=== PATIENT | male | born 1965 | race Caucasian/White ===

== ENCOUNTER → 2016-10-10 | Outpatient (REF) | payer MEDICARE, MEDICAID ==
[~2016-10-10] MED LIST: /AUGM875TA OR; /CARB4TA OR; AMLO5TAB OR; AMLO5TAB2 PO; ATEN25TA PO; CALC1CAP31 PO; CALC500T49 OR; CARB20TAXR PO; ENAL10TA2 OR; FURO40TA2 OR; FURO40TA2 PO; INSUHUMDS SC; INSULANT SC; MULTTAB23 PO; NOVOLOG100 MG/ML SC; PERC5TAB8 OR; PLAV75TA PO; RENATAB5 PO; VITAMIN D50000 UNT OR; ZENP1CAP PO; [UNRECOGNIZED DRUG - CODE] OR; amoxil PO; citracal; zenpep
[2016-10-10 12:43] LABS: MEAN CORPUSCULAR HEMOGLOBIN 32.4 pg (27.0-33.0); MEAN CORPUSCULAR HGB CONC 33.3 g/dl (32.0-36.5); MEAN CORPUSCULAR VOLUME 97.5 fl (80.0-96.0); RED CELL DISTRIBUTION WIDTH 12.7 % (11.5-14.5); WHITE BLOOD COUNT 8.2 K/mm3 (4.0-10.0)
[2016-10-10 13:02] LABS: ALBUMIN 3.6 GM/DL (3.2-5.2); ALBUMIN/GLOBULIN RATIO 1.06 (1.00-1.93); BILIRUBIN,TOTAL 0.3 MG/DL (0.2-1.0); CALCIUM LEVEL 8.3 MG/DL (8.5-10.1); CARBAMAZEPINE (TEGRETOL) LEVEL 8.7 UG/ML (4.0-10.0); CREATININE FOR GFR 3.76 MG/DL (0.70-1.30); POTASSIUM SERUM 4.7 MEQ/L (3.5-5.1)
== END | disposition home or self-care (01) ==
LOC: M SFHCADAM 07:30
PROVIDERS: ATTEND Family Medicine
DX: N18.4 Chronic kidney disease, stage 4 (severe) (principal); E11.51 Type 2 diabetes mellitus with diabetic peripheral angiopathy without gangrene; E11.21 Type 2 diabetes mellitus with diabetic nephropathy; I11.9 Hypertensive heart disease without heart failure; G40.909 Epilepsy, unspecified, not intractable, without status epilepticus; E55.9 Vitamin D deficiency, unspecified

== ENCOUNTER 2016-10-11 16:08 | Emergency (ER) | payer MEDICARE, MEDICAID ==
[~2016-10-11 16:08] MED LIST changes: -PLAV75TA PO; +PLAV75TA38 PO
[2016-10-11] MEDS ORDERED: (RENVELA) SEVELAMER **CARBONate** 800 MG TAB PO ONE (17:15)
[2016-10-11 17:17] LABS: BASO % 0.2 % (0.0-1.0); EOS % 0.3 % (0.0-3.0); LARGE UNSTAINED CELL # 0.1 K/mm3 (0.0-0.4); LARGE UNSTAINED CELL % 0.7 % (0.0-4.0); LYMPH # 0.3 K/mm3 (1.5-4.5); LYMPH % 3.7 % (24.0-44.0); MEAN CORPUSCULAR HEMOGLOBIN 32.1 pg (27.0-33.0); MEAN CORPUSCULAR HGB CONC 33.2 g/dl (32.0-36.5); MEAN CORPUSCULAR VOLUME 96.7 fl (80.0-96.0); MONO # 0.3 K/mm3 (0.0-0.8); MONO % 3.5 % (0.0-5.0); NEUTROPHILS # 7.6 K/mm3 (1.8-7.7); NEUTROPHILS % 91.6 % (36.0-66.0); PLATELET COUNT, AUTOMATED 242 k/mm3 (150-450); RED CELL DISTRIBUTION WIDTH 12.5 % (11.5-14.5); WHITE BLOOD COUNT 8.3 K/mm3 (4.0-10.0)
--- NOTE | 2016-10-11 17:21 | ECGEPIP ---
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
--- NOTE | 2016-10-11 17:24 | REP ---
Clinical: Weakness and fatigue. Comparison: 08/13/2015. Findings: Hilar opacities (right greater than left) are concerning for underlying adenopathy as well as bronchitis and viral pneumonia. No further consolidation, effusion, or pneumothorax. Cardiac silhouette is normal. Skeletal structures intact. Impression: Increased hilar opacities. Differential diagnosis includes viral pneumonia and adenopathy. Chest CT may be warranted for further investigation. Signed by Ayaan Da Silva MD 10/11/2016 05:16 P
[2016-10-11] MEDS ORDERED: PANCRELIPASE PO ONE (17:30)
[2016-10-11 17:35] LABS: ALBUMIN 3.4 GM/DL (3.2-5.2); ALBUMIN/GLOBULIN RATIO 0.92 (1.00-1.93); BILIRUBIN,DIRECT 0.1 MG/DL (0.0-0.2); BILIRUBIN,TOTAL 0.2 MG/DL (0.2-1.0); CALCIUM LEVEL 8.6 MG/DL (8.5-10.1); CARBAMAZEPINE (TEGRETOL) LEVEL 11.6 UG/ML (4.0-10.0); CREATININE FOR GFR 3.63 MG/DL (0.70-1.30); GLOMERULAR FILTRATION RATE 18.8 (>56); POTASSIUM SERUM 4.5 MEQ/L (3.5-5.1); TOTAL PROTEIN 7.1 GM/DL (6.4-8.2)
--- NOTE | 2016-10-11 19:39 | EDDOCDS ---
Nurse's Notes [facility] Name: Brandi Dominguez Age: 51 yrs Sex: Male : 1965 Arrival Date: 10/11/2016 Time: 16:08 Bed 14 Private MD: Diagnosis: Chronic kidney disease, stage 4 (severe);Hypoglycemia, unspecified;Viral pneumonia, unspecified Presentation: 10/11 16:15 Presenting complaint: EMS states: Neighbor gave pt glucagon at home for FSBS 31. On EMS jo3 arrival, FSBS 58. SL initiated and amp D50 administered. FSBS 258. Pt unresponsive on arrival and is now responsive. 18g in RAC. Pt wanted to be transferred to [facility]. Usually signs off on scene. Adult Sepsis Screening: Patient has new or worsening altered mentation (1 point). Patient's respiratory rate is less than 22. Suicide/Homicide risk assessment- the patient denies having any suicidal and/or homicidal ideations and does not present with any other emotional, behavioral or mental health complaints. 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 Transition of care: patient was not received from another setting of care. 16:15 Acuity: OUSMANE Level 3 jo3 16:15 Method Of Arrival: Ambulance jo3 19:25 Adult Sepsis Screening: Systolic blood pressure is greater than 100. Patient has a tm5 qSOFA score of 0- Negative Sepsis Screen. Triage Assessment: 16:29 General: Appears in no apparent distress, Behavior is cooperative, drowsy. HIV jo3 screening NA for this visit Offered previously. Neurological: Level of Consciousness is awake, alert, Oriented to person, place, time. Cardiovascular: Dialysis graft to left arm. Good Bruit/thrill. Respiratory: Airway is patent Respiratory effort is even, unlabored. Derm: Skin is pink, warm & dry. 19:38 Pain: Denies pain. tm5 Historical: - Allergies: no known allergies; - Home Meds: 1. amlodipine 5 mg Oral tab 1 tab twice a day 2. atenolol 25 mg Oral tab 1 tab once daily 3. humalog sliding scale 4. hydralazine 50 mg Oral tab 2 tab 2 times per day 5. Lantus 100 unit/mL Sub-Q crtg 35 unit daily 6. Lasix 40 mg Oral tab 2 tabs 2 tabs in am and 1 tab in josef 7. Plavix 75 mg Oral tab 1 tab once daily 8. Karli-Nigel 0.8 mg oral tab daily 9. Tegretol XR 400 mg Oral Tb12 1 tab twice a day 10. Vitamin D Oral [address]40 unit weekly 11. calcitrol 0.25mcg 2 tab daily 12. Renvela 800 mg oral tab 4 tabs four times a day 13. Glucagon Emergency Kit (human) 1 mg IM kit as needed - PMHx: accidental drug overdose; concussion with LOC; Diabetes - IDDM: uncontrolled; Epilepsy; Hypertension; nasal bone fracture; Pancreatitis; Renal Failure w/o Dialysis; Renal Failure with Dialysis; - PSHx: eye surgery; AV Fistula- Left arm; - Family history: Not pertinent. - Social history: Smoking status: Patient uses tobacco products, light tobacco smoker. No barriers to communication noted. - : The pt / caregiver states he / she is on anticoagulants: The pt / caregiver states he / she is on anticoagulants: Plavix. Note Medications confirmed by [facility]. - Exposure Risk Screening:: None identified. Screenin:55 Screening information is obtained from the patient. Fall risk: No risks identified. jo3 Assistance ADL's: requires no assistance with activities of daily living. Abuse/DV Screen: The patient / caregiver reports he/she is: not in a situation that causes fear, pain or injury. Nutritional screening: On diabetic diet. Advance Directives: There is. home support is adequate. Assessment: 16:32 Reassessment: see triage assessment . jo3 17:05 General: Appears in no apparent distress, comfortable, Behavior is appropriate for age, jo3 cooperative. Neurological: Level of Consciousness is awake, alert. Respiratory: Airway is patent Respiratory effort is even, unlabored. Derm: Skin is pink, warm & dry. 18:00 General: Appears in no apparent distress, comfortable, Behavior is cooperative. jo3 General: Dinner consumed at this time. Continuing to monitor with friend at bedside . Neurological: Level of Consciousness is awake, alert, Oriented to person, place, time. 18:53 General: Appears in no apparent distress, comfortable, Behavior is appropriate for age, jo3 cooperative, restless. General: Awake and alert at this time. Awaiting results and f/u FASB at 1920 for disposition. Aware of plan of care. Pt has consumed macaroni and cheese and broccoli as well as 2 box lunches . Neurological: No deficits noted. Respiratory: Airway is patent Respiratory effort is even, unlabored. 19:23 Reassessment: Patient appears in no apparent distress at this time. Patient denies pain tm5 at this time. Patient states feeling better. Patient states symptoms have improved. PT ASKING TO GO HOME AT THIS TIME, TOLD HIM HE NEEDED TO WAIT FOR VACUUM KETTLE COOK TO DISCHARGE HIM, PT GETTING DRESSED & FAMILY AWAITS WITH PT . Vital Signs: 16:24 BP 180 / 79; Pulse 65; Resp 20; Temp 97.1(TE); Pulse Ox 97% ; Weight 65.77 kg; Pain jlf 0/10; 19:23 BP 168 / 72; Pulse 87; Resp 18; Temp 98.9(O); Pulse Ox 99% on R/A; Pain 0/10; tm5 Vitals: 16:29 Log In Time N/A - ambulance arrival. jo3 ED Course: 16:10 Patient visited by Abril Warren, Complaint Inspector. lbd 16:10 Patient moved to Waiting lbd 16:11 Patient moved to 14 lbd 16:20 Triage Initiated jo3 16:21 Patient visited by Floresita Atkinson,MIA. jo3 16:24 Patient visited by Ihsan Hyde PCA. jlf 16:24 Patient visited by Ihsan Hyde PCA. jlf 16:26 [facility] le 16:34 Patient visited by Nikia Canada FNP. le 16:34 Patient visited by Floresita Atkinson RN. jo3 16:37 Patient visited by Nikia Canada FNP. le 17:05 Patient visited by Floresita Atkinson RN. jo3 17:06 Patient visited by Sherita Kulkarni PCA. ls3 17:06 EKG done. (by ED staff). Reviewed by Nikia MURILLO. ls3 17:15 Maintain field IV. Dressing intact. Good blood return noted. Site clean & dry. Gauge & jo3 site: 18g in RAC. 17:26 [facility] [place] Payment Agreement was scanned into [employer] and attached to record. zo 18:01 Patient visited by Floresita Atkinson RN. jo3 18:06 EKG-ADULT Returned. EDMS 18:12 Chest, 2 View (pa\E\lat) Returned. EDMS 18:16 Patient visited by Floresita Atkinson,MIA. jo3 18:43 Patient visited by Ihsan Hyde PCA. jlf 18:43 Urine Culture Sent. jlf 18:43 UA Sent. jlf 18:55 The patient / caregiver is instructed regarding the plan of care and ED course. jo3 18:56 Patient visited by Floresita Atkinson RN. jo3 19:07 Patient visited by Landy Salazar RN. tm5 19:07 Report received from Floresita BELLAMY, assumed care of pt at this time. tm5 19:18 Patient visited by Landy Salazar RN. tm5 19:18 Notified nurse practitioner of 149 BLOOD GLUCOSE & PT ASKING TO GO HOME. tm5 19:22 Patient visited by Landy Salazar RN. tm5 19:22 Discontinued lock intact, bleeding controlled, pressure dressing applied, No tm5 redness/swelling at site. 19:23 No procedures done that require assistance. tm5 19:24 Fingerstick Blood Sugar Sent. tm5 19:28 Freddy Schulz MD is Referral Physician. le 19:29 Meet Mosqueda MD is Referral Physician. le 19:37 Patient visited by Landy Salazar RN. tm5 Administered Medications: 17:50 Drug: Renvela 3200 mg Route: PO; jo3 19:24 Follow up: Response: No Adverse Reaction tm5 17:50 Drug: Zenpep Delayed Release Capsule 10,000-34,000-55,000 unit 3 caps Route: PO; jo3 19:24 Follow up: Response: No Adverse Reaction tm5 Point of Care Testing: Blood Glucose: 19:18 Blood Glucose: 149 mg/dL; tm5 Ranges: Order Results: Lab Order: Fingerstick Blood Sugar; SPEC'M 10/11/16 16:30 Test: BEDSIDE GLUCOSE; Value: 368; Range: 70-105; Abnormal: Above high normal; Units: MG/DL; Status: F Lab Order: CBC with Diff; SPEC'M 10/11/16 16:59 Test: WHITE BLOOD COUNT; Value: 8.3; Range: 4.0-10.0; Units: K/mm3; Status: F Test: RED BLOOD COUNT; Value: 3.36; Range: 4.30-6.10; Abnormal: Below low normal; Units: M/mm3; Status: F Test: HEMOGLOBIN; Value: 10.8; Range: 14.0-18.0; Abnormal: Below low normal; Units: g/dl; Status: F Test: HEMATOCRIT; Value: 32.5; Range: 42.0-52.0; Abnormal: Below low normal; Units: %; Status: F Test: MEAN CORPUSCULAR VOLUME; Value: 96.7; Range: 80.0-96.0; Abnormal: Above high normal; Units: fl; Status: F Test: MEAN CORPUSCULAR HEMOGLOBIN; Value: 32.1; Range: 27.0-33.0; Units: pg; Status: F Test: MEAN CORPUSCULAR HGB CONC; Value: 33.2; Range: 32.0-36.5; Units: g/dl; Status: F Test: RED CELL DISTRIBUTION WIDTH; Value: 12.5; Range: 11.5-14.5; Units: %; Status: F Test: PLATELET COUNT, AUTOMATED; Value: 242; Range: 150-450; Units: k/mm3; Status: F Test: NEUTROPHILS %; Value: 91.6; Range: 36.0-66.0; Abnormal: Above high normal; Units: %; Status: F Test: LYMPH %; Value: 3.7; Range: 24.0-44.0; Abnormal: Below low normal; Units: %; Status: F Test: MONO %; Value: 3.5; Range: 0.0-5.0; Units: %; Status: F Test: EOS %; Value: 0.3; Range: 0.0-3.0; Units: %; Status: F Test: BASO %; Value: 0.2; Range: 0.0-1.0; Units: %; Status: F Test: LARGE UNSTAINED CELL %; Value: 0.7; Range: 0.0-4.0; Units: %; Status: F Test: NEUTROPHILS #; Value: 7.6; Range: 1.8-7.7; Units: K/mm3; Status: F Test: LYMPH #; Value: 0.3; Range: 1.5-4.5; Abnormal: Below low normal; Units: K/mm3; Status: F Test: MONO #; Value: 0.3; Range: 0.0-0.8; Units: K/mm3; Status: F Test: EOS #; Value: 0.0; Range: 0.0-0.50; Units: K/mm3; Status: F Test: BASO #; Value: 0.0; Range: 0.0-0.2; Units: K/mm3; Status: F Test: LARGE UNSTAINED CELL #; Value: 0.1; Range: 0.0-0.4; Units: K/mm3; Status: F Lab Order: BMP; SPEC'M 10/11/16 16:59 Test: GLUCOSE, FASTING; Value: 100; Range: 70-105; Units: MG/DL; Status: F Test: BLOOD UREA NITROGEN; Value: 86; Range: 7-18; Abnormal: Above high normal; Units: MG/DL; Status: F Test: CREATININE FOR GFR; Value: 3.63; Range: 0.70-1.30; Abnormal: Above high normal; Units: MG/DL; Status: F Test: GLOMERULAR FILTRATION RATE; Value: 18.8; Range: >56; Abnormal: Below low normal; Status: F Test: SODIUM LEVEL; Value: 142; Range: 136-145; Units: MEQ/L; Status: F Test: POTASSIUM SERUM; Value: 4.5; Range: 3.5-5.1; Units: MEQ/L; Status: F Test: CHLORIDE LEVEL; Value: 107; Range: 98-107; Units: MEQ/L; Status: F Test: CARBON DIOXIDE LEVEL; Value: 27; Range: 21-32; Units: MEQ/L; Status: F Test: ANION GAP; Value: 8; Range: 8-16; Units: MEQ/L; Status: F Test: CALCIUM LEVEL; Value: 8.6; Range: 8.5-10.1; Units: MG/DL; Status: F Test Note: ; Units are mL/min/1.73 m2 Chronic Kidney Disease Staging per NKF: Stage I & II GFR >=60 Normal to Mildly Decreased Stage III GFR 30-59 Moderately Decreased Stage IV GFR 15-29 Severely Decreased Stage V GFR <15 Very Little GFR Left ESRD GFR <15 on FISH 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 Lab Order: UA; SPEC'M 10/11/16 18:42 Test: APPEARANCE, URINE; Value: CLEAR; Range: CLEAR; Status: F Test: COLOR, URINE; Value: YELLOW; Range: YELLOW; Status: F Test: PH,URINE; Value: 5.0; Range: 5.0-9.0; Units: UNITS; Status: F Test: SPECIFIC GRAVITY URINE AUTO; Value: 1.008; Range: 1.002-1.035; Status: F Test: PROTEIN, URINE AUTO; Value: 2+; Range: NEGATIVE; Abnormal: Above high normal; Units: mg/dL; Status: F Test: GLUCOSE, URINE (UA) AUTO; Value: 1+; Range: NEGATIVE; Abnormal: Above high normal; Units: mg/dL; Status: F Test: KETONE, URINE AUTO; Value: NEGATIVE; Range: NEGATIVE; Units: mg/dL; Status: F Test: UROBILINOGEN, URINE AUTO; Value: 0.2; Range: 0.0-2.0; Units: mg/dL; Status: F Test: BILIRUBIN, URINE AUTO; Value: NEGATIVE; Range: NEGATIVE; Status: F Test: NITRITE, URINE AUTO; Value: NEGATIVE; Range: NEGATIVE; Status: F Test: LEUKOCYTE ESTERASE, URINE AUTO; Value: NEGATIVE; Range: NEGATIVE; Status: F Test: BLOOD, URINE BLOOD; Value: NEGATIVE; Range: NEGATIVE; Status: F Test: WBC, URINE AUTO; Value: 0; Range: 0-3; Units: /HPF; Status: F Test: RBC, URINE AUTO; Value: 1; Range: 0-3; Units: /HPF; Status: F Test: BACTERIA, URINE AUTO; Value: NEGATIVE; Range: NEGATIVE; Status: F Test: SQUAMOUS EPITHELIAL CELL UR AU; Value: 0; Range: 0-6; Units: /HPF; Status: F Test: MUCUS, URINE; Value: SMALL; Range: NEGATIVE; Status: F Test: HYALINE CAST, URINE AUTO; Value: 0; Range: 0-1; Units: /LPF; Status: F Lab Order: LIVER PROFILE; SPEC'M 10/11/16 16:59 Test: AST/SGOT; Value: 37; Range: 15-37; Units: U/L; Status: F Test: ALT/SGPT; Value: 41; Range: 12-78; Units: U/L; Status: F Test: ALKALINE PHOSPHATASE; Value: 122; Range: 45-117; Abnormal: Above high normal; Units: U/L; Status: F Test: BILIRUBIN,TOTAL; Value: 0.2; Range: 0.2-1.0; Units: MG/DL; Status: F Test: BILIRUBIN,DIRECT; Value: 0.1; Range: 0.0-0.2; Units: MG/DL; Status: F Test: TOTAL PROTEIN; Value: 7.1; Range: 6.4-8.2; Units: GM/DL; Status: F Test: ALBUMIN; Value: 3.4; Range: 3.2-5.2; Units: GM/DL; Status: F Test: ALBUMIN/GLOBULIN RATIO; Value: 0.92; Range: 1.00-1.93; Abnormal: Below low normal; Status: F Lab Order: CARBAMAZEPINE (TEGRETOL) LEVEL; SPEC'M 10/11/16 16:59 Test: CARBAMAZEPINE (TEGRETOL) LEVEL; Value: 11.6; Range: 4.0-10.0; Abnormal: Above high normal; Units: UG/ML; Status: F Lab Order: Fingerstick Blood Sugar; SPEC'M 10/11/16 19:17 Test: BEDSIDE GLUCOSE; Value: 149; Range: 70-105; Abnormal: Above high normal; Units: MG/DL; Status: F Test Note: ; Doctor Notified Radiology Order: Chest, 2 View (pa\E\lat) Test: Chest, 2 View (pa\E\lat) REASON FOR EXAMINATION: fatigue, weakness; Clinical: Weakness and fatigue.; ; Comparison: 08/13/2015.; ; Findings:; Hilar opacities (right greater than left) are concerning for underlying; adenopathy as well as bronchitis and viral pneumonia. No further consolidation,; effusion, or pneumothorax. Cardiac silhouette is normal. Skeletal structures; intact.; ; Impression:; Increased hilar opacities. Differential diagnosis includes viral pneumonia and; adenopathy. 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 tm5 19:29 Discharge ordered by Provider. le 19:37 Discharge Assessment: Patient awake, alert and oriented x 3. No cognitive and/or tm5 functional deficits noted. Patient verbalized understanding of disposition instructions. patient administered narcotics - no. The following High Risk Discharge criteria are identified: None. Discharged to home ambulatory, with family. Condition: good Condition: stable Condition: improved. Discharge instructions given to patient, Instructed on discharge instructions, follow up and referral plans. Demonstrated understanding of instructions. Property :Personal belongings accompany Pt. 19:38 Patient left the ED. tm5 Signatures: Dispatcher [employer] EDMS Abril Warren, Complaint Inspector Unit lbd Floresita Atkinson,RN RN chase3 Etelvina Leonardo Lisa, FNP FNP le [place], Jennifer, RN RN carl4 Ihsan Hyde, ADMINISTRATIVE SPECIALIST ADMINISTRATIVE SPECIALIST gueritaf Sherita Kulkarni, ADMINISTRATIVE SPECIALIST ADMINISTRATIVE SPECIALIST ls3 Landy Salazar,RN RN tm5 Corrections: (The following items were deleted from the chart) 17:02 16:29 Home Meds: calcitrol 0.25mcg daily; genet aldana MTDD
--- NOTE | 2016-10-11 19:39 | EDDOCDS ---
Physician Documentation [facility] Name: Ernesto Jones Age: 51 yrs Sex: Male : 1965 Arrival Date: 10/11/2016 Time: 16:08 Bed 14 Private MD: Disposition: 10/11 19:31 Critical Care: Critical care not applicable. le Disposition: 10/11/16 19:29 Discharged to Home/Self Care. Impression: Chronic kidney disease, stage 4 (severe), Hypoglycemia, unspecified, Viral pneumonia, unspecified. - Condition is Stable. - Discharge Instructions: Blood Glucose Monitoring, Adult, Antibiotic Resistance, Hypoglycemia, Pneumonia, Adult, Chronic Kidney Disease. - Medication Reconciliation, Local Pharmacy Hours form. - Follow up: Freddy Schulz MD; When: Call to arrange an appointment; Reason: Recheck today's complaints, Continuance of care. Follow up: Meet Mosqueda MD; When: Call to arrange an appointment; Reason: Recheck today's complaints, Continuance of care. - Problem is an acute exacerbation. - Symptoms are resolved. - Notes: Return to the ED for any further concerns Historical: - Allergies: no known allergies; - Home Meds: 1. amlodipine 5 mg Oral tab 1 tab twice a day 2. atenolol 25 mg Oral tab 1 tab once daily 3. humalog sliding scale 4. hydralazine 50 mg Oral tab 2 tab 2 times per day 5. Lantus 100 unit/mL Sub-Q crtg 35 unit daily 6. Lasix 40 mg Oral tab 2 tabs 2 tabs in am and 1 tab in josef 7. Plavix 75 mg Oral tab 1 tab once daily 8. Karli-Nigel 0.8 mg oral tab daily 9. Tegretol XR 400 mg Oral Tb12 1 tab twice a day 10. Vitamin D Oral 29187 unit weekly 11. calcitrol 0.25mcg 2 tab daily 12. Renvela 800 mg oral tab 4 tabs four times a day 13. Glucagon Emergency Kit (human) 1 mg IM kit as needed - PMHx: accidental drug overdose; concussion with LOC; Diabetes - IDDM: uncontrolled; Epilepsy; Hypertension; nasal bone fracture; Pancreatitis; Renal Failure w/o Dialysis; Renal Failure with Dialysis; - PSHx: eye surgery; AV Fistula- Left arm; - Family history: Not pertinent. - Social history: Smoking status: Patient uses tobacco products, light tobacco smoker. No barriers to communication noted. - : The pt / caregiver states he / she is on anticoagulants: The pt / caregiver states he / she is on anticoagulants: Plavix. Note Medications confirmed by [facility]. - Exposure Risk Screening:: None identified. Vital Signs: 16:24 BP 180 / 79; Pulse 65; Resp 20; Temp 97.1(TE); Pulse Ox 97% ; Weight 65.77 kg / 145 jlf lbs; Pain 0/10; 19:23 BP 168 / 72; Pulse 87; Resp 18; Temp 98.9(O); Pulse Ox 99% on R/A; Pain 0/10; tm5 MDM: 16:38 Fingerstick Blood Sugar Ordered. EDMS 16:48 Accucheck hourly ordered. le 16:48 CONSISTENT CARBOHYDRATE+DIET ordered. EDMS 16:50 CBC with Diff Ordered. EDMS 16:50 BMP Ordered. EDMS 16:50 UA Ordered. EDMS 16:50 Urine Culture Ordered. EDMS 16:50 Chest, 2 View (pa\E\lat) Ordered. EDMS 16:50 ECG WITH READING ER PHYS+CARDIAG ordered. EDMS 16:59 LIVER PROFILE Ordered. EDMS 16:59 CARBAMAZEPINE (TEGRETOL) LEVEL Ordered. EDMS 17:06 Renvela 3200 mg PO once; must administer with a meal/food; swallow whole; do not crush, jc4 chew, break, or cut ordered. 17:24 Zenpep Delayed Release Capsule 10,000-34,000-55,000 unit 3 caps PO once; administer jo3 during a snack; do not crush/chew ; swallow whole OR open/sprinkle on food; DNExceed 10,000 units/kg lipase/24 hrs ordered. 17:26 Financial registration complete. zo 17:26 [facility] [place] Payment Agreement was scanned into [employer] and attached to record. zo 19:24 Fingerstick Blood Sugar Ordered. EDMS 19:24 Fingerstick Blood Sugar Reviewed. le 19:24 CBC with Diff Reviewed. le 19:24 BMP Reviewed. le 19:24 UA Reviewed. le 19:24 LIVER PROFILE Reviewed. le 19:24 CARBAMAZEPINE (TEGRETOL) LEVEL Reviewed. le 19:24 Chest, 2 View (pa\E\lat) Reviewed. le 19:24 EKG-ADULT Reviewed. le 19:30 Fingerstick Blood Sugar Reviewed. le Point of Care Testing: Blood Glucose: 19:18 Blood Glucose: 149 mg/dL; tm5 Ranges: Administered Medications: 17:50 Drug: Renvela 3200 mg Route: PO; jo3 19:24 Follow up: Response: No Adverse Reaction tm5 17:50 Drug: Zenpep Delayed Release Capsule 10,000-34,000-55,000 unit 3 caps Route: PO; jo3 19:24 Follow up: Response: No Adverse Reaction tm5 Signatures: Dispatcher [employer] EDMS Floresita Atkinson,RN RN jo3 Etelvina Leonardo Lisa, FNP FNP [place], Jennifer, MIA RN jc4 Landy SalazarRN RN tm5 The chart was reviewed and I authenticate all verbal orders and agree with the evaluation and treatment provided.Corrections: (The following items were deleted from the chart) 16:59 16:51 CARBAMAZEPINE (TEGRETOL) LEVEL+LAB ordered. EDMS EDMS 16:59 16:54 LIVER PROFILE+LAB ordered. EDMS EDMS 17:02 16:29 Home Meds: calcitrol 0.25mcg daily; jo3 jc4 Attachments: 17:26 [facility] [place] Payment Agreement zo MTDD
--- NOTE | 2016-10-13 20:39 | EDDOCDS ---
Physician Documentation [facility] Name: Ernesto Jones Age: 51 yrs Sex: Male : 1965 Arrival Date: 10/11/2016 Time: 16:08 Bed 14 Private MD: Disposition: 10/11 19:31 Critical Care: Critical care not applicable. le Disposition: 10/11/16 19:29 Discharged to Home/Self Care. Impression: Chronic kidney disease, stage 4 (severe), Hypoglycemia, unspecified, Viral pneumonia, unspecified. - Condition is Stable. - Discharge Instructions: Blood Glucose Monitoring, Adult, Antibiotic Resistance, Hypoglycemia, Pneumonia, Adult, Chronic Kidney Disease. - Medication Reconciliation, Local Pharmacy Hours form. - Follow up: Freddy Schulz MD; When: Call to arrange an appointment; Reason: Recheck today's complaints, Continuance of care. Follow up: Meet Mosqueda MD; When: Call to arrange an appointment; Reason: Recheck today's complaints, Continuance of care. - Problem is an acute exacerbation. - Symptoms are resolved. - Notes: Return to the ED for any further concerns Historical: - Allergies: no known allergies; - Home Meds: 1. amlodipine 5 mg Oral tab 1 tab twice a day 2. atenolol 25 mg Oral tab 1 tab once daily 3. humalog sliding scale 4. hydralazine 50 mg Oral tab 2 tab 2 times per day 5. Lantus 100 unit/mL Sub-Q crtg 35 unit daily 6. Lasix 40 mg Oral tab 2 tabs 2 tabs in am and 1 tab in josef 7. Plavix 75 mg Oral tab 1 tab once daily 8. Karli-Nigel 0.8 mg oral tab daily 9. Tegretol XR 400 mg Oral Tb12 1 tab twice a day 10. Vitamin D Oral 61369 unit weekly 11. calcitrol 0.25mcg 2 tab daily 12. Renvela 800 mg oral tab 4 tabs four times a day 13. Glucagon Emergency Kit (human) 1 mg IM kit as needed - PMHx: accidental drug overdose; concussion with LOC; Diabetes - IDDM: uncontrolled; Epilepsy; Hypertension; nasal bone fracture; Pancreatitis; Renal Failure w/o Dialysis; Renal Failure with Dialysis; - PSHx: eye surgery; AV Fistula- Left arm; - Family history: Not pertinent. - Social history: Smoking status: Patient uses tobacco products, light tobacco smoker. No barriers to communication noted. - : The pt / caregiver states he / she is on anticoagulants: The pt / caregiver states he / she is on anticoagulants: Plavix. Note Medications confirmed by [facility]. - Exposure Risk Screening:: None identified. Vital Signs: 16:24 BP 180 / 79; Pulse 65; Resp 20; Temp 97.1(TE); Pulse Ox 97% ; Weight 65.77 kg / 145 jlf lbs; Pain 0/10; 19:23 BP 168 / 72; Pulse 87; Resp 18; Temp 98.9(O); Pulse Ox 99% on R/A; Pain 0/10; tm5 MDM: 16:38 Fingerstick Blood Sugar Ordered. EDMS 16:48 Accucheck hourly ordered. le 16:48 CONSISTENT CARBOHYDRATE+DIET ordered. EDMS 16:50 CBC with Diff Ordered. EDMS 16:50 BMP Ordered. EDMS 16:50 UA Ordered. EDMS 16:50 Urine Culture Ordered. EDMS 16:50 Chest, 2 View (pa\E\lat) Ordered. EDMS 16:50 ECG WITH READING ER PHYS+CARDIAG ordered. EDMS 16:59 LIVER PROFILE Ordered. EDMS 16:59 CARBAMAZEPINE (TEGRETOL) LEVEL Ordered. EDMS 17:06 Renvela 3200 mg PO once; must administer with a meal/food; swallow whole; do not crush, jc4 chew, break, or cut ordered. 17:24 Zenpep Delayed Release Capsule 10,000-34,000-55,000 unit 3 caps PO once; administer jo3 during a snack; do not crush/chew ; swallow whole OR open/sprinkle on food; DNExceed 10,000 units/kg lipase/24 hrs ordered. 17:26 Financial registration complete. zo 17:26 [facility] Payment Agreement was scanned into e[employer] and attached to record. zo 19:24 Fingerstick Blood Sugar Ordered. EDMS 19:24 Fingerstick Blood Sugar Reviewed. le 19:24 CBC with Diff Reviewed. le 19:24 BMP Reviewed. le 19:24 UA Reviewed. le 19:24 LIVER PROFILE Reviewed. le 19:24 CARBAMAZEPINE (TEGRETOL) LEVEL Reviewed. le 19:24 Chest, 2 View (pa\E\lat) Reviewed. le 19:24 EKG-ADULT Reviewed. le 19:30 Fingerstick Blood Sugar Reviewed. le 10/12 08:16 T-Sheet-- Draft Copy was scanned into eF[employer] and attached to record. [facility] 11:11 ECG/EKG was scanned into [employer] and attached to record. 10/13 16:56 PCR was scanned into [employer] and attached to record. klr Point of Care Testing: Blood Glucose: 10/11 19:18 Blood Glucose: 149 mg/dL; tm5 Ranges: Administered Medications: 17:50 Drug: Renvela 3200 mg Route: PO; jo3 19:24 Follow up: Response: No Adverse Reaction tm5 17:50 Drug: Zenpep Delayed Release Capsule 10,000-34,000-55,000 unit 3 caps Route: PO; jo3 19:24 Follow up: Response: No Adverse Reaction tm5 Signatures: Dispatcher [employer] EDMS Yumiko Aguilar, Reg Reg Floresita Escalante,RN RN jo3 Etelvina Leonardo Lisa, ROTARY DRUM TANNER ROTARY DRUM TANNER Floresita Nunn, RN RN jc4 Jennifer Schmidt Kathie klr Matice, Tonya,RN RN tm5 The chart was reviewed and I authenticate all verbal orders and agree with the evaluation and treatment provided.Corrections: (The following items were deleted from the chart) 16:59 16:51 CARBAMAZEPINE (TEGRETOL) LEVEL+LAB ordered. EDMS EDMS 16:59 16:54 LIVER PROFILE+LAB ordered. EDMS EDMS 17:02 16:29 Home Meds: calcitrol 0.25mcg daily; genet jc4 Attachments: 17:26 [facility] Payment Agreement zo 10/12 08:16 T-Sheet-- Draft Copy [facility] 11:11 ECG/EKG Chart Complete MTDD
--- NOTE | 2016-10-13 20:39 | EDDOCDS ---
Nurse's Notes [facility] Name: Brandi Jones Age: 51 yrs Sex: Male : 1965 Arrival Date: 10/11/2016 Time: 16:08 Bed 14 Private MD: Diagnosis: Chronic kidney disease, stage 4 (severe);Hypoglycemia, unspecified;Viral pneumonia, unspecified Presentation: 10/11 16:15 Presenting complaint: EMS states: Neighbor gave pt glucagon at home for FSBS 31. On EMS jo3 arrival, FSBS 58. SL initiated and amp D50 administered. FSBS 258. Pt unresponsive on arrival and is now responsive. 18g in RAC. Pt wanted to be transferred to [facility]. Usually signs off on scene. Adult Sepsis Screening: Patient has new or worsening altered mentation (1 point). Patient's respiratory rate is less than 22. Suicide/Homicide risk assessment- the patient denies having any suicidal and/or homicidal ideations and does not present with any other emotional, behavioral or mental health complaints. Status: Patient is not a dental services director or dependent. Transition of care: patient was not received from another setting of care. 16:15 Acuity: OUSMANE Level 3 jo3 16:15 Method Of Arrival: Ambulance jo3 19:25 Adult Sepsis Screening: Systolic blood pressure is greater than 100. Patient has a tm5 qSOFA score of 0- Negative Sepsis Screen. Triage Assessment: 16:29 General: Appears in no apparent distress, Behavior is cooperative, drowsy. HIV jo3 screening NA for this visit Offered previously. Neurological: Level of Consciousness is awake, alert, Oriented to person, place, time. Cardiovascular: Dialysis graft to left arm. Good Bruit/thrill. Respiratory: Airway is patent Respiratory effort is even, unlabored. Derm: Skin is pink, warm & dry. 19:38 Pain: Denies pain. tm5 Historical: - Allergies: no known allergies; - Home Meds: 1. amlodipine 5 mg Oral tab 1 tab twice a day 2. atenolol 25 mg Oral tab 1 tab once daily 3. humalog sliding scale 4. hydralazine 50 mg Oral tab 2 tab 2 times per day 5. Lantus 100 unit/mL Sub-Q crtg 35 unit daily 6. Lasix 40 mg Oral tab 2 tabs 2 tabs in am and 1 tab in josef 7. Plavix 75 mg Oral tab 1 tab once daily 8. Karli-Nigel 0.8 mg oral tab daily 9. Tegretol XR 400 mg Oral Tb12 1 tab twice a day 10. Vitamin D Oral 80451 unit weekly 11. calcitrol 0.25mcg 2 tab daily 12. Renvela 800 mg oral tab 4 tabs four times a day 13. Glucagon Emergency Kit (human) 1 mg IM kit as needed - PMHx: accidental drug overdose; concussion with LOC; Diabetes - IDDM: uncontrolled; Epilepsy; Hypertension; nasal bone fracture; Pancreatitis; Renal Failure w/o Dialysis; Renal Failure with Dialysis; - PSHx: eye surgery; AV Fistula- Left arm; - Family history: Not pertinent. - Social history: Smoking status: Patient uses tobacco products, light tobacco smoker. No barriers to communication noted. - : The pt / caregiver states he / she is on anticoagulants: The pt / caregiver states he / she is on anticoagulants: Plavix. Note Medications confirmed by [facility]. - Exposure Risk Screening:: None identified. Screenin:55 Screening information is obtained from the patient. Fall risk: No risks identified. jo3 Assistance ADL's: requires no assistance with activities of daily living. Abuse/DV Screen: The patient / caregiver reports he/she is: not in a situation that causes fear, pain or injury. Nutritional screening: On diabetic diet. Advance Directives: There is. home support is adequate. Assessment: 16:32 Reassessment: see triage assessment . jo3 17:05 General: Appears in no apparent distress, comfortable, Behavior is appropriate for age, jo3 cooperative. Neurological: Level of Consciousness is awake, alert. Respiratory: Airway is patent Respiratory effort is even, unlabored. Derm: Skin is pink, warm & dry. 18:00 General: Appears in no apparent distress, comfortable, Behavior is cooperative. jo3 General: Dinner consumed at this time. Continuing to monitor with friend at bedside . Neurological: Level of Consciousness is awake, alert, Oriented to person, place, time. 18:53 General: Appears in no apparent distress, comfortable, Behavior is appropriate for age, jo3 cooperative, restless. General: Awake and alert at this time. Awaiting results and f/u FASB at 1920 for disposition. Aware of plan of care. Pt has consumed macaroni and cheese and broccoli as well as 2 box lunches . Neurological: No deficits noted. Respiratory: Airway is patent Respiratory effort is even, unlabored. 19:23 Reassessment: Patient appears in no apparent distress at this time. Patient denies pain tm5 at this time. Patient states feeling better. Patient states symptoms have improved. 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 Vital Signs: 16:24 BP 180 / 79; Pulse 65; Resp 20; Temp 97.1(TE); Pulse Ox 97% ; Weight 65.77 kg; Pain jlf 0/10; 19:23 BP 168 / 72; Pulse 87; Resp 18; Temp 98.9(O); Pulse Ox 99% on R/A; Pain 0/10; tm5 Vitals: 16:29 Log In Time N/A - ambulance arrival. jo3 ED Course: 16:10 Patient visited by Abril Warren, Quality Control Industrial Engineer. lbd 16:10 Patient moved to Waiting lbd 16:11 Patient moved to 14 lbd 16:20 Triage Initiated jo3 16:21 Patient visited by Floresita Atkinson,MIA. jo3 16:24 Patient visited by Ihsan Hyde PCA. jlf 16:24 Patient visited by Ihsan Hyde PCA. jlf 16:26 Nikia Canada FNP [facility]. le 16:34 Patient visited by Nikia Canada FNP. le 16:34 Patient visited by Floresita Atkinson RN. jo3 16:37 Patient visited by Nikia Canada FNP. le 17:05 Patient visited by Floresita Atkinson RN. jo3 17:06 Patient visited by Sherita Kulkarni PCA. ls3 17:06 EKG done. (by ED staff). Reviewed by Nikia MURILLO. ls3 17:15 Maintain field IV. Dressing intact. Good blood return noted. Site clean & dry. Gauge & jo3 site: 18g in RAC. 17:26 [facility] Payment Agreement was scanned into [employer] and attached to record. zo 18:01 Patient visited by Floresita Atkinson RN. jo3 18:06 EKG-ADULT Returned. EDMS 18:12 Chest, 2 View (pa\E\lat) Returned. EDMS 18:16 Patient visited by Floresita Atkinson,MIA. jo3 18:43 Patient visited by Ihsan Hyde PCA. jlf 18:43 Urine Culture Sent. jlf 18:43 UA Sent. jlf 18:55 The patient / caregiver is instructed regarding the plan of care and ED course. jo3 18:56 Patient visited by Floresita Atkinson RN. jo3 19:07 Patient visited by Landy Salazar RN. tm5 19:07 Report received from Floresita BELLAMY, assumed care of pt at this time. tm5 19:18 Patient visited by Landy Salazar RN. tm5 19:18 Notified nurse practitioner of 149 BLOOD GLUCOSE & PT ASKING TO GO HOME. tm5 19:22 Patient visited by Landy Salazar RN. tm5 19:22 Discontinued lock intact, bleeding controlled, pressure dressing applied, No tm5 redness/swelling at site. 19:23 No procedures done that require assistance. tm5 19:24 Fingerstick Blood Sugar Sent. tm5 19:28 Freddy Schulz MD is Referral Physician. le 19:29 Meet Mosqueda MD is Referral Physician. le 19:37 Patient visited by Landy Salazar RN. tm5 10/12 08:16 T-Sheet-- Draft Copy was scanned into [employer] and attached to record. se 11:11 ECG/EKG was scanned into [employer] and attached to record. gb 10/13 16:56 PCR was scanned into [employer] and attached to record. klr Administered Medications: 10/11 17:50 Drug: Renvela 3200 mg Route: PO; jo3 19:24 Follow up: Response: No Adverse Reaction tm5 17:50 Drug: Zenpep Delayed Release Capsule 10,000-34,000-55,000 unit 3 caps Route: PO; jo3 19:24 Follow up: Response: No Adverse Reaction tm5 Point of Care Testing: Blood Glucose: 19:18 Blood Glucose: 149 mg/dL; tm5 Ranges: Order Results: Lab Order: Fingerstick Blood Sugar; SPEC'M 10/11/16 16:30 Test: BEDSIDE GLUCOSE; Value: 368; Range: 70-105; Abnormal: Above high normal; Units: MG/DL; Status: F Lab Order: CBC with Diff; SPEC'M 10/11/16 16:59 Test: WHITE BLOOD COUNT; Value: 8.3; Range: 4.0-10.0; Units: K/mm3; Status: F Test: RED BLOOD COUNT; Value: 3.36; Range: 4.30-6.10; Abnormal: Below low normal; Units: M/mm3; Status: F Test: HEMOGLOBIN; Value: 10.8; Range: 14.0-18.0; Abnormal: Below low normal; Units: g/dl; Status: F Test: HEMATOCRIT; Value: 32.5; Range: 42.0-52.0; Abnormal: Below low normal; Units: %; Status: F Test: MEAN CORPUSCULAR VOLUME; Value: 96.7; Range: 80.0-96.0; Abnormal: Above high normal; Units: fl; Status: F Test: MEAN CORPUSCULAR HEMOGLOBIN; Value: 32.1; Range: 27.0-33.0; Units: pg; Status: F Test: MEAN CORPUSCULAR HGB CONC; Value: 33.2; Range: 32.0-36.5; Units: g/dl; Status: F Test: RED CELL DISTRIBUTION WIDTH; Value: 12.5; Range: 11.5-14.5; Units: %; Status: F Test: PLATELET COUNT, AUTOMATED; Value: 242; Range: 150-450; Units: k/mm3; Status: F Test: NEUTROPHILS %; Value: 91.6; Range: 36.0-66.0; Abnormal: Above high normal; Units: %; Status: F Test: LYMPH %; Value: 3.7; Range: 24.0-44.0; Abnormal: Below low normal; Units: %; Status: F Test: MONO %; Value: 3.5; Range: 0.0-5.0; Units: %; Status: F Test: EOS %; Value: 0.3; Range: 0.0-3.0; Units: %; Status: F Test: BASO %; Value: 0.2; Range: 0.0-1.0; Units: %; Status: F Test: LARGE UNSTAINED CELL %; Value: 0.7; Range: 0.0-4.0; Units: %; Status: F Test: NEUTROPHILS #; Value: 7.6; Range: 1.8-7.7; Units: K/mm3; Status: F Test: LYMPH #; Value: 0.3; Range: 1.5-4.5; Abnormal: Below low normal; Units: K/mm3; Status: F Test: MONO #; Value: 0.3; Range: 0.0-0.8; Units: K/mm3; Status: F Test: EOS #; Value: 0.0; Range: 0.0-0.50; Units: K/mm3; Status: F Test: BASO #; Value: 0.0; Range: 0.0-0.2; Units: K/mm3; Status: F Test: LARGE UNSTAINED CELL #; Value: 0.1; Range: 0.0-0.4; Units: K/mm3; Status: F Lab Order: [facility]; SPEC'M 10/11/16 16:59 Test: GLUCOSE, FASTING; Value: 100; Range: 70-105; Units: MG/DL; Status: F Test: BLOOD UREA NITROGEN; Value: 86; Range: 7-18; Abnormal: Above high normal; Units: MG/DL; Status: F Test: CREATININE FOR GFR; Value: 3.63; Range: 0.70-1.30; Abnormal: Above high normal; Units: MG/DL; Status: F Test: GLOMERULAR FILTRATION RATE; Value: 18.8; Range: >56; Abnormal: Below low normal; Status: F Test: SODIUM LEVEL; Value: 142; Range: 136-145; Units: MEQ/L; Status: F Test: POTASSIUM SERUM; Value: 4.5; Range: 3.5-5.1; Units: MEQ/L; Status: F Test: CHLORIDE LEVEL; Value: 107; Range: 98-107; Units: MEQ/L; Status: F Test: CARBON DIOXIDE LEVEL; Value: 27; Range: 21-32; Units: MEQ/L; Status: F Test: ANION GAP; Value: 8; Range: 8-16; Units: MEQ/L; Status: F Test: CALCIUM LEVEL; Value: 8.6; Range: 8.5-10.1; Units: MG/DL; Status: F Test Note: ; Units are mL/min/1.73 m2 Chronic Kidney Disease Staging per NKF: Stage I & II GFR >=60 Normal to Mildly Decreased Stage III GFR 30-59 Moderately Decreased Stage IV GFR 15-29 Severely Decreased Stage V GFR <15 Very Little GFR Left ESRD GFR <15 on MANAGER GROUP Lab Order: UA; GLADIS'Nancy 10/11/16 18:42 Test: APPEARANCE, URINE; Value: CLEAR; Range: CLEAR; Status: F Test: COLOR, URINE; Value: YELLOW; Range: YELLOW; Status: F Test: PH,URINE; Value: 5.0; Range: 5.0-9.0; Units: UNITS; Status: F Test: SPECIFIC GRAVITY URINE AUTO; Value: 1.008; Range: 1.002-1.035; Status: F Test: PROTEIN, URINE AUTO; Value: 2+; Range: NEGATIVE; Abnormal: Above high normal; Units: mg/dL; Status: F Test: GLUCOSE, URINE (UA) AUTO; Value: 1+; Range: NEGATIVE; Abnormal: Above high normal; Units: mg/dL; Status: F Test: KETONE, URINE AUTO; Value: NEGATIVE; Range: NEGATIVE; Units: mg/dL; Status: F Test: UROBILINOGEN, URINE AUTO; Value: 0.2; Range: 0.0-2.0; Units: mg/dL; Status: F Test: BILIRUBIN, URINE AUTO; Value: NEGATIVE; Range: NEGATIVE; Status: F Test: NITRITE, URINE AUTO; Value: NEGATIVE; Range: NEGATIVE; Status: F Test: LEUKOCYTE ESTERASE, URINE AUTO; Value: NEGATIVE; Range: NEGATIVE; Status: F Test: BLOOD, URINE BLOOD; Value: NEGATIVE; Range: NEGATIVE; Status: F Test: WBC, URINE AUTO; Value: 0; Range: 0-3; Units: /HPF; Status: F Test: RBC, URINE AUTO; Value: 1; Range: 0-3; Units: /HPF; Status: F Test: BACTERIA, URINE AUTO; Value: NEGATIVE; Range: NEGATIVE; Status: F Test: SQUAMOUS EPITHELIAL CELL UR AU; Value: 0; Range: 0-6; Units: /HPF; Status: F Test: MUCUS, URINE; Value: SMALL; Range: NEGATIVE; Status: F Test: HYALINE CAST, URINE AUTO; Value: 0; Range: 0-1; Units: /LPF; Status: F Lab Order: Urine Culture; SPEC'M 10/11/16 18:42 Test: URINE CULTURE; Value: URINE CULTURE RESULT NO GROWTH; Status: F Lab Order: LIVER PROFILE; SPEC10/11/16 16:59 Test: AST/SGOT; Value: 37; Range: 15-37; Units: U/L; Status: F Test: ALT/SGPT; Value: 41; Range: 12-78; Units: U/L; Status: F Test: ALKALINE PHOSPHATASE; Value: 122; Range: 45-117; Abnormal: Above high normal; Units: U/L; Status: F Test: BILIRUBIN,TOTAL; Value: 0.2; Range: 0.2-1.0; Units: MG/DL; Status: F Test: BILIRUBIN,DIRECT; Value: 0.1; Range: 0.0-0.2; Units: MG/DL; Status: F Test: TOTAL PROTEIN; Value: 7.1; Range: 6.4-8.2; Units: GM/DL; Status: F Test: ALBUMIN; Value: 3.4; Range: 3.2-5.2; Units: GM/DL; Status: F Test: ALBUMIN/GLOBULIN RATIO; Value: 0.92; Range: 1.00-1.93; Abnormal: Below low normal; Status: F Lab Order: CARBAMAZEPINE (TEGRETOL) LEVEL; 10/11/16 16:59 Test: CARBAMAZEPINE (TEGRETOL) LEVEL; Value: 11.6; Range: 4.0-10.0; Abnormal: Above high normal; Units: UG/ML; Status: F Lab Order: Fingerstick Blood Sugar; SPEC10/11/16 19:17 Test: BEDSIDE GLUCOSE; Value: 149; Range: 70-105; Abnormal: Above high normal; Units: MG/DL; Status: F Test Note: ; Doctor Notified Lab Order: Fingerstick Blood Sugar; SPEC'M 10/11/16 18:21 Test: BEDSIDE GLUCOSE; Value: 90; Range: 70-105; Units: MG/DL; Status: F Lab Order: Fingerstick Blood Sugar; SPEC'10/11/16 18:22 Test: BEDSIDE GLUCOSE; Value: 91; Range: 70-105; Units: MG/DL; Status: F Radiology Order: Chest, 2 View (pa\E\lat) Test: Chest, 2 View (pa\E\lat) REASON FOR EXAMINATION: fatigue, weakness; Clinical: Weakness and fatigue.; ; Comparison: 08/13/2015.; ; Findings:; Hilar opacities (right greater than left) are concerning for underlying; adenopathy as well as bronchitis and viral pneumonia. No further consolidation,; effusion, or pneumothorax. Cardiac silhouette is normal. Skeletal structures; intact.; ; Impression:; Increased hilar opacities. Differential diagnosis includes viral pneumonia and; adenopathy. 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 tm5 19:29 Discharge ordered by Provider. le 19:37 Discharge Assessment: Patient awake, alert and oriented x 3. No cognitive and/or tm5 functional deficits noted. Patient verbalized understanding of disposition instructions. patient administered narcotics - no. The following High Risk Discharge criteria are identified: None. Discharged to home ambulatory, with family. Condition: good Condition: stable Condition: improved. Discharge instructions given to patient, Instructed on discharge instructions, follow up and referral plans. Demonstrated understanding of instructions. Property :Personal belongings accompany Pt. 19:38 Patient left the ED. tm5 Signatures: Dispatcher [employer] EDAbril Carmichael, Quality Control Industrial Engineer Unit lbd Yumiko Aguilar, Reg Reg gb Floresita Atkinson,RN RN jo3 Etelvina Leonardo Lisa, MANAGER SALES MANAGER SALES Floresita Nunn, RN RN jc4 Ihsan Hyde, INGOT CAR OPERATOR INGOT CAR OPERATOR jlf Sherita Kulkarni, INGOT CAR OPERATOR INGOT CAR OPERATOR ls3 Roxana, Rosa Rdz Tonya,RN RN tm5 Corrections: (The following items were deleted from the chart) 17:02 16:29 Home Meds: calcitrol 0.25mcg daily; jo3 jc4 Chart Complete MTDD
--- NOTE | 2016-10-13 20:39 | EDDOCDS ---
Physician Documentation [facility], [place] Name: Ernesto Jones Age: 51 yrs Sex: Male : 1965 Arrival Date: 10/11/2016 Time: 16:08 Bed 14 Private MD: Disposition: 10/11 19:31 Critical Care: Critical care not applicable. le Disposition: 10/11/16 19:29 Discharged to Home/Self Care. Impression: Chronic kidney disease, stage 4 (severe), Hypoglycemia, unspecified, Viral pneumonia, unspecified. - Condition is Stable. - Discharge Instructions: Blood Glucose Monitoring, Adult, Antibiotic Resistance, Hypoglycemia, Pneumonia, Adult, Chronic Kidney Disease. - Medication Reconciliation, Local Pharmacy Hours form. - Follow up: Freddy Schulz MD; When: Call to arrange an appointment; Reason: Recheck today's complaints, Continuance of care. Follow up: Meet Mosqueda MD; When: Call to arrange an appointment; Reason: Recheck today's complaints, Continuance of care. - Problem is an acute exacerbation. - Symptoms are resolved. - Notes: Return to the ED for any further concerns Historical: - Allergies: no known allergies; - Home Meds: 1. amlodipine 5 mg Oral tab 1 tab twice a day 2. atenolol 25 mg Oral tab 1 tab once daily 3. humalog sliding scale 4. hydralazine 50 mg Oral tab 2 tab 2 times per day 5. Lantus 100 unit/mL Sub-Q crtg 35 unit daily 6. Lasix 40 mg Oral tab 2 tabs 2 tabs in am and 1 tab in josef 7. Plavix 75 mg Oral tab 1 tab once daily 8. Karli-Nigel 0.8 mg oral tab daily 9. Tegretol XR 400 mg Oral Tb12 1 tab twice a day 10. Vitamin D Oral 02817 unit weekly 11. calcitrol 0.25mcg 2 tab daily 12. Renvela 800 mg oral tab 4 tabs four times a day 13. Glucagon Emergency Kit (human) 1 mg IM kit as needed - PMHx: accidental drug overdose; concussion with LOC; Diabetes - IDDM: uncontrolled; Epilepsy; Hypertension; nasal bone fracture; Pancreatitis; Renal Failure w/o Dialysis; Renal Failure with Dialysis; - PSHx: eye surgery; AV Fistula- Left arm; - Family history: Not pertinent. - Social history: Smoking status: Patient uses tobacco products, light tobacco smoker. No barriers to communication noted. - : The pt / caregiver states he / she is on anticoagulants: The pt / caregiver states he / she is on anticoagulants: Plavix. Note Medications confirmed by [facility]. - Exposure Risk Screening:: None identified. Vital Signs: 16:24 BP 180 / 79; Pulse 65; Resp 20; Temp 97.1(TE); Pulse Ox 97% ; Weight 65.77 kg / 145 jlf lbs; Pain 0/10; 19:23 BP 168 / 72; Pulse 87; Resp 18; Temp 98.9(O); Pulse Ox 99% on R/A; Pain 0/10; tm5 MDM: 16:38 Fingerstick Blood Sugar Ordered. EDMS 16:48 Accucheck hourly ordered. le 16:48 CONSISTENT CARBOHYDRATE+DIET ordered. EDMS 16:50 CBC with Diff Ordered. EDMS 16:50 BMP Ordered. EDMS 16:50 UA Ordered. EDMS 16:50 Urine Culture Ordered. EDMS 16:50 Chest, 2 View (pa\E\lat) Ordered. EDMS 16:50 ECG WITH READING ER PHYS+CARDIAG ordered. EDMS 16:59 LIVER PROFILE Ordered. EDMS 16:59 CARBAMAZEPINE (TEGRETOL) LEVEL Ordered. EDMS 17:06 Renvela 3200 mg PO once; must administer with a meal/food; swallow whole; do not crush, jc4 chew, break, or cut ordered. 17:24 Zenpep Delayed Release Capsule 10,000-34,000-55,000 unit 3 caps PO once; administer jo3 during a snack; do not crush/chew ; swallow whole OR open/sprinkle on food; DNExceed 10,000 units/kg lipase/24 hrs ordered. 17:26 Financial registration complete. zo 17:26 [facility] [place] was scanned into [employer] and attached to record. zo 19:24 Fingerstick Blood Sugar Ordered. EDMS 19:24 Fingerstick Blood Sugar Reviewed. le 19:24 CBC with Diff Reviewed. le 19:24 BMP Reviewed. le 19:24 UA Reviewed. le 19:24 LIVER PROFILE Reviewed. le 19:24 CARBAMAZEPINE (TEGRETOL) LEVEL Reviewed. le 19:24 Chest, 2 View (pa\E\lat) Reviewed. le 19:24 EKG-ADULT Reviewed. le 19:30 Fingerstick Blood Sugar Reviewed. le 10/12 08:16 T-Sheet-- Draft Copy was scanned into [employer] and attached to record. [facility] [place] 11:11 ECG/EKG was scanned into [employer] and attached to record. 10/13 16:56 PCR was scanned into [employer] and attached to record. klr Point of Care Testing: Blood Glucose: 10/11 19:18 Blood Glucose: 149 mg/dL; tm5 Ranges: Administered Medications: 17:50 Drug: Renvela 3200 mg Route: PO; jo3 19:24 Follow up: Response: No Adverse Reaction tm5 17:50 Drug: Zenpep Delayed Release Capsule 10,000-34,000-55,000 unit 3 caps Route: PO; jo3 19:24 Follow up: Response: No Adverse Reaction tm5 Signatures: Dispatcher [employer] EDMS Yumiko Aguilar, Reg Reg Floresita Escalante,RN RN jo3 Etelvina Leonardo Lisa, HVAC SPECIALIST HVAC SPECIALIST Floresita Nunn, RN RN jc4 Jennifer Schmidt Kathie klr Matice, Tonya,RN RN tm5 The chart was reviewed and I authenticate all verbal orders and agree with the evaluation and treatment provided.Corrections: (The following items were deleted from the chart) 16:59 16:51 CARBAMAZEPINE (TEGRETOL) LEVEL+LAB ordered. EDMS EDMS 16:59 16:54 LIVER PROFILE+LAB ordered. EDMS EDMS 17:02 16:29 Home Meds: calcitrol 0.25mcg daily; genet jc4 Attachments: 17:26 [facility] Payment Agreement zo 10/12 08:16 T-Sheet-- Draft Copy [facility] [place] 11:11 ECG/EKG Chart Complete MTDD
--- NOTE | 2016-10-15 20:38 | EDDOCDS ---
Physician Documentation [facility] Name: Ernesto Jones Age: 51 yrs Sex: Male : 1965 Arrival Date: 10/11/2016 Time: 16:08 Bed 14 Private MD: Disposition: 10/11 19:31 Critical Care: Critical care not applicable. le Disposition: 10/11/16 19:29 Discharged to Home/Self Care. Impression: Chronic kidney disease, stage 4 (severe), Hypoglycemia, unspecified, Viral pneumonia, unspecified. - Condition is Stable. - Discharge Instructions: Blood Glucose Monitoring, Adult, Antibiotic Resistance, Hypoglycemia, Pneumonia, Adult, Chronic Kidney Disease. - Medication Reconciliation, Local Pharmacy Hours form. - Follow up: Freddy Schulz MD; When: Call to arrange an appointment; Reason: Recheck today's complaints, Continuance of care. Follow up: Meet Bartlett MD; When: Call to arrange an appointment; Reason: Recheck today's complaints, Continuance of care. - Problem is an acute exacerbation. - Symptoms are resolved. - Notes: Return to the ED for any further concerns Historical: - Allergies: no known allergies; - Home Meds: 1. amlodipine 5 mg Oral tab 1 tab twice a day 2. atenolol 25 mg Oral tab 1 tab once daily 3. humalog sliding scale 4. hydralazine 50 mg Oral tab 2 tab 2 times per day 5. Lantus 100 unit/mL Sub-Q crtg 35 unit daily 6. Lasix 40 mg Oral tab 2 tabs 2 tabs in am and 1 tab in josef 7. Plavix 75 mg Oral tab 1 tab once daily 8. Karli-Nigel 0.8 mg oral tab daily 9. Tegretol XR 400 mg Oral Tb12 1 tab twice a day 10. Vitamin D Oral 08594 unit weekly 11. calcitrol 0.25mcg 2 tab daily 12. Renvela 800 mg oral tab 4 tabs four times a day 13. Glucagon Emergency Kit (human) 1 mg IM kit as needed - PMHx: accidental drug overdose; concussion with LOC; Diabetes - IDDM: uncontrolled; Epilepsy; Hypertension; nasal bone fracture; Pancreatitis; Renal Failure w/o Dialysis; Renal Failure with Dialysis; - PSHx: eye surgery; AV Fistula- Left arm; - Family history: Not pertinent. - Social history: Smoking status: Patient uses tobacco products, light tobacco smoker. No barriers to communication noted. - : The pt / caregiver states he / she is on anticoagulants: The pt / caregiver states he / she is on anticoagulants: Plavix. Note Medications confirmed by [facility]. - Exposure Risk Screening:: None identified. Vital Signs: 16:24 BP 180 / 79; Pulse 65; Resp 20; Temp 97.1(TE); Pulse Ox 97% ; Weight 65.77 kg / 145 jlf lbs; Pain 0/10; 19:23 BP 168 / 72; Pulse 87; Resp 18; Temp 98.9(O); Pulse Ox 99% on R/A; Pain 0/10; tm5 MDM: 16:38 Fingerstick Blood Sugar Ordered. EDMS 16:48 Accucheck hourly ordered. le 16:48 CONSISTENT CARBOHYDRATE+DIET ordered. EDMS 16:50 CBC with Diff Ordered. EDMS 16:50 BMP Ordered. EDMS 16:50 UA Ordered. EDMS 16:50 Urine Culture Ordered. EDMS 16:50 Chest, 2 View (pa\E\lat) Ordered. EDMS 16:50 ECG WITH READING ER PHYS+CARDIAG ordered. EDMS 16:59 LIVER PROFILE Ordered. EDMS 16:59 CARBAMAZEPINE (TEGRETOL) LEVEL Ordered. EDMS 17:06 Renvela 3200 mg PO once; must administer with a meal/food; swallow whole; do not crush, jc4 chew, break, or cut ordered. 17:24 Zenpep Delayed Release Capsule 10,000-34,000-55,000 unit 3 caps PO once; administer jo3 during a snack; do not crush/chew ; swallow whole OR open/sprinkle on food; DNExceed 10,000 units/kg lipase/24 hrs ordered. 17:26 Financial registration complete. zo 17:26 [facility] [place] into [employer] and attached to record. zo 19:24 Fingerstick Blood Sugar Ordered. EDMS 19:24 Fingerstick Blood Sugar Reviewed. le 19:24 CBC with Diff Reviewed. le 19:24 BMP Reviewed. le 19:24 UA Reviewed. le 19:24 LIVER PROFILE Reviewed. le 19:24 CARBAMAZEPINE (TEGRETOL) LEVEL Reviewed. le 19:24 Chest, 2 View (pa\E\lat) Reviewed. le 19:24 EKG-ADULT Reviewed. le 19:30 Fingerstick Blood Sugar Reviewed. le 10/12 08:16 T-Sheet-- Draft Copy was scanned into [employer] and attached to record. [facility] 11:11 ECG/EKG was scanned into [employer] and attached to record. 10/13 16:56 PCR was scanned into [employer] and attached to record. klr Point of Care Testing: Blood Glucose: 10/11 19:18 Blood Glucose: 149 mg/dL; tm5 Ranges: Administered Medications: 17:50 Drug: Renvela 3200 mg Route: PO; jo3 19:24 Follow up: Response: No Adverse Reaction tm5 17:50 Drug: Zenpep Delayed Release Capsule 10,000-34,000-55,000 unit 3 caps Route: PO; jo3 19:24 Follow up: Response: No Adverse Reaction tm5 Addendum: 10/15/2016 20:37 Radiology Callback: Radiology results faxed to primary care physician/provider. dr nicola tejada and dr bartlett faxed formal report of cxr for fu mlg. Signatures: Dispatcher [employer] EDMS Morgan Yang MD MD ml Barnhardt, Gloria, Reg Reg Floresita Escalante,RN RN Etelvina Preciado Lisa, Floresita Spencer, MIA RN jc4 Jennifer Schmidt Kathie klr Matice, Tonya,RN RN tm5 The chart was reviewed and I authenticate all verbal orders and agree with the evaluation and treatment provided.Corrections: (The following items were deleted from the chart) 10/11 16:59 16:51 CARBAMAZEPINE (TEGRETOL) LEVEL+LAB ordered. EDMS EDMS 16:59 16:54 LIVER PROFILE+LAB ordered. EDMS EDMS 17:02 16:29 Home Meds: calcitrol 0.25mcg daily; genet jc4 Attachments: 17:26 [facility] Payment Agreement zo 10/12 08:16 T-Sheet-- Draft Copy [facility] 11:11 ECG/EKG MTDD
--- NOTE | 2016-10-15 20:38 | EDDOCDS ---
Nurse's Notes [facility] Name: Brandi Jones Age: 51 yrs Sex: Male : 1965 Arrival Date: 10/11/2016 Time: 16:08 Bed 14 Private MD: Diagnosis: Chronic kidney disease, stage 4 (severe);Hypoglycemia, unspecified;Viral pneumonia, unspecified Presentation: 10/11 16:15 Presenting complaint: EMS states: Neighbor gave pt glucagon at home for FSBS 31. On EMS jo3 arrival, FSBS 58. SL initiated and amp D50 administered. FSBS 258. Pt unresponsive on arrival and is now responsive. 18g in RAC. Pt wanted to be transferred to [facility]. Usually signs off on scene. Adult Sepsis Screening: Patient has new or worsening altered mentation (1 point). Patient's respiratory rate is less than 22. Suicide/Homicide risk assessment- the patient denies having any suicidal and/or homicidal ideations and does not present with any other emotional, behavioral or mental health complaints. Status: Patient is not a senior customer service representative or dependent. Transition of care: patient was not received from another setting of care. 16:15 Acuity: OUSMANE Level 3 jo3 16:15 Method Of Arrival: Ambulance jo3 19:25 Adult Sepsis Screening: Systolic blood pressure is greater than 100. Patient has a tm5 qSOFA score of 0- Negative Sepsis Screen. Triage Assessment: 16:29 General: Appears in no apparent distress, Behavior is cooperative, drowsy. HIV jo3 screening NA for this visit Offered previously. Neurological: Level of Consciousness is awake, alert, Oriented to person, place, time. Cardiovascular: Dialysis graft to left arm. Good Bruit/thrill. Respiratory: Airway is patent Respiratory effort is even, unlabored. Derm: Skin is pink, warm & dry. 19:38 Pain: Denies pain. tm5 Historical: - Allergies: no known allergies; - Home Meds: 1. amlodipine 5 mg Oral tab 1 tab twice a day 2. atenolol 25 mg Oral tab 1 tab once daily 3. humalog sliding scale 4. hydralazine 50 mg Oral tab 2 tab 2 times per day 5. Lantus 100 unit/mL Sub-Q crtg 35 unit daily 6. Lasix 40 mg Oral tab 2 tabs 2 tabs in am and 1 tab in josef 7. Plavix 75 mg Oral tab 1 tab once daily 8. Karli-Nigel 0.8 mg oral tab daily 9. Tegretol XR 400 mg Oral Tb12 1 tab twice a day 10. Vitamin D Oral 22584 unit weekly 11. calcitrol 0.25mcg 2 tab daily 12. Renvela 800 mg oral tab 4 tabs four times a day 13. Glucagon Emergency Kit (human) 1 mg IM kit as needed - PMHx: accidental drug overdose; concussion with LOC; Diabetes - IDDM: uncontrolled; Epilepsy; Hypertension; nasal bone fracture; Pancreatitis; Renal Failure w/o Dialysis; Renal Failure with Dialysis; - PSHx: eye surgery; AV Fistula- Left arm; - Family history: Not pertinent. - Social history: Smoking status: Patient uses tobacco products, light tobacco smoker. No barriers to communication noted. - : The pt / caregiver states he / she is on anticoagulants: The pt / caregiver states he / she is on anticoagulants: Plavix. Note Medications confirmed by [facility]. - Exposure Risk Screening:: None identified. Screenin:55 Screening information is obtained from the patient. Fall risk: No risks identified. jo3 Assistance ADL's: requires no assistance with activities of daily living. Abuse/DV Screen: The patient / caregiver reports he/she is: not in a situation that causes fear, pain or injury. Nutritional screening: On diabetic diet. Advance Directives: There is. home support is adequate. Assessment: 16:32 Reassessment: see triage assessment . jo3 17:05 General: Appears in no apparent distress, comfortable, Behavior is appropriate for age, jo3 cooperative. Neurological: Level of Consciousness is awake, alert. Respiratory: Airway is patent Respiratory effort is even, unlabored. Derm: Skin is pink, warm & dry. 18:00 General: Appears in no apparent distress, comfortable, Behavior is cooperative. jo3 General: Dinner consumed at this time. Continuing to monitor with friend at bedside . Neurological: Level of Consciousness is awake, alert, Oriented to person, place, time. 18:53 General: Appears in no apparent distress, comfortable, Behavior is appropriate for age, jo3 cooperative, restless. General: Awake and alert at this time. Awaiting results and f/u FASB at 1920 for disposition. Aware of plan of care. Pt has consumed macaroni and cheese and broccoli as well as 2 box lunches . Neurological: No deficits noted. Respiratory: Airway is patent Respiratory effort is even, unlabored. 19:23 Reassessment: Patient appears in no apparent distress at this time. Patient denies pain tm5 at this time. Patient states feeling better. Patient states symptoms have improved. PT ASKING TO GO HOME AT THIS TIME, TOLD HIM HE NEEDED TO WAIT FOR ASSEMBLY ADJUSTER TO DISCHARGE HIM, PT GETTING DRESSED & FAMILY AWAITS WITH PT . Vital Signs: 16:24 BP 180 / 79; Pulse 65; Resp 20; Temp 97.1(TE); Pulse Ox 97% ; Weight 65.77 kg; Pain jlf 0/10; 19:23 BP 168 / 72; Pulse 87; Resp 18; Temp 98.9(O); Pulse Ox 99% on R/A; Pain 0/10; tm5 Vitals: 16:29 Log In Time N/A - ambulance arrival. jo3 ED Course: 16:10 Patient visited by Abril Warren, Emergency Department Clinician. lbd 16:10 Patient moved to Waiting lbd 16:11 Patient moved to 14 lbd 16:20 Triage Initiated jo3 16:21 Patient visited by Floresita Atkinson,MIA. jo3 16:24 Patient visited by Ihsan Hyde PCA. jlf 16:24 Patient visited by Ihsan Hdye PCA. jlf 16:26 Nikia Canada FNP [facility]. le 16:34 Patient visited by Nikia Canada FNP. le 16:34 Patient visited by Floresita Atkinson RN. jo3 16:37 Patient visited by Nikia Canada FNP. le 17:05 Patient visited by Floresita Atkinson RN. jo3 17:06 Patient visited by Sherita Kulkarni PCA. ls3 17:06 EKG done. (by ED staff). Reviewed by Nikia MURILLO. ls3 17:15 Maintain field IV. Dressing intact. Good blood return noted. Site clean & dry. Gauge & jo3 site: 18g in RAC. 17:26 [place] [place] Agreement was scanned into Dragon[employer] and attached to record. zo 18:01 Patient visited by Floresita Atkinson RN. jo3 18:06 EKG-ADULT Returned. EDMS 18:12 Chest, 2 View (pa\E\lat) Returned. EDMS 18:16 Patient visited by Floresita Atkinson,MIA. jo3 18:43 Patient visited by Ihsan Hyde PCA. jlf 18:43 Urine Culture Sent. jlf 18:43 UA Sent. jlf 18:55 The patient / caregiver is instructed regarding the plan of care and ED course. jo3 18:56 Patient visited by Floresita Atkinson RN. jo3 19:07 Patient visited by Landy Salazar RN. tm5 19:07 Report received from Floresita BELLAMY, assumed care of pt at this time. tm5 19:18 Patient visited by Landy Salazar RN. tm5 19:18 Notified nurse practitioner of 149 BLOOD GLUCOSE & PT ASKING TO GO HOME. tm5 19:22 Patient visited by Landy Salazar RN. tm5 19:22 Discontinued lock intact, bleeding controlled, pressure dressing applied, No tm5 redness/swelling at site. 19:23 No procedures done that require assistance. tm5 19:24 Fingerstick Blood Sugar Sent. tm5 19:28 Freddy Schulz MD is Referral Physician. le 19:29 Meet Mosqueda MD is Referral Physician. le 19:37 Patient visited by Landy Salazar RN. tm5 10/12 08:16 T-Sheet-- Draft Copy was scanned into Dragon[employer] and attached to record. se 11:11 ECG/EKG was scanned into Dragon[employer] and attached to record. gb 10/13 16:56 PCR was scanned into Dragon[employer] and attached to record. klr Administered Medications: 10/11 17:50 Drug: Renvela 3200 mg Route: PO; jo3 19:24 Follow up: Response: No Adverse Reaction tm5 17:50 Drug: Zenpep Delayed Release Capsule 10,000-34,000-55,000 unit 3 caps Route: PO; jo3 19:24 Follow up: Response: No Adverse Reaction tm5 Point of Care Testing: Blood Glucose: 19:18 Blood Glucose: 149 mg/dL; tm5 Ranges: Order Results: Lab Order: Fingerstick Blood Sugar; SPEC'M 10/11/16 16:30 Test: BEDSIDE GLUCOSE; Value: 368; Range: 70-105; Abnormal: Above high normal; Units: MG/DL; Status: F Lab Order: CBC with Diff; SPEC'M 10/11/16 16:59 Test: WHITE BLOOD COUNT; Value: 8.3; Range: 4.0-10.0; Units: K/mm3; Status: F Test: RED BLOOD COUNT; Value: 3.36; Range: 4.30-6.10; Abnormal: Below low normal; Units: M/mm3; Status: F Test: HEMOGLOBIN; Value: 10.8; Range: 14.0-18.0; Abnormal: Below low normal; Units: g/dl; Status: F Test: HEMATOCRIT; Value: 32.5; Range: 42.0-52.0; Abnormal: Below low normal; Units: %; Status: F Test: MEAN CORPUSCULAR VOLUME; Value: 96.7; Range: 80.0-96.0; Abnormal: Above high normal; Units: fl; Status: F Test: MEAN CORPUSCULAR HEMOGLOBIN; Value: 32.1; Range: 27.0-33.0; Units: pg; Status: F Test: MEAN CORPUSCULAR HGB CONC; Value: 33.2; Range: 32.0-36.5; Units: g/dl; Status: F Test: RED CELL DISTRIBUTION WIDTH; Value: 12.5; Range: 11.5-14.5; Units: %; Status: F Test: PLATELET COUNT, AUTOMATED; Value: 242; Range: 150-450; Units: k/mm3; Status: F Test: NEUTROPHILS %; Value: 91.6; Range: 36.0-66.0; Abnormal: Above high normal; Units: %; Status: F Test: LYMPH %; Value: 3.7; Range: 24.0-44.0; Abnormal: Below low normal; Units: %; Status: F Test: MONO %; Value: 3.5; Range: 0.0-5.0; Units: %; Status: F Test: EOS %; Value: 0.3; Range: 0.0-3.0; Units: %; Status: F Test: BASO %; Value: 0.2; Range: 0.0-1.0; Units: %; Status: F Test: LARGE UNSTAINED CELL %; Value: 0.7; Range: 0.0-4.0; Units: %; Status: F Test: NEUTROPHILS #; Value: 7.6; Range: 1.8-7.7; Units: K/mm3; Status: F Test: LYMPH #; Value: 0.3; Range: 1.5-4.5; Abnormal: Below low normal; Units: K/mm3; Status: F Test: MONO #; Value: 0.3; Range: 0.0-0.8; Units: K/mm3; Status: F Test: EOS #; Value: 0.0; Range: 0.0-0.50; Units: K/mm3; Status: F Test: BASO #; Value: 0.0; Range: 0.0-0.2; Units: K/mm3; Status: F Test: LARGE UNSTAINED CELL #; Value: 0.1; Range: 0.0-0.4; Units: K/mm3; Status: F Lab Order: [facility]; SPEC'M 10/11/16 16:59 Test: GLUCOSE, FASTING; Value: 100; Range: 70-105; Units: MG/DL; Status: F Test: BLOOD UREA NITROGEN; Value: 86; Range: 7-18; Abnormal: Above high normal; Units: MG/DL; Status: F Test: CREATININE FOR GFR; Value: 3.63; Range: 0.70-1.30; Abnormal: Above high normal; Units: MG/DL; Status: F Test: GLOMERULAR FILTRATION RATE; Value: 18.8; Range: >56; Abnormal: Below low normal; Status: F Test: SODIUM LEVEL; Value: 142; Range: 136-145; Units: MEQ/L; Status: F Test: POTASSIUM SERUM; Value: 4.5; Range: 3.5-5.1; Units: MEQ/L; Status: F Test: CHLORIDE LEVEL; Value: 107; Range: 98-107; Units: MEQ/L; Status: F Test: CARBON DIOXIDE LEVEL; Value: 27; Range: 21-32; Units: MEQ/L; Status: F Test: ANION GAP; Value: 8; Range: 8-16; Units: MEQ/L; Status: F Test: CALCIUM LEVEL; Value: 8.6; Range: 8.5-10.1; Units: MG/DL; Status: F Test Note: ; Units are mL/min/1.73 m2 Chronic Kidney Disease Staging per NKF: Stage I & II GFR >=60 Normal to Mildly Decreased Stage III GFR 30-59 Moderately Decreased Stage IV GFR 15-29 Severely Decreased Stage V GFR <15 Very Little GFR Left ESRD GFR <15 on LOTUS NOTES ADMINISTRATOR Lab Order: UA; LGADIS'Nancy 10/11/16 18:42 Test: APPEARANCE, URINE; Value: CLEAR; Range: CLEAR; Status: F Test: COLOR, URINE; Value: YELLOW; Range: YELLOW; Status: F Test: PH,URINE; Value: 5.0; Range: 5.0-9.0; Units: UNITS; Status: F Test: SPECIFIC GRAVITY URINE AUTO; Value: 1.008; Range: 1.002-1.035; Status: F Test: PROTEIN, URINE AUTO; Value: 2+; Range: NEGATIVE; Abnormal: Above high normal; Units: mg/dL; Status: F Test: GLUCOSE, URINE (UA) AUTO; Value: 1+; Range: NEGATIVE; Abnormal: Above high normal; Units: mg/dL; Status: F Test: KETONE, URINE AUTO; Value: NEGATIVE; Range: NEGATIVE; Units: mg/dL; Status: F Test: UROBILINOGEN, URINE AUTO; Value: 0.2; Range: 0.0-2.0; Units: mg/dL; Status: F Test: BILIRUBIN, URINE AUTO; Value: NEGATIVE; Range: NEGATIVE; Status: F Test: NITRITE, URINE AUTO; Value: NEGATIVE; Range: NEGATIVE; Status: F Test: LEUKOCYTE ESTERASE, URINE AUTO; Value: NEGATIVE; Range: NEGATIVE; Status: F Test: BLOOD, URINE BLOOD; Value: NEGATIVE; Range: NEGATIVE; Status: F Test: WBC, URINE AUTO; Value: 0; Range: 0-3; Units: /HPF; Status: F Test: RBC, URINE AUTO; Value: 1; Range: 0-3; Units: /HPF; Status: F Test: BACTERIA, URINE AUTO; Value: NEGATIVE; Range: NEGATIVE; Status: F Test: SQUAMOUS EPITHELIAL CELL UR AU; Value: 0; Range: 0-6; Units: /HPF; Status: F Test: MUCUS, URINE; Value: SMALL; Range: NEGATIVE; Status: F Test: HYALINE CAST, URINE AUTO; Value: 0; Range: 0-1; Units: /LPF; Status: F Lab Order: Urine Culture; SPEC'M 10/11/16 18:42 Test: URINE CULTURE; Value: URINE CULTURE RESULT NO GROWTH; Status: F Lab Order: LIVER PROFILE; SPEC10/11/16 16:59 Test: AST/SGOT; Value: 37; Range: 15-37; Units: U/L; Status: F Test: ALT/SGPT; Value: 41; Range: 12-78; Units: U/L; Status: F Test: ALKALINE PHOSPHATASE; Value: 122; Range: 45-117; Abnormal: Above high normal; Units: U/L; Status: F Test: BILIRUBIN,TOTAL; Value: 0.2; Range: 0.2-1.0; Units: MG/DL; Status: F Test: BILIRUBIN,DIRECT; Value: 0.1; Range: 0.0-0.2; Units: MG/DL; Status: F Test: TOTAL PROTEIN; Value: 7.1; Range: 6.4-8.2; Units: GM/DL; Status: F Test: ALBUMIN; Value: 3.4; Range: 3.2-5.2; Units: GM/DL; Status: F Test: ALBUMIN/GLOBULIN RATIO; Value: 0.92; Range: 1.00-1.93; Abnormal: Below low normal; Status: F Lab Order: CARBAMAZEPINE (TEGRETOL) LEVEL; 10/11/16 16:59 Test: CARBAMAZEPINE (TEGRETOL) LEVEL; Value: 11.6; Range: 4.0-10.0; Abnormal: Above high normal; Units: UG/ML; Status: F Lab Order: Fingerstick Blood Sugar; SPEC10/11/16 19:17 Test: BEDSIDE GLUCOSE; Value: 149; Range: 70-105; Abnormal: Above high normal; Units: MG/DL; Status: F Test Note: ; Doctor Notified Lab Order: Fingerstick Blood Sugar; SPEC'M 10/11/16 18:21 Test: BEDSIDE GLUCOSE; Value: 90; Range: 70-105; Units: MG/DL; Status: F Lab Order: Fingerstick Blood Sugar; SPEC'10/11/16 18:22 Test: BEDSIDE GLUCOSE; Value: 91; Range: 70-105; Units: MG/DL; Status: F Radiology Order: Chest, 2 View (pa\E\lat) Test: Chest, 2 View (pa\E\lat) REASON FOR EXAMINATION: fatigue, weakness; Clinical: Weakness and fatigue.; ; Comparison: 08/13/2015.; ; Findings:; Hilar opacities (right greater than left) are concerning for underlying; adenopathy as well as bronchitis and viral pneumonia. No further consolidation,; effusion, or pneumothorax. Cardiac silhouette is normal. Skeletal structures; intact.; ; Impression:; Increased hilar opacities. Differential diagnosis includes viral pneumonia and; adenopathy. 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 tm5 19:29 Discharge ordered by Provider. le 19:37 Discharge Assessment: Patient awake, alert and oriented x 3. No cognitive and/or tm5 functional deficits noted. Patient verbalized understanding of disposition instructions. patient administered narcotics - no. The following High Risk Discharge criteria are identified: None. Discharged to home ambulatory, with family. Condition: good Condition: stable Condition: improved. Discharge instructions given to patient, Instructed on discharge instructions, follow up and referral plans. Demonstrated understanding of instructions. Property :Personal belongings accompany Pt. 19:38 Patient left the ED. tm5 Signatures: Dispatcher [employer] EDAbril Carmichael, Emergency Department Clinician Unit lbd Yumiko Aguilar, Reg Reg gb Floresita Atkinson,RN RN jo3 Etelvina Leonardo Lisa, COPY PREPARER COPY PREPARER Floresita Nunn, RN RN jc4 Ihsan Hyde, BALLPOINT PEN CARTRIDGE TESTER BALLPOINT PEN CARTRIDGE TESTER jlf Sherita Kulkarni, BALLPOINT PEN CARTRIDGE TESTER BALLPOINT PEN CARTRIDGE TESTER ls3 Roxana, Rosa Rdz Tonya,RN RN tm5 Corrections: (The following items were deleted from the chart) 17:02 16:29 Home Meds: calcitrol 0.25mcg daily; jo3 jc4 MTDD
--- NOTE | 2016-10-15 20:38 | EDDOCDS ---
Physician Documentation [facility] Name: Ernesto Jones Age: 51 yrs Sex: Male : 1965 Arrival Date: 10/11/2016 Time: 16:08 Bed 14 Private MD: Disposition: 10/11 19:31 Critical Care: Critical care not applicable. le Disposition: 10/11/16 19:29 Discharged to Home/Self Care. Impression: Chronic kidney disease, stage 4 (severe), Hypoglycemia, unspecified, Viral pneumonia, unspecified. - Condition is Stable. - Discharge Instructions: Blood Glucose Monitoring, Adult, Antibiotic Resistance, Hypoglycemia, Pneumonia, Adult, Chronic Kidney Disease. - Medication Reconciliation, Local Pharmacy Hours form. - Follow up: Freddy Schulz MD; When: Call to arrange an appointment; Reason: Recheck today's complaints, Continuance of care. Follow up: Meet Bartlett MD; When: Call to arrange an appointment; Reason: Recheck today's complaints, Continuance of care. - Problem is an acute exacerbation. - Symptoms are resolved. - Notes: Return to the ED for any further concerns Historical: - Allergies: no known allergies; - Home Meds: 1. amlodipine 5 mg Oral tab 1 tab twice a day 2. atenolol 25 mg Oral tab 1 tab once daily 3. humalog sliding scale 4. hydralazine 50 mg Oral tab 2 tab 2 times per day 5. Lantus 100 unit/mL Sub-Q crtg 35 unit daily 6. Lasix 40 mg Oral tab 2 tabs 2 tabs in am and 1 tab in josef 7. Plavix 75 mg Oral tab 1 tab once daily 8. Karli-Nigel 0.8 mg oral tab daily 9. Tegretol XR 400 mg Oral Tb12 1 tab twice a day 10. Vitamin D Oral 15541 unit weekly 11. calcitrol 0.25mcg 2 tab daily 12. Renvela 800 mg oral tab 4 tabs four times a day 13. Glucagon Emergency Kit (human) 1 mg IM kit as needed - PMHx: accidental drug overdose; concussion with LOC; Diabetes - IDDM: uncontrolled; Epilepsy; Hypertension; nasal bone fracture; Pancreatitis; Renal Failure w/o Dialysis; Renal Failure with Dialysis; - PSHx: eye surgery; AV Fistula- Left arm; - Family history: Not pertinent. - Social history: Smoking status: Patient uses tobacco products, light tobacco smoker. No barriers to communication noted. - : The pt / caregiver states he / she is on anticoagulants: The pt / caregiver states he / she is on anticoagulants: Plavix. Note Medications confirmed by [facility]. - Exposure Risk Screening:: None identified. Vital Signs: 16:24 BP 180 / 79; Pulse 65; Resp 20; Temp 97.1(TE); Pulse Ox 97% ; Weight 65.77 kg / 145 jlf lbs; Pain 0/10; 19:23 BP 168 / 72; Pulse 87; Resp 18; Temp 98.9(O); Pulse Ox 99% on R/A; Pain 0/10; tm5 MDM: 16:38 Fingerstick Blood Sugar Ordered. EDMS 16:48 Accucheck hourly ordered. le 16:48 CONSISTENT CARBOHYDRATE+DIET ordered. EDMS 16:50 CBC with Diff Ordered. EDMS 16:50 BMP Ordered. EDMS 16:50 UA Ordered. EDMS 16:50 Urine Culture Ordered. EDMS 16:50 Chest, 2 View (pa\E\lat) Ordered. EDMS 16:50 ECG WITH READING ER PHYS+CARDIAG ordered. EDMS 16:59 LIVER PROFILE Ordered. EDMS 16:59 CARBAMAZEPINE (TEGRETOL) LEVEL Ordered. EDMS 17:06 Renvela 3200 mg PO once; must administer with a meal/food; swallow whole; do not crush, jc4 chew, break, or cut ordered. 17:24 Zenpep Delayed Release Capsule 10,000-34,000-55,000 unit 3 caps PO once; administer jo3 during a snack; do not crush/chew ; swallow whole OR open/sprinkle on food; DNExceed 10,000 units/kg lipase/24 hrs ordered. 17:26 Financial registration complete. zo 17:26 [facility] Payment Agreement was scanned into [employer] and attached to record. zo 19:24 Fingerstick Blood Sugar Ordered. EDMS 19:24 Fingerstick Blood Sugar Reviewed. le 19:24 CBC with Diff Reviewed. le 19:24 BMP Reviewed. le 19:24 UA Reviewed. le 19:24 LIVER PROFILE Reviewed. le 19:24 CARBAMAZEPINE (TEGRETOL) LEVEL Reviewed. le 19:24 Chest, 2 View (pa\E\lat) Reviewed. le 19:24 EKG-ADULT Reviewed. le 19:30 Fingerstick Blood Sugar Reviewed. le 10/12 08:16 T-Sheet-- Draft Copy was scanned into [employer] and attached to record. [facility] 11:11 ECG/EKG was scanned into [employer] and attached to record. 10/13 16:56 PCR was scanned into MED[employer] and attached to record. klr Point of Care Testing: Blood Glucose: 10/11 19:18 Blood Glucose: 149 mg/dL; tm5 Ranges: Administered Medications: 17:50 Drug: Renvela 3200 mg Route: PO; jo3 19:24 Follow up: Response: No Adverse Reaction tm5 17:50 Drug: Zenpep Delayed Release Capsule 10,000-34,000-55,000 unit 3 caps Route: PO; jo3 19:24 Follow up: Response: No Adverse Reaction tm5 Addendum: 10/15/2016 20:37 Radiology Callback: Radiology results faxed to primary care physician/provider. dr nicola tejada and dr bartlett faxed formal report of cxr for fu mlg. Signatures: Dispatcher [employer] EDMS Morgan Yang MD MD ml Barnhardt, Gloria, Reg Reg Floresita Escalante,RN RN Etelvina Preciado Lisa, Floresita Spencer, MIA RN jc4 Jennifer Schmidt Kathie klr Matice, Tonya,RN RN tm5 The chart was reviewed and I authenticate all verbal orders and agree with the evaluation and treatment provided.Corrections: (The following items were deleted from the chart) 10/11 16:59 16:51 CARBAMAZEPINE (TEGRETOL) LEVEL+LAB ordered. EDMS EDMS 16:59 16:54 LIVER PROFILE+LAB ordered. EDMS EDMS 17:02 16:29 Home Meds: calcitrol 0.25mcg daily; genet jc4 Attachments: 17:26 [facility] Payment Agreement zo 10/12 08:16 T-Sheet-- Draft Copy [facility] 11:11 ECG/EKG MTDD
--- NOTE | 2016-10-15 20:39 | EDDOCDS ---
Physician Documentation [facility] Name: Ernesto Jones Age: 51 yrs Sex: Male : 1965 Arrival Date: 10/11/2016 Time: 16:08 Bed 14 Private MD: Disposition: 10/11 19:31 Critical Care: Critical care not applicable. le Disposition: 10/11/16 19:29 Discharged to Home/Self Care. Impression: Chronic kidney disease, stage 4 (severe), Hypoglycemia, unspecified, Viral pneumonia, unspecified. - Condition is Stable. - Discharge Instructions: Blood Glucose Monitoring, Adult, Antibiotic Resistance, Hypoglycemia, Pneumonia, Adult, Chronic Kidney Disease. - Medication Reconciliation, Local Pharmacy Hours form. - Follow up: Freddy Schulz MD; When: Call to arrange an appointment; Reason: Recheck today's complaints, Continuance of care. Follow up: Meet Bartlett MD; When: Call to arrange an appointment; Reason: Recheck today's complaints, Continuance of care. - Problem is an acute exacerbation. - Symptoms are resolved. - Notes: Return to the ED for any further concerns Historical: - Allergies: no known allergies; - Home Meds: 1. amlodipine 5 mg Oral tab 1 tab twice a day 2. atenolol 25 mg Oral tab 1 tab once daily 3. humalog sliding scale 4. hydralazine 50 mg Oral tab 2 tab 2 times per day 5. Lantus 100 unit/mL Sub-Q crtg 35 unit daily 6. Lasix 40 mg Oral tab 2 tabs 2 tabs in am and 1 tab in josef 7. Plavix 75 mg Oral tab 1 tab once daily 8. Karli-Nigel 0.8 mg oral tab daily 9. Tegretol XR 400 mg Oral Tb12 1 tab twice a day 10. Vitamin D Oral 37031 unit weekly 11. calcitrol 0.25mcg 2 tab daily 12. Renvela 800 mg oral tab 4 tabs four times a day 13. Glucagon Emergency Kit (human) 1 mg IM kit as needed - PMHx: accidental drug overdose; concussion with LOC; Diabetes - IDDM: uncontrolled; Epilepsy; Hypertension; nasal bone fracture; Pancreatitis; Renal Failure w/o Dialysis; Renal Failure with Dialysis; - PSHx: eye surgery; AV Fistula- Left arm; - Family history: Not pertinent. - Social history: Smoking status: Patient uses tobacco products, light tobacco smoker. No barriers to communication noted. - : The pt / caregiver states he / she is on anticoagulants: The pt / caregiver states he / she is on anticoagulants: Plavix. Note Medications confirmed by [facility]. - Exposure Risk Screening:: None identified. Vital Signs: 16:24 BP 180 / 79; Pulse 65; Resp 20; Temp 97.1(TE); Pulse Ox 97% ; Weight 65.77 kg / 145 jlf lbs; Pain 0/10; 19:23 BP 168 / 72; Pulse 87; Resp 18; Temp 98.9(O); Pulse Ox 99% on R/A; Pain 0/10; tm5 MDM: 16:38 Fingerstick Blood Sugar Ordered. EDMS 16:48 Accucheck hourly ordered. le 16:48 CONSISTENT CARBOHYDRATE+DIET ordered. EDMS 16:50 CBC with Diff Ordered. EDMS 16:50 BMP Ordered. EDMS 16:50 UA Ordered. EDMS 16:50 Urine Culture Ordered. EDMS 16:50 Chest, 2 View (pa\E\lat) Ordered. EDMS 16:50 ECG WITH READING ER PHYS+CARDIAG ordered. EDMS 16:59 LIVER PROFILE Ordered. EDMS 16:59 CARBAMAZEPINE (TEGRETOL) LEVEL Ordered. EDMS 17:06 Renvela 3200 mg PO once; must administer with a meal/food; swallow whole; do not crush, jc4 chew, break, or cut ordered. 17:24 Zenpep Delayed Release Capsule 10,000-34,000-55,000 unit 3 caps PO once; administer jo3 during a snack; do not crush/chew ; swallow whole OR open/sprinkle on food; DNExceed 10,000 units/kg lipase/24 hrs ordered. 17:26 Financial registration complete. zo 17:26 [facility] Payment Agreement was scanned into Pre[employer] and attached to record. zo 19:24 Fingerstick Blood Sugar Ordered. EDMS 19:24 Fingerstick Blood Sugar Reviewed. le 19:24 CBC with Diff Reviewed. le 19:24 BMP Reviewed. le 19:24 UA Reviewed. le 19:24 LIVER PROFILE Reviewed. le 19:24 CARBAMAZEPINE (TEGRETOL) LEVEL Reviewed. le 19:24 Chest, 2 View (pa\E\lat) Reviewed. le 19:24 EKG-ADULT Reviewed. le 19:30 Fingerstick Blood Sugar Reviewed. le 10/12 08:16 T-Sheet-- Draft Copy was scanned into Prezi and attached to record. [facility] 11:11 ECG/EKG was scanned into [employer] and attached to record. 10/13 16:56 PCR was scanned into [employer] and attached to record. klr Point of Care Testing: Blood Glucose: 10/11 19:18 Blood Glucose: 149 mg/dL; tm5 Ranges: Administered Medications: 17:50 Drug: Renvela 3200 mg Route: PO; jo3 19:24 Follow up: Response: No Adverse Reaction tm5 17:50 Drug: Zenpep Delayed Release Capsule 10,000-34,000-55,000 unit 3 caps Route: PO; jo3 19:24 Follow up: Response: No Adverse Reaction tm5 Addendum: 10/15/2016 20:37 Radiology Callback: Radiology results faxed to primary care physician/provider. dr nicola tejada and dr bartlett faxed formal report of cxr for fu mlg. Signatures: Dispatcher [employer] EDMS Morgan Yang MD MD ml Barnhardt, Gloria, Reg Reg Floresita Escalante,RN RN Etelvina Preciado Lisa, Floresita Spencer, MIA RN jc4 Jennifer Schmidt Kathie klr Matice, Tonya,RN RN tm5 The chart was reviewed and I authenticate all verbal orders and agree with the evaluation and treatment provided.Corrections: (The following items were deleted from the chart) 10/11 16:59 16:51 CARBAMAZEPINE (TEGRETOL) LEVEL+LAB ordered. EDMS EDMS 16:59 16:54 LIVER PROFILE+LAB ordered. EDMS EDMS 17:02 16:29 Home Meds: calcitrol 0.25mcg daily; genet jc4 Attachments: 17:26 [facility] Payment Agreement zo 10/12 08:16 T-Sheet-- Draft Copy [facility] 11:11 ECG/EKG Chart Complete MTDD
--- NOTE | 2016-10-15 20:39 | EDDOCDS ---
Physician Documentation [facility] Name: Ernesto Jones Age: 51 yrs Sex: Male : 1965 Arrival Date: 10/11/2016 Time: 16:08 Bed 14 Private MD: Disposition: 10/11 19:31 Critical Care: Critical care not applicable. le Disposition: 10/11/16 19:29 Discharged to Home/Self Care. Impression: Chronic kidney disease, stage 4 (severe), Hypoglycemia, unspecified, Viral pneumonia, unspecified. - Condition is Stable. - Discharge Instructions: Blood Glucose Monitoring, Adult, Antibiotic Resistance, Hypoglycemia, Pneumonia, Adult, Chronic Kidney Disease. - Medication Reconciliation, Local Pharmacy Hours form. - Follow up: Freddy Schulz MD; When: Call to arrange an appointment; Reason: Recheck today's complaints, Continuance of care. Follow up: Meet Bartlett MD; When: Call to arrange an appointment; Reason: Recheck today's complaints, Continuance of care. - Problem is an acute exacerbation. - Symptoms are resolved. - Notes: Return to the ED for any further concerns Historical: - Allergies: no known allergies; - Home Meds: 1. amlodipine 5 mg Oral tab 1 tab twice a day 2. atenolol 25 mg Oral tab 1 tab once daily 3. humalog sliding scale 4. hydralazine 50 mg Oral tab 2 tab 2 times per day 5. Lantus 100 unit/mL Sub-Q crtg 35 unit daily 6. Lasix 40 mg Oral tab 2 tabs 2 tabs in am and 1 tab in josef 7. Plavix 75 mg Oral tab 1 tab once daily 8. Karli-Nigel 0.8 mg oral tab daily 9. Tegretol XR 400 mg Oral Tb12 1 tab twice a day 10. Vitamin D Oral 92361 unit weekly 11. calcitrol 0.25mcg 2 tab daily 12. Renvela 800 mg oral tab 4 tabs four times a day 13. Glucagon Emergency Kit (human) 1 mg IM kit as needed - PMHx: accidental drug overdose; concussion with LOC; Diabetes - IDDM: uncontrolled; Epilepsy; Hypertension; nasal bone fracture; Pancreatitis; Renal Failure w/o Dialysis; Renal Failure with Dialysis; - PSHx: eye surgery; AV Fistula- Left arm; - Family history: Not pertinent. - Social history: Smoking status: Patient uses tobacco products, light tobacco smoker. No barriers to communication noted. - : The pt / caregiver states he / she is on anticoagulants: The pt / caregiver states he / she is on anticoagulants: Plavix. Note Medications confirmed by [facility]. - Exposure Risk Screening:: None identified. Vital Signs: 16:24 BP 180 / 79; Pulse 65; Resp 20; Temp 97.1(TE); Pulse Ox 97% ; Weight 65.77 kg / 145 jlf lbs; Pain 0/10; 19:23 BP 168 / 72; Pulse 87; Resp 18; Temp 98.9(O); Pulse Ox 99% on R/A; Pain 0/10; tm5 MDM: 16:38 Fingerstick Blood Sugar Ordered. EDMS 16:48 Accucheck hourly ordered. le 16:48 CONSISTENT CARBOHYDRATE+DIET ordered. EDMS 16:50 CBC with Diff Ordered. EDMS 16:50 BMP Ordered. EDMS 16:50 UA Ordered. EDMS 16:50 Urine Culture Ordered. EDMS 16:50 Chest, 2 View (pa\E\lat) Ordered. EDMS 16:50 ECG WITH READING ER PHYS+CARDIAG ordered. EDMS 16:59 LIVER PROFILE Ordered. EDMS 16:59 CARBAMAZEPINE (TEGRETOL) LEVEL Ordered. EDMS 17:06 Renvela 3200 mg PO once; must administer with a meal/food; swallow whole; do not crush, jc4 chew, break, or cut ordered. 17:24 Zenpep Delayed Release Capsule 10,000-34,000-55,000 unit 3 caps PO once; administer jo3 during a snack; do not crush/chew ; swallow whole OR open/sprinkle on food; DNExceed 10,000 units/kg lipase/24 hrs ordered. 17:26 Financial registration complete. zo 17:26 [place] [place] Agreement was scanned into [employer] and attached to record. zo 19:24 Fingerstick Blood Sugar Ordered. EDMS 19:24 Fingerstick Blood Sugar Reviewed. le 19:24 CBC with Diff Reviewed. le 19:24 BMP Reviewed. le 19:24 UA Reviewed. le 19:24 LIVER PROFILE Reviewed. le 19:24 CARBAMAZEPINE (TEGRETOL) LEVEL Reviewed. le 19:24 Chest, 2 View (pa\E\lat) Reviewed. le 19:24 EKG-ADULT Reviewed. le 19:30 Fingerstick Blood Sugar Reviewed. le 10/12 08:16 T-Sheet-- Draft Copy was scanned into [employer] and attached to record. [facility] 11:11 [facility] and attached to record. 10/13 16:56 PCR was scanned into [employer] and attached to record. klr Point of Care Testing: Blood Glucose: 10/11 19:18 Blood Glucose: 149 mg/dL; tm5 Ranges: Administered Medications: 17:50 Drug: Renvela 3200 mg Route: PO; jo3 19:24 Follow up: Response: No Adverse Reaction tm5 17:50 Drug: Zenpep Delayed Release Capsule 10,000-34,000-55,000 unit 3 caps Route: PO; jo3 19:24 Follow up: Response: No Adverse Reaction tm5 Addendum: 10/15/2016 20:37 Radiology Callback: Radiology results faxed to primary care physician/provider. dr nicola tejada and dr bartlett faxed formal report of cxr for fu mlg. Signatures: Dispatcher [employer] EDMS Morgan Yang MD MD ml Barnhardt, Gloria, Reg Reg Floresita Escalante,RN RN Etelvina Preciado Lisa, Floresita Spencer, MIA RN jc4 Jennifer Schmidt Kathie klr Matice, Tonya,RN RN tm5 The chart was reviewed and I authenticate all verbal orders and agree with the evaluation and treatment provided.Corrections: (The following items were deleted from the chart) 10/11 16:59 16:51 CARBAMAZEPINE (TEGRETOL) LEVEL+LAB ordered. EDMS EDMS 16:59 16:54 LIVER PROFILE+LAB ordered. EDMS EDMS 17:02 16:29 Home Meds: calcitrol 0.25mcg daily; genet jc4 Attachments: 17:26 [facility] Payment Agreement zo 10/12 08:16 T-Sheet-- Draft Copy [facility] 11:11 ECG/EKG Chart Complete MTDD
--- NOTE | 2016-10-15 20:39 | EDDOCDS ---
Nurse's Notes [facility] Name: Brandi Jones Age: 51 yrs Sex: Male : 1965 Arrival Date: 10/11/2016 Time: 16:08 Bed 14 Private MD: Diagnosis: Chronic kidney disease, stage 4 (severe);Hypoglycemia, unspecified;Viral pneumonia, unspecified Presentation: 10/11 16:15 Presenting complaint: EMS states: Neighbor gave pt glucagon at home for FSBS 31. On EMS jo3 arrival, FSBS 58. SL initiated and amp D50 administered. FSBS 258. Pt unresponsive on arrival and is now responsive. 18g in RAC. Pt wanted to be transferred to [facility]. Usually signs off on scene. Adult Sepsis Screening: Patient has new or worsening altered mentation (1 point). Patient's respiratory rate is less than 22. Suicide/Homicide risk assessment- the patient denies having any suicidal and/or homicidal ideations and does not present with any other emotional, behavioral or mental health complaints. Status: Patient is not a student services director or dependent. Transition of care: patient was not received from another setting of care. 16:15 Acuity: OUSMANE Level 3 jo3 16:15 Method Of Arrival: Ambulance jo3 19:25 Adult Sepsis Screening: Systolic blood pressure is greater than 100. Patient has a tm5 qSOFA score of 0- Negative Sepsis Screen. Triage Assessment: 16:29 General: Appears in no apparent distress, Behavior is cooperative, drowsy. HIV jo3 screening NA for this visit Offered previously. Neurological: Level of Consciousness is awake, alert, Oriented to person, place, time. Cardiovascular: Dialysis graft to left arm. Good Bruit/thrill. Respiratory: Airway is patent Respiratory effort is even, unlabored. Derm: Skin is pink, warm & dry. 19:38 Pain: Denies pain. tm5 Historical: - Allergies: no known allergies; - Home Meds: 1. amlodipine 5 mg Oral tab 1 tab twice a day 2. atenolol 25 mg Oral tab 1 tab once daily 3. humalog sliding scale 4. hydralazine 50 mg Oral tab 2 tab 2 times per day 5. Lantus 100 unit/mL Sub-Q crtg 35 unit daily 6. Lasix 40 mg Oral tab 2 tabs 2 tabs in am and 1 tab in josef 7. Plavix 75 mg Oral tab 1 tab once daily 8. Karli-Nigel 0.8 mg oral tab daily 9. Tegretol XR 400 mg Oral Tb12 1 tab twice a day 10. Vitamin D Oral 75801 unit weekly 11. calcitrol 0.25mcg 2 tab daily 12. Renvela 800 mg oral tab 4 tabs four times a day 13. Glucagon Emergency Kit (human) 1 mg IM kit as needed - PMHx: accidental drug overdose; concussion with LOC; Diabetes - IDDM: uncontrolled; Epilepsy; Hypertension; nasal bone fracture; Pancreatitis; Renal Failure w/o Dialysis; Renal Failure with Dialysis; - PSHx: eye surgery; AV Fistula- Left arm; - Family history: Not pertinent. - Social history: Smoking status: Patient uses tobacco products, light tobacco smoker. No barriers to communication noted. - : The pt / caregiver states he / she is on anticoagulants: The pt / caregiver states he / she is on anticoagulants: Plavix. Note Medications confirmed by [facility]. - Exposure Risk Screening:: None identified. Screenin:55 Screening information is obtained from the patient. Fall risk: No risks identified. jo3 Assistance ADL's: requires no assistance with activities of daily living. Abuse/DV Screen: The patient / caregiver reports he/she is: not in a situation that causes fear, pain or injury. Nutritional screening: On diabetic diet. Advance Directives: There is. home support is adequate. Assessment: 16:32 Reassessment: see triage assessment . jo3 17:05 General: Appears in no apparent distress, comfortable, Behavior is appropriate for age, jo3 cooperative. Neurological: Level of Consciousness is awake, alert. Respiratory: Airway is patent Respiratory effort is even, unlabored. Derm: Skin is pink, warm & dry. 18:00 General: Appears in no apparent distress, comfortable, Behavior is cooperative. jo3 General: Dinner consumed at this time. Continuing to monitor with friend at bedside . Neurological: Level of Consciousness is awake, alert, Oriented to person, place, time. 18:53 General: Appears in no apparent distress, comfortable, Behavior is appropriate for age, jo3 cooperative, restless. General: Awake and alert at this time. Awaiting results and f/u FASB at 1920 for disposition. Aware of plan of care. Pt has consumed macaroni and cheese and broccoli as well as 2 box lunches . Neurological: No deficits noted. Respiratory: Airway is patent Respiratory effort is even, unlabored. 19:23 Reassessment: Patient appears in no apparent distress at this time. Patient denies pain tm5 at this time. Patient states feeling better. Patient states symptoms have improved. PT ASKING TO GO HOME AT THIS TIME, TOLD HIM HE NEEDED TO WAIT FOR SLAB GRINDER TO DISCHARGE HIM, PT GETTING DRESSED & FAMILY AWAITS WITH PT . Vital Signs: 16:24 BP 180 / 79; Pulse 65; Resp 20; Temp 97.1(TE); Pulse Ox 97% ; Weight 65.77 kg; Pain jlf 0/10; 19:23 BP 168 / 72; Pulse 87; Resp 18; Temp 98.9(O); Pulse Ox 99% on R/A; Pain 0/10; tm5 Vitals: 16:29 Log In Time N/A - ambulance arrival. jo3 ED Course: 16:10 Patient visited by Abril Warren, Head Animal Trainer. lbd 16:10 Patient moved to Waiting lbd 16:11 Patient moved to 14 lbd 16:20 Triage Initiated jo3 16:21 Patient visited by Floresita Atkinson,MIA. jo3 16:24 Patient visited by Ihsan Hyde PCA. jlf 16:24 Patient visited by Ihsan Hyde PCA. jlf 16:26 Nikia Canada FNP is [facility]. le 16:34 Patient visited by Nikia Canada FNP. le 16:34 Patient visited by Floresita Atkinson RN. jo3 16:37 Patient visited by Nikia Canada FNP. le 17:05 Patient visited by Floresita Atkinson RN. jo3 17:06 Patient visited by Sherita Kulkarni PCA. ls3 17:06 EKG done. (by ED staff). Reviewed by Nikia MURILLO. ls3 17:15 Maintain field IV. Dressing intact. Good blood return noted. Site clean & dry. Gauge & jo3 site: 18g in RAC. 17:26 [facility] [place] was scanned into PasswordBox and attached to record. zo 18:01 Patient visited by Floresita Atkinson RN. jo3 18:06 EKG-ADULT Returned. EDMS 18:12 Chest, 2 View (pa\E\lat) Returned. EDMS 18:16 Patient visited by Floresita Atkinson,MIA. jo3 18:43 Patient visited by Ihsan Hyde PCA. jlf 18:43 Urine Culture Sent. jlf 18:43 UA Sent. jlf 18:55 The patient / caregiver is instructed regarding the plan of care and ED course. jo3 18:56 Patient visited by Floresita Atkinson RN. jo3 19:07 Patient visited by Landy Salazar RN. tm5 19:07 Report received from Floresita BELLAMY, assumed care of pt at this time. tm5 19:18 Patient visited by Landy Salazar RN. tm5 19:18 Notified nurse practitioner of 149 BLOOD GLUCOSE & PT ASKING TO GO HOME. tm5 19:22 Patient visited by Landy Salazar RN. tm5 19:22 Discontinued lock intact, bleeding controlled, pressure dressing applied, No tm5 redness/swelling at site. 19:23 No procedures done that require assistance. tm5 19:24 Fingerstick Blood Sugar Sent. tm5 19:28 Freddy Schulz MD is Referral Physician. le 19:29 Meet Mosqueda MD is Referral Physician. le 19:37 Patient visited by Landy Salazar RN. tm5 10/12 08:16 T-Sheet-- Draft Copy was scanned into PasswordBox and attached to record. se 11:11 ECG/EKG was scanned into PasswordBox and attached to record. gb 10/13 16:56 PCR was scanned into PasswordBox and attached to record. klr Administered Medications: 10/11 17:50 Drug: Renvela 3200 mg Route: PO; jo3 19:24 Follow up: Response: No Adverse Reaction tm5 17:50 Drug: Zenpep Delayed Release Capsule 10,000-34,000-55,000 unit 3 caps Route: PO; jo3 19:24 Follow up: Response: No Adverse Reaction tm5 Point of Care Testing: Blood Glucose: 19:18 Blood Glucose: 149 mg/dL; tm5 Ranges: Order Results: Lab Order: Fingerstick Blood Sugar; SPEC'M 10/11/16 16:30 Test: BEDSIDE GLUCOSE; Value: 368; Range: 70-105; Abnormal: Above high normal; Units: MG/DL; Status: F Lab Order: CBC with Diff; SPEC'M 10/11/16 16:59 Test: WHITE BLOOD COUNT; Value: 8.3; Range: 4.0-10.0; Units: K/mm3; Status: F Test: RED BLOOD COUNT; Value: 3.36; Range: 4.30-6.10; Abnormal: Below low normal; Units: M/mm3; Status: F Test: HEMOGLOBIN; Value: 10.8; Range: 14.0-18.0; Abnormal: Below low normal; Units: g/dl; Status: F Test: HEMATOCRIT; Value: 32.5; Range: 42.0-52.0; Abnormal: Below low normal; Units: %; Status: F Test: MEAN CORPUSCULAR VOLUME; Value: 96.7; Range: 80.0-96.0; Abnormal: Above high normal; Units: fl; Status: F Test: MEAN CORPUSCULAR HEMOGLOBIN; Value: 32.1; Range: 27.0-33.0; Units: pg; Status: F Test: MEAN CORPUSCULAR HGB CONC; Value: 33.2; Range: 32.0-36.5; Units: g/dl; Status: F Test: RED CELL DISTRIBUTION WIDTH; Value: 12.5; Range: 11.5-14.5; Units: %; Status: F Test: PLATELET COUNT, AUTOMATED; Value: 242; Range: 150-450; Units: k/mm3; Status: F Test: NEUTROPHILS %; Value: 91.6; Range: 36.0-66.0; Abnormal: Above high normal; Units: %; Status: F Test: LYMPH %; Value: 3.7; Range: 24.0-44.0; Abnormal: Below low normal; Units: %; Status: F Test: MONO %; Value: 3.5; Range: 0.0-5.0; Units: %; Status: F Test: EOS %; Value: 0.3; Range: 0.0-3.0; Units: %; Status: F Test: BASO %; Value: 0.2; Range: 0.0-1.0; Units: %; Status: F Test: LARGE UNSTAINED CELL %; Value: 0.7; Range: 0.0-4.0; Units: %; Status: F Test: NEUTROPHILS #; Value: 7.6; Range: 1.8-7.7; Units: K/mm3; Status: F Test: LYMPH #; Value: 0.3; Range: 1.5-4.5; Abnormal: Below low normal; Units: K/mm3; Status: F Test: MONO #; Value: 0.3; Range: 0.0-0.8; Units: K/mm3; Status: F Test: EOS #; Value: 0.0; Range: 0.0-0.50; Units: K/mm3; Status: F Test: BASO #; Value: 0.0; Range: 0.0-0.2; Units: K/mm3; Status: F Test: LARGE UNSTAINED CELL #; Value: 0.1; Range: 0.0-0.4; Units: K/mm3; Status: F Lab Order: [facility]; SPEC'M 10/11/16 16:59 Test: GLUCOSE, FASTING; Value: 100; Range: 70-105; Units: MG/DL; Status: F Test: BLOOD UREA NITROGEN; Value: 86; Range: 7-18; Abnormal: Above high normal; Units: MG/DL; Status: F Test: CREATININE FOR GFR; Value: 3.63; Range: 0.70-1.30; Abnormal: Above high normal; Units: MG/DL; Status: F Test: GLOMERULAR FILTRATION RATE; Value: 18.8; Range: >56; Abnormal: Below low normal; Status: F Test: SODIUM LEVEL; Value: 142; Range: 136-145; Units: MEQ/L; Status: F Test: POTASSIUM SERUM; Value: 4.5; Range: 3.5-5.1; Units: MEQ/L; Status: F Test: CHLORIDE LEVEL; Value: 107; Range: 98-107; Units: MEQ/L; Status: F Test: CARBON DIOXIDE LEVEL; Value: 27; Range: 21-32; Units: MEQ/L; Status: F Test: ANION GAP; Value: 8; Range: 8-16; Units: MEQ/L; Status: F Test: CALCIUM LEVEL; Value: 8.6; Range: 8.5-10.1; Units: MG/DL; Status: F Test Note: ; Units are mL/min/1.73 m2 Chronic Kidney Disease Staging per NKF: Stage I & II GFR >=60 Normal to Mildly Decreased Stage III GFR 30-59 Moderately Decreased Stage IV GFR 15-29 Severely Decreased Stage V GFR <15 Very Little GFR Left ESRD GFR <15 on JOURNAL BOX INSPECTOR Lab Order: UA; GLADIS'Nancy 10/11/16 18:42 Test: APPEARANCE, URINE; Value: CLEAR; Range: CLEAR; Status: F Test: COLOR, URINE; Value: YELLOW; Range: YELLOW; Status: F Test: PH,URINE; Value: 5.0; Range: 5.0-9.0; Units: UNITS; Status: F Test: SPECIFIC GRAVITY URINE AUTO; Value: 1.008; Range: 1.002-1.035; Status: F Test: PROTEIN, URINE AUTO; Value: 2+; Range: NEGATIVE; Abnormal: Above high normal; Units: mg/dL; Status: F Test: GLUCOSE, URINE (UA) AUTO; Value: 1+; Range: NEGATIVE; Abnormal: Above high normal; Units: mg/dL; Status: F Test: KETONE, URINE AUTO; Value: NEGATIVE; Range: NEGATIVE; Units: mg/dL; Status: F Test: UROBILINOGEN, URINE AUTO; Value: 0.2; Range: 0.0-2.0; Units: mg/dL; Status: F Test: BILIRUBIN, URINE AUTO; Value: NEGATIVE; Range: NEGATIVE; Status: F Test: NITRITE, URINE AUTO; Value: NEGATIVE; Range: NEGATIVE; Status: F Test: LEUKOCYTE ESTERASE, URINE AUTO; Value: NEGATIVE; Range: NEGATIVE; Status: F Test: BLOOD, URINE BLOOD; Value: NEGATIVE; Range: NEGATIVE; Status: F Test: WBC, URINE AUTO; Value: 0; Range: 0-3; Units: /HPF; Status: F Test: RBC, URINE AUTO; Value: 1; Range: 0-3; Units: /HPF; Status: F Test: BACTERIA, URINE AUTO; Value: NEGATIVE; Range: NEGATIVE; Status: F Test: SQUAMOUS EPITHELIAL CELL UR AU; Value: 0; Range: 0-6; Units: /HPF; Status: F Test: MUCUS, URINE; Value: SMALL; Range: NEGATIVE; Status: F Test: HYALINE CAST, URINE AUTO; Value: 0; Range: 0-1; Units: /LPF; Status: F Lab Order: Urine Culture; SPEC'M 10/11/16 18:42 Test: URINE CULTURE; Value: URINE CULTURE RESULT NO GROWTH; Status: F Lab Order: LIVER PROFILE; SPEC10/11/16 16:59 Test: AST/SGOT; Value: 37; Range: 15-37; Units: U/L; Status: F Test: ALT/SGPT; Value: 41; Range: 12-78; Units: U/L; Status: F Test: ALKALINE PHOSPHATASE; Value: 122; Range: 45-117; Abnormal: Above high normal; Units: U/L; Status: F Test: BILIRUBIN,TOTAL; Value: 0.2; Range: 0.2-1.0; Units: MG/DL; Status: F Test: BILIRUBIN,DIRECT; Value: 0.1; Range: 0.0-0.2; Units: MG/DL; Status: F Test: TOTAL PROTEIN; Value: 7.1; Range: 6.4-8.2; Units: GM/DL; Status: F Test: ALBUMIN; Value: 3.4; Range: 3.2-5.2; Units: GM/DL; Status: F Test: ALBUMIN/GLOBULIN RATIO; Value: 0.92; Range: 1.00-1.93; Abnormal: Below low normal; Status: F Lab Order: CARBAMAZEPINE (TEGRETOL) LEVEL; 10/11/16 16:59 Test: CARBAMAZEPINE (TEGRETOL) LEVEL; Value: 11.6; Range: 4.0-10.0; Abnormal: Above high normal; Units: UG/ML; Status: F Lab Order: Fingerstick Blood Sugar; SPEC10/11/16 19:17 Test: BEDSIDE GLUCOSE; Value: 149; Range: 70-105; Abnormal: Above high normal; Units: MG/DL; Status: F Test Note: ; Doctor Notified Lab Order: Fingerstick Blood Sugar; SPEC'M 10/11/16 18:21 Test: BEDSIDE GLUCOSE; Value: 90; Range: 70-105; Units: MG/DL; Status: F Lab Order: Fingerstick Blood Sugar; SPEC'10/11/16 18:22 Test: BEDSIDE GLUCOSE; Value: 91; Range: 70-105; Units: MG/DL; Status: F Radiology Order: Chest, 2 View (pa\E\lat) Test: Chest, 2 View (pa\E\lat) REASON FOR EXAMINATION: fatigue, weakness; Clinical: Weakness and fatigue.; ; Comparison: 08/13/2015.; ; Findings:; Hilar opacities (right greater than left) are concerning for underlying; adenopathy as well as bronchitis and viral pneumonia. No further consolidation,; effusion, or pneumothorax. Cardiac silhouette is normal. Skeletal structures; intact.; ; Impression:; Increased hilar opacities. Differential diagnosis includes viral pneumonia and; adenopathy. 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 tm5 19:29 Discharge ordered by Provider. le 19:37 Discharge Assessment: Patient awake, alert and oriented x 3. No cognitive and/or tm5 functional deficits noted. Patient verbalized understanding of disposition instructions. patient administered narcotics - no. The following High Risk Discharge criteria are identified: None. Discharged to home ambulatory, with family. Condition: good Condition: stable Condition: improved. Discharge instructions given to patient, Instructed on discharge instructions, follow up and referral plans. Demonstrated understanding of instructions. Property :Personal belongings accompany Pt. 19:38 Patient left the ED. tm5 Signatures: Dispatcher [employer] EDAbril Carmichael, Head Animal Trainer Unit lbd Yumiko Aguilar, Reg Reg gb Floresita Atkinson,RN RN jo3 Etelvina Leonardo Lisa, DIRECTOR PROCESS IMPROVEMENT DIRECTOR PROCESS IMPROVEMENT Floresita Nunn, RN RN jc4 Ihsan Hyde, BASE WAD OPERATOR ADJUSTER BASE WAD OPERATOR ADJUSTER jlf Sherita Kulkarni, BASE WAD OPERATOR ADJUSTER BASE WAD OPERATOR ADJUSTER ls3 Roxana, Rosa Rdz Tonya,RN RN tm5 Corrections: (The following items were deleted from the chart) 17:02 16:29 Home Meds: calcitrol 0.25mcg daily; jo3 jc4 Chart Complete MTDD
== END 2016-10-11 19:38 | disposition home or self-care (01) ==
LOC: M ED 16:08
DX: E11.649 Type 2 diabetes mellitus with hypoglycemia without coma (principal); J18.9 Pneumonia, unspecified organism; G40.909 Epilepsy, unspecified, not intractable, without status epilepticus; I12.0 Hypertensive chronic kidney disease with stage 5 chronic kidney disease or end stage renal disease; K86.1 Other chronic pancreatitis; N18.6 End stage renal disease; Z99.2 Dependence on renal dialysis; F17.210 Nicotine dependence, cigarettes, uncomplicated; Z79.4 Long term (current) use of insulin; Z79.02 Long term (current) use of antithrombotics/antiplatelets; Z79.899 Other long term (current) drug therapy

== ENCOUNTER → 2016-10-22 | Outpatient (CLI) | payer MEDICARE, MEDICAID ==
--- NOTE | 2016-10-22 14:59 | REP ---
CT STUDY OF THE CHEST WITHOUT CONTRAST: HISTORY: Abnormal chest x-ray, increased hilar opacities. Comparison chest CT study is from July 10, 2006. Comparison chest x-ray is from October 11, 2016. This showed a right hilar or perihilar fullness. CT FINDINGS: The lungs are well inflated and free of infiltrate. No pulmonary mass lesion or significant pulmonary nodule is appreciated. Multifocal vascular calcification is seen in the aorta and its branches including the coronary arteries left and right. Mitral annular calcification is noted. There is no hilar or perihilar mass seen. There are a few scattered normal sized mediastinal lymph nodes. No pleural or pericardial effusion is seen. No adrenal lesion is seen. Prominent vascular calcification is noted in the upper abdomen. Also noted are extensive multifocal calcifications throughout the pancreas consistent with chronic calcific pancreatitis changes. No cyst or mass is seen. No bony destructive lesion is appreciated. IMPRESSION: 1. Advanced atherosclerotic vascular calcification including coronary artery calcification. 2. Innumerable parenchymal calcifications throughout the pancreas consistent with chronic calcific pancreatitis. 3. There is a small cyst in the upper pole left kidney measuring 2.0 cm in greatest diameter. 4. No pulmonary parenchymal or hilar mass lesion is seen. Signed by Efraín Stone MD 10/22/2016 03:02 P
== END | disposition home or self-care (01) ==
LOC: M RAD 13:30
PROVIDERS: ATTEND Physician Assistant
DX: R93.8 Abnormal findings on diagnostic imaging of other specified body structures (principal); I25.10 Atherosclerotic heart disease of native coronary artery without angina pectoris; K85.90 Acute pancreatitis without necrosis or infection, unspecified

== ENCOUNTER → 2016-11-19 | Outpatient (REF) | payer MEDICARE, MEDICAID ==
[2016-11-19 18:49] LABS: CHOLESTEROL LEVEL 128 MG/DL (<200); TRIGLYCERIDES LEVEL 123 MG/DL (<150)
[2016-11-20 09:23] LABS: HEPATITIS B SURFACE ANTIBODY NEGATIVE (POSITIVE)
== END ==
LOC: M LAB REF 17:10
PROVIDERS: ATTEND Internal Medicine Nephrology
DX: N18.5 Chronic kidney disease, stage 5 (principal)

== ENCOUNTER → 2017-01-10 | Outpatient (REF) | payer MEDICARE, MEDICAID ==
[2017-01-10 13:59] LABS: ALBUMIN 3.4 GM/DL (3.2-5.2); BILIRUBIN,TOTAL 0.2 MG/DL (0.2-1.0); CALCIUM LEVEL 8.7 MG/DL (8.5-10.1); CREATININE FOR GFR 3.52 MG/DL (0.70-1.30); GLOMERULAR FILTRATION RATE 19.5 (>56); POTASSIUM SERUM 4.4 MEQ/L (3.5-5.1); TOTAL PROTEIN 6.8 GM/DL (6.4-8.2)
== END ==
LOC: M SFHCADAM 07:38
PROVIDERS: ATTEND Physician Assistant
DX: E10.9 Type 1 diabetes mellitus without complications (principal); N18.4 Chronic kidney disease, stage 4 (severe)

== ENCOUNTER 2017-04-14 09:30 | Emergency (ER) | payer MEDICARE, MEDICAID ==
[~2017-04-14] VITALS: Ht 165.1 cm; Wt 66.0 kg
[~2017-04-14 09:30] MED LIST changes: +PLAV1TAB2 PO; -PLAV75TA38 PO
[2017-04-14 10:52] LABS: CALCIUM LEVEL 8.3 MG/DL (8.5-10.1); CREATININE FOR GFR 4.33 MG/DL (0.70-1.30); GLOMERULAR FILTRATION RATE 15.3 (>56); POTASSIUM SERUM 4.8 MEQ/L (3.5-5.1)
[2017-04-14 14:02] VITALS: BP 151/70
== END 2017-04-14 13:40 | disposition home or self-care (01) ==
LOC: M ED 09:30
DX: E11.649 Type 2 diabetes mellitus with hypoglycemia without coma (principal); I10 Essential (primary) hypertension; F32.9 Major depressive disorder, single episode, unspecified; Z79.4 Long term (current) use of insulin; Z79.899 Other long term (current) drug therapy; Z87.19 Personal history of other diseases of the digestive system

== ENCOUNTER → 2017-10-15 | Outpatient (REF) | payer MEDICARE, MEDICAID ==
[2017-10-15 12:32] LABS: HEMATOCRIT 36.2 % (42.0-52.0); MEAN CORPUSCULAR HEMOGLOBIN 33.9 pg (27.0-33.0); MEAN CORPUSCULAR HGB CONC 33.1 g/dl (32.0-36.5); MEAN CORPUSCULAR VOLUME 102.3 fl (80.0-96.0); PLATELET COUNT, AUTOMATED 305 10^3/uL (150-450); RED BLOOD COUNT 3.54 10^6/uL (4.30-6.10); RED CELL DISTRIBUTION WIDTH 13.2 % (11.5-14.5); WHITE BLOOD COUNT 9.4 10^3/uL (4.0-10.0)
[2017-10-15 13:00] LABS: ALBUMIN 3.3 GM/DL (3.2-5.2); ALBUMIN/GLOBULIN RATIO 0.92 (1.00-1.93); ALKALINE PHOSPHATASE 178 U/L (45-117); ALT/SGPT 25 U/L (12-78); ANION GAP 6 MEQ/L (8-16); AST/SGOT 21 U/L (7-37); BILIRUBIN,TOTAL 0.3 MG/DL (0.2-1.0); BLOOD UREA NITROGEN 37 MG/DL (7-18); CALCIUM LEVEL 8.9 MG/DL (8.5-10.1); CARBON DIOXIDE LEVEL 27 MEQ/L (21-32); CHLORIDE LEVEL 107 MEQ/L (98-107); CHOLESTEROL LEVEL 134 MG/DL (<200); CHOLESTEROL RISK RATIO 1.472 (<5); CREATININE FOR GFR 3.31 MG/DL (0.70-1.30); ESTIMATED AVERAGE GLUCOSE 137 MG/DL (60-110); FREE T4 0.78 NG/DL (0.76-1.46); GLOMERULAR FILTRATION RATE 20.8 (>56); GLUCOSE, FASTING 47 MG/DL (70-105); HDL CHOLESTEROL 91 MG/DL (>40); HEMOGLOBIN A1c 6.4 %; LDL CHOLESTEROL 28.6 MG/DL (<100); NON-HDL-C 43 MG/DL; POTASSIUM SERUM 5.1 MEQ/L (3.5-5.1); SODIUM LEVEL 140 MEQ/L (136-145); THYROID STIMULATING HORMONE 0.831 uIU/ML (0.358-3.740); TOTAL PROTEIN 6.9 GM/DL (6.4-8.2); TRIGLYCERIDES LEVEL 72 MG/DL (<150)
== END ==
LOC: M SFHCADAM 11:01
DX: E11.51 Type 2 diabetes mellitus with diabetic peripheral angiopathy without gangrene (principal); E11.22 Type 2 diabetes mellitus with diabetic chronic kidney disease; N18.4 Chronic kidney disease, stage 4 (severe); N18.6 End stage renal disease
CPT/HCPCS: 84443

== ENCOUNTER 2017-12-06 18:49 | Emergency (ER) | payer MEDICARE, MEDICAID ==
[2017-12-06 19:27] LABS: BASO % 0.9 % (0.0-1.0); EOS # 0.1 10^3/uL (0.0-0.50); EOS % 1.5 % (0.0-3.0); HEMATOCRIT 34.8 % (42.0-52.0); HEMOGLOBIN 11.6 g/dl (14.0-18.0); IMMATURE GRANULOCYTE % 0.2 % (0-3.0); LYMPH # 0.3 10^3/uL (1.5-4.5); LYMPH % 7.2 % (24.0-44.0); MEAN CORPUSCULAR HEMOGLOBIN 33.8 pg (27.0-33.0); MEAN CORPUSCULAR HGB CONC 33.3 g/dl (32.0-36.5); MEAN CORPUSCULAR VOLUME 101.5 fl (80.0-96.0); MONO # 0.6 10^3/uL (0.0-0.8); MONO % 13.1 % (0.0-5.0); NEUTROPHILS # 3.5 10^3/uL (1.8-7.7); NEUTROPHILS % 77.1 % (36.0-66.0); PLATELET COUNT, AUTOMATED 215 10^3/uL (150-450); RED BLOOD COUNT 3.43 10^6/uL (4.30-6.10); RED CELL DISTRIBUTION WIDTH 14.2 % (11.5-14.5); WHITE BLOOD COUNT 4.6 10^3/uL (4.0-10.0)
[2017-12-06 19:43] LABS: LACTIC ACID SEPSIS PROTOCOL 0.8 MMOL/L (0.4-2.0)
[2017-12-06 19:45] LABS: ANION GAP 3 MEQ/L (8-16); BLOOD UREA NITROGEN 21 MG/DL (7-18); C REACTIVE PROTEIN QUANTITATIV 2.49 MG/DL (0.00-0.30); CALCIUM LEVEL 8.5 MG/DL (8.5-10.1); CARBON DIOXIDE LEVEL 32 MEQ/L (21-32); CHLORIDE LEVEL 105 MEQ/L (98-107); CK-MB VALUE MASS 1.3 NG/ML (0.0-3.6); CPK CREATINE PHOSPHOKINASE 138 U/L (39-308); CREATININE FOR GFR 2.49 MG/DL (0.70-1.30); GLOMERULAR FILTRATION RATE 28.9 (>56); GLUCOSE, FASTING 50 MG/DL (70-100); INR 1.03; MB/CK RELATIVE INDEX 0.94 (< OR =4); POTASSIUM SERUM 4.1 MEQ/L (3.5-5.1); PROTHROMBIN TIME 13.6 SECONDS (12.4-14.5); SODIUM LEVEL 140 MEQ/L (136-145); TROPONIN I < 0.02 NG/ML (< 0.10)
[2017-12-06 19:52] LABS: ALBUMIN 3.4 GM/DL (3.2-5.2); ALKALINE PHOSPHATASE 213 U/L (45-117); ALT/SGPT 30 U/L (12-78); AST/SGOT 25 U/L (7-37); BILIRUBIN,DIRECT 0.1 MG/DL (0.0-0.2); BILIRUBIN,TOTAL 0.3 MG/DL (0.2-1.0); NT-PRO BNP 4857 PG/ML (<125); THYROXINE (T4) 6.3 UG/DL (4.5-12.0); TOTAL PROTEIN 6.8 GM/DL (6.4-8.2)
[2017-12-06] MEDS: MOXIFLOXACIN HCL 400 MG in APPROPRIATE DILUENT 1 EA IV (20:18)
[2017-12-06 20:59] LABS: INFLUENZA A AMPLIFICATION NEGATIVE (NEGATIVE); INFLUENZA B AMPLIFICATION POSITIVE (NEGATIVE)
[2017-12-06] MEDS ORDERED: OSELTAMIVIR PHOSPHATE 30MG CAPSULE PO (21:15)
== END 2017-12-06 21:39 | disposition home or self-care (01) ==
LOC: M ED 18:49
DX: J10.1 Influenza due to other identified influenza virus with other respiratory manifestations (principal); J44.9 Chronic obstructive pulmonary disease, unspecified; I12.0 Hypertensive chronic kidney disease with stage 5 chronic kidney disease or end stage renal disease; I25.10 Atherosclerotic heart disease of native coronary artery without angina pectoris; N18.6 End stage renal disease; I73.9 Peripheral vascular disease, unspecified; Z79.899 Other long term (current) drug therapy; Z79.4 Long term (current) use of insulin; Z79.02 Long term (current) use of antithrombotics/antiplatelets; F17.210 Nicotine dependence, cigarettes, uncomplicated
CPT/HCPCS: J2280

== ENCOUNTER → 2018-02-11 | Outpatient (REF) | payer MEDICARE, MEDICAID ==
[2018-02-11 20:15] LABS: ALBUMIN 3.2 GM/DL (3.2-5.2); ALBUMIN/GLOBULIN RATIO 1.07 (1.00-1.93); ALKALINE PHOSPHATASE 189 U/L (45-117); ALT/SGPT 35 U/L (12-78); ANION GAP 7 MEQ/L (8-16); AST/SGOT 25 U/L (7-37); BILIRUBIN,TOTAL 0.3 MG/DL (0.2-1.0); BLOOD UREA NITROGEN 44 MG/DL (7-18); CALCIUM LEVEL 8.2 MG/DL (8.5-10.1); CARBON DIOXIDE LEVEL 26 MEQ/L (21-32); CHLORIDE LEVEL 108 MEQ/L (98-107); CREATININE FOR GFR 4.16 MG/DL (0.70-1.30); GLUCOSE, FASTING 139 MG/DL (70-100); POTASSIUM SERUM 4.9 MEQ/L (3.5-5.1); SODIUM LEVEL 141 MEQ/L (136-145); TOTAL PROTEIN 6.2 GM/DL (6.4-8.2)
[2018-02-11 20:45] LABS: ESTIMATED AVERAGE GLUCOSE 131 MG/DL (60-110); HEMOGLOBIN A1c 6.2 %
== END ==
LOC: M SFHCADAM 11:58
DX: E11.21 Type 2 diabetes mellitus with diabetic nephropathy (principal); I11.9 Hypertensive heart disease without heart failure
CPT/HCPCS: 80053

== ENCOUNTER → 2018-08-05 | Outpatient (CLI) | payer MEDICARE, MEDICAID ==
[~2018-08-05] MED LIST changes: -/AUGM875TA OR; -/CARB4TA OR; -AMLO5TAB OR; -AMLO5TAB2 PO; -ATEN25TA PO; -CALC1CAP31 PO; -CALC500T49 OR; -CARB20TAXR PO; -ENAL10TA2 OR; -FURO40TA2 OR; -FURO40TA2 PO; -INSUHUMDS SC; -INSULANT SC; +ISOVUE-300 61% 50ML VIAL (Q9967) As Ordered; +LIDOCAINE 2% MDV 20 ML VIAL As Ordered; +MIDAZOLAM INJ 2 MG/2 ML VIAL (J2250) As Ordered; -MULTTAB23 PO; -NOVOLOG100 MG/ML SC; -PERC5TAB8 OR; -PLAV1TAB2 PO; -RENATAB5 PO; -VITAMIN D50000 UNT OR; -ZENP1CAP PO; -[UNRECOGNIZED DRUG - CODE] OR; -amoxil PO; -citracal; +fentaNYL 100 MCG/2 ML INJECTION (J3010) As Ordered; -zenpep
== END | disposition home or self-care (01) ==
LOC: M IRPRO 09:48
DX: T82.590A Other mechanical complication of surgically created arteriovenous fistula, initial encounter (principal); N18.6 End stage renal disease; Z99.2 Dependence on renal dialysis
CPT/HCPCS: 36901

== ENCOUNTER → 2018-12-04 | Outpatient (REF) | payer MEDICARE, MEDICAID ==
[~2018-12-04] MED LIST changes: +/AUGM875TA OR; +/CARB4TA OR; +AMLO5TAB OR; +AMLO5TAB6 PO; +ATEN25TA PO; +CALC1CAP31 PO; +CALC500T49 OR; +CARB20TAXR PO; +ENAL10TA2 OR; +FURO40TA2 OR; +FURO40TA2 PO; +HYDR-3911; +INSUHUMDS SC; +INSULANT SC; -ISOVUE-300 61% 50ML VIAL (Q9967) As Ordered; +LANTINJ4; -LIDOCAINE 2% MDV 20 ML VIAL As Ordered; -MIDAZOLAM INJ 2 MG/2 ML VIAL (J2250) As Ordered; +MULTTAB23 PO; +NOVOLOG100 MG/ML SC; +PERC5TAB8 OR; +PLAV1TAB2 PO; +RENATAB5 PO; +RENV2TAB; +TAMI30CA PO; +VITA50005; +VITAMIN D50000 UNT OR; +ZENP1CAP PO; +[UNRECOGNIZED DRUG - CODE] OR; +amoxil PO; +citracal; -fentaNYL 100 MCG/2 ML INJECTION (J3010) As Ordered; +zenpep
[2018-12-04 20:27] LABS: HEMATOCRIT 35.4 % (42.0-52.0); HEMOGLOBIN 11.6 g/dl (13.5-17.5); MEAN CORPUSCULAR HEMOGLOBIN 34.2 pg (27.0-33.0); MEAN CORPUSCULAR HGB CONC 32.8 g/dl (32.0-36.5); MEAN CORPUSCULAR VOLUME 104.4 fl (80.0-96.0); PLATELET COUNT, AUTOMATED 261 10^3/uL (150-450); RED BLOOD COUNT 3.39 10^6/uL (4.30-6.10); WHITE BLOOD COUNT 5.8 10^3/uL (4.0-10.0)
[2018-12-04 20:54] LABS: ALBUMIN 3.4 GM/DL (3.2-5.2); BILIRUBIN,TOTAL 0.2 MG/DL (0.2-1.0); CALCIUM LEVEL 7.8 MG/DL (8.5-10.1); CHOLESTEROL RISK RATIO 1.666 (<5); CREATININE FOR GFR 5.4 MG/DL (0.70-1.30); GLOMERULAR FILTRATION RATE 11.8 (>56); TOTAL PROTEIN 6.5 GM/DL (6.4-8.2)
[2018-12-04 21:10] LABS: HEMOGLOBIN A1c 6.2 %
== END ==
LOC: M SFHCADAM 16:27
PROVIDERS: ATTEND Family Medicine
DX: N18.9 Chronic kidney disease, unspecified (principal); E11.51 Type 2 diabetes mellitus with diabetic peripheral angiopathy without gangrene; E11.22 Type 2 diabetes mellitus with diabetic chronic kidney disease; I13.10 Hypertensive heart and chronic kidney disease without heart failure, with stage 1 through stage 4 chronic kidney disease, or unspecified chronic kidney disease; F17.210 Nicotine dependence, cigarettes, uncomplicated
CPT/HCPCS: 80053; 80061; 83036; 85027; 99406; G0463

== ENCOUNTER 2019-03-08 17:37 | Emergency (ER) | payer MEDICARE, MEDICAID ==
[~2019-03-08 17:37] MED LIST changes: -/CARB4TA OR; +LIPA1CAP PO; +TEGR1TAB2 OR; -ZENP1CAP PO
[2019-03-08 18:29] LABS: BASO # 0.1 10^3/uL (0.0-0.2); BASO % 0.3 % (0.0-1.0); EOS % 0.2 % (0.0-3.0); HEMATOCRIT 38.2 % (42.0-52.0); HEMOGLOBIN 12.6 g/dl (13.5-17.5); LYMPH # 0.3 10^3/uL (1.5-4.5); MEAN CORPUSCULAR HEMOGLOBIN 35.3 pg (27.0-33.0); MONO # 0.7 10^3/uL (0.0-0.8); MONO % 4.8 % (0.0-5.0); NEUTROPHILS # 14.1 10^3/uL (1.8-7.7); NEUTROPHILS % 91.7 % (36.0-66.0); PLATELET COUNT, AUTOMATED 395 10^3/uL (150-450); RED BLOOD COUNT 3.57 10^6/uL (4.30-6.10); WHITE BLOOD COUNT 15.3 10^3/uL (4.0-10.0)
[2019-03-08] MEDS ORDERED: NS 1,000 ML IV ONE (19:00)
[2019-03-08 19:18] LABS: ALBUMIN 3.7 GM/DL (3.2-5.2); ALT/SGPT 40 U/L (12-78); BILIRUBIN,DIRECT 0.1 MG/DL (0.0-0.2); BILIRUBIN,TOTAL 0.3 MG/DL (0.2-1.0); BLOOD UREA NITROGEN 94 MG/DL (7-18); CALCIUM LEVEL 8.6 MG/DL (8.5-10.1); CARBON DIOXIDE LEVEL 26 MEQ/L (21-32); CHLORIDE LEVEL 101 MEQ/L (98-107); CK-MB VALUE MASS 4.4 NG/ML (<3.6); CPK CREATINE PHOSPHOKINASE 201 U/L (39-308); CREATININE FOR GFR 6.41 MG/DL (0.70-1.30); ETHYL ALCOHOL (ETHANOL) < 0.003 % (0.000-0.010); GLOMERULAR FILTRATION RATE 9.7 (>56); GLUCOSE, FASTING 78 MG/DL (70-100); MB/CK RELATIVE INDEX 2.19 (< OR =4); POTASSIUM SERUM 4.4 MEQ/L (3.5-5.1); SODIUM LEVEL 138 MEQ/L (136-145); TOTAL PROTEIN 7.1 GM/DL (6.4-8.2); TROPONIN I 0.02 NG/ML (< 0.10)
--- NOTE | 2019-03-08 19:32 | REP ---
CT brain without contrast: History: Injury in a fall. Altered mental status. [place] CT study October 28, 2015. CT findings: A preliminary digital systems lead radiograph is unremarkable. Bony calvarium is intact on bone window settings. There is heavy vascular calcification again noted in the distal carotid arteries bilaterally. Visualized paranasal sinuses are clear. No intraorbital abnormality is seen. There is mild generalized volume loss again noted unchanged. There is no evidence of intracranial hemorrhage. No mass, extra-axial fluid collection, midline shift, or infarct is seen. Impression: Vascular calcification and mild diffuse atrophy. No acute intracranial abnormality. Electronically Signed by Efraín Stone MD 03/08/2019 07:46 P
--- NOTE | 2019-03-08 19:37 | REP ---
Chest x-ray: Two views. History: Altered mental status. Comparison study: December 06, 2017. Findings: The lungs are somewhat hyperinflated but free of infiltrate. There is no evidence of pleural effusion. Heart is mildly enlarged unchanged. Pulmonary vasculature is not felt to be increased. There are mild degenerative changes in the thoracic spine. A dextroconvex thoracic spine curvature is noted. Impression: Mildly prominent heart unchanged. Mild hyperinflation. Otherwise no acute disease. Electronically Signed by Efraín Stone MD 03/08/2019 07:47 P
[2019-03-08] MEDS ORDERED: D5W/0.45% SODIUM CHLORIDE 1,000 ML IV SCH (20:00)
[2019-03-08] MEDS ORDERED: DEXTROSE 50% 50 ML SYRINGE IV STA (20:28)
[2019-03-08] MEDS ORDERED: DEXTROSE 50% 50 ML SYRINGE As Ordered ONE (20:28)
[2019-03-08 21:00] VITALS: BP 164/74
--- NOTE | 2019-03-09 08:13 | ECGEPIP ---
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
== END 2019-03-08 21:24 | disposition left against medical advice (07) ==
LOC: EDBD 17:37 → M ED 17:37
DX: S00.03XA Contusion of scalp, initial encounter (principal); X58.XXXA Exposure to other specified factors, initial encounter; Y92.89 Other specified places as the place of occurrence of the external cause; E11.649 Type 2 diabetes mellitus with hypoglycemia without coma; I10 Essential (primary) hypertension; N19 Unspecified kidney failure; Z99.2 Dependence on renal dialysis; Z79.899 Other long term (current) drug therapy; Z79.4 Long term (current) use of insulin; Z79.02 Long term (current) use of antithrombotics/antiplatelets; F17.210 Nicotine dependence, cigarettes, uncomplicated
CPT/HCPCS: 70450; 71046; 80048; 80076; 82550; 82553; 84443; 84484; 85025; 93005; 93041; 94760; 96361; 96374; 99285; G0480

== ENCOUNTER → 2019-05-05 | Outpatient (CLI) | payer MEDICARE, MEDICAID ==
--- NOTE | 2019-05-06 07:30 | REP ---
BILATERAL LOWER EXTREMITY DUPLEX DOPPLER ARTERIAL ULTRASOUND: Real-time ultrasound evaluation and duplex Doppler interrogation of bilateral lower extremity arterial systems is performed. Significant plaquing, which is calcific is seen diffusely bilaterally. Common femoral arteries are stenotic as are the proximal superficial femoral arteries and bilateral profunda arteries. Triphasic and biphasic waveforms are seen proximally bilaterally with mild phasic waveforms in the bilateral popliteal arteries, distal left anterior and posterior tibial arteries and entire right anterior and posterior tibial arteries. A nonspecific pocket of fluid is seen in the soft tissues of the anterior right ankle 3.3 x 0.6 x 1.1 cm. Right Peak Left Peak Systolic Velocity Systolic velocity Common femoral artery 302.7 cm/s 293.1 cm/s Profunda 266.1 cm/s 186.4 cm/s Proximal SFA 552.8 cm/s 183.0 cm/s Mid SFA 47.1 cm/s 114.4 cm/s Distal SFA 29.5 cm/s 120.0 cm/s Popliteal 60.3 cm/s 79.2 cm/s Proximal JUVENCIO 23.9 cm/s 65.8 cm/s Tibial peroneal trunk 40.7 cm/s 87.0 cm/s Proximal TRACTOR MECHANIC APPRENTICE 47.1 cm/s 75.0 cm/s Distal TRACTOR MECHANIC APPRENTICE 46.8 cm/s 18.6 cm/s Distal JUVENCIO 19.5 cm/s 57.7 cm/s IMPRESSION: Significant calcific plaque bilaterally with bilateral stenosis of the common femoral arteries, superficial femoral arteries and profunda arteries. Electronically Signed by Elkin Toussaint MD 05/06/2019 10:09 A
== END ==
LOC: M RAD 12:31
PROVIDERS: ATTEND Surgery Vascular Surgery
DX: I70.213 Atherosclerosis of native arteries of extremities with intermittent claudication, bilateral legs (principal)

== ENCOUNTER 2019-05-07 17:38 | Emergency (ER) | payer MEDICARE, MEDICAID ==
[~2019-05-07] VITALS: Ht 165.1 cm; Wt 62.5 kg
[~2019-05-07 17:38] MED LIST changes: -HYDR-3911; +HYDR-3911 PO
[2019-05-07 18:20] LABS: BASO % 0.3 % (0.0-1.0); EOS % 0.1 % (0.0-3.0); HEMATOCRIT 43.2 % (42.0-52.0); LYMPH # 0.4 10^3/uL (1.5-4.5); LYMPH % 3.6 % (24.0-44.0); MEAN CORPUSCULAR HEMOGLOBIN 34.1 pg (27.0-33.0); MEAN CORPUSCULAR HGB CONC 32.4 g/dl (32.0-36.5); MEAN CORPUSCULAR VOLUME 105.4 fl (80.0-96.0); MONO # 0.5 10^3/uL (0.0-0.8); MONO % 4.8 % (0.0-5.0); NEUTROPHILS # 9.5 10^3/uL (1.8-7.7); NEUTROPHILS % 90.6 % (36.0-66.0); PLATELET COUNT, AUTOMATED 339 10^3/uL (150-450); WHITE BLOOD COUNT 10.4 10^3/uL (4.0-10.0)
[2019-05-07 18:45] VITALS: BP 152/67
[2019-05-07 18:57] LABS: ALBUMIN 3.6 GM/DL (3.2-5.2); ALT/SGPT 38 U/L (12-78); BILIRUBIN,DIRECT 0.1 MG/DL (0.0-0.2); BILIRUBIN,TOTAL 0.2 MG/DL (0.2-1.0); BLOOD UREA NITROGEN 30 MG/DL (7-18); CALCIUM LEVEL 8.9 MG/DL (8.5-10.1); CARBON DIOXIDE LEVEL 31 MEQ/L (21-32); CHLORIDE LEVEL 102 MEQ/L (98-107); CK-MB VALUE MASS 3.3 NG/ML (<3.6); CPK CREATINE PHOSPHOKINASE 174 U/L (39-308); CREATININE FOR GFR 4.59 MG/DL (0.70-1.30); GLOMERULAR FILTRATION RATE 14.2 (>56); GLUCOSE, FASTING 95 MG/DL (70-100); POTASSIUM SERUM 4.6 MEQ/L (3.5-5.1); SODIUM LEVEL 141 MEQ/L (136-145); TOTAL PROTEIN 7.2 GM/DL (6.4-8.2); TROPONIN I < 0.02 NG/ML (< 0.10)
--- NOTE | 2019-05-08 09:59 | REP ---
REASON: Altered mental status. COMPARISON: 03/08/2019. The technique utilized in obtaining the radiograph has magnified the cardiac silhouette and accentuated the interstitial markings. Once again, the cardiac silhouette is prominent and accentuated by technique. No acute patchy parenchymal opacities or pleural effusion have developed. There is no change in the osseous structures. IMPRESSION: No evidence of acute cardiopulmonary disease or significant change. Electronically Signed by Victor Manuel Morales DO 05/08/2019 09:06 A
--- NOTE | 2019-05-08 12:49 | ECGEPIP ---
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
== END 2019-05-07 19:12 | disposition left against medical advice (07) ==
LOC: EDBD 17:38 → M ED 17:38
DX: E10.649 Type 1 diabetes mellitus with hypoglycemia without coma (principal); I45.19 Other right bundle-branch block; I12.0 Hypertensive chronic kidney disease with stage 5 chronic kidney disease or end stage renal disease; J44.9 Chronic obstructive pulmonary disease, unspecified; N18.6 End stage renal disease; R56.9 Unspecified convulsions; I05.0 Rheumatic mitral stenosis; Z99.2 Dependence on renal dialysis; Z79.899 Other long term (current) drug therapy; Z79.4 Long term (current) use of insulin; Z79.02 Long term (current) use of antithrombotics/antiplatelets; F17.210 Nicotine dependence, cigarettes, uncomplicated

== ENCOUNTER 2019-05-11 20:36 | Emergency (ER) | payer MEDICARE, MEDICAID ==
[~2019-05-11] VITALS: Ht 170.2 cm; Wt 68.2 kg
[~2019-05-11 20:36] MED LIST changes: +HYDR-3911; -HYDR-3911 PO
[2019-05-11] MEDS ORDERED: DEXTROSE 50% 50 ML SYRINGE IV STA (21:24)
[2019-05-11] MEDS ORDERED: DEXTROSE 50% 50 ML SYRINGE As Ordered ONE (21:25)
[2019-05-11 21:30] VITALS: BP 145/66
== END 2019-05-11 21:45 | disposition left against medical advice (07) ==
LOC: M ED 20:36
DX: E11.649 Type 2 diabetes mellitus with hypoglycemia without coma (principal); I12.9 Hypertensive chronic kidney disease with stage 1 through stage 4 chronic kidney disease, or unspecified chronic kidney disease; N18.9 Chronic kidney disease, unspecified; Z79.899 Other long term (current) drug therapy; Z79.4 Long term (current) use of insulin; Z79.02 Long term (current) use of antithrombotics/antiplatelets; F17.210 Nicotine dependence, cigarettes, uncomplicated

== ENCOUNTER 2019-06-14 10:20 | Emergency (ER) | payer MEDICARE, MEDICAID ==
[~2019-06-14] VITALS: Ht 165.1 cm; Wt 66.8 kg
[~2019-06-14 10:20] MED LIST changes: -BUPIVACAINE HCL 0.5% 10 ML VIAL As Ordered ONE; -CIPR0.3S OS; -ISOVUE-300 61% 50ML VIAL (Q9967) As Ordered ONE; -LIDOCAINE 2% MDV 20 ML VIAL As Ordered ONE; -LOPR1TAB6 PO; -MIDAZOLAM INJ 2 MG/2 ML VIAL (J2250) As Ordered ONE; -PRED20TA PO; -PROV108A INH; -diphenhydrAMINE INJ 50MG/ML VIAL (J1200) As Ordered ONE; -fentaNYL 100 MCG/2 ML INJECTION (J3010) As Ordered ONE
[2019-06-14 11:12] LABS: BASO # 0.1 10^3/uL (0.0-0.2); BASO % 0.8 % (0.0-1.0); EOS # 0.1 10^3/uL (0.0-0.5); EOS % 1.3 % (0.0-3.0); HEMATOCRIT 35.3 % (42.0-52.0); HEMOGLOBIN 11.5 g/dl (13.5-17.5); LYMPH # 0.6 10^3/uL (1.5-5.0); LYMPH % 8.5 % (24.0-44.0); MEAN CORPUSCULAR HEMOGLOBIN 34.1 pg (27.0-33.0); MEAN CORPUSCULAR HGB CONC 32.6 g/dl (32.0-36.5); MEAN CORPUSCULAR VOLUME 104.7 fl (80.0-96.0); MONO # 0.8 10^3/uL (0.0-0.8); MONO % 11.3 % (0.0-5.0); NEUTROPHILS # 5.6 10^3/uL (1.5-8.5); NEUTROPHILS % 77.7 % (36.0-66.0); PLATELET COUNT, AUTOMATED 209 10^3/uL (150-450); RED BLOOD COUNT 3.37 10^6/uL (4.30-6.10); WHITE BLOOD COUNT 7.2 10^3/uL (4.0-10.0)
[2019-06-14 11:38] LABS: BLOOD UREA NITROGEN 53 MG/DL (7-18); CALCIUM LEVEL 8.3 MG/DL (8.5-10.1); CARBON DIOXIDE LEVEL 30 MEQ/L (21-32); CHLORIDE LEVEL 101 MEQ/L (98-107); CK-MB VALUE MASS 2.3 NG/ML (<3.6); CPK CREATINE PHOSPHOKINASE 144 U/L (39-308); CREATININE FOR GFR 5.55 MG/DL (0.70-1.30); GLOMERULAR FILTRATION RATE 11.4 (>56); GLUCOSE, FASTING 133 MG/DL (70-100); SODIUM LEVEL 138 MEQ/L (136-145); TROPONIN I < 0.02 NG/ML (< 0.10)
[2019-06-14] MEDS ORDERED: ALBUTEROL SULFATE 2.5 MG/0.5 ML INH NEB SOLN INH ONE (12:15)
[2019-06-14] MEDS ORDERED: IPRATROPIUM 0.5MG/ALBUTEROL 2.5MG INH SOL UD 3ML (DUONEB)(J7620) NEB ONE (12:15)
[2019-06-14] MEDS ORDERED: ISOVUE-370 76% 100ML VIAL (Q9967) As Ordered ONE (12:42)
[2019-06-14] MEDS ORDERED: dexameTHASONE 20 MG/5 ML VIAL (J1100) IV ONE (12:45)
[2019-06-14 12:58] LABS: NT-PRO BNP 8187 PG/ML (<125)
--- NOTE | 2019-06-14 13:22 | REP ---
CT of the chest with IV contrast, CT pulmonary artery angiography: Comparison is 07/10/2006. There are no emboli in the pulmonary trunk or central pulmonary arteries. There are no emboli in the pulmonary lobe or segment branches. The pulse identified previously in the descending branch of the right pulmonary artery has resolved and is no longer present. The There are no infiltrates or pleural effusions. There are no lung nodules or masses. There is no mediastinal, hilar or axillary lymphadenopathy. The thoracic aorta is unremarkable. Cardiac size is upper normal. The visualized upper abdominal contents are unremarkable except that I suspect there are is mild renal cortical atrophy bilaterally. Impression: There are no pulmonary emboli. There are no acute cardiopulmonary findings. Mild bilateral renal cortical atrophy. Electronically Signed by Elkin Awad MD 06/14/2019 01:13 P
[2019-06-14] MEDS ORDERED: PROV108A INH (13:55)
[2019-06-14] MEDS ORDERED: PRED20TA PO (13:56)
[2019-06-14 14:11] VITALS: BP 109/88
--- NOTE | 2019-06-15 04:39 | ECGEPIP ---
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
== END 2019-06-14 14:13 | disposition home or self-care (01) ==
LOC: M ED 10:20
DX: J44.1 Chronic obstructive pulmonary disease with (acute) exacerbation (principal); N18.6 End stage renal disease; Z99.2 Dependence on renal dialysis; E11.9 Type 2 diabetes mellitus without complications; I12.0 Hypertensive chronic kidney disease with stage 5 chronic kidney disease or end stage renal disease; F17.210 Nicotine dependence, cigarettes, uncomplicated; Z79.4 Long term (current) use of insulin; Z79.899 Other long term (current) drug therapy
CPT/HCPCS: 71046; 71275; 80048; 82550; 82553; 83605; 83880; 84484; 85025; 87040; 87205; 93005; 93041; 94640; 94760; 96374; 99284; J1100; Q9967

== ENCOUNTER → 2019-06-14 | Outpatient (CLI) | payer MEDICARE, MEDICAID ==
[~2019-06-14] MED LIST changes: +BUPIVACAINE HCL 0.5% 10 ML VIAL As Ordered ONE; +CIPR0.3S OS; -HYDR-3911; +HYDR-3911 PO; +ISOVUE-300 61% 50ML VIAL (Q9967) As Ordered ONE; +LIDOCAINE 2% MDV 20 ML VIAL As Ordered ONE; +LOPR1TAB6 PO; +MIDAZOLAM INJ 2 MG/2 ML VIAL (J2250) As Ordered ONE; +PRED20TA PO; +PROV108A INH; +diphenhydrAMINE INJ 50MG/ML VIAL (J1200) As Ordered ONE; +fentaNYL 100 MCG/2 ML INJECTION (J3010) As Ordered ONE
--- NOTE | 2019-06-14 10:10 | REP ---
CHEST, TWO VIEWS: Two views of the chest were performed and compared with prior study of 05/07/2019 and 03/08/2019. There is prominence of interstitial markings in the perihilar regions which is chronic and stable. No new infiltrate is seen. The heart is normal in size. There is mild calcification of the thoracic aorta. The mediastinal silhouette is unchanged. There are mild degenerative changes of the spine. IMPRESSION: Chronic stable findings as above with no acute infiltrate. Electronically Signed by Elkin Toussaint MD 06/14/2019 04:09 P
[2019-06-14 10:32] VITALS: BP 109/57
== END ==
LOC: M IRPRO 07:53
PROVIDERS: ATTEND Surgery Vascular Surgery
DX: N18.6 End stage renal disease (principal); Z53.09 Procedure and treatment not carried out because of other contraindication; R06.02 Shortness of breath

== ENCOUNTER → 2019-06-23 | Outpatient (CLI) | payer MEDICARE, MEDICAID ==
[~2019-06-23] MED LIST changes: +BUPIVACAINE HCL 0.5% 10 ML VIAL As Ordered ONE; +ISOVUE-300 61% 50ML VIAL (Q9967) As Ordered ONE; +LIDOCAINE 2% MDV 20 ML VIAL As Ordered ONE; +MIDAZOLAM INJ 2 MG/2 ML VIAL (J2250) As Ordered ONE; +PRED20TA PO; +PROV108A INH; +diphenhydrAMINE INJ 50MG/ML VIAL (J1200) As Ordered ONE; +fentaNYL 100 MCG/2 ML INJECTION (J3010) As Ordered ONE
[2019-06-23 10:47] VITALS: BP 140/70
--- NOTE | 2019-06-24 20:50 | ROOPDOC ---
[facility] Report Of Operation Report of Operation DATE OF PROCEDURE: PREOPERATIVE DIAGNOSIS: Chronic renal insufficiency. . POSTOPERATIVE DIAGNOSIS: Chronic renal insufficiency. . PROCEDURE: Left radiocephalic arteriovenous fistulogram. Retrograde left radial artery angiogram. SURGEON: Dr. Christian Bejarano M.D. MIGRATION AGENT: INDICATION: Patient is a with . Patient has had . Patient has pulsatility within the arteriovenous fistula and will undergo a left radiocephalic arteriovenous fistulogram . Patient is a with chronic renal insufficiency nearing end-stage renal disease who underwent creation of a left radiocephalic autogenous arteriovenous fistula. Patient has had . Patient will undergo a left radiocephalic arteriovenous fistulogram with possible angioplasty, stent and/or atherectomy. The procedure was described and explained to the patient in detail including drawing of pictures demonstrating the procedure and anatomy. Risks, benefits and alternative treatment options were discussed with the patient. Benefits included but were not limited to improved functioning of the autogenous arteriovenous fistula and maintained patency. Alternative treatment options included but were not limited to no intervention. Risks included but were not limited to infection, bleeding, loss of arteriovenous access, steal syndrome, worsening of renal function requiring hemodialysis sooner than expected, possible need for open surgical intervention, hematoma formation, allergic reaction and/or complication from IV contrast, anesthetic complications, allergic reaction or complication from the prepping and draping materials, scarring of the skin, nerve injury, bruising, possible need for transfusion of blood products, cerebrovascular accident, myocardial infarction, pulmonary embolus, deep venous thrombosis, loss of limb, loss of life, poor satisfaction and poor outcome. Risks of not performing the procedure included but were not limited to thrombosis of the autogenous arteriovenous vascular access, loss of vascular access for hemodialysis access, requirement for a new access, requirement of a tunneled central venous catheter for access, inability to obtain hemodialysis and . Patient's questions were answered. Patient voices understanding of these risks, benefits and alternative treatment options. Patient voices acceptance of these risks associated with the procedure and consents to proceed with a fistulogram with possible angioplasty, atherectomy and/or stenting. No promises or guarantees were made regarding the results or outcome of the procedure. ANESTHESIA: Local with mL of 2% lidocaine SEDATION TIME: [No sedation was given]. ESTIMATED BLOOD LOSS: mL. IV FLUIDS: mL. HEPARIN: None PROTAMINE: None FLUORO TIME: minutes CONTRAST: mL. of Isovue 300 COMPLICATIONS: None DRAINS: None. SPECIMENS: None. IMPLANTS: None PROCEDURE: Patient was taken to the angiography suite, placed supine on the angiography room table and then prepped and draped in a standard surgical fashion. A procedural time-out was conducted by myself and the team members involved in the procedure confirming the correct patient, procedure and laterality. The left radiocephalic arteriovenous was then cannulated with a micro-puncture needle. A micropuncture wire was advanced through the micropuncture needle which was up-sized to a micropuncture sheath. A left radi ocephalic arteriovenous fistulogram and retrograde left radial artery angiogram were performed showing no intervention was required. The catheter was removed and manual compression applied at the puncture site for hemostasis. Dressings were then applied. Patient tolerated the procedure well. All instrument, sponge and needle counts were correct at the end of the case. Dr. Bejarano was present for and directed the entire case. Patient was transferred to the recovery area and subsequently discharged in stable condition. RADIOLOGIC SUPERVISION AND INTERPRETATION: The left radiocephalic arteriovenous fistulogram showed the cephalic vein to be widely patent to the antecubital fossa where there was dual outflow through the deep and superficial venous systems in the upper arm. The the deep and superficial venous systems of the upper arm were patent into the central venous system with no central venous stenosis or occlusion noted. The retrograde left radial artery angiogram showed the remainder of the cephalic vein from the cannulation site to the radial artery to be widely patent. There was good flow in the radial artery proximal and distal to the arteriovenous anastomosis. There was no stenosis at the arteriovenous anastomosis. CONCLUSION: The left radiocephalic arteriovenous fistula required no intervention. Patient was instructed to palpate the fistula twice daily and notify me immediately should there be any change in the thrill, loss of thrill, hardness or swelling of the fistula. Josesito Bejarano MD Jun 24, 2019 20:50
== END ==
LOC: M IRPRO 09:35
PROVIDERS: ATTEND Surgery Vascular Surgery
DX: N18.9 Chronic kidney disease, unspecified (principal)
CPT/HCPCS: 36901; C1894; Q9967

== ENCOUNTER → 2019-08-11 | Outpatient (REF) | payer MEDICARE, MEDICAID ==
[~2019-08-11] MED LIST changes: -BUPIVACAINE HCL 0.5% 10 ML VIAL As Ordered ONE; -ISOVUE-300 61% 50ML VIAL (Q9967) As Ordered ONE; -LIDOCAINE 2% MDV 20 ML VIAL As Ordered ONE; -MIDAZOLAM INJ 2 MG/2 ML VIAL (J2250) As Ordered ONE; -diphenhydrAMINE INJ 50MG/ML VIAL (J1200) As Ordered ONE; -fentaNYL 100 MCG/2 ML INJECTION (J3010) As Ordered ONE
[2019-08-11 13:39] LABS: HEMOGLOBIN A1c 5.5 %
== END ==
LOC: M SFHCADAM 10:58
PROVIDERS: ATTEND Family Medicine
DX: E10.21 Type 1 diabetes mellitus with diabetic nephropathy (principal)
CPT/HCPCS: 83036; G0463

== ENCOUNTER 2019-10-03 20:11 | Emergency (ER) | payer MEDICARE, MEDICAID ==
[~2019-10-03] VITALS: Ht 165.1 cm; Wt 67.7 kg
[2019-10-03] MEDS ORDERED: LOPR1TAB6 PO (20:33)
[2019-10-03] MEDS ORDERED: FLUORESCEIN OPHTH 1 MG STRIP OS ONE (20:45)
[2019-10-03] MEDS ORDERED: TETRACAINE 0.5% OPHTH SOLN 4ML OS ONE (20:45)
[2019-10-03] MEDS ORDERED: CIPR0.3S OS (20:58)
[2019-10-03] MEDS ORDERED: CIPROFLOXACIN 0.3% OPHTH SOLN 2.5ML OS ONE (21:00)
[2019-10-03] MEDS ORDERED: ACETAMINOPHEN 325 MG TAB PO ONE (21:00)
[2019-10-03 21:35] VITALS: BP 136/62
== END 2019-10-03 21:37 | disposition home or self-care (01) ==
LOC: M ED 20:11
DX: H16.002 Unspecified corneal ulcer, left eye (principal); E11.9 Type 2 diabetes mellitus without complications; I12.9 Hypertensive chronic kidney disease with stage 1 through stage 4 chronic kidney disease, or unspecified chronic kidney disease; J44.9 Chronic obstructive pulmonary disease, unspecified; N18.9 Chronic kidney disease, unspecified; Z79.899 Other long term (current) drug therapy

== ENCOUNTER → 2019-11-10 | Outpatient (CLI) | payer MEDICARE, MEDICAID ==
[~2019-11-10] MED LIST changes: +CIPR0.3S OS; +LOPR1TAB6 PO
--- NOTE | 2019-11-10 13:23 | REP ---
Clinical: Left hand pain Technique: AP, lateral, bilateral oblique views left hand . Findings: The osseous structures and joint spaces are intact and normal. There is no evidence for acute fracture or dislocation. Surrounding soft tissues are unremarkable. No subcutaneous emphysema or radiodense foreign body. Impression: Age-appropriate examination. No acute fracture or dislocation. Electronically Signed by Ayaan Da Silva MD 11/10/2019 01:15 P
== END ==
LOC: M ADAMS 12:53
PROVIDERS: ATTEND Physician Assistant
DX: M79.642 Pain in left hand (principal)

== ENCOUNTER 2020-02-03 20:56 | Emergency (ER) | payer MEDICARE, MEDICAID ==
[~2020-02-03] VITALS: Ht 165.1 cm; Wt 65.0 kg
[2020-02-03 21:30] VITALS: BP 135/61
[2020-02-03] MEDS ORDERED: PERCOCET 5MG/325MG TAB PO ONE (22:00)
[2020-02-03] MEDS ORDERED: NORC1TAB7 PO (22:00)
--- NOTE | 2020-02-04 03:13 | REP ---
Clinical: Trauma. Technique: AP, lateral, bilateral oblique views right hand . Findings: The osseous structures and joint spaces are intact and normal. There is no evidence for acute fracture or dislocation. Surrounding soft tissues are unremarkable. No subcutaneous emphysema or radiodense foreign body. Evidence for small vessel disease. Impression: No acute fracture or dislocation. Electronically Signed by Ayaan Da Silva MD 02/04/2020 03:04 A
--- NOTE | 2020-02-04 03:21 | REP ---
Clinical: Trauma. Fall. Technique: AP, lateral, bilateral oblique views right wrist . Findings: The carpal bones, surrounding osseous structures, soft tissues, and joint spaces are normal. There is no evidence for acute fracture or dislocation. No subcutaneous emphysema or radiodense foreign body. Peripheral vascular disease. Impression: Normal wrist series. No acute fracture or dislocation Electronically Signed by Ayaan Da Silva MD 02/04/2020 03:12 A
== END 2020-02-03 22:45 | disposition home or self-care (01) ==
LOC: M ED 20:56
DX: S60.221A Contusion of right hand, initial encounter (principal); S63.501A Unspecified sprain of right wrist, initial encounter; E11.649 Type 2 diabetes mellitus with hypoglycemia without coma; W19.XXXA Unspecified fall, initial encounter; Y92.098 Other place in other non-institutional residence as the place of occurrence of the external cause; I10 Essential (primary) hypertension; J44.9 Chronic obstructive pulmonary disease, unspecified; Z87.19 Personal history of other diseases of the digestive system; F17.210 Nicotine dependence, cigarettes, uncomplicated; Z79.899 Other long term (current) drug therapy; Z79.02 Long term (current) use of antithrombotics/antiplatelets

== ENCOUNTER 2020-04-09 12:35 | Emergency (ER) | payer MEDICARE, MEDICAID ==
[~2020-04-09] VITALS: Ht 165.1 cm; Wt 67.0 kg
[~2020-04-09 12:35] MED LIST changes: +AMLO1TAB24 PO; -AMLO5TAB6 PO; -CIPR0.3S OS; +CIPR0.3S6 OS; +NORC1TAB7 PO
[2020-04-09] MEDS ORDERED: NS 1,000 ML IV SCH (13:09)
[2020-04-09 13:41] LABS: VENOUS BASE EXCESS 1.7 (-2.0-2.0); VENOUS HCO3 30.1 MEQ/L (23.0-27.0); VENOUS O2 SATURATION 79.5 % (60.0-80.0); VENOUS PARTIAL PRESSURE CO2 66.7 mmHg (38.0-50.0); VENOUS PH 7.272 UNITS (7.330-7.430); VENOUS STANDARD HCO3 25.6 MEQ/L; VENOUS TOTAL CO2 32.1 MEQ/L (24.0-28.0)
[2020-04-09 13:45] LABS: BASO % 0.6 % (0.0-1.0); EOS # 0.1 10^3/uL (0.0-0.5); EOS % 0.8 % (0.0-3.0); HEMOGLOBIN 11.1 g/dl (13.5-17.5); LYMPH # 0.3 10^3/uL (1.5-5.0); LYMPH % 4.8 % (24.0-44.0); MEAN CORPUSCULAR HEMOGLOBIN 33.3 pg (27.0-33.0); MEAN CORPUSCULAR HGB CONC 31.7 g/dl (32.0-36.5); MEAN CORPUSCULAR VOLUME 105.1 fl (80.0-96.0); MONO # 0.4 10^3/uL (0.0-0.8); MONO % 6.7 % (0.0-5.0); NEUTROPHILS # 5.6 10^3/uL (1.5-8.5); NEUTROPHILS % 86.9 % (36.0-66.0); PLATELET COUNT, AUTOMATED 267 10^3/uL (150-450); RED BLOOD COUNT 3.33 10^6/uL (4.30-6.10); WHITE BLOOD COUNT 6.4 10^3/uL (4.0-10.0)
[2020-04-09 14:07] LABS: OSMOLALITY SERUM 298 MOSM/KG (275-295)
[2020-04-09 14:09] LABS: ALBUMIN 3.3 GM/DL (3.2-5.2); ALT/SGPT 23 U/L (12-78); BILIRUBIN,DIRECT 0.1 MG/DL (0.0-0.2); BILIRUBIN,TOTAL 0.3 MG/DL (0.2-1.0); BLOOD UREA NITROGEN 47 MG/DL (7-18); CALCIUM LEVEL 8.4 MG/DL (8.5-10.1); CARBON DIOXIDE LEVEL 30 MEQ/L (21-32); CHLORIDE LEVEL 102 MEQ/L (98-107); CREATININE FOR GFR 6.91 MG/DL (0.70-1.30); ETHYL ALCOHOL (ETHANOL) < 0.003 % (0.000-0.010); GLOMERULAR FILTRATION RATE 8.8 (>56); GLUCOSE, FASTING 59 MG/DL (70-100); LIPASE 44 U/L (73-393); POTASSIUM SERUM 5.1 MEQ/L (3.5-5.1); SODIUM LEVEL 137 MEQ/L (136-145); TOTAL PROTEIN 6.8 GM/DL (6.4-8.2)
[2020-04-09 14:43] VITALS: BP 128/63
[2020-04-09 15:13] LABS: HEMOGLOBIN A1c 5.6 %
--- NOTE | 2020-04-09 19:19 | ECGEPIP ---
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
--- NOTE | 2020-04-10 00:30 | REP ---
AP PORTABLE CHEST, 04/09/2020. COMPARISON: 06/14/2019 PA/lateral. CLINICAL HISTORY: DKA. FINDINGS: Lungs are well inflated. Heart has left ventricular configuration and some left atrial enlargement as well. Some subtle basilar atelectatic changes are suggested. Alesha are mildly prominent with some vascular engorgement. No effusion or jose edema. No mass or dense consolidation with air bronchograms. The aorta is normal for age. Airway intact. Bones unremarkable. No free air under the diaphragm. IMPRESSION: 1. Cardiomegaly with left atrial and ventricular enlargement and some basilar atelectatic change without jose edema, dense consolidation, or definite effusion. Small effusions would be difficult to exclude on AP portable chest. 2. Increased markings in the bases may reflect some subsegmental atelectasis. 3. No mediastinal contour abnormality. Alesha similar to previous studies. Electronically Signed by Vishal Wilson MD 04/10/2020 08:38 A
--- NOTE | 2020-04-10 00:44 | REP ---
CT ABDOMEN AND PELVIS WITHOUT CONTRAST, 04/09/2020. CLINICAL HISTORY: Vomiting. DKA. COMPARISON: Limited upper abdomen from a CT angiogram chest 06/14/2019. TECHNIQUE: Noncontrast images through the abdomen and pelvis with coronal and sagittal reconstructions provided. FINDINGS: CT abdomen: Lung bases are clear. Heart is not enlarged. There is heavy calcification at the mitral annulus. Some coronary calcifications are seen. I see no hiatal hernia. Liver is not enlarged. There is no splenomegaly. Calcifications in the spleen are noted from prior granulomatous disease. The liver shows no gross hepatic mass, intrahepatic biliary dilatation, nor adjacent ascites. There are a couple of 5 mm and smaller peripheral low densities, too small the characterize, but most consistent with benign findings. Gallbladder shows no calcified stone or mass. The pancreas shows innumerable calcifications throughout, representing evidence of prior or chronic pancreatitis. I do not see inflammatory changes in the fat adjacent to the pancreas currently. No fluid collections. Small bowel loops are fluid filled proximally and distally. Some hyperdense material that may reflect oral ingestion of bismuth or other radiodense medication. He did not receive any oral contrast. There is diffuse atherosclerotic calcification of the aorta without aneurysm. Adrenal glands show thickening of limbs, consistent with adrenal hyperplasia; no mass. Kidneys show sinus lipomatosis. There is an upper pole cyst on the left about 1.6 cm. Vascular calcifications in renal arteries are noted bilaterally. There is no hydronephrosis, renal stone, hydroureter, or generalized ascites. Lung window review of all CT slices abdomen and pelvis shows no perforation or free air. There is moderate stool throughout the right and transverse colon. Distal small bowel loops are up to 2.8 cm in diameter and show appearance of stool or inspissated secretions. No ventral hernia. Bones show some degenerative changes lower thoracic region but no compression deformity and posterior elements intact. CT pelvis: The sacrum, SI joints, pelvis, and hips show no fracture. There are prominent subchondral cysts in the acetabular roof bilaterally with narrowing of the hip joint spaces and rim osteophytes in the femoral head, representing osteoarthritic change. No AVN or fracture. The pubic rami and symphysis were unremarkable. Bladder shows slight wall thickening and is partially filled. No distal ureteral dilatation or stone. Prostate indents the bladder base. No ventral or inguinal hernia, nor pathologic inguinal adenopathy. Iliac and femoral arterial calcifications noted. No pelvic free fluid or mass. No adenopathy. I do not see any definite appendix, but one could certainly be obscured. The small bowel loops show fluid-filled mid and proximal course and distally have some radiodense material and stool-like appearance. IMPRESSION: 1. Evidence for chronic pancreatitis with diffuse calcifications scattered throughout the pancreas. 2. Small bowel loops fluid filled and with suggested edematous de luna but no evidence of perforation, free air, or visible abscess. No generalized ascites or drainable collection. 3. Liver and spleen not enlarged. Gallbladder intact without calcified stone. 4. Adrenal glands with adrenal hyperplasia. Kidneys show sinus lipomatosis, some atrophy, a cyst on the left, and no stone, hydronephrosis, hydroureter, or bladder stone. 5. No definite sign of an appendix or appendicitis. This could be difficult to observe, though. 6. Radiodensity in distal small bowel loops and scattered in some of the sigmoid and rectum. This may be oral preparation, such as bismuth or barium from some remote exam at another facility. He did not receive oral contrast today. No gross obstruction. No definite colitis or diverticulitis. Electronically Signed by Vishal Wilson MD 04/10/2020 08:38 A
== END 2020-04-09 15:00 | disposition left against medical advice (07) ==
LOC: EDBD → M ED 12:35
DX: E10.649 Type 1 diabetes mellitus with hypoglycemia without coma (principal); I10 Essential (primary) hypertension; N28.89 Other specified disorders of kidney and ureter; Z99.2 Dependence on renal dialysis; Z79.899 Other long term (current) drug therapy; Z79.02 Long term (current) use of antithrombotics/antiplatelets; Z79.4 Long term (current) use of insulin
CPT/HCPCS: 71045; 74176; 80048; 80076; 82010; 82803; 83036; 83690; 83930; 85025; 86850; 86900; 86901; 93005; 93041; 96360; 99285; G0480

== ENCOUNTER 2020-05-08 12:30 | Inpatient (IN) | payer MEDICARE, MEDICAID ==
[~2020-05-08 12:30] MED LIST changes: +IPRATROPIUM 0.5MG/ALBUTEROL 2.5MG INH SOL UD 3ML (DUONEB) ONE; +ISOVUE-370 76% 100ML VIAL As Ordered ONE; +carBAMazepine XR 200 MG TAB ONE; +fentaNYL 100 MCG/2 ML INJECTION (J3010) As Ordered ONE
[2020-05-08] MEDS ORDERED: PERCOCET 5MG/325MG TAB As Ordered ONE (18:26)
[2020-05-08] MEDS ORDERED: PANTOPRAZOLE 40MG TAB (PROTONIX) As Ordered ONE (18:26)
[2020-05-08] MEDS ORDERED: METOPROLOL TART 25 MG TABLET As Ordered ONE (18:26)
[2020-05-08] MEDS ORDERED: CLOPIDOGREL 75 MG TAB As Ordered ONE (18:26)
[2020-05-08] MEDS ORDERED: LIDOCAINE 5% (LIDODERM) PATCH As Ordered ONE (18:26)
[2020-05-08] MEDS ORDERED: amLODIPine 5 MG TAB As Ordered ONE ×2 (18:27→20:15)
[2020-05-09] MEDS ORDERED: ACETAMINOPHEN 325 MG TAB As Ordered ONE (09:41)
[2020-05-09] MEDS ORDERED: DIGOXIN INJ 0.5 MG/2 ML AMP (J1160) As Ordered ONE ×2 (10:57→17:11)
[2020-05-09] MEDS ORDERED: LIDOCAINE 1% SDV 5ML VIAL ONE (12:00)
[2020-05-09] MEDS ORDERED: COLCHICINE 0.6 MG TAB ONE (14:00)
[2020-05-09] MEDS ORDERED: HEPARIN SOD (PORCINE) 5000UNITS/ML 1ML VIAL/SYRINGE As Ordered ONE ×2 (15:37→20:29)
[2020-05-09] MEDS ORDERED: CLOPIDOGREL 75 MG TAB As Ordered ONE (15:37)
[2020-05-09] MEDS ORDERED: amLODIPine 5 MG TAB As Ordered ONE ×2 (15:38→20:28)
[2020-05-09] MEDS ORDERED: LIDOCAINE 5% (LIDODERM) PATCH As Ordered ONE (15:38)
[2020-05-09] MEDS ORDERED: METOPROLOL TART 50 MG TAB As Ordered ONE (15:38)
[2020-05-09] MEDS ORDERED: PANTOPRAZOLE 40MG TAB (PROTONIX) As Ordered ONE (15:38)
[2020-05-09] MEDS ORDERED: CREON-24 CAPSULE ONE (16:00)
[2020-05-09] MEDS ORDERED: HumaLOG INSULIN (NovoLOG) PER UNIT As Ordered ONE ×2 (17:11→20:28)
[2020-05-09] MEDS ORDERED: PERCOCET 5MG/325MG TAB As Ordered ONE (20:29)
[2020-05-09] MEDS ORDERED: LEVEMIR (INSULIN DETEMIR) 1 UNITS/0.01ML As Ordered ONE (20:32)
[2020-05-10] MEDS ORDERED: ALPRAZolam 0.25 MG TAB As Ordered ONE ×2 (02:34→19:46)
[2020-05-10] MEDS ORDERED: PERCOCET 5MG/325MG TAB As Ordered ONE ×3 (05:30→19:46)
[2020-05-10] MEDS ORDERED: PERCOCET 5MG/325MG TAB ONE ×2 (05:30→13:56)
[2020-05-10] MEDS ORDERED: PANTOPRAZOLE 40MG TAB (PROTONIX) ONE (07:21)
[2020-05-10] MEDS ORDERED: CLOPIDOGREL 75 MG TAB ONE (07:21)
[2020-05-10] MEDS ORDERED: DEXTROSE 50% 50 ML SYRINGE ONE (07:21)
[2020-05-10] MEDS ORDERED: LIDOCAINE 5% (LIDODERM) PATCH ONE (07:21)
[2020-05-10] MEDS ORDERED: DEXTROSE 50% 50 ML SYRINGE As Ordered ONE (07:21)
[2020-05-10] MEDS ORDERED: METOPROLOL TART 25 MG TABLET ONE (07:21)
[2020-05-10] MEDS ORDERED: CLOPIDOGREL 75 MG TAB As Ordered ONE (07:24)
[2020-05-10] MEDS ORDERED: amLODIPine 5 MG TAB As Ordered ONE (07:25)
[2020-05-10] MEDS ORDERED: PANTOPRAZOLE 40MG TAB (PROTONIX) As Ordered ONE (07:25)
[2020-05-10] MEDS ORDERED: METOPROLOL TART 25 MG TABLET As Ordered ONE (07:25)
[2020-05-10] MEDS ORDERED: LIDOCAINE 5% (LIDODERM) PATCH As Ordered ONE (07:25)
[2020-05-10] MEDS ORDERED: HumaLOG INSULIN (NovoLOG) PER UNIT ONE (11:17)
[2020-05-10] MEDS ORDERED: HumaLOG INSULIN (NovoLOG) PER UNIT As Ordered ONE (11:17)
[2020-05-10] MEDS ORDERED: carBAMazepine XR 200 MG TAB ONE (13:37)
[2020-05-10] MEDS ORDERED: CREON-24 CAPSULE ONE (13:37)
[2020-05-10] MEDS ORDERED: HEPARIN SOD (PORCINE) 5000UNITS/ML 1ML VIAL/SYRINGE As Ordered ONE ×2 (13:51→19:46)
[2020-05-10] MEDS ORDERED: HEPARIN SOD (PORCINE) 5000UNITS/ML 1ML VIAL/SYRINGE ONE (13:56)
[2020-05-10] MEDS ORDERED: LEVEMIR (INSULIN DETEMIR) 1 UNITS/0.01ML As Ordered ONE (20:20)
[2020-05-10] MEDS ORDERED: METOPROLOL 5 MG/5 ML VIAL As Ordered ONE (23:59)
[2020-05-11] MEDS ORDERED: PERCOCET 5MG/325MG TAB As Ordered ONE (00:31)
[2020-05-11] MEDS ORDERED: LORazepam 2 MG/ML VIAL As Ordered ONE (00:49)
[2020-05-11] MEDS ORDERED: IPRATROPIUM 0.5MG/ALBUTEROL 2.5MG INH SOL UD 3ML (DUONEB) As Ordered ONE (04:34)
[2020-05-11] MEDS ORDERED: HumaLOG INSULIN (NovoLOG) PER UNIT As Ordered ONE ×3 (05:10→12:35)
[2020-05-11] MEDS ORDERED: QUEtiapine FUMARATE 25 MG TAB ONE (09:00)
[2020-05-11] MEDS ORDERED: HALOPERIDOL 5MG/ML VIAL (J1630 PER 1) As Ordered ONE (10:46)
[2020-05-11] MEDS ORDERED: IPRATROPIUM 0.5MG/ALBUTEROL 2.5MG INH SOL UD 3ML (DUONEB) ONE (12:00)
[2020-05-11] MEDS ORDERED: HEPARIN SOD (PORCINE) 5000UNITS/ML 1ML VIAL/SYRINGE As Ordered ONE ×2 (15:55→20:15)
[2020-05-11] MEDS ORDERED: QUEtiapine FUMARATE 25 MG TAB As Ordered ONE (17:07)
[2020-05-11] MEDS ORDERED: ACETAMINOPHEN TAB 650MG DOSE (2X325MG) As Ordered ONE (20:20)
[2020-05-12] MEDS ORDERED: LEVEMIR (INSULIN DETEMIR) 1 UNITS/0.01ML As Ordered ONE ×2 (00:17→20:43)
[2020-05-12] MEDS ORDERED: HumaLOG INSULIN (NovoLOG) PER UNIT ONE (08:43)
[2020-05-12] MEDS ORDERED: FIORICET TAB ONE (09:00)
[2020-05-12] MEDS ORDERED: LIDOCAINE 5% (LIDODERM) PATCH ONE (09:36)
[2020-05-12] MEDS ORDERED: CLOPIDOGREL 75 MG TAB ONE (09:36)
[2020-05-12] MEDS ORDERED: PANTOPRAZOLE 40MG TAB (PROTONIX) ONE (09:36)
[2020-05-12] MEDS ORDERED: METOPROLOL TART 50 MG TAB ONE (09:36)
[2020-05-12] MEDS ORDERED: ACETAMINOPHEN TAB 650MG DOSE (2X325MG) As Ordered ONE (09:51)
[2020-05-12] MEDS ORDERED: HEPARIN SOD (PORCINE) 5000UNITS/ML 1ML VIAL/SYRINGE As Ordered ONE ×2 (14:37→21:52)
[2020-05-12] MEDS ORDERED: PERCOCET 5MG/325MG TAB As Ordered ONE (15:38)
[2020-05-12] MEDS ORDERED: FIORICET TAB As Ordered ONE (16:37)
[2020-05-12] MEDS ORDERED: HumaLOG INSULIN (NovoLOG) PER UNIT As Ordered ONE ×2 (16:52→20:43)
[2020-05-13] MEDS ORDERED: PERCOCET 5MG/325MG TAB As Ordered ONE ×2 (04:24→20:19)
[2020-05-13] MEDS ORDERED: CLOPIDOGREL 75 MG TAB As Ordered ONE (06:37)
[2020-05-13] MEDS ORDERED: METOPROLOL TART 50 MG TAB As Ordered ONE (06:37)
[2020-05-13] MEDS ORDERED: HEPARIN SOD (PORCINE) 5000UNITS/ML 1ML VIAL/SYRINGE As Ordered ONE (06:38)
[2020-05-13] MEDS ORDERED: PANTOPRAZOLE 40MG TAB (PROTONIX) As Ordered ONE (06:38)
[2020-05-13] MEDS ORDERED: LIDOCAINE 5% (LIDODERM) PATCH As Ordered ONE (07:44)
[2020-05-13] MEDS ORDERED: DARBEPOETIN 100 MCG/0.5 ML *DIALYSIS* SYRINGE (J0882) ONE (11:00)
[2020-05-13] MEDS ORDERED: LIDOCAINE 1% SDV 5ML VIAL ONE (11:00)
[2020-05-13] MEDS ORDERED: HumaLOG INSULIN (NovoLOG) PER UNIT As Ordered ONE (20:21)
[2020-05-13] MEDS ORDERED: LEVEMIR (INSULIN DETEMIR) 1 UNITS/0.01ML As Ordered ONE (20:22)
[2020-05-14] MEDS ORDERED: HEPARIN SOD (PORCINE) 5000UNITS/ML 1ML VIAL/SYRINGE As Ordered ONE ×3 (05:55→21:20)
[2020-05-14] MEDS ORDERED: METOPROLOL TART 50 MG TAB As Ordered ONE (07:36)
[2020-05-14] MEDS ORDERED: CLOPIDOGREL 75 MG TAB As Ordered ONE (07:37)
[2020-05-14] MEDS ORDERED: LIDOCAINE 5% (LIDODERM) PATCH As Ordered ONE (07:37)
[2020-05-14] MEDS ORDERED: PANTOPRAZOLE 40MG TAB (PROTONIX) As Ordered ONE (07:37)
[2020-05-14] MEDS ORDERED: LIDOCAINE 1% SDV 5ML VIAL ONE (09:00)
[2020-05-14] MEDS ORDERED: ACETAMINOPHEN 325 MG TAB As Ordered ONE (09:21)
[2020-05-14] MEDS ORDERED: HumaLOG INSULIN (NovoLOG) PER UNIT As Ordered ONE ×4 (14:02→21:48)
[2020-05-14] MEDS ORDERED: PERCOCET 5MG/325MG TAB As Ordered ONE (17:33)
[2020-05-14] MEDS ORDERED: QUEtiapine FUMARATE 25 MG TAB As Ordered ONE (21:20)
[2020-05-14] MEDS ORDERED: carBAMazepine XR 200 MG TAB As Ordered ONE (21:20)
[2020-05-14] MEDS ORDERED: LEVEMIR (INSULIN DETEMIR) 1 UNITS/0.01ML As Ordered ONE (21:22)
[2020-05-15] MEDS ORDERED: HEPARIN SOD (PORCINE) 5000UNITS/ML 1ML VIAL/SYRINGE As Ordered ONE ×3 (05:40→21:47)
[2020-05-15] MEDS ORDERED: CLOPIDOGREL 75 MG TAB As Ordered ONE (08:09)
[2020-05-15] MEDS ORDERED: METOPROLOL TART 50 MG TAB As Ordered ONE (08:09)
[2020-05-15] MEDS ORDERED: PANTOPRAZOLE 40MG TAB (PROTONIX) As Ordered ONE (08:09)
[2020-05-15] MEDS ORDERED: LIDOCAINE 5% (LIDODERM) PATCH As Ordered ONE (08:10)
[2020-05-15] MEDS ORDERED: carBAMazepine XR 200 MG TAB As Ordered ONE (08:10)
[2020-05-15] MEDS ORDERED: CREON-24 CAPSULE ONE ×2 (09:00→13:00)
[2020-05-15] MEDS ORDERED: LIDOCAINE 1% SDV 5ML VIAL ONE (09:00)
[2020-05-15] MEDS ORDERED: HumaLOG INSULIN (NovoLOG) PER UNIT As Ordered ONE ×3 (12:46→21:47)
[2020-05-15] MEDS ORDERED: COLCHICINE 0.6 MG TAB ONE (13:00)
[2020-05-15] MEDS ORDERED: PERCOCET 5MG/325MG TAB As Ordered ONE (18:20)
[2020-05-15] MEDS ORDERED: LEVEMIR (INSULIN DETEMIR) 1 UNITS/0.01ML As Ordered ONE (21:48)
[2020-05-16] MEDS ORDERED: HEPARIN SOD (PORCINE) 5000UNITS/ML 1ML VIAL/SYRINGE As Ordered ONE ×2 (05:43→13:25)
[2020-05-16] MEDS ORDERED: METOPROLOL TART 50 MG TAB As Ordered ONE (08:40)
[2020-05-16] MEDS ORDERED: CLOPIDOGREL 75 MG TAB As Ordered ONE (08:40)
[2020-05-16] MEDS ORDERED: PANTOPRAZOLE 40MG TAB (PROTONIX) As Ordered ONE (08:41)
[2020-05-16] MEDS ORDERED: LIDOCAINE 5% (LIDODERM) PATCH As Ordered ONE (08:41)
[2020-05-16] MEDS ORDERED: PERCOCET 5MG/325MG TAB PO PRN ×3 (10:30→19:00)
[2020-05-16] MEDS ORDERED: ACETAMINOPHEN TAB 650MG DOSE (2X325MG) PO PRN (10:30)
[2020-05-16] MEDS ORDERED: GLUCOSE 4GM CHEW TABLET PO PRN (10:30)
[2020-05-16] MEDS ORDERED: GLUCAGON INJ 1MG VIAL SC PRN (10:30)
[2020-05-16] MEDS ORDERED: IPRATROPIUM 0.5MG/ALBUTEROL 2.5MG INH SOL UD 3ML (DUONEB) NEB PRN (10:30)
[2020-05-16] MEDS ORDERED: DEXTROSE 50% 50 ML SYRINGE IV PRN (10:30)
[2020-05-16] MEDS ORDERED: SODIUM CHLORIDE 0.9% INJ 10 ML SYR IV PRN (10:30)
[2020-05-16] MEDS ORDERED: HumaLOG INSULIN (NovoLOG) PER UNIT SC SCH ×2 (12:00→21:00)
[2020-05-16] MEDS ORDERED: HumaLOG INSULIN (NovoLOG) PER UNIT As Ordered ONE (13:27)
[2020-05-16] MEDS ORDERED: SODIUM CHLORIDE 0.9% INJ 10 ML SYR IV SCH (14:00)
[2020-05-16] MEDS ORDERED: LIDOCAINE 1% SDV 5ML VIAL ONE (14:29)
[2020-05-16] MEDS ORDERED: BISACODYL ENEMA 10 MG/30 ML PR PRN (19:00)
[2020-05-16] MEDS ORDERED: HEPARIN SOD (PORCINE) 5000UNITS/ML 1ML VIAL/SYRINGE SQ SCH (21:00)
[2020-05-16] MEDS ORDERED: LEVEMIR (INSULIN DETEMIR) 1 UNITS/0.01ML SC SCH (21:00)
[2020-05-16] MEDS ORDERED: QUEtiapine FUMARATE 25 MG TAB PO SCH (21:00)
[2020-05-16] MEDS ORDERED: carBAMazepine XR 200 MG TAB PO SCH (21:00)
[2020-05-16 21:36] LABS: HEMATOCRIT 33.4 % (42.0-52.0); HEMOGLOBIN 10.4 g/dl (13.5-17.5); MEAN CORPUSCULAR HEMOGLOBIN 33.4 pg (27.0-33.0); MEAN CORPUSCULAR HGB CONC 31.1 g/dl (32.0-36.5); MEAN CORPUSCULAR VOLUME 107.4 fl (80.0-96.0); PLATELET COUNT, AUTOMATED 335 10^3/uL (150-450); RED BLOOD COUNT 3.11 10^6/uL (4.30-6.10)
[2020-05-17] MEDS ORDERED: CREON-24 CAPSULE PO SCH (08:00)
[2020-05-17] MEDS ORDERED: CLOPIDOGREL 75 MG TAB PO SCH (09:00)
[2020-05-17] MEDS ORDERED: METOPROLOL TART 50 MG TAB PO SCH (09:00)
[2020-05-17] MEDS ORDERED: PANTOPRAZOLE 40MG TAB (PROTONIX) PO SCH (09:00)
[2020-05-17] MEDS ORDERED: LIDOCAINE 5% (LIDODERM) PATCH TD SCH (09:00)
[2020-05-18] MEDS ORDERED: COLCHICINE 0.6 MG TAB PO SCH (09:00)
--- NOTE | 2020-05-29 13:12 | CR ---
DATE OF CONSULTATION: 05/09/2020 REASON FOR CONSULTATION: Patient is seen at the request of Dr. Mendosa of the hospitalist service for pericardial effusion and hypotension. The information in the chart is rather sparse. Due to the shut down of the information systems, I have a sinking feeling that I have incomplete information; but enough to make medical decisions. HISTORY OF PRESENT ILLNESS: The patient is a 55-year-old white male who reports becoming more short of breath, unable to lay down flat over the past week. He finally became so short of breath he sought treatment in the emergency room. He was found to have hypotensive in the emergency room down to a blood pressure of 60 systolic. He had a cough, but it has been longstanding. He coughs up sputum, but does not know what color it is, but he states that it is not read. He complains of chest discomfort and chest pressure all over his anterior chest. There is no dysphagia. He denies fevers, chills, or sweats. PAST MEDICAL ILLNESSES: Chronic obstructive pulmonary disease (COPD), chronic renal failure dialysis-dependent, hypertension, prior seizure disorder, and reported ETOH abuse with pancreatitis. PAST SURGICAL HISTORY: Unknown. ALLERGIES: No medication allergies. TRAVEL HISTORY: Not obtained. OCCUPATIONAL HISTORY: Not obtained. EXPOSURE HISTORY: Not obtained. HABITS: Cigarette smoke one pack per day. Prior alcohol abuse of unknown quantity. REVIEW OF SYSTEMS: Eyes: Without amaurosis fugax. Without prior jaundice. Nose: Without epistaxis. Respiratory: See HPI. Cardiac: Without prior myocardial infarction. GI: Without nausea or vomiting. Has a history of pancreatitis. : Without dysuria. Endocrine: Without diabetes or thyroid disease. Hematologic: History of anemia. Neurologic: Has a seizure disorder. PHYSICAL EXAMINATION: VITAL SIGNS: Blood pressure 92/56, heart rate 135 to 140 in atrial fibrillation, temperature 98.6, respiratory rate 24 without use of accessory muscle. HEAD: Normocephalic. EYES: Pupils equal, round, reactive to light. Extraocular movements intact. Sclerae nonicteric. NOSE: Without deformity. MOUTH: Shows mucous membranes to be pink and moist. No scabs or lesions. There is no thrush. NECK: Supple. There is jugular venous distention (JVD) custodial up to the jaw. Trachea is midline. There is no subcutaneous emphysema. LUNGS: Show equal breath sounds on either side with bilateral wheezing during mid-late expiration. Percussion is dull to the diaphragm. CARDIAC: Shows an irregular rate and rhythm. I do not appreciate murmurs, clicks, gallops, or rubs secondary to the all the background wheezing. I cannot feel his PMI. ABDOMEN: Tympanitic, but nontender. Bowel sounds are positive, but hypoactive. EXTREMITIES: Show 1+ pretibial edema. No calf tenderness. No differential swelling of the upper extremities. SKIN: Warm, dry, and perfused without cyanosis or modeling. NEUROLOGIC: Shows motor and sensation intact. CN II-XII intact. PSYCHIATRIC: He is appropriately anxious saying that Im going to . INVESTIGATIONS: What little there are in the lab, shows a white count of 8.6 with a hemoglobin and hematocrit of 11.0 and 34.6. He has 87% neutrophils, 4% lymphocytes, and 7% monocytes. Electrolytes show a sodium of 132, potassium 4.7, chloride of 96 with a total CO2 of 25, glucose 235 with BUN and creatinine of 67 and 7.1, which was prior to dialysis. His albumin is 2.9 with a total protein of 6.4, amylase of 29, total bilirubin 0.5. AST and ALT are 81 and [address] shows a small pericardial effusion. His lung windows do not show pulmonary edema. There are no obvious masses. His echocardiogram done today, which I have seen, shows again a small pericardial effusion without compression. The IVC; however, has no respiratory variation. He does have a highly calcific mitral valve and the mitral valve area is calculated as 1.1 cm2. He has pulmonary hypertension. He has poor left ventricular filling. IMPRESSION: Small pericardial effusion without obvious tamponade. Severe mitral stenosis. Poor ventricular filling. New onset atrial fibrillation. Probably underlying pericarditis of unknown cause. Prior history of pancreatitis. Chronic obstructive pulmonary disease (COPD). Tobacco abuse. Hypertension. Chronic renal failure dialysis-dependent. PLAN AND DISCUSSION: At this point in time, I am not convinced that he needs to have his pericardial effusion drained as I do not think this represents a pericardial tamponade. The appearance of fluid is consistent with a pericarditis, maybe a uremic pericarditis. He has already received one dose of colchicine, which will last him for two weeks. Cholchicine is not dialyzable. I have asked Dr. Diaz of cardiology to see him for rate control and perhaps rhythm conversion. I suspect that he will eventually need cardiac surgical intervention and may need to be transferred to a center that can offer those services. I also suspect that once we get his rate under control and/or converted, his blood pressure will get back to his baseline. I would suggest a course of anti-inflammatories to include NSAIDs or steroids as these are excreted in the urine and are dialyzable. I am resistant to recommend steroids; however, if NSAIDs are not considered safe, we would be forced to start a steroid dose as an anti-inflammatory for his pericarditis. I will follow along closely. AJ
--- NOTE | 2020-06-15 15:15 | ECGEPIP ---
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
--- NOTE | 2020-06-15 16:28 | ECGEPIP ---
SINUS BRADYCARDIA NONSPECIFIC ST & T-WAVE CHANGES SEE SCANNED DOWNTIME REPORT MTDD
--- NOTE | 2020-06-15 16:29 | ECGEPIP ---
SINUS BRADYCARDIA PRWP NONSPECIFIC ST & T-WAVE CHANGES SEE SCANNED DOWNTIME REPORT MTDD
--- NOTE | 2020-06-16 13:24 | ECGEPIP ---
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
--- NOTE | 2020-06-20 09:30 | REP ---
PORTABLE CHEST WITH THE PATIENT AP SEMI UPRIGHT COMPARISON: Portable chest dated 05/08/2020 and PA and lateral chest dated 06/14/2019. FINDINGS: There has been interval placement of a right IJ central venous catheter with the tip in the superior vena cava in satisfactory position. There is no pneumothorax or pleural fluid collection. There are no focal infiltrates. There is chronic mild coarsening of the interstitial markings, unchanged. Cardiac size appears enlarged, although there is magnification from portable positioning. There is atheromatous calcification in the mitral annulus, unchanged. IMPRESSION: No pneumothorax or pleural fluid collection. New right internal jugular central venous catheter. Chronic interstitial coarsening. Cardiomegaly versus artifact from portable positioning. MTDD
--- NOTE | 2020-06-20 11:22 | ECGEPIP ---
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
[2020-06-22 10:13] LABS: BASO % 0.3 % (0.0-1.0); EOS % 0.1 % (0.0-3.0); HEMATOCRIT 34.6 % (42.0-52.0); LYMPH # 0.3 10^3/uL (1.5-5.0); LYMPH % 3.9 % (24.0-44.0); MEAN CORPUSCULAR HEMOGLOBIN 34.3 pg (27.0-33.0); MEAN CORPUSCULAR HGB CONC 31.8 g/dl (32.0-36.5); MEAN CORPUSCULAR VOLUME 107.8 fl (80.0-96.0); MONO # 0.7 10^3/uL (0.0-0.8); MONO % 7.5 % (0.0-5.0); NEUTROPHILS # 7.6 10^3/uL (1.5-8.5); NEUTROPHILS % 87.7 % (36.0-66.0); PLATELET COUNT, AUTOMATED 342 10^3/uL (150-450); RED BLOOD COUNT 3.21 10^6/uL (4.30-6.10); WHITE BLOOD COUNT 8.6 10^3/uL (4.0-10.0)
[2020-06-29 07:17] LABS: BASO % 0.1 % (0.0-1.0); EOS % 0.1 % (0.0-3.0); HEMATOCRIT 34.8 % (42.0-52.0); HEMOGLOBIN 11.1 g/dl (13.5-17.5); LYMPH # 0.5 10^3/uL (1.5-5.0); LYMPH % 6.3 % (24.0-44.0); MEAN CORPUSCULAR HEMOGLOBIN 33.8 pg (27.0-33.0); MEAN CORPUSCULAR HGB CONC 31.9 g/dl (32.0-36.5); MEAN CORPUSCULAR VOLUME 106.1 fl (80.0-96.0); MONO % 11.3 % (0.0-5.0); NEUTROPHILS # 6.9 10^3/uL (1.5-8.5); NEUTROPHILS % 81.8 % (36.0-66.0); PLATELET COUNT, AUTOMATED 322 10^3/uL (150-450); RED BLOOD COUNT 3.28 10^6/uL (4.30-6.10); WHITE BLOOD COUNT 8.4 10^3/uL (4.0-10.0)
[2020-06-29 10:13] LABS: BASO % 0.1 % (0.0-1.0); EOS % 0.1 % (0.0-3.0); HEMATOCRIT 31.3 % (42.0-52.0); HEMOGLOBIN 10.1 g/dl (13.5-17.5); INR 1.45; LYMPH # 0.1 10^3/uL (1.5-5.0); LYMPH % 1.6 % (24.0-44.0); MEAN CORPUSCULAR HGB CONC 32.3 g/dl (32.0-36.5); MEAN CORPUSCULAR VOLUME 105.4 fl (80.0-96.0); MONO # 0.8 10^3/uL (0.0-0.8); MONO % 9.2 % (0.0-5.0); NEUTROPHILS # 7.3 10^3/uL (1.5-8.5); NEUTROPHILS % 88.5 % (36.0-66.0); PARTIAL THROMBOPLASTIN TIME 36.2 SECONDS (24.2-38.5); PLATELET COUNT, AUTOMATED 288 10^3/uL (150-450); RED BLOOD COUNT 2.97 10^6/uL (4.30-6.10); WHITE BLOOD COUNT 8.3 10^3/uL (4.0-10.0)
[2020-07-02 01:00] LABS: HEMATOCRIT 32.8 % (42.0-52.0); HEMOGLOBIN 10.5 g/dl (13.5-17.5); MEAN CORPUSCULAR HEMOGLOBIN 33.9 pg (27.0-33.0); MEAN CORPUSCULAR VOLUME 105.8 fl (80.0-96.0); PLATELET COUNT, AUTOMATED 293 10^3/uL (150-450); WHITE BLOOD COUNT 7.8 10^3/uL (4.0-10.0)
[2020-07-02 16:43] LABS: HEMATOCRIT 30.1 % (42.0-52.0); HEMOGLOBIN 9.9 g/dl (13.5-17.5); MEAN CORPUSCULAR HEMOGLOBIN 34.1 pg (27.0-33.0); MEAN CORPUSCULAR HGB CONC 32.9 g/dl (32.0-36.5); MEAN CORPUSCULAR VOLUME 103.8 fl (80.0-96.0); PLATELET COUNT, AUTOMATED 260 10^3/uL (150-450); WHITE BLOOD COUNT 7.4 10^3/uL (4.0-10.0)
[2020-07-02 16:43] LABS: HEMATOCRIT 29.7 % (42.0-52.0); HEMOGLOBIN 9.3 g/dl (13.5-17.5); MEAN CORPUSCULAR HEMOGLOBIN 33.9 pg (27.0-33.0); MEAN CORPUSCULAR HGB CONC 31.3 g/dl (32.0-36.5); MEAN CORPUSCULAR VOLUME 108.4 fl (80.0-96.0); PLATELET COUNT, AUTOMATED 273 10^3/uL (150-450); RED BLOOD COUNT 2.74 10^6/uL (4.30-6.10); WHITE BLOOD COUNT 9.1 10^3/uL (4.0-10.0)
[2020-07-09 06:58] LABS: HEMATOCRIT 30.4 % (42.0-52.0); HEMOGLOBIN 9.6 g/dl (13.5-17.5); MEAN CORPUSCULAR HEMOGLOBIN 33.4 pg (27.0-33.0); MEAN CORPUSCULAR HGB CONC 31.6 g/dl (32.0-36.5); MEAN CORPUSCULAR VOLUME 105.9 fl (80.0-96.0); PLATELET COUNT, AUTOMATED 243 10^3/uL (150-450); RED BLOOD COUNT 2.87 10^6/uL (4.30-6.10); WHITE BLOOD COUNT 6.3 10^3/uL (4.0-10.0)
[2020-07-09 18:14] LABS: HEMATOCRIT 30.8 % (42.0-52.0); HEMOGLOBIN 9.9 g/dl (13.5-17.5); MEAN CORPUSCULAR HEMOGLOBIN 33.6 pg (27.0-33.0); MEAN CORPUSCULAR HGB CONC 32.1 g/dl (32.0-36.5); MEAN CORPUSCULAR VOLUME 104.4 fl (80.0-96.0); PLATELET COUNT, AUTOMATED 258 10^3/uL (150-450); RED BLOOD COUNT 2.95 10^6/uL (4.30-6.10); WHITE BLOOD COUNT 6.3 10^3/uL (4.0-10.0)
[2020-07-22 21:10] LABS: ALBUMIN 2.9 GM/DL (3.2-5.2); BILIRUBIN,DIRECT 0.2 MG/DL (0.0-0.2); BILIRUBIN,TOTAL 0.5 MG/DL (0.2-1.0); CK-MB VALUE MASS 2.9 NG/ML (<3.6); MB/CK RELATIVE INDEX 1.92 (< OR =4); TOTAL PROTEIN 6.4 GM/DL (6.4-8.2)
[2020-08-01 11:24] LABS: ALBUMIN 2.7 GM/DL (3.2-5.2); ALT/SGPT 90 U/L (12-78); BILIRUBIN,TOTAL 0.4 MG/DL (0.2-1.0); BLOOD UREA NITROGEN 79 MG/DL (7-18); CALCIUM LEVEL 8.3 MG/DL (8.5-10.1); CARBON DIOXIDE LEVEL 26 MEQ/L (21-32); CHLORIDE LEVEL 96 MEQ/L (98-107); CREATININE FOR GFR 8.03 MG/DL (0.70-1.30); GLOMERULAR FILTRATION RATE 7.4 (>56); GLUCOSE, FASTING 196 MG/DL (70-100); HEPATITIS A ANTIBODY IGM NEGATIVE (NEGATIVE); HEPATITIS B CORE ANTIBODY IGM NEGATIVE (NEGATIVE); HEPATITIS B SURFACE ANTIGEN NEGATIVE (NEGATIVE); HEPATITIS C VIRUS ABY INDEX 0.2 INDEX (<0.8); POTASSIUM SERUM 5.6 MEQ/L (3.5-5.1); SODIUM LEVEL 133 MEQ/L (136-145); TOTAL PROTEIN 6.2 GM/DL (6.4-8.2); TROPONIN I 0.08 NG/ML (< 0.10)
[2020-08-01 11:30] LABS: ALBUMIN 2.4 GM/DL (3.2-5.2); ALT/SGPT 71 U/L (12-78); BILIRUBIN,TOTAL 0.6 MG/DL (0.2-1.0); BLOOD UREA NITROGEN 49 MG/DL (7-18); CARBON DIOXIDE LEVEL 27 MEQ/L (21-32); CHLORIDE LEVEL 99 MEQ/L (98-107); CK-MB VALUE MASS < 1.0 NG/ML (<3.6); CPK CREATINE PHOSPHOKINASE 62 U/L (39-308); CREATININE FOR GFR 5.31 MG/DL (0.70-1.30); GLOMERULAR FILTRATION RATE 11.9 (>56); GLUCOSE, FASTING 291 MG/DL (70-100); LIPASE 81 U/L (73-393); MAGNESIUM LEVEL 2.3 MG/DL (1.8-2.4); MB/CK RELATIVE INDEX 1.61 (< OR =4); PHOSPHORUS LEVEL 4.4 MG/DL (2.5-4.9); SODIUM LEVEL 137 MEQ/L (136-145); TOTAL PROTEIN 5.7 GM/DL (6.4-8.2)
[2020-08-01 14:10] LABS: ABG BASE EXCESS -1.3 (-2.0-2.0); ABG HCO3 24.5 MEQ/L (22.0-26.0); ABG MODE OF VENT R/A; ABG O2 SATURATION 92.7 % (95.0-99.0); ABG PARTIAL PRESSURE CO2 46.2 mmHg (35.0-45.0); ABG PARTIAL PRESSURE O2 71.6 mmHg (75.0-100.0); ABG STANDARD HCO3 23.3 MEQ/L (22.0-26.0); ABG pH (ARTERIAL) 7.343 UNITS (7.350-7.450)
[2020-08-02 08:11] LABS: CREATININE FOR GFR 6.49 MG/DL (0.70-1.30); DIGOXIN LEVEL 3.1 NG/ML (0.5-2.0); GLOMERULAR FILTRATION RATE 9.5 (>56); MAGNESIUM LEVEL 2.6 MG/DL (1.8-2.4); POTASSIUM SERUM 4.9 MEQ/L (3.5-5.1)
[2020-08-02 08:13] LABS: CALCIUM LEVEL 8.1 MG/DL (8.5-10.1); CREATININE FOR GFR 7.21 MG/DL (0.70-1.30); GLOMERULAR FILTRATION RATE 8.4 (>56); MAGNESIUM LEVEL 2.6 MG/DL (1.8-2.4); PHOSPHORUS LEVEL 6.7 MG/DL (2.5-4.9); POTASSIUM SERUM 5.4 MEQ/L (3.5-5.1); TROPONIN I 0.04 NG/ML (< 0.10)
[2020-08-02 16:14] LABS: ABG BASE EXCESS -9.9 (-2.0-2.0); ABG HCO3 17.5 MEQ/L (22.0-26.0); ABG MODE OF VENT RA; ABG O2 SATURATION 93.3 % (95.0-99.0); ABG PARTIAL PRESSURE CO2 44.7 mmHg (35.0-45.0); ABG PARTIAL PRESSURE O2 82.7 mmHg (75.0-100.0); ABG STANDARD HCO3 16.4 MEQ/L (22.0-26.0); ABG TOTAL CO2 18.8 MEQ/L (22.0-29.0)
[2020-08-02 17:55] LABS: ALBUMIN 2.6 GM/DL (3.2-5.2); BILIRUBIN,TOTAL 0.4 MG/DL (0.2-1.0); CALCIUM LEVEL 8.5 MG/DL (8.5-10.1); CREATININE FOR GFR 3.69 MG/DL (0.70-1.30); DIGOXIN LEVEL 0.8 NG/ML (0.5-2.0); GLOMERULAR FILTRATION RATE 18.2 (>56); MAGNESIUM LEVEL 2.2 MG/DL (1.8-2.4); POTASSIUM SERUM 3.5 MEQ/L (3.5-5.1); TOTAL PROTEIN 6.5 GM/DL (6.4-8.2)
[2020-08-02 17:55] LABS: ALBUMIN 2.2 GM/DL (3.2-5.2); BILIRUBIN,TOTAL 0.3 MG/DL (0.2-1.0); CALCIUM LEVEL 7.9 MG/DL (8.5-10.1); CREATININE FOR GFR 7.8 MG/DL (0.70-1.30); DIGOXIN LEVEL 1.3 NG/ML (0.5-2.0); GLOMERULAR FILTRATION RATE 7.7 (>56); POTASSIUM SERUM 5.4 MEQ/L (3.5-5.1); TOTAL PROTEIN 6.3 GM/DL (6.4-8.2)
== END 2020-05-16 14:30 | disposition left against medical advice (07) | DRG 316 ==
LOC: M ED 12:30 → EDBD 12:31 → M MSPAV 12:31
PROVIDERS: ADMIT Internal Medicine; ATTEND Internal Medicine
DX: I30.9 Acute pericarditis, unspecified (principal); I95.9 Hypotension, unspecified; F17.200 Nicotine dependence, unspecified, uncomplicated; J44.9 Chronic obstructive pulmonary disease, unspecified; G40.909 Epilepsy, unspecified, not intractable, without status epilepticus; F10.10 Alcohol abuse, uncomplicated; Z99.2 Dependence on renal dialysis; I34.0 Nonrheumatic mitral (valve) insufficiency; I48.91 Unspecified atrial fibrillation; N18.9 Chronic kidney disease, unspecified; I12.9 Hypertensive chronic kidney disease with stage 1 through stage 4 chronic kidney disease, or unspecified chronic kidney disease

== ENCOUNTER 2020-05-19 07:48 | Inpatient (IN) | payer MEDICARE, MEDICAID ==
[~2020-05-19 07:48] MED LIST changes: -IPRATROPIUM 0.5MG/ALBUTEROL 2.5MG INH SOL UD 3ML (DUONEB) ONE; -ISOVUE-370 76% 100ML VIAL As Ordered ONE; -carBAMazepine XR 200 MG TAB ONE; -fentaNYL 100 MCG/2 ML INJECTION (J3010) As Ordered ONE
[2020-05-19] MEDS ORDERED: ZENP1CAP PO (08:10)
[2020-05-19] MEDS ORDERED: [UNRECOGNIZED DRUG - CODE] PO (08:10)
[2020-05-19] MEDS ORDERED: PERCOCET 5MG/325MG TAB PO ONE (08:15)
[2020-05-19] MEDS ORDERED: LIDOCAINE 5% (LIDODERM) PATCH TD ONE (08:15)
[2020-05-19 08:36] LABS: BASO % 0.5 % (0.0-1.0); EOS # 0.1 10^3/uL (0.0-0.5); EOS % 2.3 % (0.0-3.0); HEMATOCRIT 35.1 % (42.0-52.0); LYMPH # 0.5 10^3/uL (1.5-5.0); LYMPH % 8.7 % (24.0-44.0); MEAN CORPUSCULAR HEMOGLOBIN 33.5 pg (27.0-33.0); MEAN CORPUSCULAR HGB CONC 31.3 g/dl (32.0-36.5); MONO # 0.6 10^3/uL (0.0-0.8); MONO % 10.3 % (0.0-5.0); NEUTROPHILS # 4.5 10^3/uL (1.5-8.5); NEUTROPHILS % 77.9 % (36.0-66.0); PLATELET COUNT, AUTOMATED 410 10^3/uL (150-450); RED BLOOD COUNT 3.28 10^6/uL (4.30-6.10); WHITE BLOOD COUNT 5.7 10^3/uL (4.0-10.0)
--- NOTE | 2020-05-19 09:07 | REPVR ---
PROCEDURE INFORMATION: Exam: XR Chest, 1 View Exam date and time: 05/19/2020 8:45 AM Age: 55 years old Clinical indication: Cough; Additional info: Dyspnea/cough TECHNIQUE: Imaging protocol: XR of the chest Views: 1 view. COMPARISON: MA CHEST, CHEST AP 40" VG 05/09/2020 11:11 AM FINDINGS: Lungs: Bilateral perihilar nonspecific ground-glass and reticulonodular opacities. Pleural space: Unremarkable. No pleural effusion. No pneumothorax. Heart/Mediastinum: Cardiomegaly. Vasculature: Atherosclerotic disease. Bones/joints: Unremarkable. IMPRESSION: No significant interval change. Electronically signed by: Gregory Calix On 05/19/2020 09:07:10 AM
[2020-05-19 09:08] LABS: ALBUMIN 2.2 GM/DL (3.2-5.2); BILIRUBIN,DIRECT 0.1 MG/DL (0.0-0.2); BILIRUBIN,TOTAL 0.3 MG/DL (0.2-1.0); CALCIUM LEVEL 7.8 MG/DL (8.5-10.1); CREATININE FOR GFR 3.87 MG/DL (0.70-1.30); GLOMERULAR FILTRATION RATE 17.2 (>56); POTASSIUM SERUM 3.8 MEQ/L (3.5-5.1); TOTAL PROTEIN 5.6 GM/DL (6.4-8.2)
--- NOTE | 2020-05-19 10:02 | REPVR ---
PROCEDURE INFORMATION: Exam: CT Chest Without Contrast Exam date and time: 05/19/2020 9:26 AM Age: 55 years old Clinical indication: Shortness of breath; Additional info: SOB TECHNIQUE: Imaging protocol: Computed tomography of the chest without contrast. 3D rendering (Not supervised by radiologist): MIP and/or 3D reconstructed images were created x the technologist. Radiation optimization: All CT scans at this facility use at least one of these dose optimization techniques: automated exposure control; mA and/or kV adjustment per patient size (includes targeted exams where dose is matched to clinical indication); or iterative reconstruction. COMPARISON: OT CT ANGIO CHEST 06/14/2019 12:46 PM FINDINGS: Lungs: Stable right upper lobe pulmonary nodules. Pleural space: Moderate left and small right pleural effusions with adjacent compressive atelectasis. Heart: Small pericardial effusion. Coarsely calcified mitral annulus. Coarse calcifications of the aortic valve leaflets. Atherosclerotic disease of the coronary arteries. Cardiomegaly. Aorta: Atherosclerotic disease of the thoracic aorta. Lymph nodes: Unremarkable. No enlarged lymph nodes. Pancreas: Evidence of chronic pancreatitis. Adrenals: Bilateral adrenal hyperplasia. Kidneys and ureters: Bilateral renal atrophy. Bones/joints: Multilevel degenerative disease of thoracic spine. Soft tissues: Unremarkable. IMPRESSION: Moderate left and small right pleural effusions with adjacent compressive atelectasis. Small pericardial effusion. Electronically signed by: Gregory Calix On 05/19/2020 10:02:39 AM
[2020-05-19] MEDS ORDERED: PROAAER10 INH (11:41)
[2020-05-19] MEDS ORDERED: CARB400T4 PO (11:41)
[2020-05-19] MEDS ORDERED: VITA50005 PO (11:41)
[2020-05-19] MEDS ORDERED: LIDO2.5C15 TOP (11:51)
[2020-05-19] MEDS ORDERED: AURY1TAB PO (11:51)
[2020-05-19] MEDS ORDERED: AZO1CAP PO (11:51)
[2020-05-19] MEDS ORDERED: ALBUTEROL 90 MCG/ACT 8GM HFA INHALER INH PRN (16:00)
[2020-05-19] MEDS ORDERED: DEXTROSE 50% 50 ML SYRINGE IV PRN (16:00)
[2020-05-19] MEDS ORDERED: GLUCAGON INJ 1MG VIAL SC PRN (16:00)
[2020-05-19] MEDS ORDERED: GLUCOSE 4GM CHEW TABLET PO PRN (16:00)
[2020-05-19] MEDS: HumaLOG INSULIN (NovoLOG) PER UNIT SC SCH ×2 (16:48→21:00)
--- NOTE | 2020-05-19 16:51 | HPEPDOC ---
[facility] Medical History & Physical Date of Admission May 19, 2020 Date of Service: May 19, 2020 Attending Physician: ESTEFANY HILL MD History and Physical CHIEF COMPLAINT: shortness of breath, lower extremity edema HISTORY OF PRESENT ILLNESS: Mr. Jones is a 55 yo M with a hx of ESRD on HD, T ype 1 DM, HTN, afib? (not on AC). He was recently admitted to [facility] for fluid overload, diagnosed with bilateral pleural effusions and a small pericardial effusion with pericarditis likely 2/2 uremia. He was started on colchine. Prior to completion of therapy./ He left AMA. He last received hemodialysis on 05/18/20 AM, which was shortened due to hypotension per patient. Returns to ED with worsening shortness of breath, lower extremity edema and orthopnea. He denies dizziness, chest pain, palpitations, fever or chills. In the ED, telemetry showing AFIB with RVR. Patient states that he has had this rhythm for many years, and it has not bothered him all this time. Denies having seen cardiology. Nephrology was consulted, plan for HD in am. PAST MEDICAL HISTORY: 1. ESRD on HD 2. Type 1 DM 3. HTN 4. Afib? 5. PAD PAST SURGICAL HISTORY: 1. L sided fistula SOCIAL HISTORY: heavy smoker, occasional etoh FAMILY HISTORY: reports cardiac hx in father, brother, unable to specify ALLERGIES: Please see below. REVIEW OF SYSTEMS: CONSTITUTIONAL: lethargy HEENT: none. CARDIOVASCULAR: none. RESPIRATORY: shortness of breath, orthopnea. GASTROINTESTINAL: none. GENITOURINARY: none. SKIN: none. MUSCULOSKELETAL: 2+ edema in BLE. NEUROLOGICAL: none. PSYCHIATRIC: none. ENDOCRINE: none. HEMATOLOGIC/LYMPHATIC: none HOME MEDICATIONS: Please see below. PHYSICAL EXAMINATION: VITAL SIGNS: please see below GENERAL APPEARANCE: NAD, sitting upright, eating food. Irritable. HEENT: PERRLA. CARDIOVASCULAR: irregular rhythm, pericardial friction rub on auscultation. S1, S2. LUNGS: reduced breath sounds bilaterally. Good inspiratory effort. ABDOMEN: soft, non tender. MUSCULOSKELETAL: No deformity. Lidocaine patch on L shoulder EXTREMITIES: no deformity NEUROLOGICAL: no focal neuro deficits. PSYCHIATRIC: wnl. LABORATORY DATA: See below. IMAGING: CXR: no interval change from prior study. Cardiomegaly. Ground glass opacities. No pleural effusions seen. CT chest wo contrast: moderate L and small R sided pleural effusions with adjacent compressive atelectasis. Small pericardial effusion. MICROBIOLOGY: Please see below. ASSESSMENT: Mr. Jones is a 55 yo M with a hx of ESRD on HD, Type 1 DM, HTN, afib? (not on AC). He was recently admitted to [facility] for fluid overload, diagnosed with bilate ral pleural effusions and a small pericardial effusion with pericarditis likely 2/2 uremia. He is admitted for worsening dyspnea likely 2/2 fluid overload. PLAN: 1. ESRD: fluid overloaded. last HD session 05/18/20. Follows with Dr. Kinsey. Nephro consult. Plan for HD in am. Renal diet. 2. Afib with RVR: states chronic problem. No records of Afib found. Not on AC. Unclear of hx of CHF. [id number] 2. Started on eliquis 5 mg BID. Home metoprolol 50 tartrate once daily. Tele. 2D echo ordered. Discussed with cardiology Dr. Case. Given low borderline BP, prefer Digoxin over BB. Loading dose digoxin 0.5 mg once. Monitor tele for response. 3. Pericarditis: likely 2/2 uremia. Started on colchicine 0.6 mg daily last admission. Resume. 4. Bilateral pleural effusion: R>L. HD in am. 5. Type 1 DM: takes levemir 26 units qam. ISS HS at home. Resumed home regimen. Check A1c. Sees endo. 6. HTN: home dose hydralazine 100 mg PO BID. BB. Hold if SBP< 110 mmHg 7. PAD?: on plavix 8. Seizures: home dose cabamazepine 400 mg PO BID. Serum level 6.5. DVT ppx: eliquis. Vital Signs Vital Signs Date Time Temp Pulse Resp B/P (MAP) Pulse Ox O2 Delivery O2 Flow Rate FiO2 05/19/20 08:34 18 05/19/20 08:00 Room Air 05/19/20 07:52 98.3 121 92/52 96 Laboratory Data Labs 24H Laboratory Tests 2 05/19/20 08:00: Immature Granulocyte % (Auto) 0.3, Neutrophils (%) (Auto) 77.9H, Lymphocytes (%) (Auto) 8.7L, Monocytes (%) (Auto) 10.3H, Eosinophils (%) (Auto) 2.3, Basophils (%) (Auto) 0.5, Neutrophils # (Auto) 4.5, Lymphocytes # (Auto) 0.5L, Monocytes # (Auto) 0.6, Eosinophils # (Auto) 0.1, Basophils # (Auto) 0.0, Nucleated Red Blood Cells % (auto) 0.0, Anion Gap 7L, Glomerular Filtration Rate 17.2L, Calcium Level 7.8L, Total Bilirubin 0.3, Direct Bilirubin 0.1, Aspartate Amino Transf (AST/SGOT) 33, Alanine Aminotransferase (ALT/SGPT) 45, Alkaline Phosphatase 316H, Total Protein 5.6L, Albumin 2.2L, Albumin/Globulin Ratio 0.6 05/19/20 12:30: Carbamazepine (Tegretol) Level 6.5 CBC/BMP Laboratory Tests 05/19/20 08:00 Home Medications Scheduled Amlodipine Besylate (Amlodipine Besylate) 5 Mg Tab, 5 MG PO BID Carbamazepine (Carbamazepine ER) 400 Mg Tab.er.12h, 400 MG PO BID Clopidogrel Bisulfate (Plavix) 75 Mg Tab, 75 MG PO DAILY Cranberry Fruit Extract/Vit C (Azo Cranberry Softgel) 1 Each Capsule, 2 CAP PO TID Ergocalciferol (Vitamin D2) (Vitamin D2) 50,000 Units Cap, 50,000 UNITS PO QWEEK PATIENT TAKES ON FRIDAY Ferric Citrate (Auryxia) 210 Mg Tablet, 630 MG PO WM Hydralazine HCl (Hydralazine HCl) 50 Mg Tab, 100 MG PO BID Insulin Glargine (Lantus) 1 Units/0.01 Ml Susp, 26 UNITS SC DAILY Insulin Human Lispro (Humalog) 1 Units/0.01 Ml Inj, 1 DOSE SC ACHS PER SLIDING SCALE Lanthanum Carbonate (Fosrenol) 750 Mg Powd.pack, 750 MG PO WM Lidocaine/Prilocaine (Lidocaine-Prilocaine Cream) 2.5%/2.5% Cream..g., 1 DOSE TOP 3XW PRIOR TO DIALYSIS Lipase/Protease/Amylase (Zenpep Dr 5,000 Unit Capsule) 1 Each Capsule.dr, 30,000 UNITS PO WM Metoprolol Tartrate (Lopressor) 50 Mg Tablet, 50 MG PO DAILY Scheduled PRN Albuterol Sulfate (Proair Hfa) 8.5 Gm Hfa.aer.ad, 2 PUFFS INH QID PRN for SHORTNESS OF BREATH Allergies Coded Allergies: No Known Allergies (Unverified , 10/03/19) A-FIB/CHADSVASC A-FIB History Current/History of A-Fib/PAF?: Yes Current PO Anticoag Therapy: No Age/Risk Factor Scoring CHADSVASC: CHADSVASC Response (Comments) Value Age Risk Factor Age < 65 years old 0 Gender Risk Factor Male 0 Hx of CHF No 0 Hx of HTN Yes 1 Hx of Stroke/TIA/or VTE No 0 Hx of Diabetes Yes 1 Hx of Vascular Disease Yes 1 Total 3 Treatment Treatment ordered: Apixaban ESTEFANY HILL MD May 19, 2020 16:51
[2020-05-19 18:00] VITALS: BP 109/50
[2020-05-19] MEDS ORDERED: DIGOXIN 0.25 MG TAB PO ONE (18:30)
[2020-05-19 20:00] VITALS: BP 90/48
[2020-05-19 20:27] VITALS: BP 80/40
[2020-05-19] MEDS: carBAMazepine XR 200 MG TAB PO SCH (20:47)
[2020-05-19] MEDS: APIXABAN 5 MG TAB (ELIQUIS) PO SCH (20:47)
[2020-05-19 20:50] VITALS: BP 84/52
[2020-05-19] MEDS ORDERED: **NOTE PATIENT COMMENT** MISC XX SCH (21:00)
[2020-05-19] MEDS: amLODIPine 5 MG TAB PO SCH (21:00)
[2020-05-19] MEDS ORDERED: HEPARIN SOD (PORCINE) 5000UNITS/ML 1ML VIAL/SYRINGE SC SCH (21:00)
[2020-05-19] MEDS: **hydrALAZINE** 50 MG TAB PO SCH (21:00)
[2020-05-19 21:33] VITALS: BP 100/48
[2020-05-20] VITALS: BP 90/42
[2020-05-20] MEDS ORDERED: ACETAMINOPHEN TAB 650MG DOSE (2X325MG) PO PRN (02:15)
[2020-05-20] MEDS ORDERED: LORazepam 2 MG/ML VIAL IV ONE (02:45)
[2020-05-20 04:00] VITALS: BP 100/42
[2020-05-20] MEDS ORDERED: METOPROLOL 5 MG/5 ML VIAL IV STA (04:23)
[2020-05-20] MEDS ORDERED: DIGOXIN INJ 0.5 MG/2 ML AMP (J1160) IV STA ×2 (05:03→08:37)
[2020-05-20 05:57] LABS: BASO % 0.4 % (0.0-1.0); EOS # 0.1 10^3/uL (0.0-0.5); EOS % 1.1 % (0.0-3.0); HEMATOCRIT 35.3 % (42.0-52.0); HEMOGLOBIN 10.9 g/dl (13.5-17.5); LYMPH # 0.8 10^3/uL (1.5-5.0); LYMPH % 11.4 % (24.0-44.0); MEAN CORPUSCULAR HEMOGLOBIN 33.1 pg (27.0-33.0); MEAN CORPUSCULAR HGB CONC 30.9 g/dl (32.0-36.5); MEAN CORPUSCULAR VOLUME 107.3 fl (80.0-96.0); MONO # 0.7 10^3/uL (0.0-0.8); MONO % 9.6 % (0.0-5.0); NEUTROPHILS # 5.7 10^3/uL (1.5-8.5); PLATELET COUNT, AUTOMATED 467 10^3/uL (150-450); RED BLOOD COUNT 3.29 10^6/uL (4.30-6.10); WHITE BLOOD COUNT 7.4 10^3/uL (4.0-10.0)
[2020-05-20 06:19] LABS: HEMOGLOBIN A1c 6.2 %
[2020-05-20 06:40] LABS: ALBUMIN 2.4 GM/DL (3.2-5.2); BILIRUBIN,TOTAL 0.4 MG/DL (0.2-1.0); CALCIUM LEVEL 7.6 MG/DL (8.5-10.1); CREATININE FOR GFR 5.05 MG/DL (0.70-1.30); GLOMERULAR FILTRATION RATE 12.7 (>56); POTASSIUM SERUM 4.7 MEQ/L (3.5-5.1); THYROID STIMULATING HORMONE 2.44 uIU/ML (0.358-3.740); THYROXINE (T4) 5.3 UG/DL (4.5-12.0); TOTAL PROTEIN 6.2 GM/DL (6.4-8.2)
[2020-05-20] MEDS ORDERED: FUROSEMIDE 100MG/10ML VIAL (J1940) IV ONE (07:15)
[2020-05-20 08:00] VITALS: BP 100/59
[2020-05-20] MEDS ORDERED: FUROSEMIDE 40MG/4ML VIAL (J1940) IV ONE (08:00)
--- NOTE | 2020-05-20 08:00 | IPNPDOC ---
Date Seen The patient was seen on 05/20/20. Progress Note I had a detailed discussion with Mr. Jones this morning regarding his prison prognosis and goals of care. Mr. Jones verbally stated his wishes several times, that in the event of cardiopulmonary arrest, he does NOT want to have chest compressions performed, and he does NOT want to be intubated. He however declines to sign MOLST form. His code status is now DNR/DNI. This was clarified, and patient clearly voiced understanding. VS, I&O, 24H, Fishbone Vital Signs/I&O Vital Signs Date Time Temp Pulse Resp B/P (MAP) Pulse Ox O2 Delivery O2 Flow Rate FiO2 05/20/20 05:22 132 05/20/20 04:57 80/40 05/20/20 04:00 98.4 18 100 Room Air I&O- Last 24 Hours up to 6 AM 05/20/20 06:00 Intake Total 360 ml Balance 360 ml Laboratory Data 24H LABS Laboratory Tests 2 05/19/20 08:00: Immature Granulocyte % (Auto) 0.3, Neutrophils (%) (Auto) 77.9H, Lymphocytes (%) (Auto) 8.7L, Monocytes (%) (Auto) 10.3H, Eosinophils (%) (Auto) 2.3, Basophils (%) (Auto) 0.5, Neutrophils # (Auto) 4.5, Lymphocytes # (Auto) 0.5L, Monocytes # (Auto) 0.6, Eosinophils # (Auto) 0.1, Basophils # (Auto) 0.0, Nucleated Red Blood Cells % (auto) 0.0, Anion Gap 7L, Glomerular Filtration Rate 17.2L, Calcium Level 7.8L, Total Bilirubin 0.3, Direct Bilirubin 0.1, Aspartate Amino Transf (AST/SGOT) 33, Alanine Aminotransferase (ALT/SGPT) 45, Alkaline Phosphatase 316H, Total Protein 5.6L, Albumin 2.2L, Albumin/Globulin Ratio 0.6 05/19/20 12:30: Carbamazepine (Tegretol) Level 6.5 05/20/20 04:53: Immature Granulocyte % (Auto) 0.5, Neutrophils (%) (Auto) 77.0H, Lymphocytes (%) (Auto) 11.4L, Monocytes (%) (Auto) 9.6H, Eosinophils (%) (Auto) 1.1, Basophils (%) (Auto) 0.4, Neutrophils # (Auto) 5.7, Lymphocytes # (Auto) 0.8L, Monocytes # (Auto) 0.7, Eosinophils # (Auto) 0.1, Basophils # (Auto) 0.0, Nucleated Red Blood Cells % (auto) 0.0, Anion Gap 10, Glomerular Filtration Rate 12.7L, Calcium Level 7.6L, Total Bilirubin 0.4, Aspartate Amino Transf (AST/SGOT) 22, Alanine Aminotransferase (ALT/SGPT) 44, Alkaline Phosphatase 341H, Total Protein 6.2L, Albumin 2.4L, Albumin/Globulin Ratio 0.6, Estimated Mean Plasma Glucose 131H, Hemoglobin A1c 6.2, BX-Hty-W-Type Natriuretic Peptide 76950B, Thyroid Stimulating Hormone (TSH) 2.440, Thyroxine (T4) 5.3 CBC/BMP Laboratory Tests 05/19/20 08:00 05/20/20 04:53 ESTEFANY HILL MD May 20, 2020 08:00
--- NOTE | 2020-05-20 08:06 | IPNPDOC ---
Date Seen The patient was seen on 05/20/20. Progress Note SUBJECTIVE: Continued afib with RVR on tele overnight. HR 130s. Patient is upset this morning over breakfast. Denies chest pain, palpitations, worsening shortness of breath, fever or chills. Had conversation this morning about goals of care and code status. He clearly stated that he does not wish to have compressions performed and does not want to be intubated in the event of cardiopulmonary arrest. OBJECTIVE PHYSICAL EXAMINATION: VITAL SIGNS: Please see below. GENERAL APPEARANCE: NAD, sitting upright, eating food. Irritable. HEENT: PERRLA. CARDIOVASCULAR: irregular rhythm, pericardial friction rub on auscultation. S1, S2. LUNGS: reduced breath sounds bilaterally. Good inspiratory effort. ABDOMEN: soft, non tender. MUSCULOSKELETAL: No deformity. Lidocaine patch on L shoulder EXTREMITIES: no deformity, 2+ bilateral pitting edema. NEUROLOGICAL: no focal neuro deficits. PSYCHIATRIC: wnl. LABORATORY DATA, IMAGING STUDIES, MICROBIOLOGY: Please see below. Echocardiogram: pending ASSESSMENT: Mr. Jones is a 55 yo M with a hx of ESRD on HD, Type 1 DM, HTN, afib? (not on AC). He was recently admitted to [facility] for fluid overload, diagnosed with bilateral pleural effusions and a small pericardial effusion with pericarditis likely 2/2 uremia. He is admitted for worsening dyspnea likely 2/2 fluid overload given ESRD, and CHF. PLAN: 1. ESRD: fluid overloaded. last HD session 05/18/20. Follows with Dr. Kinsey. Nephro consult. Discussed with Dr. Kinsey. Plan for HD this morning. Renal diet. 2. Afib with RVR: states chronic problem. No records of Afib found. Not on AC. Unclear of hx of CHF. [id number] 2. Started on eliquis 5 mg BID. Home metoprolol 50 tartrate once daily. Tele. 2D echo ordered. Discussed with cardiology Dr. Case. Given low borderline BP, prefer Digoxin over BB. Loading dose digoxin 0.5 mg once. Received 0.75 mg of digoxin overnight. To give additional 0.25 mg digoxin this morning. 3. CHF exacerbation: BNP 00034. Strongly suspect hx of uncontrolled CHF. Cardiology consulted. Holding BB, ACEi due to hypotension. No diuresis. Requires dialysis. CXR this morning. 4. Pericarditis: likely 2/2 uremia. Started on colchicine 0.6 mg daily last admission. Resume. 5. Bilateral pleural effusion: R>L. HD in am. 6. Type 1 DM: takes levemir 26 units qam. ISS HS at home. Resumed home regimen. Check A1c. Sees endo. 7. HTN: home dose hydralazine 100 mg PO BID. BB. Hold if SBP< 110 mmHg 8. PAD?: on plavix 9. Seizures: home dose cabamazepine 400 mg PO BID. Serum level 6.5. DVT ppx: eliquis. CODE STATUS: DNR/DNI. DISPOSITION: home when medically stable. VS, I&O, 24H, Fishbone Vital Signs/I&O Vital Signs Date Time Temp Pulse Resp B/P (MAP) Pulse Ox O2 Delivery O2 Flow Rate FiO2 05/20/20 05:22 132 05/20/20 04:57 80/40 05/20/20 04:00 98.4 18 100 Room Air I&O- Last 24 Hours up to 6 AM 05/20/20 06:00 Intake Total 360 ml Balance 360 ml Laboratory Data 24H LABS Laboratory Tests 2 05/19/20 12:30: Carbamazepine (Tegretol) Level 6.5 05/20/20 04:53: Immature Granulocyte % (Auto) 0.5, Neutrophils (%) (Auto) 77.0H, Lymphocytes (%) (Auto) 11.4L, Monocytes (%) (Auto) 9.6H, Eosinophils (%) (Auto) 1.1, Basophils (%) (Auto) 0.4, Neutrophils # (Auto) 5.7, Lymphocytes # (Auto) 0.8L, Monocytes # (Auto) 0.7, Eosinophils # (Auto) 0.1, Basophils # (Auto) 0.0, Nucleated Red Blood Cells % (auto) 0.0, Anion Gap 10, Glomerular Filtration Rate 12.7L, Estimated Mean Plasma Glucose 131H, Hemoglobin A1c 6.2, Calcium Level 7.6L, Total Bilirubin 0.4, Aspartate Amino Transf (AST/SGOT) 22, Alanine Aminotransferase (ALT/SGPT) 44, Alkaline Phosphatase 341H, [id number]-Type Natriuretic Peptide 25852R, Total Protein 6.2L, Albumin 2.4L, Albumin/Globulin Ratio 0.6, Thyroid Stimulating Hormone (TSH) 2.440, Thyroxine (T4) 5.3 CBC/BMP Laboratory Tests 05/20/20 04:53 ESTEFANY HILL MD May 20, 2020 08:06
[2020-05-20] MEDS ORDERED: DIGOXIN 0.25 MG TAB PO STA (08:20)
[2020-05-20] MEDS: amLODIPine 5 MG TAB PO SCH (08:40)
[2020-05-20] MEDS: **hydrALAZINE** 50 MG TAB PO SCH (08:40)
[2020-05-20] MEDS: HumaLOG INSULIN (NovoLOG) PER UNIT SC SCH ×4 (08:59→20:59)
[2020-05-20] MEDS ORDERED: CLOPIDOGREL 75 MG TAB PO SCH (09:00)
[2020-05-20] MEDS: LEVEMIR (INSULIN DETEMIR) 1 UNITS/0.01ML SC SCH (09:00)
[2020-05-20] MEDS ORDERED: COLCHICINE 0.6 MG TAB PO SCH (09:00)
[2020-05-20] MEDS: APIXABAN 5 MG TAB (ELIQUIS) PO SCH (09:00)
[2020-05-20] MEDS: carBAMazepine XR 200 MG TAB PO SCH ×2 (09:01→21:01)
--- NOTE | 2020-05-20 09:33 | REPVR ---
PROCEDURE INFORMATION: Exam: XR Chest, 1 View Exam date and time: 05/20/2020 8:55 AM Age: 55 years old Clinical indication: Fluid overload TECHNIQUE: Imaging protocol: XR of the chest Views: 1 view. COMPARISON: 1. CT - Chest without contrast 05/19/2020 9:26 AM 2. CR - PORTABLE CHEST X-RAY 05/19/2020 8:45:42 AM FINDINGS: Limitations: The patient's chin overlies and partially obscures the upper chest. Tubes, catheters and devices: ECG leads/contacts overlie and partially obscure the anatomy. Lungs: The central pulmonary vasculature appears congested. No pulmonary consolidation or edema. Pleural space: No pneumothorax. Blunting of the bilateral cardiophrenic and costophrenic angles. Heart/Mediastinum: Mitral annular calcifications are present. The cardiac silhouette is mildly diffusely enlarged. Vasculature: Aortic atherosclerotic calcification. Bones/joints: No acute osseous abnormality. IMPRESSION: 1. Findings consistent with congestive heart failure. Mild cardiomegaly. Pulmonary vascular congestion. Small bilateral pleural effusions. The findings are similar to the 05/19/2020 examinations. 2. A small pericardial effusion is present the recent chest CT and again may be contributing to the enlarged cardiac silhouette appearance. Electronically signed by: Dain Figueroa On 05/20/2020 09:33:12 AM
[2020-05-20] MEDS ORDERED: METOPROLOL TART 25 MG TABLET PO ONE (09:45)
[2020-05-20] MEDS: LIDOCAINE 5% (LIDODERM) PATCH TD SCH (09:48)
[2020-05-20] MEDS: CLOPIDOGREL 75 MG TAB PO SCH (11:05)
[2020-05-20] MEDS ORDERED: LIDOCAINE 1% SDV 5ML VIAL SQ ONE (11:15)
[2020-05-20] MEDS: METOPROLOL TART 25 MG TABLET PO SCH ×3 (12:00→23:11)
[2020-05-20 16:00] VITALS: BP 114/71
[2020-05-20 20:00] VITALS: BP 104/51
[2020-05-20] MEDS ORDERED: METOPROLOL TART 50 MG TAB PO SCH (21:00)
[2020-05-20] MEDS: **NOTE PATIENT COMMENT** MISC XX SCH (21:06)
[2020-05-20] MEDS ORDERED: hydrOXYzine 50 MG TAB PO PRN (22:15)
[2020-05-20 23:07] LABS: ALBUMIN 2.3 GM/DL (3.2-5.2); CREATININE FOR GFR 3.47 MG/DL (0.70-1.30); GLOMERULAR FILTRATION RATE 19.5 (>56); POTASSIUM SERUM 4.1 MEQ/L (3.5-5.1)
[2020-05-21] VITALS: BP 104/51
[2020-05-21 04:00] VITALS: BP 107/56
[2020-05-21] MEDS ORDERED: HumaLOG INSULIN (NovoLOG) PER UNIT SC ONE (05:45)
[2020-05-21] MEDS: METOPROLOL TART 25 MG TABLET PO SCH ×3 (06:12→17:11)
[2020-05-21 08:00] VITALS: BP_SYST 114; BP_SYST 126; BP_DIAS 55; BP_DIAS 61
[2020-05-21] MEDS ORDERED: PERCOCET 5MG/325MG TAB PO PRN (08:30)
[2020-05-21] MEDS: CLOPIDOGREL 75 MG TAB PO SCH (08:32)
[2020-05-21] MEDS: LIDOCAINE 5% (LIDODERM) PATCH TD SCH (08:32)
[2020-05-21] MEDS: carBAMazepine XR 200 MG TAB PO SCH ×2 (08:32→21:48)
[2020-05-21] MEDS: AMIODARONE 200 MG TAB (PACERONE) PO SCH ×3 (08:33→21:48)
[2020-05-21] MEDS: LEVEMIR (INSULIN DETEMIR) 1 UNITS/0.01ML SC SCH (08:34)
[2020-05-21] MEDS: HumaLOG INSULIN (NovoLOG) PER UNIT SC SCH ×4 (08:36→21:00)
[2020-05-21 10:03] LABS: BASO % 0.7 % (0.0-1.0); EOS # 0.1 10^3/uL (0.0-0.5); HEMATOCRIT 33.6 % (42.0-52.0); HEMOGLOBIN 10.3 g/dl (13.5-17.5); LYMPH # 0.5 10^3/uL (1.5-5.0); LYMPH % 8.4 % (24.0-44.0); MEAN CORPUSCULAR HEMOGLOBIN 33.7 pg (27.0-33.0); MEAN CORPUSCULAR HGB CONC 30.7 g/dl (32.0-36.5); MEAN CORPUSCULAR VOLUME 109.8 fl (80.0-96.0); MONO # 0.5 10^3/uL (0.0-0.8); MONO % 9.3 % (0.0-5.0); NEUTROPHILS # 4.5 10^3/uL (1.5-8.5); NEUTROPHILS % 79.1 % (36.0-66.0); PLATELET COUNT, AUTOMATED 409 10^3/uL (150-450); RED BLOOD COUNT 3.06 10^6/uL (4.30-6.10); WHITE BLOOD COUNT 5.6 10^3/uL (4.0-10.0)
[2020-05-21 10:22] LABS: ALBUMIN 2.3 GM/DL (3.2-5.2); BILIRUBIN,TOTAL 0.3 MG/DL (0.2-1.0); CALCIUM LEVEL 7.7 MG/DL (8.5-10.1); CREATININE FOR GFR 4.3 MG/DL (0.70-1.30); GLOMERULAR FILTRATION RATE 15.2 (>56); MAGNESIUM LEVEL 2.3 MG/DL (1.8-2.4); PHOSPHORUS LEVEL 5.4 MG/DL (2.5-4.9); POTASSIUM SERUM 4.6 MEQ/L (3.5-5.1); TOTAL PROTEIN 5.7 GM/DL (6.4-8.2)
[2020-05-21] MEDS ORDERED: SLF 3 ML SYR IV PRN (10:30)
[2020-05-21 12:00] VITALS: BP 111/54
[2020-05-21] MEDS ORDERED: LIDOCAINE 1% SDV 5ML VIAL SQ ONE (13:00)
--- NOTE | 2020-05-21 13:32 | IPNPDOC ---
Date Seen The patient was seen on 05/21/20. Progress Note SUBJECTIVE: NSR this morning. States he feels well. No chest pain, no palpitations. Doing well. S/p HD yesterday. OBJECTIVE PHYSICAL EXAMINATION: VITAL SIGNS: Please see below. GENERAL APPEARANCE: NAD, sitting upright, eating food. Irritable. HEENT: PERRLA. CARDIOVASCULAR: irregular rhythm, pericardial friction rub on auscultation. S1, S2. LUNGS: reduced breath sounds bilaterally. Good inspiratory effort. ABDOMEN: soft, non tender. MUSCULOSKELETAL: No deformity. Lidocaine patch on L shoulder EXTREMITIES: no deformity, 2+ bilateral pitting edema, extending up to the thigh. Improved from yesterday. NEUROLOGICAL: no focal neuro deficits. PSYCHIATRIC: wnl. LABORATORY DATA, IMAGING STUDIES, MICROBIOLOGY: Please see below. Echocardiogram: pending ASSESSMENT: Mr. Jones is a 55 yo M with a hx of ESRD on HD, Type 1 DM, HTN, afib? (not on AC). He was recently admitted to [facility] for fluid overload, diagnosed with bilateral pleural effusions and a small pericardial effusion with pericarditis likely 2/2 uremia. He is admitted for worsening dyspnea likely 2/2 fluid overload given ESRD, and CHF. PLAN: 1. ESRD: fluid overloaded. Follows with Dr. Kinsey. Nephro consult. Was dialized on 05/20/20. Plan for HD tomorrow am. 2. Afib with RVR: now in sinus. Cardio consulted. Discussed with Dr. Case. Metoprolol 25 mg q6h PO. Amiodarone 200 mg BID. No AC. Digoxin MWF likely on discharge. 3. CHF exacerbation: cardiology on consult. Fluid overload treated with HD. Metoprolol. 4. Pericarditis: discussed with Dr. Kinsey. Stopped colchicine. Treat uremia with HD. 5. Bilateral pleural effusion: R>L. Continue with hemodialysis. 6. Type 1 DM: takes levemir 26 units qam. ISS HS at home. Resumed home regimen. A1c 6.2. 7. HTN: home dose hydralazine 100 mg PO BID. BB. Hold if SBP< 110 mmHg 8. PAD?: on plavix 9. Seizures: home dose cabamazepine 400 mg PO BID. Serum level 6.5. DVT ppx: eliquis. CODE STATUS: DNR/DNI. DISPOSITION: home when medically stable. VS, I&O, 24H, Fishbone Vital Signs/I&O Vital Signs Date Time Temp Pulse Resp B/P (MAP) Pulse Ox O2 Delivery O2 Flow Rate FiO2 05/21/20 12:00 97.0 63 18 111/54 (73) 97 Room Air I&O- Last 24 Hours up to 6 AM 05/21/20 06:00 Intake Total 480 ml Output Total 2500 ml Balance -2020 ml Laboratory Data 24H LABS Laboratory Tests 2 05/21/20 09:21: Immature Granulocyte % (Auto) 0.5, Neutrophils (%) (Auto) 79.1H, Lymphocytes (%) (Auto) 8.4L, Monocytes (%) (Auto) 9.3H, Eosinophils (%) (Auto) 2.0, Basophils (%) (Auto) 0.7, Neutrophils # (Auto) 4.5, Lymphocytes # (Auto) 0.5L, Monocytes # (Auto) 0.5, Eosinophils # (Auto) 0.1, Basophils # (Auto) 0.0, Nucleated Red Blood Cells % (auto) 0.0, Anion Gap 8, Glomerular Filtration Rate 15.2L, Calcium Level 7.7L, Phosphorus Level 5.4H, Magnesium Level 2.3, Total Bilirubin 0.3, Aspartate Amino Transf (AST/SGOT) 29, Alanine Aminotransferase (ALT/SGPT) 39, Alkaline Phosphatase 331H, Total Protein 5.7L, Albumin 2.3L, Albumin/Globulin Ratio 0.7 CBC/BMP Laboratory Tests 05/21/20 09:21 ESTEFANY HILL MD May 21, 2020 13:32
[2020-05-21 16:20] VITALS: BP 118/58
[2020-05-21] MEDS: SLF 3 ML SYR IV SCH ×2 (16:33→21:49)
[2020-05-21 20:00] VITALS: BP 117/56
[2020-05-21] MEDS: **NOTE PATIENT COMMENT** MISC XX SCH (21:00)
[2020-05-22] VITALS: BP 108/54
[2020-05-22] MEDS: METOPROLOL TART 25 MG TABLET PO SCH ×3 (00:11→12:47)
[2020-05-22 04:00] VITALS: BP 107/53
[2020-05-22] MEDS: SLF 3 ML SYR IV SCH (06:07)
[2020-05-22 07:01] LABS: ALBUMIN 2.4 GM/DL (3.2-5.2); CALCIUM LEVEL 7.5 MG/DL (8.5-10.1); CREATININE FOR GFR 3.52 MG/DL (0.70-1.30); GLOMERULAR FILTRATION RATE 19.2 (>56); POTASSIUM SERUM 5.2 MEQ/L (3.5-5.1)
[2020-05-22 07:53] VITALS: BP 129/60
[2020-05-22] MEDS: carBAMazepine XR 200 MG TAB PO SCH (08:12)
[2020-05-22] MEDS: CLOPIDOGREL 75 MG TAB PO SCH (08:12)
[2020-05-22] MEDS: AMIODARONE 200 MG TAB (PACERONE) PO SCH (08:12)
[2020-05-22] MEDS: HumaLOG INSULIN (NovoLOG) PER UNIT SC SCH ×2 (08:13→12:47)
[2020-05-22] MEDS: LEVEMIR (INSULIN DETEMIR) 1 UNITS/0.01ML SC SCH (08:13)
[2020-05-22] MEDS: LIDOCAINE 5% (LIDODERM) PATCH TD SCH (08:14)
[2020-05-22] MEDS ORDERED: METO1TAB87 PO (10:28)
[2020-05-22] MEDS ORDERED: AMIO200T3 PO (10:28)
[2020-05-22] MEDS ORDERED: ELIQ5TAB PO (10:28)
[2020-05-22] MEDS ORDERED: LIDOCAINE 1% SDV 5ML VIAL SQ ONE (11:15)
--- NOTE | 2020-05-22 11:32 | DS.PDOC ---
Discharge Summary General Date of Admission May 19, 2020 at 12:43 Date of Discharge 05/22/20 Primary Care Physician: Michelle Angulo [facility] [place]ending Physician: ESTEFANY HILL MD Specialist/Consultants Involve: SARATH RIOS MD Specialist/Consultants Involve Dr. Kinsey - Nephrology Discharge Summary PROCEDURES PERFORMED DURING STAY: None ADMITTING DIAGNOSES: 1. ESRD 2. Afib with RVR 3. CHF exacerbation 4. Pericarditis 5. Bilateral pleural effusion 6. Type 1 DM 7. HTN 8. PAD 9. Seizures. DISCHARGE DIAGNOSES: 1. ESRD 2. Afib with RVR 3. CHF exacerbation 4. Pericarditis 5. Bilateral pleural effusion 6. Type 1 DM 7. HTN 8. PAD 9. Seizures. COMPLICATIONS/CHIEF COMPLAINT: Fluid Overload. HISTORY OF PRESENT ILLNESS: Mr. Jones is a 55 yo M with a hx of ESRD on HD, Type 1 DM, HTN, afib? (not on AC). He was recently admitted to [facility] for fluid overload, diagnosed with bilateral pleural effusions and a small pericardial effusion with pericarditis likely 2/2 uremia. He was started on colchine. Prior to completion of therapy./ He left AMA. He last received hemodialysis on 05/18/20 AM, which was shortened due to hypotension per patient. Returns to ED with worsening shortness of breath, lower extremity edema and orthopnea. He denies dizziness, chest pain, palpitations, fever or chills. In the ED, telemetry showing AFIB with RVR. Patient states that he has had this rhythm for many years, and it has not bothered him all this time. Denies having seen cardiology. Nephrology was consulted, plan for HD. HOSPITAL COURSE: 1. ESRD: fluid overloaded. Follows with Dr. Kinsey. Nephro consult. Was dialized on 05/20/20. Plan for HD tomorrow am. 2. Afib with RVR: now in sinus. Cardio consulted. Discussed with Dr. Rios prior to DC. Metoprolol 25 mg q12h. Amiodarone 200 mg BID for 14 days (will reduce dose in clinic). AC with eliquis 5 mg BID 3. CHF exacerbation: cardiology on consult. Fluid overload treated with HD. 4. Pericarditis: discussed with Dr. Kinsey. Stopped colchicine. Treat uremia with HD. 5. Bilateral pleural effusion: R>L. Continue with hemodialysis. Given order repeat outpatient CXR in 2 weeks. Reassess size of effusion. If persists, needs referral to IR for diagnostic paracentesis given hx of smoking. 6. Type 1 DM: takes levemir 26 units qam. ISS HS at home. Resumed home regimen. A1c 6.2. 7. HTN: c/w metoprolol. Hold hydralazine, amlodipine on DC. 8. PAD: stopped plavix, on eliquis. PCP f/u. Vascular f/u. 9. Seizures: home dose cabamazepine 400 mg PO BID. Serum level 6.5. DISCHARGE MEDICATIONS: Please see below. ALLERGIES: Please see below. PHYSICAL EXAMINATION ON DISCHARGE: VITAL SIGNS: Please see below. GENERAL APPEARANCE: NAD, sitting upright, eating food. HEENT: PERRLA. CARDIOVASCULAR:pericardial friction rub on auscultation. RRR, S1, S2. LUNGS: CTAB ABDOMEN: soft, non tender. MUSCULOSKELETAL: No deformity. Lidocaine patch on L shoulder EXTREMITIES: bilateral edema improved 1+ NEUROLOGICAL: no focal neuro deficits. PSYCHIATRIC: wnl. LABORATORY DATA: Please see below. IMAGING: CXR (05/19/20) IMPRESSION: No significant interval change. CT chest without contrast: FINDINGS: Lungs: Stable right upper lobe pulmonary nodules. Pleural space: Moderate left and small right pleural effusions with adjacent compressive atelectasis. Heart: Small pericardial effusion. Coarsely calcified mitral annulus. Coarse calcifications of the aortic valve leaflets. Atherosclerotic disease of the coronary arteries. Cardiomegaly. Aorta: Atherosclerotic disease of the thoracic aorta. Lymph nodes: Unremarkable. No enlarged lymph nodes. Pancreas: Evidence of chronic pancreatitis. Adrenals: Bilateral adrenal hyperplasia. Kidneys and ureters: Bilateral renal atrophy. Bones/joints: Multilevel degenerative disease of thoracic spine. Soft tissues: Unremarkable. IMPRESSION: Moderate left and small right pleural effusions with adjacent compressive atelectasis. Small pericardial effusion. CXR (05/20/20) IMPRESSION: 1. Findings consistent with congestive heart failure. Mild cardiomegaly. Pulmonary vascular congestion. Small bilateral pleural effusions. The findings are similar to the 05/19/2020 examinations. 2. A small pericardial effusion is present the recent chest CT and again may be contributing to the enlarged cardiac silhouette appearance. 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 ACTIVITY: As tolerated DIET: Consistent carbohydrate, renal. DISCHARGE PLAN: DC home with PCP and specialist follow. Will follow up with cardiology and nephrology. Needs ongoing HD. DISPOSITION: Home with self care. DISCHARGE INSTRUCTIONS: 1. Follow up with PCP within 7 days 2. 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 Next session 05/23/20. 3. Please follow up with Cardiology - Dr. Rios within 14 days if possible. 4. You have been started on a blood thinner - eliquis, please take 5 mg tab every 12 hours. If you developed bleeding, fall, head injury, please return to the ED. 5. Please take medications as prescribed. 6. If you developed worsening shortness of breath, chest pain, fevers, chills, n/v/d, please return to the ED or call ITEMS TO FOLLOWUP ON ON OUTPATIENT: 1. Compliance with HD 2. Follow up with cardiology given afib with rvr, CHF. 3. Amidorone was started, loading dose, please follow up on dose adjustment. Will require TSH monitoring. 4. Patient was started on eliquis 5 mg BID for AC 6. Repeat CXR for pleural effusions. If persist despite appropriate HD, please refer to IR for thoracentesis. DISCHARGE CONDITION: Stable TIME SPENT ON DISCHARGE: Greater than 30 minutes. Vital Signs/I&Os Vital Signs Date Time Temp Pulse Resp B/P (MAP) Pulse Ox O2 Delivery O2 Flow Rate FiO2 05/22/20 07:53 98.2 71 22 129/60 (83) 91 Room Air I&O- Last 24 Hours up to 6 AM 05/22/20 05:59 Intake Total 1320 ml Output Total 2500 ml Balance -1180 ml Laboratory Data Labs 24H Laboratory Tests 2 05/22/20 06:01: Anion Gap 9, Glomerular Filtration Rate 19.2L, Calcium Level 7.5L, Phosphorus Level 5.0H, Albumin 2.4L CBC/BMP Laboratory Tests 05/22/20 06:01 Discharge Medications Scheduled Amiodarone HCl (Amiodarone HCl) 200 Mg Tablet, 200 MG PO TID Apixaban (Eliquis) 5 Mg Tablet, 5 MG PO BID Carbamazepine (Carbamazepine ER) 400 Mg Tab.er.12h, 400 MG PO BID, (Reported) Cranberry Fruit Extract/Vit C (Azo Cranberry Softgel) 1 Each Capsule, 2 CAP PO TID, (Reported) Ergocalciferol (Vitamin D2) (Vitamin D2) 50,000 Units Cap, 50,000 UNITS PO QWEEK, (Reported) PATIENT TAKES ON FRIDAY Ferric Citrate (Auryxia) 210 Mg Tablet, 630 MG PO WM, (Reported) Insulin Glargine (Lantus) 1 Units/0.01 Ml Susp, 26 UNITS SC DAILY, (Reported) Insulin Human Lispro (Humalog) 1 Units/0.01 Ml Inj, 1 DOSE SC ACHS, (Reported) PER SLIDING SCALE Lanthanum Carbonate (Fosrenol) 750 Mg Powd.pack, 750 MG PO WM, (Reported) Lidocaine/Prilocaine (Lidocaine-Prilocaine Cream) 2.5%/2.5% Cream..g., 1 DOSE TOP 3XW, (Reported) PRIOR TO DIALYSIS Lipase/Protease/Amylase (Zenpep Dr 5,000 Unit Capsule) 1 Each Capsule.dr, 30,000 UNITS PO WM, (Reported) Metoprolol Tartrate (Metoprolol Tartrate) 25 Mg Tablet, 25 MG PO BID Scheduled PRN Albuterol Sulfate (Proair Hfa) 8.5 Gm Hfa.aer.ad, 2 PUFFS INH QID PRN for SHORTNESS OF BREATH, (Reported) Allergies Coded Allergies: No Known Allergies (Unverified , 10/03/19) ESTEFANY HILL MD May 22, 2020 11:32
[2020-05-22 12:23] VITALS: BP 108/57
[2020-05-22 12:47] VITALS: BP 111/58
--- NOTE | 2020-05-29 13:24 | CR ---
DATE OF CONSULTATION: 05/20/2020 REFERRING PHYSICIAN: Hospitalist, Dr. Kana Garcia INDICATION: Atrial fibrillation with rapid ventricular response and hypotension. HISTORY: This 55-year-old single, disabled resident of [place], [place], has a host of medical problems, followed by his primary care provider and publicity agent. 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 Has been hemodialysis dependent for renal failure for at least 5-6 years. Has had a problem with his balance and has been using a walker for ambulation that length of time. Currently able to do his own housework and shopping but does not drive. Uses a volunteer service. Walks no further than 50-100 feet at any one time. Has no awareness of any cardiac problems. Denies any chest pain, prior infarction. Is aware of chronic hypertension as well as a rapid heart rate for some time. No history of rheumatic fever or heart murmur. Claims to run a low blood pressure chronically. Fell some time last week and was taken to the emergency room for evaluation. CT scan showed evidence of a moderate-size pericardial effusion and atrial fibrillation with a somewhat rapid ventricular response. An echocardiogram was requested, but he is unaware of the findings. Claims to have been told his heart rate has been fast for some time but is unfamiliar with the term atrial fibrillation. He does not have an awareness of his heart action. Limitation is shortness of breath and fatigue but has been a longstanding heavy smoker. Denies orthopnea. Claims his falls have been related to loss of balance rather than dizziness or loss of consciousness. Denies any lateralizing neurological deficits, flank pain, hematuria, or blue toe syndrome. Has been treated with Plavix rather than oral anticoagulation because of his chronic renal insufficiency/hemodialysis. Despite the chronicity of his diabetes, denies paresthesia. No apparent claudication. Has had lower extremity swelling dating back 5-6 years. OTHER PAST CARDIAC DISEASE/EVENTS/TESTS: Echocardiogram/Doppler study last week showed at least mild concentric left ventricular hypertrophy with septal wall motion abnormality due to right ventricular pressure overload. He had preserved global resting left ventricular systolic function. Prominently dilated left atrium, right ventricular hypertrophy with no wall motion, and Doppler evidence of at least moderately severe pulmonary hypertension, prominently dilated right atrium, and inferior vena cava (IVC) measuring 3 cm with absent respiratory collapse, in keeping with markedly elevated central venous pressure. Severe mitral annular calcification with at least moderate left ventricular inflow tract obstruction and only mild insufficiency. Has moderate aortic valvular sclerosis without stenosis and only mild insufficiency. Normal aortic diameters. Moderate-size pericardial effusion, measuring 1 cm posteriorly, 1.5 laterally, and 0.8 anteriorly with no sign of cardiac chamber compression. CORONARY RISK FACTORS: Age, male gender, longstanding ongoing heavy smoking history, chronic hypertension, longstanding insulin-dependent diabetes mellitus, hypercholesterolemia. FAMILY HISTORY: Noncontributory. SYSTEMS REVIEW: Reduced right eye visual acuity following remote injury. Wears corrective lenses .No hearing problems. Has only three remaining teeth. Denies dysphagia, heartburn, or reflux. Denies abdominal pain, change in bowel habit, or gastrointestinal (GI) bleeding. Chronic, mostly nonproductive cough. No history of hemoptysis and unaware of prior pneumonia. Chronic hemodialysis dependent renal insufficiency. Denies dysuria. Recent blunt head/neck trauma with some ongoing cephalgia and neck pain, treated with Lidoderm patches and Percocet with good effect. All other systems review is negative. OTHER PAST SURGICAL HISTORY: Remote right eye surgery. Creation of dialysis graft, left arm. MEDICATIONS: At home he takes metoprolol 50 mg daily, hydralazine, amlodipine, and clopidogrel with his combination insulin therapy. ALLERGIES: Denies. PHYSICAL EXAMINATION: Cantankerous middle-aged male, sitting comfortably on his hospital bed. Unshaven and very gruff. VITAL SIGNS: Heart rate 104 beats per minute (BPM) and irregular, blood pressure 88/58 sitting with legs dependent, right arm (left arm dialysis graft) respiratory rate 16, oxygen saturation 94% on room air, afebrile. EYES: No pallor or icterus. No xanthelasma. ENT/MOUTH: Has three remaining teeth. Normal-appearing palate. Normal oral moisture. No central cyanosis. NECK: Trachea midline. Thyroid not enlarged. Neck veins were visible 12 cm above the sternal angle. RESPIRATORY: Slightly increased anterior-posterior chest diameter with slightly reduce chest excursion. Few diffuse inspiratory rales. Slight prolongation of expiration but no audible wheeze. CARDIOVASCULAR: Apical impulse not palpable. Heart sounds somewhat distant and variable. Unable to detect gallop or pericardial rub. Has a variable soft systolic ejection murmur, right base, that does not radiate to the neck. Normal carotid upstrokes with variable volume related to his arrhythmia. No bruits. Left radial pulse slightly less than right. Femoral pulses and pedal pulses not palpable because of marked edema. Abdominal aorta not palpable. No bruits. EXTREMITIES: Has marked chronic pitting edema of both lower extremities. I was able to leave my entire hand print with deep palpation of his left thigh. Sacral and lower lumbar pitting. No clubbing, peripheral cyanosis, or splinter hemorrhages. GASTROINTESTINAL: Soft, nontender. Spleen was not palpable, but liver span was increased to approximately 10 cm in the right midclavicular line. Normal bowel sounds. Rectal examination not indicated. MUSCULOSKELETAL: Some proximal muscle weakness but no obvious joint deformities and normal tone. Normal spine curvature. SKIN: Multiple tattoos. No obvious pallor, icterus, or ecchymosis. NEUROLOGIC/PSYCHIATRIC: Alert and bright. Very cantankerous and somewhat hostile. Normal symmetrical eye, facial, and extremity movements. No involuntary movements. INVESTIGATIONS: I reviewed his followup quick-look 2D echocardiogram performed yesterday. Again, the findings did not appear significantly changed from that performed last week; however, his pericardial effusion is less. EKG: Study 05/19/2020 showed underlying atrial flutter with somewhat rapid ventricular response, averaging 109 BPM. Low voltages with incomplete right bundle branch block and poor precordial R-wave progression, in keeping with his longstanding smoking history. Nonspecific ST/T-wave abnormalities. IMPRESSION/PLAN: 1. Permanent atrial flutter/fibrillation with rapid ventricular response: Given the size of his left atrium and his mitral valve disorder, this has undoubtedly been a process of some chronicity, though previously not documented apparently. The patient makes reference to fast heart rates in the past. Has been on metoprolol and Plavix. In light of his severe mitral annular calcification and at least moderate mitral stenosis, optimal heart rate control is crucial to minimize mean left atrial pressure. An ideal heart rate would be 60 beats per minute. I have discussed this with his hospital provider and Dr. Kinsey. The patient was given digoxin 0.5 mg intravenous (IV) yesterday, and I repeated the dose earlier today. I have also given him metoprolol 25 mg by mouth despite his soft blood pressure and will continue with at least 25 mg by mouth every 6 hours, hold for heart rate less than 90. Controlling his heart rate, as mentioned above, will improve left ventricular filling and should improve his blood pressure. Given his hemodialysis-dependent renal insufficiency, oral anticoagulation is relatively contraindicated, especially in the absence of documented systemic thromboembolic event. Undoubtedly his risk of systemic embolism is high, but his risk of bleeding complication is also high. At this point, we have placed him back on his Plavix, and his Eliquis has been discontinued. 2. Heart failure (diastolic/acute on chronic): Has echocardiographic evidence of at least mild concentric left ventricular hypertrophy with undoubtedly some degree of left ventricular (LV) diastolic dysfunction, but his chief threat to causing pulmonary venous congestion is his severe mitral annular calcification and at least moderate mitral stenosis. Has also severe pulmonary hypertension and right heart failure, which is likely chronic from his description. Reveles management, of course, would be ongoing modest salt and fluid intake restriction with his dialysis as well as optimal heart rate control, as suggested above. Vasodilator therapy would be relatively contraindicated here. 3. Abnormal EKG: Findings chiefly related to his longstanding smoking history as well as severe pulmonary hypertension and right heart failure. Despite his multiple coronary risk factors, has no symptom or sign of myocardial ischemia. Continues on beta simon therapy and clopidogrel/Plavix. 4. Hypertensive heart disease (benign) with heart failure: Obvious signs of biventricular congestion of some chronicity. Remarkably has learned to live within his restrictions without true awareness. Currently soft blood pressure is a reflection if his excessively rapid ventricular response, atrial fibrillation with his moderate mitral stenosis, as well as his severe pulmonary hypertension and right heart failure. As mentioned above, amlodipine and hydralazine are relative contraindicated here and have been discontinued. 5. Mitral and aortic valve disorder (nonrheumatic): Recent echocardiogram showed no hemodynamically significant aortic problem despite moderate valvular sclerosis, but he has severe mitral annular calcification with at least moderate LV inflow tract obstruction. Given his complicated medical history and severe pulmonary hypertension with right heart failure, he is not a candidate for mitral valvular repair or replacement. Based on [place] [employer] Guidelines 2007, subacute bacterial endocarditis (SBE) antibiotic prophylaxis would not be deemed necessary here. I have attempted to discuss these findings with the patient, including his very guarded prognosis. He does not wish to have any invasive or aggressive measures done and signed a DO NOT RESUSCITATE/Medical Orders for Life-Sustaining Treatment (MOLST) form. We do not intend to continue to monitor him but would be pleased to reassess him at any time. GEOVANNID
--- NOTE | 2020-05-29 13:29 | CR ---
DATE OF CONSULTATION: 05/20/2020 REASON FOR CONSULTATION: To assist in the management of congestive heart failure in this gentleman with end-stage renal disease. HISTORY OF PRESENT ILLNESS: Mr. Jones is a 55-year-old gentleman with multiple chronic medical problems including type 1 diabetes, hypertension, recent history of atrial fibrillation with rapid ventricular response, history of chronic obstructive pulmonary disease (COPD) with active smoking and peripheral vascular disease. He also has end-stage renal disease and has been on maintenance hemodialysis for a few years. He was recently admitted to [facility] after a fall at home where he hurt his neck and chest. During that hospitalization, a chest CT scan was done which showed some pericardial effusion. Patient had pericarditis and became hypotensive during first hemodialysis. He had a quite complicated hospitalization with transfer to intensive care unit. In any event, his atrial fibrillation was treated medically and controlled, then we were able to dialyze him, and he signed out against medical advice. He was admitted again last evening with shortness of breath and increased lower extremity edema. He was seen by Dr. Case and he did not feel that patient had any significant pericardial effusion and certainly not at risk for cardiac tamponade. Patient did have atrial fibrillation and also echocardiogram revealed severe pulmonary hypertension with mitral valve sclerosis. Nephrology consultation was requested for need for dialysis. He did receive outpatient dialysis on 05/18/2020, however he cut down his treatment due to low blood pressure. PAST MEDICAL AND SURGICAL HISTORY: 1. Longstanding type 1 diabetes with frequent hypoglycemic episodes. 2. End-stage renal disease. 3. History of hypertension with frequent hypotension during dialysis. 4. History of recent pericarditis. 5. Atrial fibrillation with rapid ventricular rate. 6. History of peripheral vascular disease. 7. History of COPD with active smoking. 8. History of generalized edema and congestive heart failure, right-sided mostly, with pulmonary hypertension. Past surgical history is significant for left arm arteriovenous (AV) fistula. MEDICATIONS: His home medications include: - amlodipine 5 mg daily - carbamazepine 400 mg every 12 hours - Plavix 75 mg daily - vitamin D 50,000 units every 2 weeks - Auryxia 210 mg three tablets with meals - hydralazine 50 mg two tablets twice a day - Fosrenol 750 mg with meals - metoprolol 50 mg daily - insulin per sliding scale - albuterol inhaler as needed ALLERGIES: Patient has no known drug allergies. PERSONAL AND SOCIAL HISTORY: Patient lives by himself. He is a smoker and has occasional alcohol intake. He also smokes marijuana. FAMILY HISTORY: Significant for heart problems in brother and father. REVIEW OF SYSTEMS: Patient has not been feeling well for a few weeks. He signed out against medical advice during last admission. He is quite noncompliant with medical care and just makes his own judgment for his care. Head is atraumatic. Ears, nose, and throat are unremarkable. Cardiovascular system is significant for congestive heart failure and severe pulmonary hypertension and generalized edema. He has been treated for pericarditis recently. He has history of atrial fibrillation with rapid ventricular rate. Respiratory system is significant for COPD and shortness of breath. Gastrointestinal (GI) system is negative for vomiting or diarrhea. Genitourinary () system is negative for dysuria or hematuria. He has end- stage renal disease. Musculoskeletal system is significant for generalized edema more on the lower extremities. Endocrine system is significant for type 1 diabetes with frequent hypoglycemia and secondary hyperparathyroidism. Hematological system is significant for anemia of chronic kidney disease. Psychosocial system is significant for noncompliance and anxiety. Neurological system is negative for seizures or strokes. Skin is negative for rash or ulcers. PHYSICAL EXAMINATION: Temperature 97.4 degrees Fahrenheit, heart rate 112 per minute, and respiratory rate 18 per minute. Blood pressure 100/59 mmHg and oxygen saturation 95% on room air. Neck veins are quite prominent, about 12 cm above the sternal angle. There is no oral thrush or ulcers. He has a tattoo on his forehead. Pupils are equal and reactive to light and sclerae is anicteric. Heart sounds are irregular and tachycardic. Lungs with bibasilar rales. Abdomen is soft and nontender and bowel sounds are normal. There is no palpable organomegaly. Extremities have no cyanosis or clubbing. He has tattoos on his arms too. Left arm AV fistula is patent. Lower extremity edema is 3+. Neurologically he is awake, alert, and oriented times three. LABORATORY DATA: Todays labs show WBC count 7.4, hemoglobin 10.9, and hematocrit 35.3. Platelets 467. Sodium 134, potassium 4.7, CO2 27, BUN 54, and creatinine 5.0. Glucose is 63 and hemoglobin A1c is 6.2. A proBNP level is 28,728. Total protein 6.2 and albumin 2.4. PROBLEMS: 1. Acute on chronic congestive heart failure. Patient has right-sided heart failure with severe pulmonary hypertension. He was seen by cardiology. Will try to correct his volume status with frequent dialysis. He is not likely to tolerate aggressive fluid removal with one dialysis session. We will have to do over several days with about two liters fluid removal at a time. His congestive heart failure is more complicated now with rapid atrial fibrillation. He is not likely to respond to diuretics. He should continue with beta simon therapy and his amlodipine and hydralazine has already been stopped. 2. End-stage renal disease. Patient has been partially noncompliant with dialysis treatment. I have explained to him about potential need for frequent dialysis due to his pericarditis and volume overload. We are unable to remove fluid more aggressively due to recurrent hypotension. He will be dialyzed today and then we will plan to dialyze him again on Friday. 3. Atrial fibrillation with rapid ventricular rate. Patient is currently receiving digoxin and I will recommend to continue with beta simon. His hydralazine and amlodipine has already been stopped. 4. Hypotension. His hypotension has been mostly related to rapid atrial fibrillation and at this point will try to control his ventricular rate and see if his blood pressure stabilizes. Will have to use caution during dialysis for fluid removal. 5. Anemia. At this point, his anemia is stable and does not need any urgent intervention. 6. Diabetes with frequent hypoglycemic episodes. Patient will need to be monitored closely. His A1c is 6.2 and his main problem has been frequent hypoglycemia. He should be monitored closely. 7. Pericarditis. His pericardial effusion has improved significantly. At this point, he does not need colchicine and we hope that frequent dialysis will clear his pericarditis. Thank you for involving me in the care of Mr. Jones. I will follow him along with you. AJ
--- NOTE | 2020-06-12 14:51 | IPN ---
DATE: 05/21/2020 Mr. Jones is seen this morning on his bedside. He was dialyzed yesterday and we were able to remove 2.5 liters of fluid. His volume status is still decompensated. He has a known history of diastolic congestive heart failure with severe pulmonary hypertension and right-sided heart failure. He has been partially noncompliant and signed out against medical advice during last admission. He is now more cooperative and willing to stay. I am not sure how good he is on following fluid restriction as he has a long history of noncompliance with his diet and fluid restriction. He denies any fever or chills. He still has dyspnea on exertion but denies any chest pain. On physical exam, temperature 98.3 degrees Fahrenheit, heart rate 68 per minute now, and respiratory rate 20 per minute. Blood pressure 114/55 mmHg and oxygen saturation 91% on room air. Head is atraumatic. Neck is supple and jugular venous distention (JVD) mildly elevated. Lungs have diminished breath sounds and bibasilar rales. Heart sounds are regular now. Pericardial rub is not audible today. Abdomen is soft and nontender and bowel sounds are normal. Extremities without any cyanosis or clubbing. Left arm arteriovenous (AV) fistula is patent. Lower extremity edema is still 3+ to 4+. Neurologically he is awake, alert, and grossly intact. He has been ambulating in his room. Todays labs show WBC count 5.6, hemoglobin 10.3, and hematocrit 33.6. Platelets 409. Sodium 138, potassium 4.6, CO2 28, BUN 42, and creatinine 4.3. Glucose 361 and calcium 7.7. Total protein 5.7 and albumin 2.3. PROBLEMS: 1. Decompensated congestive heart failure acute on chronic. He is grossly volume overloaded. We removed 2.5 liters of fluid yesterday and he is willing to go for dialysis again today. We will try to remove about 2.5 liters again today and everyday until he is ready to go home. 2. End-stage renal disease. Patient was dialyzed yesterday and we will plan to dialyze him again today in view of his significant volume overload and pericarditis. He seems to have improvement in his pericardial effusion and pericardial rub is not audible today. Patient will be dialyzed frequently. 3. Atrial fibrillation with rapid ventricular rate. At present, his ventricular rate is well controlled and it remains to be seen how he does during dialysis. 4. Anemia. At present his anemia is stable and does not need any urgent intervention. 5. Severe pulmonary hypertension and chronic obstructive pulmonary disease (COPD). Patient seems to be doing well and he is willing to cut down on smoking. At present, we will try to manage his volume status with dialysis and fluid removal. GEOVANNID
--- NOTE | 2020-06-12 14:54 | IPN ---
DATE: 05/22/2020 SUBJECTIVE: Mr. Jones is seen this morning during hemodialysis. He is sitting in the recliner chair and being dialyzed. His blood pressure was 129/60 mmHg this morning but now it is down to 91/50 mmHg. We have dialyzed him in the last two days in a row and removed about 5 liters of fluid so far. Today, we are trying to move another 2 liters. He still has significant lower extremity edema. Patient is known to have right sided heart failure and also had pericarditis. He denies any chest pain at present and dyspnea has improved. He has no nausea or vomiting. PHYSICAL EXAMINATION: VITAL SIGNS: Temperature is 98.2 degrees Fahrenheit, heart rate 68 per minute and respiratory rate 18 per minute. Blood pressure right now is 91/50 mmHg. Oxygen saturation is 91 to 94% on room air. HEENT: Head is atraumatic. NECK: Supple. JVD is moderately elevated. LUNGS: Bibasilar rales. HEART: Regular. I cannot hear a pericardial friction rub at present. ABDOMEN: Soft and nontender. Bowel sounds are present. EXTREMITIES: Without any cyanosis or clubbing. Left arm AV fistula is currently being used for dialysis. Lower extremity edema is still 3+ bilaterally. NEUROLOGIC: He is awake, alert and oriented x3. LABORATORY DATA: Todays labs shows a sodium of 135, potassium 5.2, CO2 26, BUN 29 and creatinine 3.52. Glucose 446. Calcium 7.5. Phosphorus is down to 5.0 and albumin 2.4. PROBLEMS: 1. Congestive heart failure with right sided heart failure and gross volume overload. Patient has been dialyzed on Friday and Friday and today we are dialyzing him again for another 2 liters of fluid removal. He is tolerating it well so far. 2. Pericarditis. Patient had pericarditis a couple of weeks ago and had a larger pericardial effusion. However, repeat echocardiogram over this weekend showed almost no pericardial effusion. Patient has been dialyzed frequently and will continue with the same. 3. Hyperkalemia, mild hyperkalemia probably related to hyperglycemia and endstage renal disease. Patient is being dialyzed with 2.0 mEq of potassium bath and potassium level is likely correct. 4. Endstage renal disease. Patient is being dialyzed today due to pericarditis and volume overload. His regular dialysis days are Friday, and Friday and he will come back to regular dialysis tomorrow. 5. Disposition: From a renal standpoint the patient can be discharged to home today after dialysis and he will return for the next dialysis treatment tomorrow as an outpatient. AJ
--- NOTE | 2020-06-13 15:30 | ECGEPIP ---
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
--- NOTE | 2020-06-22 14:49 | ECGEPIP ---
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 R/O PRIOR ASMI NONSPECIFIC T-WAVE ABNORMALITY ABNORMAL ECG SEE SCANNED DOWNTIME REPORT.
--- NOTE | 2020-07-07 13:32 | ECHO ---
DATE OF PROCEDURE: 05/19/2020 Age: Gender: Height: Weight: REFERRING PHYSICIAN: INDICATION: Pericardial effusion. This was a limited echocardiogram, which only included 2D real time images. No Doppler was performed. DESCRIPTION: Rhythm was sinus tachycardia. This was a limited echocardiogram. No Doppler was included. 2D realtime images were obtained. CONCLUSIONS: 1. At least mild concentric left ventricle hypertrophy by visual estimate. No atrial and LV wall motion abnormalities. Hyperdynamic LV systolic function. Left ventricular ejection fraction (LVEF) 80% by visual estimate. LV diastolic function not determined because Doppler assessment was not performed on this study. 2. No pericardial effusion. 3. Severe mitral annular calcification. No Doppler performed. 4. Normal right ventricle internal dimension. Visual assessment of at least mild right ventricular hypertrophy. Hyperdynamic RV systolic function. [facility]
== END 2020-05-22 13:58 | disposition home or self-care (01) | DRG 291 ==
LOC: EDBD 07:48 → M ED 07:48 → M ED INP 12:43 → M PCU 18:20
PROVIDERS: ADMIT Family Medicine; ATTEND Family Medicine
PROC: 5A1D70Z Performance of Urinary Filtration, Intermittent, Less than 6 Hours Per Day (ICD-10-PCS; principal; 2020-05-20)
DX: I13.2 Hypertensive heart and chronic kidney disease with heart failure and with stage 5 chronic kidney disease, or end stage renal disease (principal); N18.6 End stage renal disease; I50.33 Acute on chronic diastolic (congestive) heart failure; I31.9 Disease of pericardium, unspecified; J90 Pleural effusion, not elsewhere classified; I48.21 Permanent atrial fibrillation; N25.81 Secondary hyperparathyroidism of renal origin; E87.70 Fluid overload, unspecified; E10.22 Type 1 diabetes mellitus with diabetic chronic kidney disease; I27.20 Pulmonary hypertension, unspecified; Z66 Do not resuscitate; E10.51 Type 1 diabetes mellitus with diabetic peripheral angiopathy without gangrene; E78.00 Pure hypercholesterolemia, unspecified; D64.9 Anemia, unspecified; M54.2 Cervicalgia; F17.200 Nicotine dependence, unspecified, uncomplicated; R56.9 Unspecified convulsions; Z79.02 Long term (current) use of antithrombotics/antiplatelets; Z99.2 Dependence on renal dialysis; Z79.4 Long term (current) use of insulin; Z79.899 Other long term (current) drug therapy; I35.1 Nonrheumatic aortic (valve) insufficiency; I34.1 Nonrheumatic mitral (valve) prolapse; Z91.15 Patient's noncompliance with renal dialysis

== ENCOUNTER 2020-05-23 18:12 | Emergency (ER) | payer MEDICARE, MEDICAID ==
[~2020-05-23 18:12] MED LIST changes: +AMIO200T3 PO; +AURY1TAB PO; +AZO1CAP PO; +CARB400T4 PO; +ELIQ5TAB PO; +LIDO2.5C15 TOP; +METO1TAB87 PO; +PROAAER10 INH; +VITA50005 PO; +ZENP1CAP PO; +[UNRECOGNIZED DRUG - CODE] PO
[2020-05-23 19:29] LABS: BASO # 0.1 10^3/uL (0.0-0.2); BASO % 0.9 % (0.0-1.0); EOS # 0.1 10^3/uL (0.0-0.5); EOS % 1.5 % (0.0-3.0); HEMATOCRIT 33.5 % (42.0-52.0); HEMOGLOBIN 10.8 g/dl (13.5-17.5); LYMPH # 0.5 10^3/uL (1.5-5.0); LYMPH % 9.7 % (24.0-44.0); MEAN CORPUSCULAR HEMOGLOBIN 34.2 pg (27.0-33.0); MEAN CORPUSCULAR HGB CONC 32.2 g/dl (32.0-36.5); MONO # 0.5 10^3/uL (0.0-0.8); MONO % 9.3 % (0.0-5.0); NEUTROPHILS # 4.2 10^3/uL (1.5-8.5); NEUTROPHILS % 78.2 % (36.0-66.0); PLATELET COUNT, AUTOMATED 457 10^3/uL (150-450); RED BLOOD COUNT 3.16 10^6/uL (4.30-6.10); WHITE BLOOD COUNT 5.4 10^3/uL (4.0-10.0)
[2020-05-23 20:07] LABS: ALBUMIN 2.4 GM/DL (3.2-5.2); BILIRUBIN,DIRECT 0.1 MG/DL (0.0-0.2); BILIRUBIN,TOTAL 0.2 MG/DL (0.2-1.0); CALCIUM LEVEL 7.6 MG/DL (8.5-10.1); CREATININE FOR GFR 2.32 MG/DL (0.70-1.30); POTASSIUM SERUM 3.3 MEQ/L (3.5-5.1); TOTAL PROTEIN 5.8 GM/DL (6.4-8.2)
[2020-05-23 20:18] VITALS: BP 103/56
--- NOTE | 2020-06-12 14:52 | ECGEPIP ---
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
--- NOTE | 2020-06-20 09:36 | REP ---
PORTABLE CHEST COMPARISON: 05/20/2020 TECHNIQUE: The technique utilized in obtaining the radiograph has magnified the cardiac silhouette and increased the interstitial markings. FINDINGS: There is evidence of pulmonary vascular redistribution. There is a haziness throughout the pulmonary vascularity. No patchy opacities or pleural effusions have developed since the last exam. The osseous structures are unchanged. IMPRESSION: Mild interstitial edema. MTDD
== END 2020-05-23 21:35 | disposition home or self-care (01) ==
LOC: EDBD 18:12 → M ED 18:12
DX: E10.641 Type 1 diabetes mellitus with hypoglycemia with coma (principal); R00.1 Bradycardia, unspecified; I48.91 Unspecified atrial fibrillation; I12.0 Hypertensive chronic kidney disease with stage 5 chronic kidney disease or end stage renal disease; N18.6 End stage renal disease; E10.29 Type 1 diabetes mellitus with other diabetic kidney complication; Z99.2 Dependence on renal dialysis; R56.9 Unspecified convulsions; I73.9 Peripheral vascular disease, unspecified; Z86.79 Personal history of other diseases of the circulatory system; Z79.899 Other long term (current) drug therapy; Z79.01 Long term (current) use of anticoagulants

== ENCOUNTER 2020-05-29 16:03 | Emergency (ER) | payer MEDICARE, MEDICAID ==
[~2020-05-29] VITALS: Ht 165.1 cm; Wt 72.6 kg
[2020-05-29 16:27] VITALS: BP 101/52
[2020-05-29] MEDS ORDERED: DEXTROSE 50% 50 ML SYRINGE IV STA (18:32)
[2020-05-29] MEDS ORDERED: DEXTROSE 50% 50 ML VIAL As Ordered ONE (18:34)
[2020-05-29 19:29] LABS: HEMATOCRIT 33.4 % (42.0-52.0); HEMOGLOBIN 10.6 g/dl (13.5-17.5); MEAN CORPUSCULAR HEMOGLOBIN 34.1 pg (27.0-33.0); MEAN CORPUSCULAR HGB CONC 31.7 g/dl (32.0-36.5); MEAN CORPUSCULAR VOLUME 107.4 fl (80.0-96.0); PLATELET COUNT, AUTOMATED 429 10^3/uL (150-450); RED BLOOD COUNT 3.11 10^6/uL (4.30-6.10); WHITE BLOOD COUNT 6.1 10^3/uL (4.0-10.0)
[2020-05-29 19:39] LABS: CREATININE FOR GFR 5.85 MG/DL (0.70-1.30); GLOMERULAR FILTRATION RATE 10.7 (>56); POTASSIUM SERUM 4.4 MEQ/L (3.5-5.1)
== END 2020-05-29 21:03 | disposition home or self-care (01) ==
LOC: M ED 16:03 → EDBD 16:03 → M ED 21:03
DX: E11.9 Type 2 diabetes mellitus without complications (principal); Z53.21 Procedure and treatment not carried out due to patient leaving prior to being seen by health care provider; I10 Essential (primary) hypertension; N18.9 Chronic kidney disease, unspecified; Z79.01 Long term (current) use of anticoagulants; Z79.4 Long term (current) use of insulin; Z79.899 Other long term (current) drug therapy

== ENCOUNTER 2020-06-06 19:56 | Inpatient (IN) | payer MEDICARE, MEDICAID ==
[~2020-06-06] VITALS: Ht 162.6 cm; Wt 71.4 kg
[2020-06-06] MEDS ORDERED: APIXABAN 5 MG TAB (ELIQUIS) PO SCH (21:00)
[2020-06-06] MEDS ORDERED: **hydrALAZINE** 50 MG TAB PO SCH (21:00)
[2020-06-06 22:29] LABS: BASO # 0.1 10^3/uL (0.0-0.2); BASO % 0.9 % (0.0-1.0); EOS # 0.1 10^3/uL (0.0-0.5); EOS % 1.1 % (0.0-3.0); HEMATOCRIT 35.3 % (42.0-52.0); HEMOGLOBIN 11.1 g/dl (13.5-17.5); LYMPH # 0.6 10^3/uL (1.5-5.0); LYMPH % 9.2 % (24.0-44.0); MEAN CORPUSCULAR HEMOGLOBIN 33.8 pg (27.0-33.0); MEAN CORPUSCULAR HGB CONC 31.4 g/dl (32.0-36.5); MEAN CORPUSCULAR VOLUME 107.6 fl (80.0-96.0); MONO # 0.7 10^3/uL (0.0-0.8); MONO % 9.9 % (0.0-5.0); NEUTROPHILS # 5.2 10^3/uL (1.5-8.5); NEUTROPHILS % 78.6 % (36.0-66.0); PLATELET COUNT, AUTOMATED 256 10^3/uL (150-450); RED BLOOD COUNT 3.28 10^6/uL (4.30-6.10); WHITE BLOOD COUNT 6.6 10^3/uL (4.0-10.0)
[2020-06-06 22:40] LABS: INR 1.2; PROTHROMBIN TIME 15.4 SECONDS (11.8-14.0)
[2020-06-06 22:41] LABS: PARTIAL THROMBOPLASTIN TIME 36.8 SECONDS (25.0-38.4)
[2020-06-06 23:01] LABS: ALBUMIN 2.7 GM/DL (3.2-5.2); ALT/SGPT 28 U/L (12-78); BILIRUBIN,DIRECT 0.1 MG/DL (0.0-0.2); BILIRUBIN,TOTAL 0.3 MG/DL (0.2-1.0); BLOOD UREA NITROGEN 34 MG/DL (7-18); CALCIUM LEVEL 7.7 MG/DL (8.5-10.1); CARBON DIOXIDE LEVEL 35 MEQ/L (21-32); CHLORIDE LEVEL 97 MEQ/L (98-107); CK-MB VALUE MASS 2.1 NG/ML (<3.6); CPK CREATINE PHOSPHOKINASE 58 U/L (39-308); CREATININE FOR GFR 4.21 MG/DL (0.70-1.30); FREE T4 0.83 NG/DL (0.76-1.46); GLOMERULAR FILTRATION RATE 15.6 (>56); GLUCOSE, FASTING 207 MG/DL (70-100); MB/CK RELATIVE INDEX 3.62 (< OR =4); POTASSIUM SERUM 5.2 MEQ/L (3.5-5.1); SODIUM LEVEL 135 MEQ/L (136-145); TOTAL PROTEIN 6.2 GM/DL (6.4-8.2); TROPONIN I < 0.02 NG/ML (< 0.10)
--- NOTE | 2020-06-06 23:01 | REPVR ---
PROCEDURE INFORMATION: Exam: US Duplex Lower Extremity Veins, Bilateral Exam date and time: 06/06/2020 10:29 PM Age: 55 years old Clinical indication: Edema, localized; Lower extremity, bilateral; Additional info: Edema R/O dvt TECHNIQUE: Imaging protocol: Real-time duplex ultrasound of the extremities with 2-D kim scale, color Doppler flow and spectral waveform analysis with image documentation. Complete exam focused on the bilateral lower extremity veins. COMPARISON: US Duplex, Ext LOWER veins, bilat 07/29/2015 7:23 PM FINDINGS: Right deep veins: Unremarkable. The common femoral, femoral, proximal profunda femoral and popliteal veins are patent without thrombus. Normal Doppler waveforms. Normal compressibility and/or augmentation response. Right superficial veins: Saphenofemoral junction is patent without thrombus. Left deep veins: Unremarkable. The common femoral, femoral, proximal profunda femoral and popliteal veins are patent without thrombus. Normal Doppler waveforms. Normal compressibility and/or augmentation response. Left superficial veins: Saphenofemoral junction is patent without thrombus. Soft tissues: Soft tissue edema bilaterally. IMPRESSION: No evidence of deep vein thrombosis. Electronically signed by: Kristy Mayorga On 06/06/2020 23:01:12 PM
--- NOTE | 2020-06-06 23:44 | HPEPDOC ---
[facility] Medical History & Physical Date of Admission Jun 06, 2020 Date of Service: Jun 06, 2020 Attending Physician: Crystal Mcpherson MD History and Physical CHIEF COMPLAINT: worsening lower ext swelling, pain HISTORY OF PRESENT ILLNESS: 55 yo M with a hx of ESRD on HD, Type 1 DM, HTN, afib on anticoagulation, CHF, pericarditis, PAD, seizure disorder who presented with worsening lower ext pain and swelling over the past several days. Patient states that over the past several days he has had severe bilateral lower ext pain, severe 10/10 on pain scale, localized to lower ext only. He has also had increased nonproductive cough with shortness of breath that is new. He is compliant with all meds and dialysis sessions he says. He denies chest pain, n/v/d, fevers chills, abdominal pain. In ER, O2 saturation dropped several times at rest and with activity to 86-88% on RA. He was placed on 2 L NC which improved O2 sat to 95%. CXR appeared to be worsened on right lung, possible edema vs. PNA? Official report pending. Potassium 5.2, Cr 4.21 (near baseline Cr). US lower ext neg for DVT. ECG NSR, neg trop. BNP pending. Patient had recent hospitalization from 05/19/-05/22 for newly diagnosed atrial fib, CHF and patient followed up with Dr. Etienne recently as o/p. Cardiology decreased some medications, including amiodarone and another med he cannot remember. Dr. Kinsey was contacted from ER and suggested admission for fluid overload, requiring additional HD. Pt was admitted for lower ext swelling 2/2 to fluid overload 2/2 to ESRD, hypoxia 2/2 to pulmonary edema vs. PNA. ROS: negative except for what is mentioned above. PAST MEDICAL HISTORY: 1. ESRD on HD , , Fri 2. Afib with RVR, newly diagnosed last admission 04/2020 3. CHF 4. Pericarditis 5. Bilateral pleural effusion 6. Type 1 DM 7. HTN 8. PAD 9. Seizures. PAST SURGICAL HISTORY: 1. L sided fistula SOCIAL HISTORY: <1 PPD smoker, 45 years. Denies alcohol use but smokes marijuana recreationally. Lives alone. Has health care proxy/advisor who helps him with appointements, etc. FAMILY HISTORY: reports cardiac hx in father, brother, unable to specify ALLERGIES: Please see below. HOME MEDICATIONS: Please see below. PHYSICAL EXAMINATION: VITAL SIGNS: Please see below GENERAL APPEARANCE: In NAD, resting in bed HEENT: AT/NC Neck:no JVD CARDIOVASCULAR: S1S2 +, no M/R/G LUNGS: Crackles in bilateral lower lung bases, No rhonchi, rales ABDOMEN: soft, nondistended, no organomegaly, no fluid wave, BS + 4 quad MUSCULOSKELETAL: ROM wnl, no cyanosis or clubbing EXTREMITIES: edema +2 pitting in lower ext, no atrophy NEUROLOGICAL: No neuro deficits, CN2-12 intact PSYCHIATRIC: Gets angry easily LABORATORY/MICROBIOLOGY/IMAGING: See below. CXR: Increased pulmonary congestion vs. PNA when compared to 05/23/20 XR. F/u official reading. ASSESSMENT: 55 yo M with a hx of ESRD on HD, Type 1 DM, HTN, afib on an ticoagulation, CHF, pericarditis, PAD, seizure disorder admitted under inpatient status for lower ext swelling 2/2 to fluid overload 2/2 to ESRD, hypoxia 2/2 to pulmonary edema vs. PNA. PLAN: 1. Lower ext swelling likely 2/2 to fluid overload 2/2 to ESRD. States to be compliant with HD sessions and meds. Follows with Dr. Kinsey, he suggests no lasix at this time only dialysis. Nephro consulted. Plan for HD tomorrow. Pain control. 2. Hypoxia 2/2 to pulmonary vascular congestion vs. developing PNA. F/u BNP. WBC wnl, more suspicious of vascular congestion than infection at this time. Will avoid abx and waiting on official reading. HD, no lasix. 3. Afib. Currently NSR, rate controlled. C/w home meds. 4. CHF, type unknown. Trop neg, f/u BNP. Will f/u old echocardiogram on file, follows with Dr. Etienne. C/w cardiac meds. 5. Hx of pericarditis 2/2 to uremia, ESRD. Previously on colchicine, c/w HD only per nephro. 6. Type 1 DM. BS 207. C/w home levemir 26 units qam. ISS, FS HS at home. Consistent carb, renal diet. 7. HTN. Stable. C/w home meds. 8. PAD. C/w on eliquis. Vascular f/u o/p. 9. Seizures. STable. C/w home dose cabamazepine 400 mg PO BID. 10. Tobacco use. Nicotine patch. 11. DVT px. Eliquis BID. DISPOSITION: Admit to acute inpatient. HD today. Plan is discharge home when medically improved. Vital Signs Vital Signs Date Time Temp Pulse Resp B/P (MAP) Pulse Ox O2 Delivery O2 Flow Rate FiO2 06/06/20 20:21 97.6 62 18 134/64 (87) 92 Room Air Laboratory Data Labs 24H Laboratory Tests 2 06/06/20 22:03: Bedside Glucose (Misc Panel) 199H 06/06/20 22:11: Immature Granulocyte % (Auto) 0.3, Neutrophils (%) (Auto) 78.6H, Lymphocytes (%) (Auto) 9.2L, Monocytes (%) (Auto) 9.9H, Eosinophils (%) (Auto) 1.1, Basophils (%) (Auto) 0.9, Neutrophils # (Auto) 5.2, Lymphocytes # (Auto) 0.6L, Monocytes # (Auto) 0.7, Eosinophils # (Auto) 0.1, Basophils # (Auto) 0.1, Nucleated Red Blood Cells % (auto) 0.0, Prothrombin Time 15.4H, Prothromb Time International Ratio 1.20, Activated Partial Thromboplast Time 36.8, Anion Gap 3L, Glomerular Filtration Rate 15.6L, Calcium Level 7.7L, Total Bilirubin 0.3, Direct Bilirubin 0.1, Aspartate Amino Transf (AST/SGOT) 16, Alanine Aminotransferase (ALT/SGPT) 28, Alkaline Phosphatase 276H, Total Creatine Kinase 58, Creatine Kinase MB 2.1, Creatine Kinase MB Relative Index 3.62, Troponin I < 0.02, Total Protein 6.2L, Albumin 2.7L, Albumin/Globulin Ratio 0.8, Thyroid Stimulating Hormone (TSH) 2.580, Free Thyroxine 0.83 CBC/BMP Laboratory Tests 06/06/20 22:11 Home Medications Scheduled Amiodarone HCl (Amiodarone HCl) 200 Mg Tablet, 200 MG PO DAILY Apixaban (Eliquis) 5 Mg Tablet, 5 MG PO BID Carbamazepine (Carbamazepine ER) 400 Mg Tab.er.12h, 400 MG PO BID Cranberry Fruit Extract/Vit C (Azo Cranberry Softgel) 1 Each Capsule, 2 CAP PO TID Ergocalciferol (Vitamin D2) (Vitamin D2) 50,000 Units Cap, 50,000 UNITS PO QWEEK PATIENT TAKES ON FRIDAY Ferric Citrate (Auryxia) 210 Mg Tablet, 630 MG PO WM Hydralazine HCl (Hydralazine HCl) 50 Mg Tablet, 100 MG PO BID Insulin Glargine (Lantus) 1 Units/0.01 Ml Susp, 26 UNITS SC DAILY Insulin Human Lispro (Humalog) 1 Units/0.01 Ml Inj, 1 DOSE SC ACHS PER SLIDING SCALE Lanthanum Carbonate (Fosrenol) 750 Mg Powd.pack, 750 MG PO WM Lidocaine/Prilocaine (Lidocaine-Prilocaine Cream) 2.5%/2.5% Cream..g., 1 DOSE TOP 3XW PRIOR TO DIALYSIS: FRIDAY, FRIDAY AND FRIDAY Lipase/Protease/Amylase (Zenpep Dr 5,000 Unit Capsule) 1 Each Capsule.dr, 30,000 UNITS PO WM Metoprolol Tartrate (Metoprolol Tartrate) 25 Mg Tablet, 25 MG PO 4XWK TAKES ONCE DAILY ON NON-DIALYSIS DAYS: FRIDAY, FRIDAY, FRIDAY AND FRIDAY Scheduled PRN Albuterol Sulfate (Proair Hfa) 8.5 Gm Hfa.aer.ad, 2 PUFFS INH QID PRN for SHORTNESS OF BREATH Allergies Coded Allergies: No Known Allergies (Unverified , 10/03/19) A-FIB/CHADSVASC A-FIB History Current/History of A-Fib/PAF?: Yes Current PO Anticoag Therapy: Yes Age/Risk Factor Scoring CHADSVASC: CHADSVASC Response (Comments) Value Age Risk Factor Age < 65 years old 0 Gender Risk Factor Male 0 Hx of CHF Yes 1 Hx of HTN Yes 1 Hx of Stroke/TIA/or VTE No 0 Hx of Diabetes Yes 1 Hx of Vascular Disease Yes 1 Total 4 Treatment Treatment ordered: Apixaban, Other Other anticoagulant ordered: Crystal Jeong MD Jun 06, 2020 23:44
[2020-06-06] MEDS ORDERED: ELIQ5TAB PO (23:45)
[2020-06-06] MEDS ORDERED: AMIO200T3 PO (23:45)
[2020-06-06] MEDS ORDERED: METO1TAB87 PO (23:45)
[2020-06-06] MEDS ORDERED: HYDR50TA PO (23:46)
[2020-06-07] MEDS ORDERED: GLUCOSE 4GM CHEW TABLET PO PRN (00:15)
[2020-06-07] MEDS ORDERED: GLUCAGON INJ 1MG VIAL SC PRN (00:15)
[2020-06-07] MEDS ORDERED: ALBUTEROL 90 MCG/ACT 8GM HFA INHALER INH PRN (00:15)
[2020-06-07] MEDS ORDERED: DEXTROSE 50% 50 ML SYRINGE IV PRN (00:15)
[2020-06-07 00:26] VITALS: BP 124/62
[2020-06-07] MEDS ORDERED: diphenhydrAMINE 50MG CAP PO ONE (01:00)
[2020-06-07] MEDS ORDERED: ACETAMINOPHEN TAB 650MG DOSE (2X325MG) PO ONE (01:00)
[2020-06-07] MEDS: carBAMazepine XR 200 MG TAB PO SCH ×2 (01:05→06:36)
[2020-06-07 01:06] VITALS: BP 124/62
[2020-06-07 06:00] VITALS: BP 110/49
[2020-06-07 06:51] LABS: HEMATOCRIT 34.9 % (42.0-52.0); MEAN CORPUSCULAR HEMOGLOBIN 33.7 pg (27.0-33.0); MEAN CORPUSCULAR HGB CONC 31.5 g/dl (32.0-36.5); MEAN CORPUSCULAR VOLUME 107.1 fl (80.0-96.0); PLATELET COUNT, AUTOMATED 256 10^3/uL (150-450); RED BLOOD COUNT 3.26 10^6/uL (4.30-6.10)
[2020-06-07 07:15] LABS: ALBUMIN 2.4 GM/DL (3.2-5.2); BILIRUBIN,TOTAL 0.3 MG/DL (0.2-1.0); CALCIUM LEVEL 7.7 MG/DL (8.5-10.1); CREATININE FOR GFR 4.52 MG/DL (0.70-1.30); GLOMERULAR FILTRATION RATE 14.4 (>56); POTASSIUM SERUM 4.7 MEQ/L (3.5-5.1); TOTAL PROTEIN 5.8 GM/DL (6.4-8.2)
[2020-06-07] MEDS ORDERED: HumaLOG INSULIN (NovoLOG) PER UNIT SC SCH ×2 (07:30→21:00)
[2020-06-07] MEDS ORDERED: LEVEMIR (INSULIN DETEMIR) 1 UNITS/0.01ML SC SCH (09:00)
[2020-06-07] MEDS ORDERED: EMLA CREAM 5GM TUBE (LIDOCAINE/PRILOCAINE) TOP SCH (09:00)
[2020-06-07] MEDS ORDERED: AMIODARONE 200 MG TAB (PACERONE) PO SCH (09:00)
[2020-06-07] MEDS ORDERED: METOPROLOL TART 25 MG TABLET PO SCH (09:00)
--- NOTE | 2020-06-09 15:18 | ECGEPIP ---
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
--- NOTE | 2020-06-27 11:25 | DSES ---
DATE OF ADMISSION: 06/06/2020. DATE OF DISCHARGE: 06/07/2020 - The patient left against medical advice. Patient refused to be examined and refused to be interviewed. PRIMARY DISCHARGE DIAGNOSES: 1. Fluid overload secondary to end-stage renal disease. 2. Hypoxia due to possible developing pneumonia versus fluid overload from end-stage renal disease. 3. End-stage renal disease on dialysis Friday, Friday, Friday. 4. Congestive heart failure; unknown ejection fraction. 5. History of pericarditis due to uremia and end-stage renal disease. 6. Diabetes type 1. 7. Hypertension. 8. Peripheral arterial disease. 9. Seizures. 10. Tobacco abuse. DISCHARGE MEDICATIONS: 1. Albuterol two puffs inhaled q.i.d. 2. Amiodarone 200 mg daily. 3. Eliquis 5 mg b.i.d. 4. Carbamazepine 400 b.i.d. 5. Cranberry two caps t.i.d. 6. Vitamin D 50,000 units weekly. 7. Ferric citrate 630 with meals. 8. Hydralazine 100 b.i.d. 9. Lantus 26 units daily. 10. Insulin sliding scale AC/HS. 11. Lanthanum Carbonate 750 with meals. 12. Lidocaine topically three times weekly. 13. Zenpep 30,000 units with meals. 14. Metoprolol Titrate 25 mg four times a week. HOSPITAL COURSE: Patient refused interview and examination. Hospital course obtained from prior history and physical by Dr. Rojas. A 55-year-old male who presented with worsening lower extremity swelling and pain, found to be 86% on room air, and improved on 2 liters oxygen to 95%. Chest x-ray showed possible fluid overload versus right lower lobe pneumonia. He was found to have a creatinine of 4.2, which was near his baseline. Potassium of 5.2. Ultrasound of his lower extremity was negative for DVT. Patient was admitted for possible right lower lobe pneumonia, fluid overload requiring dialysis. He was continued on all his home medications. Started on antibiotics, but refused to stay in the hospital and left against medical advice. Physical examination could not be done as the patient refused. LABORATORY DATA ON LEAVING AGAINST MEDICAL ADVICE: White count 6, hemoglobin 11, hematocrit 34, platelet count 256,000. Sodium 134, potassium 4.7, chloride 100, bicarb 32, BUN 35, creatinine 4.52, glucose 101. BNP 26,563. IMAGING STUDIES: Vascular ultrasound 06/06/2020; no evidence of DVT. TIME SPENT ON DISCHARGE: 30 minutes. MTDD
== END 2020-06-07 08:10 | disposition left against medical advice (07) | DRG 640 ==
LOC: M ED 19:56 → M ED INP 23:35 → ENRESERV 06-07 00:04 → M MSPAV 06-07 00:42
PROVIDERS: ADMIT Internal Medicine; ATTEND General Practice
DX: E87.70 Fluid overload, unspecified (principal); N18.6 End stage renal disease; I12.0 Hypertensive chronic kidney disease with stage 5 chronic kidney disease or end stage renal disease; I48.91 Unspecified atrial fibrillation; I50.9 Heart failure, unspecified; E10.22 Type 1 diabetes mellitus with diabetic chronic kidney disease; E11.51 Type 2 diabetes mellitus with diabetic peripheral angiopathy without gangrene; G40.909 Epilepsy, unspecified, not intractable, without status epilepticus; F17.200 Nicotine dependence, unspecified, uncomplicated; R09.02 Hypoxemia; Z99.2 Dependence on renal dialysis; Z79.01 Long term (current) use of anticoagulants; Z79.899 Other long term (current) drug therapy; Z79.4 Long term (current) use of insulin

== ENCOUNTER 2020-06-20 10:30 | Inpatient (IN) | payer MEDICARE, MEDICAID ==
[~2020-06-20] VITALS: Ht 165.1 cm; Wt 74.2 kg
[~2020-06-20 10:30] MED LIST changes: +HYDR50TA PO; +carBAMazepine XR 200 MG TAB PO SCH
[2020-06-20 11:08] LABS: VENOUS HCO3 25.5 MEQ/L (23.0-27.0); VENOUS O2 SATURATION 69.5 % (60.0-80.0); VENOUS PARTIAL PRESSURE CO2 71.6 mmHg (38.0-50.0); VENOUS PARTIAL PRESSURE O2 42.7 mmHg (30.0-50.0); VENOUS PH 7.169 UNITS (7.330-7.430); VENOUS STANDARD HCO3 20.7 MEQ/L; VENOUS TOTAL CO2 27.7 MEQ/L (24.0-28.0)
[2020-06-20 11:18] LABS: BASO # 0.1 10^3/uL (0.0-0.2); BASO % 0.7 % (0.0-1.0); EOS # 0.2 10^3/uL (0.0-0.5); EOS % 2.2 % (0.0-3.0); HEMATOCRIT 32.8 % (42.0-52.0); HEMOGLOBIN 10.1 g/dl (13.5-17.5); LYMPH # 0.7 10^3/uL (1.5-5.0); LYMPH % 9.5 % (24.0-44.0); MEAN CORPUSCULAR HEMOGLOBIN 33.9 pg (27.0-33.0); MEAN CORPUSCULAR HGB CONC 30.8 g/dl (32.0-36.5); MEAN CORPUSCULAR VOLUME 110.1 fl (80.0-96.0); MONO # 0.6 10^3/uL (0.0-0.8); MONO % 8.2 % (0.0-5.0); NEUTROPHILS # 5.4 10^3/uL (1.5-8.5); PLATELET COUNT, AUTOMATED 255 10^3/uL (150-450); RED BLOOD COUNT 2.98 10^6/uL (4.30-6.10); WHITE BLOOD COUNT 6.9 10^3/uL (4.0-10.0)
--- NOTE | 2020-06-20 11:18 | REPVR ---
PROCEDURE INFORMATION: Exam: XR Chest, 1 View Exam date and time: 06/20/2020 11:07 AM Age: 55 years old Clinical indication: Cough and dyspnea and shortness of breath; Additional info: Dyspnea/cough TECHNIQUE: Imaging protocol: XR of the chest Views: 1 view. COMPARISON: CR Chest, 2 view PA, Lat 06/06/2020 9:16 PM FINDINGS: Lungs: No focal consolidation. Mild reticular opacities in both lungs, which may reflect mild interstitial edema. Pleural space: Unremarkable. No pleural effusion. No pneumothorax. Heart/Mediastinum: Stable mild prominence of the cardiac silhouette. Vasculature: Calcification of the thoracic aorta. Bones/joints: Unremarkable. IMPRESSION: Mild reticular opacities in both lungs, which may reflect mild interstitial edema. Electronically signed by: Alyx Monet On 06/20/2020 11:18:13 AM
[2020-06-20 11:31] LABS: INR 1.3; PROTHROMBIN TIME 16.4 SECONDS (12.5-14.3)
[2020-06-20 11:48] LABS: ALBUMIN 2.9 GM/DL (3.2-5.2); BILIRUBIN,DIRECT 0.1 MG/DL (0.0-0.2); BILIRUBIN,TOTAL 0.3 MG/DL (0.2-1.0); THYROID STIMULATING HORMONE 3.19 uIU/ML (0.358-3.740); TOTAL PROTEIN 6.5 GM/DL (6.4-8.2)
[2020-06-20] MEDS: COMBIVENT RESPIMAT 100-20MCG INHALER 4GM INH STA ×2 (11:53→12:02)
[2020-06-20] MEDS ORDERED: DEXTROSE 50% 50 ML SYRINGE IV PRN (13:00)
[2020-06-20] MEDS ORDERED: GLUCOSE 4GM CHEW TABLET PO PRN (13:00)
[2020-06-20] MEDS ORDERED: GLUCAGON INJ 1MG VIAL SC PRN (13:00)
[2020-06-20] MEDS ORDERED: ALBUTEROL 90 MCG/ACT 8GM HFA INHALER INH PRN (13:30)
[2020-06-20] MEDS ORDERED: SOD POLYSTYRENE SULFONATE SUSP 15 GM/60 ML UD PO ONE (13:30)
[2020-06-20] MEDS ORDERED: ATORVASTATIN 20 MG TAB PO ONE (13:45)
[2020-06-20] MEDS ORDERED: NICOTINE 14 MG/24 HR TRANSDERMAL TD PRN (13:45)
--- NOTE | 2020-06-20 13:48 | HPEPDOC ---
[facility] Medical History & Physical Date of Admission Jun 20, 2020 Date of Service: Jun 20, 2020 History and Physical CHIEF COMPLAINT: SOB HISTORY OF PRESENT ILLNESS: 55 M hx of ESRD on HD, Type 1 DM, HTN, afib on anticoagulation, CHF, pericarditis, PAD, seizure disorder admitted under inpatient status. Seen by nephrology in the ED. Plan to get HD today. patient says that in the dialysis clinic he felt SOB and dialysis wasn't started at that time. EMT was called and he was found to be hypotensive. In the ED he was frustrated and refusing dialysis. insisting on regular diet only. PAST MEDICAL HISTORY: ESRD on HD, Type 1 DM, HTN, afib on anticoagulation, CHF, pericarditis, PAD, se izure disorder PAST SURGICAL HISTORY: Eye surgery SOCIAL HISTORY: Tobacco use: yes daily ETOH: denies Illicit drug use: denies IV drug use: denies ALLERGIES: Please see below. REVIEW OF SYSTEMS: Full 12 system conducted, pertinent positives and negatives reviewed in HPI, all others negative. Constitutional: denies fevers, chills CV: denies CP, palpitations Resp: denies cough, endroses SOB but now improved. GI: denies abd pain, n/v : denies dysuria, hematuria Skin: endorses LE b/l pain due to tight skin. HOME MEDICATIONS: Please see below. PHYSICAL EXAMINATION: Constitutional: Awake and alert, in no apparent distress, avoiding eye contact, yelling/cursing at staff, doesn't want to answer questions ENT: Sclera are clear. Mucosa is moist. Respiratory: Lungs mild crackles bilaterally. No respiratory distress. No use of accessory muscles. on 4L NC but had taken it off, saturating at 94% Cardiovascular: RRR S1 and S2 are normal, no murmur Gastrointestinal: Abdomen is soft, non tender, BS present. Musculoskeletal: none pitting LE edema bilaterally symmetrical. Laura negative. No erythema or signs of cellulitis. Neurologic: No focal neurological deficit. Mental Status: A&O x3, angry affect Skin: Warm, dry LABORATORY DATA: See below. IMAGING: CXR Mild reticular opacities in both lungs, which may reflect mild interstitial edema. Laboratory Tests 06/20/20 10:52 Allergies Coded Allergies No Known Allergies (Unverified10/03/19) MICROBIOLOGY: Please see below. . A/P 55 yo M with a hx of ESRD on HD, Type 1 DM, HTN, afib on anticoagulation, CHF, pericarditis, PAD, seizure disorder admitted under inpatient status for SOB 2/2 to fluid overload 2/2 to ESRD. # SOB: 2/2 fluid overload, needs dialysis. Nephro consulted. Echo. # ESRD: HD TTS per nephron. Ok with nephro for renal diet. # LE edema: due to fluid overload. Dialysis and pain control. Tylenol PRN. # Afib. Currently NSR, rate controlled. On eliquis. # Hx CHF: BNP around level of prior admissions unreliable due to ESRD. Echo now followup results with cardio OP, follows with Dr. Etienne. # HyperK: 5.9 on admit. EKG no T waves. Trend EKG. Kayexelate. Correct with dialysis. # Hx of pericarditis 2/2 to uremia, ESRD. Previously on colchicine, not currently. # Type 1 DM: A1C 6/2% april. levemir 25 qhs. ISS. Hypoglycemic precautions # HTN. Hypotensive. Hold home meds. Monitor. # PAD. C/w on eliquis. Vascular f/u o/p. ASA, Statin. # Hx Seizure disorder. Reports no recent seizures. C/w home dose cabamazepine 400 mg PO BID. # Tobacco use: Nicotine patch. # Dispo: to home once medically improved. HD today. # DVT prophylaxis: Eliquis BID. A Yousef Hospitalist Vital Signs Vital Signs Date Time Temp Pulse Resp B/P (MAP) Pulse Ox O2 Delivery O2 Flow Rate FiO2 06/20/20 12:30 51 89/52 (64) 92 06/20/20 11:15 18 Room Air 06/20/20 10:55 97.1 Laboratory Data Labs 24H Laboratory Tests 2 06/20/20 10:52: Immature Granulocyte % (Auto) 0.4, Neutrophils (%) (Auto) 79.0H, Lymphocytes (%) (Auto) 9.5L, Monocytes (%) (Auto) 8.2H, Eosinophils (%) (Auto) 2.2, Basophils (%) (Auto) 0.7, Neutrophils # (Auto) 5.4, Lymphocytes # (Auto) 0.7L, Monocytes # (Auto) 0.6, Eosinophils # (Auto) 0.2, Basophils # (Auto) 0.1, Nucleated Red Blood Cells % (auto) 0.0, Prothrombin Time 16.4H, Prothromb Time International Ratio 1.30, Blood Gas Bicarbonate Standard 20.7, Venous Blood pH 7.169L, Venous Blood Partial Pressure CO2 71.6H, Venous Blood Partial Pressure O2 42.7, Venous Blood Total Carbon Dioxide 27.7, Venous Blood HCO3 25.5, Venous Blood Oxygen Saturation 69.5, Venous Blood Base Excess -4.0L, Lactic Acid Level 0.9, Total Bilirubin 0.3, Direct Bilirubin 0.1, Aspartate Amino Transf (AST/SGOT) 21, Alanine Aminotransferase (ALT/SGPT) 34, Alkaline Phosphatase 195H, WT-Flk-K-Type Natriuretic Peptide 68646L, Total Protein 6.5, Albumin 2.9L, Albumin/Globulin Ratio 0.8, Thyroid Stimulating Hormone (TSH) 3.190 06/20/20 11:07: POC Glucose (Misc Panel) 157H, POC Sodium (Misc Panel) 135L, POC Potassium (Misc Panel) 5.9H, POC Chloride (Misc Panel) 99, POC Total CO2 (Misc Panel) 25.0, POC Blood Urea Nitrogen (Misc Panel 59H, POC Ionized Calcium (Misc Panel) 4.3L, POC Creatinine (Misc Panel) 5.9H, POC Hematocrit (Misc Panel) 32.0L 06/20/20 11:10: POC Troponin I (Misc) 0.01 CBC/BMP Laboratory Tests 06/20/20 10:52 Microbiology Microbiology 06/20/20 Blood Culture, Received Pending 06/20/20 Blood Culture, Received Pending Home Medications Scheduled Amiodarone HCl (Amiodarone HCl) 200 Mg Tablet, 200 MG PO DAILY Apixaban (Eliquis) 5 Mg Tablet, 5 MG PO BID Carbamazepine (Carbamazepine ER) 400 Mg Tab.er.12h, 400 MG PO BID Cranberry Fruit Extract/Vit C (Azo Cranberry Softgel) 1 Each Capsule, 2 CAP PO TID Ergocalciferol (Vitamin D2) (Vitamin D2) 50,000 Units Cap, 50,000 UNITS PO QWEEK PATIENT TAKES ON FRIDAY Ferric Citrate (Auryxia) 210 Mg Tablet, 630 MG PO WM Hydralazine HCl (Hydralazine HCl) 50 Mg Tablet, 100 MG PO BID Insulin Glargine (Lantus) 1 Units/0.01 Ml Susp, 26 UNITS SC DAILY Insulin Human Lispro (Humalog) 1 Units/0.01 Ml Inj, 1 DOSE SC ACHS PER SLIDING SCALE Lanthanum Carbonate (Fosrenol) 750 Mg Powd.pack, 750 MG PO WM Lidocaine/Prilocaine (Lidocaine-Prilocaine Cream) 2.5%/2.5% Cream..g., 1 DOSE TOP 3XW PRIOR TO DIALYSIS: FRIDAY, FRIDAY AND FRIDAY Lipase/Protease/Amylase (Zenpep Dr 5,000 Unit Capsule) 1 Each Capsule.dr, 30,000 UNITS PO WM Metoprolol Tartrate (Metoprolol Tartrate) 25 Mg Tablet, 25 MG PO 4XWK TAKES ONCE DAILY ON NON-DIALYSIS DAYS: FRIDAY, FRIDAY, FRIDAY AND FRIDAY Scheduled PRN Albuterol Sulfate (Proair Hfa) 8.5 Gm Hfa.aer.ad, 2 PUFFS INH QID PRN for SHORTNESS OF BREATH Allergies Coded Allergies: No Known Allergies (Unverified , 10/03/19) A-FIB/CHADSVASC A-FIB History Current/History of A-Fib/PAF?: Yes Current PO Anticoag Therapy: Yes VINI WALKER MD Jun 20, 2020 13:39
[2020-06-20 15:35] VITALS: BP 108/54
[2020-06-20] MEDS: ACETAMINOPHEN 500 MG TAB PO SCH ×2 (15:49→21:29)
[2020-06-20] MEDS: ASPIRIN 81 MG CHEW TABLET PO SCH (15:49)
[2020-06-20] MEDS: HumaLOG INSULIN (NovoLOG) PER UNIT SC SCH (17:30)
[2020-06-20 18:50] LABS: CALCIUM LEVEL 7.8 MG/DL (8.5-10.1); CREATININE FOR GFR 3.95 MG/DL (0.70-1.30); GLOMERULAR FILTRATION RATE 16.8 (>56); POTASSIUM SERUM 4.5 MEQ/L (3.5-5.1)
--- NOTE | 2020-06-20 20:14 | ECGEPIP ---
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
[2020-06-20] MEDS ORDERED: APIXABAN 5 MG TAB (ELIQUIS) PO SCH (21:00)
[2020-06-20] MEDS ORDERED: HumaLOG INSULIN (NovoLOG) PER UNIT SC SCH (21:00)
[2020-06-20] MEDS: carBAMazepine XR 200 MG TAB PO SCH (21:28)
[2020-06-20] MEDS: APIXABAN 2.5 MG TAB (ELIQUIS) PO SCH (21:29)
[2020-06-20 22:00] VITALS: BP 117/41
--- NOTE | 2020-06-20 23:15 | ECGEPIP ---
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
[2020-06-21] MEDS ORDERED: RAMELTEON 8 MG TAB (ROZEREM) PO PRN
[2020-06-21] MEDS: ACETAMINOPHEN 500 MG TAB PO SCH ×2 (05:46→14:00)
[2020-06-21 06:00] VITALS: BP 111/50
[2020-06-21 07:05] LABS: HEMATOCRIT 31.8 % (42.0-52.0); HEMOGLOBIN 9.8 g/dl (13.5-17.5); MEAN CORPUSCULAR HEMOGLOBIN 34.1 pg (27.0-33.0); MEAN CORPUSCULAR HGB CONC 30.8 g/dl (32.0-36.5); MEAN CORPUSCULAR VOLUME 110.8 fl (80.0-96.0); PLATELET COUNT, AUTOMATED 273 10^3/uL (150-450); RED BLOOD COUNT 2.87 10^6/uL (4.30-6.10); WHITE BLOOD COUNT 5.7 10^3/uL (4.0-10.0)
[2020-06-21 07:37] LABS: CALCIUM LEVEL 7.5 MG/DL (8.5-10.1); CREATININE FOR GFR 4.56 MG/DL (0.70-1.30); GLOMERULAR FILTRATION RATE 14.2 (>56); POTASSIUM SERUM 5.1 MEQ/L (3.5-5.1)
[2020-06-21] MEDS: ASPIRIN 81 MG CHEW TABLET PO SCH (08:26)
[2020-06-21] MEDS: HumaLOG INSULIN (NovoLOG) PER UNIT SC SCH ×3 (08:26→17:30)
[2020-06-21] MEDS: APIXABAN 2.5 MG TAB (ELIQUIS) PO SCH (08:26)
[2020-06-21] MEDS: carBAMazepine XR 200 MG TAB PO SCH (08:27)
[2020-06-21] MEDS ORDERED: LEVEMIR (INSULIN DETEMIR) 1 UNITS/0.01ML SC SCH (09:00)
[2020-06-21] MEDS ORDERED: SOD POLYSTYRENE SULFONATE SUSP 15 GM/60 ML UD PO ONE (09:00)
[2020-06-21] MEDS ORDERED: LIDOCAINE 1% SDV 5ML VIAL SQ ONE (10:00)
[2020-06-21] MEDS ORDERED: HumaLOG INSULIN (NovoLOG) PER UNIT SC ONE (11:30)
--- NOTE | 2020-06-21 14:44 | IPNPDOC ---
Text Note Date of Service The patient was seen on 06/21/20. NOTE Subjective: Says feeling better. Less swollen. Legs feel less swollen and Breathing easier. No overnight events. Got dialysis again today. Tells me has been sneaking in a lot of chocolate and eating it since yesterday which explains his high blood sugars. Objective: Constitutional: Awake and alert, in no apparent distress. ENT: Sclera are clear. Mucosa is moist. Respiratory: Lungs mild crackles bilaterally improved vs yesterday. No respiratory distress. No use of accessory muscles. on room air. Cardiovascular: RRR S1 and S2 are normal, no murmur Gastrointestinal: Abdomen is soft, non tender, BS present. Musculoskeletal: none pitting LE edema bilaterally symmetrical improved vs yesterday. Neurologic: No focal neurological deficit. Mental Status: A&O x3 Skin: Warm, dry A/P: 55 yo M with a hx of ESRD on HD, Type 1 DM, HTN, afib on anticoagulation, CHF, pericarditis, PAD, seizure disorder admitted under inpatient status for SOB 2/2 to fluid overload 2/2 to ESRD. # SOB: 2/2 fluid overload, improved after dialysis which he received 06/20 and 06/21. Nephro consulted. Echo done. # ESRD: HD TTS per nephron. Ok with nephro for renal diet. To continue regular dialysis schedule upon discharge. # LE edema: Improved. Due to fluid overload. Dialysis and pain control. Tylenol PRN. # Afib. Currently NSR, rate controlled. On eliquis. # Hx CHF: BNP around level of prior admissions unreliable due to ESRD. Echo now followup results with cardio OP, follows with Dr. Etienne. # HyperK: 5.9 on admit. EKG no T waves. Corrected with dialysis. kayexelate as needed. # Hx of pericarditis 2/2 to uremia, ESRD. Previously on colchicine, not currently. # Type 1 DM: A1C 6.2% april. levemir 30 qhs. ISS. Hypoglycemic precautions. # HTN. Normotensive. Hold home meds. Monitor. # PAD. C/w on eliquis. Vascular f/u o/p. ASA, Statin. # Hx Seizure disorder. Reports no recent seizures. C/w home dose cabamazepine 400 mg PO BID. # Tobacco use: Nicotine patch. # Dispo: to home 06/21/2020 # DVT prophylaxis: Eliquis BID. A Rosario Hospitalist Lukas COTE I+O Lukas COTE I+O Laboratory Tests 06/20/20 10:52 06/20/20 18:02 06/21/20 06:36 Vital Signs Date Time Temp Pulse Resp B/P (MAP) Pulse Ox O2 Delivery O2 Flow Rate FiO2 06/21/20 06:00 98.0 71 18 111/50 (70) 89 Room Air 06/20/20 15:35 2.0 I&O- Last 24 Hours up to 6 AM 06/21/20 06:00 Intake Total 0 ml Output Total 2500 ml Balance -2500 ml VINI WALKER MD Jun 21, 2020 08:06
--- NOTE | 2020-06-21 14:48 | DS.PDOC ---
Discharge Summary General Date of Admission Jun 20, 2020 at 13:47 Date of Discharge 06/21/2020 Discharge Summary PROCEDURES PERFORMED DURING STAY: HD ADMITTING DIAGNOSES: 1. Shortness of breath DISCHARGE DIAGNOSES: 1. Shortness of breath secondary to Fluid overload from ESRD requiring hemodialysis COMPLICATIONS/CHIEF COMPLAINT: Esrd,Fluid Overload,Hyperkalemia, Pulmonary Edema. HISTORY OF PRESENT ILLNESS: 55 M hx of ESRD on HD, Type 1 DM, HTN, afib on anticoagulation, CHF, pericarditis, PAD, seizure disorder admitted under inpatient status. Seen by nephrology in the ED. Plan to get HD today. patient says that in the dialysis clinic he felt SOB and dialysis wasn't started at that time. EMT was called and he was found to be hypotensive. In the ED he was frustrated and refusing dialysis. insisting on regular diet only. HOSPITAL COURSE: 55 yo M with a hx of ESRD on HD, Type 1 DM, HTN, afib on anticoagulation, CHF, pericarditis, PAD, seizure disorder admitted under inpatient status for SOB 2/2 to fluid overload 2/2 to ESRD. During the hospital stay patient received hemodialysis on 2 consecutive days resulting in a net negative balance of fluid status which improved the patient's breathing capacity and improve the lower extremity edema. # SOB: 2/2 fluid overload, improved after dialysis which he received 06/20 and 06/21. Nephro consulted. Echo done. # ESRD: HD TTS per nephron. Ok with nephro for renal diet. To continue regular dialysis schedule upon discharge. # LE edema: Improved. Due to fluid overload. Dialysis and pain control. Tylenol PRN. # Afib. Currently NSR, rate controlled. On eliquis. # Hx CHF: BNP around level of prior admissions unreliable due to ESRD. Echo now followup results with cardio OP, follows with Dr. Etienne. # HyperK: 5.9 on admit. EKG no T waves. Corrected with dialysis. kayexelate as needed. # Hx of pericarditis 2/2 to uremia, ESRD. Previously on colchicine, not currently. # Type 1 DM: A1C 6.2% april. levemir 30 qhs. ISS. Hypoglycemic precautions. # HTN. Normotensive. Hold home meds. Monitor. # PAD. C/w on eliquis. Vascular f/u o/p. ASA, Statin. # Hx Seizure disorder. Reports no recent seizures. C/w home dose cabamazepine 400 mg PO BID. # Tobacco use: Nicotine patch. # Dispo: to home 06/21/2020 # DVT prophylaxis: Eliquis BID. DISCHARGE MEDICATIONS: Please see below. ALLERGIES: Please see below. PHYSICAL EXAMINATION ON DISCHARGE: Constitutional: Awake and alert, in no apparent distress. ENT: Sclera are clear. Mucosa is moist. Respiratory: Lungs mild crackles bilaterally improved vs yesterday. No respiratory distress. No use of accessory muscles. on room air. Cardiovascular: RRR S1 and S2 are normal, no murmur Gastrointestinal: Abdomen is soft, non tender, BS present. Musculoskeletal: none pitting LE edema bilaterally symmetrical improved vs yesterday. Neurologic: No focal neurological deficit. Mental Status: A&O x3 Skin: Warm, dry LABORATORY DATA: Please see below. PROGNOSIS: fair ACTIVITY: [As tolerated]. DIET: I recommended to the patient a renal diet and a diabetic diet. However patient refuses to eat anything but a regular diet. DISCHARGE PLAN: To home. Continue normal dialysis schedule. DISPOSITION: Home DISCHARGE INSTRUCTIONS: 1. Try to adhere to a renal diet and a diabetic diet. Do not eat candy. And monitor blood sugar at home carefully and administer insulin as instructed. Adhere to dialysis schedule and don't miss dialysis sessions. Follow up with your primary care doctor. If you notice any worsening of symptoms please return to the hospital. ITEMS TO FOLLOWUP ON ON OUTPATIENT: Follow-up with primary care doctor within 3-5 days upon discharge and follow up with nephrology outpatient for regular dialysis. DISCHARGE CONDITION: [Stable]. TIME SPENT ON DISCHARGE: Greater than [35] minutes. Vital Signs/I&Os Vital Signs Date Time Temp Pulse Resp B/P (MAP) Pulse Ox O2 Delivery O2 Flow Rate FiO2 06/21/20 06:00 98.0 71 18 111/50 (70) 89 Room Air 06/20/20 15:35 2.0 I&O- Last 24 Hours up to 6 AM 06/21/20 06:00 Intake Total 0 ml Output Total 2500 ml Balance -2500 ml Laboratory Data Labs 24H Laboratory Tests 2 06/20/20 16:31: Bedside Glucose (Misc Panel) 231H 06/20/20 18:02: Anion Gap 5L, Glomerular Filtration Rate 16.8L, Calcium Level 7.8L 06/20/20 20:22: Bedside Glucose (Misc Panel) 200H 06/21/20 06:36: Anion Gap 9, Glomerular Filtration Rate 14.2L, Calcium Level 7.5L, Nucleated Red Blood Cells % (auto) 0.0 06/21/20 08:08: Bedside Glucose (Misc Panel) 483H 06/21/20 10:46: Bedside Glucose (Misc Panel) 549*H 06/21/20 10:48: Bedside Glucose (Misc Panel) 572*H CBC/BMP Laboratory Tests 06/20/20 18:02 06/21/20 06:36 FSBS Laboratory Tests Test 06/20/20 16:31 06/20/20 20:22 06/21/20 08:08 06/21/20 10:46 Range/Units Bedside Glucose (Misc Panel) 231 200 483 549 70-105 MG/DL Test 06/21/20 10:48 Range/Units Bedside Glucose (Misc Panel) 572 70-105 MG/DL Microbiology Microbiology 06/20/20 Blood Culture - Preliminary, Resulted No growth after 24 hours . All specim... 06/20/20 Blood Culture - Preliminary, Resulted No growth after 24 hours . All specim... Discharge Medications Scheduled Amiodarone HCl (Amiodarone HCl) 200 Mg Tablet, 200 MG PO DAILY, (Reported) Apixaban (Eliquis) 5 Mg Tablet, 5 MG PO BID, (Reported) Carbamazepine (Carbamazepine ER) 400 Mg Tab.er.12h, 400 MG PO BID, (Reported) Cranberry Fruit Extract/Vit C (Azo Cranberry Softgel) 1 Each Capsule, 2 CAP PO TID, (Reported) Ergocalciferol (Vitamin D2) (Vitamin D2) 50,000 Units Cap, 50,000 UNITS PO QWEEK, (Reported) PATIENT TAKES ON FRIDAY Ferric Citrate (Auryxia) 210 Mg Tablet, 630 MG PO WM, (Reported) Hydralazine HCl (Hydralazine HCl) 50 Mg Tablet, 100 MG PO BID, (Reported) Insulin Glargine (Lantus) 1 Units/0.01 Ml Susp, 26 UNITS SC DAILY, (Reported) Insulin Human Lispro (Humalog) 1 Units/0.01 Ml Inj, 1 DOSE SC ACHS, (Reported) PER SLIDING SCALE Lanthanum Carbonate (Fosrenol) 750 Mg Powd.pack, 750 MG PO WM, (Reported) Lidocaine/Prilocaine (Lidocaine-Prilocaine Cream) 2.5%/2.5% Cream..g., 1 DOSE TOP 3XW, (Reported) PRIOR TO DIALYSIS: FRIDAY, FRIDAY AND FRIDAY Lipase/Protease/Amylase (Zenpep Dr 5,000 Unit Capsule) 1 Each Capsule.dr, 30,000 UNITS PO WM, (Reported) Metoprolol Tartrate (Metoprolol Tartrate) 25 Mg Tablet, 25 MG PO 4XWK, (Reported) TAKES ONCE DAILY ON NON-DIALYSIS DAYS: FRIDAY, FRIDAY, FRIDAY AND FRIDAY Scheduled PRN Albuterol Sulfate (Proair Hfa) 8.5 Gm Hfa.aer.ad, 2 PUFFS INH QID PRN for SHORTNESS OF BREATH, (Reported) Allergies Coded Allergies: No Known Allergies (Unverified , 10/03/19) VINI WALKER MD Jun 21, 2020 14:48
[2020-06-21] MEDS ORDERED: ASPI81CH8 PO (14:51)
--- NOTE | 2020-06-22 06:00 | ECGEPIP ---
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
--- NOTE | 2020-06-22 07:29 | ECHO ---
DATE OF PROCEDURE: 06/20/2020 Height: 165 cm Weight: 74 kg REFERRING PHYSICIAN: Dr. Mauricio Barragan INDICATION: Congestive heart failure, shortness of breath. MEASUREMENTS: IV 0.9 LV 4.6 LVPW 1.4 LA 4.8 Aorta 2.8 IVC 2.1 Mitral E wave velocity 223, A wave velocity 98 E prime septal 4.4 E prime lateral 6.0 FINDINGS: The study is of good technical quality. The patient is in sinus rhythm. Left ventricle is normal size and has normal contractility. Estimated left ventricular ejection fraction (LVEF) 65 to 70%. There is flattening to intraventricular septum suggestive of right ventricle pressure overload. Right ventricle appears at least mildly dilated, but is normally contractile. There is likely severe biatrial enlargement. Atrial septum is bulging to the right. Aortic valve is heavily sclerotic, but mobility is preserved. There are very prominent degenerative abnormalities of mitral valve with thickening of mitral leaflets, mitral annular calcifications and restriction of leaflet mobility. Tricuspid and pulmonic valve appear normal. No pericardial effusion is noted. Inferior vena cava is dilated and there is no appreciable collapse with inspiration indicative of very high central venous pressure. Aortic root, aortic arch and visualized segment of abdominal aorta appear grossly normal. Doppler interrogation of aortic valve reveals no significant stenosis or insufficiency. There is approximately moderate mitral stenosis with peak gradient 19 and mean gradient 7 mmHg. There is also mild eccentric mitral insufficiency. There is mild tricuspid insufficiency. The highest documented gradient across the tricuspid valve was 32 mmHg, but the quality of jet was not adequate and I suspect that this under estimates severity of pulmonary hypertension. Overall calculated pulmonary artery pressure based on this measurement is at minimum in the high 40s, which would correspond to moderate pulmonary hypertension. Trace pulmonic insufficiency is seen. Evaluation of diastolic function is inconclusive due to mitral stenosis, but with very low tissue Doppler velocities of mitral annulus, at least grade 2 diastolic dysfunction is suspected. CONCLUSIONS: 1. Study is of good technical quality. The patient is in sinus rhythm. 2. Normal LV size, there is mild left ventricular hypertrophy (LVH) and preserved LV systolic function. Flattening to intraventricular septum suggestive of right ventricular pressure overload. 3. Aortic sclerosis, but no stenosis or insufficiency. 4. 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 5. Very high central venous pressure and at least moderate and probably higher pulmonary hypertension. 6. Imaging of atrial septum is suggestive of possible small ASD with left to right shunt. 7. Unable to determine degree of diastolic dysfunction, but at least grade 2 is suspected based on low tissue Doppler velocities. MTDD
--- NOTE | 2020-06-29 10:44 | IPN ---
DATE: 06/21/2020 SUBJECTIVE: Mr. Jones seen this morning on his bedside. He is lying in the bed with his eyes closed. He was easy to wake up. He reports sleeping well at night and denies any acute problems. He is not using oxygen and his oxygen saturation is 97% on room air. He was dialyzed yesterday and we were able to remove about 2.5 liters of fluid. PHYSICAL EXAMINATION: VITAL SIGNS: Temperature 98 degrees Fahrenheit, heart rate 70 per minute, respiratory rate 18 per minute, blood pressure 111/50 mmHg and oxygen saturation 97% on room air. HEENT: Head is atraumatic. NECK: Supple. JVD is still mildly elevated. LUNGS: Diminished breath sounds and bibasilar rales. HEART: Irregular in rhythm. ABDOMEN: Soft and nontender. Bowel sounds are normal. EXTREMITIES: Without any cyanosis or clubbing. Lower extremity edema is present bilaterally. He most likely has some lymphatic edema also on his lower extremities. NEUROLOGIC: He is at his baseline mentation without a focal deficit. LABORATORY DATA: Todays labs show WBC 5.7, hemoglobin 9.8, hematocrit 31.8. Sodium 133, potassium 5.1, BUN 44, creatinine 4.56, glucose 532 and calcium 7.5. PROBLEMS: 1. Congestive heart failure and pleural effusions: His volume status slightly improved with 2.5 liter of fluid removal yesterday. We plan to dialyze him again today and will attempt another 2.5 liter fluid removal. 2. End-stage renal disease: Patient was dialyzed for 3-1/2 hours yesterday and will be dialyzed for 3-1/2 hours again today. He does not have any uremic symptoms. 3. Hyponatremia: His hyponatremia is related to hyperglycemia and does not need any intervention. This will correct when his blood sugar improves and also dialysis will help. 4. Anemia: At present his anemia is stable and does not need any urgent intervention. 5. Diabetes: Patient has difficult to control diabetes. Blood sugar was about 500 this morning and it can go down to 30s very quickly. His fingerstick blood sugar is still 483. He remains on insulin coverage. [facility]
--- NOTE | 2020-06-30 10:04 | CR ---
DATE OF CONSULTATION: CONSULTATION REQUESTED BY: Easton Ponce M.D. REASON FOR CONSULTATION: Shortness of breath and pulmonary edema in this gentleman with end-stage renal disease. HISTORY OF PRESENT ILLNESS: Mr. Jones is a 55-year-old gentleman with known history of type 1 diabetes, hypertension, pulmonary hypertension, recent onset of atrial fibrillation, recurrent congestive heart failure and pericardial effusion. He has been admitted to [facility] multiple times recently due to recurrent shortness of breath. He was found to have pleural effusions and pericardial effusions just a couple of months ago. At that time, he went into atrial fibrillation. He developed massive leg edema and has chronic hypotension now, which makes it very difficult to remove any fluid aggressively with dialysis. He was coming to outpatient dialysis clinic today and his transportation lead called due to patient's difficulty breathing. He did arrive to dialysis unit, however, did not receive his dialysis and was transferred to the Emergency Room via ambulance. In the Emergency Room, he was found to be lethargic and also short of breath with pulmonary edema on chest x- ray. He was also noticed to have hyperkalemia with potassium level of 5.9, and nephrology consultation was requested. Patient is seen this afternoon. PAST MEDICAL HISTORY: Significant for: 1. Longstanding type 1 diabetes with recurrent hypoglycemia. 2. Prior history of hypertension and more lately now recurrent hypotension. 3. Recent onset of atrial fibrillation on anticoagulation. 4. History of severe pulmonary hypertension. 5. History of diastolic congestive heart failure. 6. History of peripheral arterial disease. 7. History of recent pericarditis. 8. History of seizure disorder. 9. Anemia of chronic kidney disease. 10. Secondary hyperparathyroidism. 11. History of COPD. PAST SURGICAL HISTORY: Significant for: 1. AV fistula surgery. 2. Eye surgery. FAMILY HISTORY: Negative for end-stage renal disease. PERSONAL AND SOCIAL HISTORY: Patient has chronic history of smoking, but denies any alcohol use. He also uses marijuana frequently. ALLERGIES: Patient has no known drug allergies. MEDICATIONS: His outpatient medications include: 1. Amiodarone 200 mg daily. 2. Eliquis 5 mg b.i.d. 3. Carbamazepine ER 400 mg b.i.d. 4. Vitamin D 50,000 units once a week. 5. Auryxia 210 mg three tablets with meals. 6. Hydralazine 50 mg two tablets b.i.d. 7. Lantus Insulin 26 units daily. 8. Humalog Insulin per sliding scale. 9. Fosrenol 750 mg with meals. 10. Metoprolol 25 mg daily. 11. Albuterol inhaler as needed. REVIEW OF SYSTEMS: Patient reports that he was not feeling good this morning and did try to come to dialysis, however, became very short of breath. He denies any fever or chills. Ears, nose and throat are unremarkable. CARDIOVASCULAR: Significant for dyspnea and leg edema. He denies any chest pain at present. Chest x-ray showed pulmonary edema in the Emergency Room. RESPIRATORY: Significant for history of COPD and pleural effusions. He denies any hemoptysis. GI: Negative for vomiting or diarrhea. : Negative for dysuria or hematuria. MUSCULOSKELETAL: Significant for bilateral lower extremity edema. He also reports infected wound on his right leg. NEUROLOGIC: Significant for seizures and at times altered mentation. PSYCHOSOCIAL: Significant for noncompliance and poor cooperation for care. HEMATOLOGIC: Significant for anticoagulation and anemia. SKIN: Significant for an ulcer on his right lower extremity. PHYSICAL EXAMINATION: At the time of visit this afternoon, patient is awake and at his baseline mentation without any acute distress. Temperature 98 degrees Fahrenheit, heart rate 60 per minute, respiratory rate 18 per minute, blood pressure 108/54 mmHg and oxygen saturation 99% on 2 liter oxygen. Head is atraumatic. There is no oral thrush or ulcers. Pupils equal and reactive to light and sclerae anicteric. Neck is supple and JVD is about 7 to 8 cm above sternal angle. Heart sounds are irregular and lungs with bilateral rales. Abdomen is soft and nontender, bowel sounds are normal. Extremities without any cyanosis or clubbing. His left arm AV fistula is patent and being used for dialysis. On lower extremities, he has chronic stasis changes and some thickening of skin. Right lower leg has a small superficial ulcer without any drainage or surrounding erythema. Neurological system is negative for any focal deficit. LABORATORY DATA: WBC 6.9, hemoglobin 10.1, hematocrit 32.8, platelets 255,000. Glucose 231. Troponin 0.01. Lactic acid 0.9. Total bilirubin 0.3, AST 21, ALT 34, total protein 6.5 and albumin 2.9. TSH level 3.19. INR 1.3. IMAGING STUDIES: Chest x-ray done in the Emergency Room showed mild ventricular opacities in both lungs consistent with interstitial edema. PROBLEMS: 1. Shortness of breath: Patient is volume overloaded with history of congestive heart failure and poor compliance. His BNP level is 32,778. He missed his dialysis today and we are going to arrange for urgent dialysis this afternoon. 2. End-stage renal disease: Today is his regular dialysis day. Patient did miss his dialysis today and we will dialyze him this afternoon. In fact he is already in the dialysis room and dialysis has been just started. 3. Hyperkalemia: Patient has chronic noncompliance with his dietary restrictions. He is being dialyzed with 2.0 mEq potassium bath, which will help to correct his hyperkalemia. 4. Hypotension: Patient has chronic hypotension and we are unable to remove fluid very aggressively. We will try to remove about 3 liters as tolerated. Usually he does not tolerate 3 liters fluid removal in one session. Thank you for involving me in the care of Mr. Jones. I will follow him along with you. AJ
== END 2020-06-21 18:15 | disposition home or self-care (01) | DRG 640 ==
LOC: M ED 10:30 → EDBD 10:30 → M ED INP 13:47 → ENRESERV 14:27 → M MS5PR 15:25
PROVIDERS: ADMIT Family Medicine; ATTEND Family Medicine
PROC: 5A1D70Z Performance of Urinary Filtration, Intermittent, Less than 6 Hours Per Day (ICD-10-PCS; principal; 2020-06-20)
DX: E87.70 Fluid overload, unspecified (principal); N18.6 End stage renal disease; I13.2 Hypertensive heart and chronic kidney disease with heart failure and with stage 5 chronic kidney disease, or end stage renal disease; E10.22 Type 1 diabetes mellitus with diabetic chronic kidney disease; I48.91 Unspecified atrial fibrillation; I50.9 Heart failure, unspecified; E10.51 Type 1 diabetes mellitus with diabetic peripheral angiopathy without gangrene; I95.3 Hypotension of hemodialysis; E87.5 Hyperkalemia; G40.909 Epilepsy, unspecified, not intractable, without status epilepticus; F17.200 Nicotine dependence, unspecified, uncomplicated; Z99.2 Dependence on renal dialysis; Z79.01 Long term (current) use of anticoagulants; Z79.4 Long term (current) use of insulin; Z79.899 Other long term (current) drug therapy; Z66 Do not resuscitate

== ENCOUNTER 2020-07-14 11:35 | Inpatient (IN) | payer MEDICARE, MEDICAID ==
[~2020-07-14] VITALS: Ht 165.1 cm; Wt 67.0 kg
[2020-07-14] VITALS (18 sets, daily range): BP systolic 75–96; BP diastolic 31–52
[~2020-07-14 11:35] MED LIST changes: +ASPI81CH8 PO; -carBAMazepine XR 200 MG TAB PO SCH
[2020-07-14 12:06] LABS: VENOUS BASE EXCESS 1.1 (-2.0-2.0); VENOUS HCO3 29.6 MEQ/L (23.0-27.0); VENOUS O2 SATURATION 91.4 % (60.0-80.0); VENOUS PARTIAL PRESSURE CO2 73.9 mmHg (38.0-50.0); VENOUS STANDARD HCO3 25.4 MEQ/L; VENOUS TOTAL CO2 31.8 MEQ/L (24.0-28.0)
[2020-07-14 12:16] LABS: BASO % 0.6 % (0.0-1.0); EOS % 0.6 % (0.0-3.0); HEMATOCRIT 22.5 % (42.0-52.0); HEMOGLOBIN 7.1 g/dl (13.5-17.5); LYMPH # 0.6 10^3/uL (1.5-5.0); LYMPH % 9.3 % (24.0-44.0); MEAN CORPUSCULAR HEMOGLOBIN 34.3 pg (27.0-33.0); MEAN CORPUSCULAR HGB CONC 31.6 g/dl (32.0-36.5); MEAN CORPUSCULAR VOLUME 108.7 fl (80.0-96.0); MONO # 0.7 10^3/uL (0.0-0.8); MONO % 10.1 % (0.0-5.0); NEUTROPHILS # 5.1 10^3/uL (1.5-8.5); NEUTROPHILS % 78.8 % (36.0-66.0); PLATELET COUNT, AUTOMATED 295 10^3/uL (150-450); RED BLOOD COUNT 2.07 10^6/uL (4.30-6.10); WHITE BLOOD COUNT 6.4 10^3/uL (4.0-10.0)
[2020-07-14 12:28] LABS: INR 1.82; PROTHROMBIN TIME 21.5 SECONDS (12.5-14.3)
--- NOTE | 2020-07-14 12:45 | REPVR ---
PROCEDURE INFORMATION: Exam: XR Chest, 1 View Exam date and time: 07/14/2020 12:18 PM Age: 55 years old Clinical indication: Cough; Additional info: Dyspnea/cough TECHNIQUE: Imaging protocol: XR of the chest Views: 1 view. COMPARISON: CR PORTABLE CHEST X-RAY 06/20/2020 11:04 AM FINDINGS: Limitations: The patient's chin overlies and partially obscures the upper chest. Clothing artifacts overlie and partially obscure the anatomy. Tubes, catheters and devices: ECG leads/contacts overlie and partially obscure the anatomy. Lungs: The central pulmonary vasculature appears congested. Mild increased interstitial opacities bilaterally. No consolidation. Mild ground-glass airspace opacities of the bilateral mid lungs, left greater than right. Pleural space: No evident pleural effusion. No evident pneumothorax. Heart/Mediastinum: Mitral annular calcifications are present. The cardiac silhouette is stably mildly diffusely enlarged. The central pulmonary arteries remain enlarged. Vasculature: Aortic atherosclerotic calcification. Bones/joints: No acute osseous abnormality. IMPRESSION: 1. Mild bilateral pulmonary interstitial and airspace opacities suggestive of pulmonary edema, worsened compared to 06/20/2020. Pulmonary infection, such as viral pneumonia, could also be considered. 2. Stable cardiomegaly. 3. Redemonstration of central pulmonary arterial enlargement suggestive of pulmonary hypertension. Electronically signed by: Dain Figueroa On 07/14/2020 12:45:24 PM
[2020-07-14 13:00] LABS: ALBUMIN 2.3 GM/DL (3.2-5.2); BILIRUBIN,DIRECT 0.1 MG/DL (0.0-0.2); BILIRUBIN,TOTAL 0.3 MG/DL (0.2-1.0); THYROID STIMULATING HORMONE 1.89 uIU/ML (0.358-3.740); TOTAL PROTEIN 5.1 GM/DL (6.4-8.2)
[2020-07-14] MEDS ORDERED: PANTOPRAZOLE 40MG VIAL (C9113 PER 1) IV ONE (13:45)
[2020-07-14] MEDS ORDERED: HYDR-3911 PO (14:24)
[2020-07-14] MEDS ORDERED: METO1TAB7 PO (14:24)
[2020-07-14] MEDS ORDERED: ASPI81CH33 PO (14:24)
[2020-07-14] MEDS ORDERED: CLOP75TA2 PO (14:25)
[2020-07-14 14:41] LABS: C REACTIVE PROTEIN QUANTITATIV 7.25 MG/DL (0.00-0.30)
[2020-07-14] MEDS ORDERED: LIDOCAINE 1% MDV 20ML VIAL As Ordered ONE (14:43)
[2020-07-14 14:44] LABS: ERYTHROCYTE SEDIMENTATION RATE 49 mm/hr (0-20)
[2020-07-14] MEDS ORDERED: NOREPINEPHRINE BITARTRATE 8 MG in D5W 492 ML IV SCH (16:00)
[2020-07-14] MEDS ORDERED: ALBUTEROL 90 MCG/ACT 8GM HFA INHALER INH PRN (17:00)
[2020-07-14] MEDS ORDERED: GLUCOSE 4GM CHEW TABLET PO PRN (17:00)
[2020-07-14] MEDS ORDERED: GLUCAGON INJ 1MG VIAL SC PRN (17:00)
[2020-07-14] MEDS: HumaLOG INSULIN (NovoLOG) PER UNIT SC SCH ×2 (17:30→21:00)
--- NOTE | 2020-07-14 17:54 | HPEPDOC ---
[facility] Medical History & Physical Date of Admission Jul 14, 2020 Date of Service: Jul 14, 2020 History and Physical CHIEF COMPLAINT: Shortness of breath for 2 weeks HISTORY OF PRESENT ILLNESS: 55-year-old male with a history of end-stage renal disease, hypertension, diabetes, diabetic nephropathy, neuropathy, chronic atrial fibrillation on anticoagulation, severe pulmonary hypertension, diastolic heart failure had dial ysis Friday, , Friday 2 to about 2-1/2 L out yesterday presented to emergency room with cough productive of sputum without fever, chills and worsening shortness of breath, brought in by EMS, patient was found to be 87% on room air. Systolic pressure of 88 mmHg sugar of 443. Patient was placed on nasal cannula. Further evaluation included chest x-ray which showed mild bilateral pulmonary interstitial and airspace opacities suggestive of pulmonary edema worsened compared to 06/20/2020. Patient denied any chest pain, pressure, tightness, lightheadedness or dizziness. [employer] was consulted for emergent dialysis hospitalist was called to admit the patient. Patient denies hematemes is, coffee-ground emesis, abdominal pain, nausea, vomiting, dysuria, urgency, frequency, fever, chills, flank pain, bright red blood per rectum, melena, black tarry stools, weight gain, weight loss, changes in appetite, insomnia, tinnitus, vertigo, ear discharge, photophobia, diplopia, sore throat, upper or lower extremity paresthesias. PAST MEDICAL HISTORY: COPD, diastolic heart failure, severe pulmonary hypertension, atrial fibrillation and anticoagulation, hypertension, diabetic nephropathy with recurrent hypoglycemia, chronic hypotension, end-stage renal disease on maintenance dialysis Friday, , Friday, history of seizure disorder, pericarditis, anemia of chronic kidney disease, secondary hyperparathyroidism, medical noncompliance signs out AGAINST MEDICAL ADVICE PAST SURGICAL HISTORY: Left AV fistula. I surgery SOCIAL HISTORY: Occasional marijuana. Prior history of smoking, no alcohol use FAMILY HISTORY: Negative for renal disease HOME MEDICATIONS: SEE BELOW ALLERGIES: Please see below. REVIEW OF SYSTEMS: 10 point systems review negative. Assessment positive findings in HPI HOME MEDICATIONS: Please see below. PHYSICAL EXAMINATION: VITAL SIGNS: See below . HEENT: Awake, alert, oriented, answering questions. Dry mucous membranes. Positive JVD. No thyromegaly . Lungs bilateral rales. Air entry is diminished . Heart S1, S2, irregularly irregular. . Abdomen soft, nontender, nondistended, positive bowel sounds 4 quadrants . Extremities right lower extremity ulcer, chronic venous stasis changes. Left arm AV fistula being used for dialysis. No cyanosis or clubbing LABORATORY DATA: See below. IMAGIN07/14/2020. Chest x-ray stable cardiomegaly, central pulmonary arterial enlargement suggestive of pulmonary hypertension, mild bilateral pulmonary int erstitial and airspace opacities suggestive of pulmonary edema worsened compared to 06/20/2020 MICROBIOLOGY: Please see below. ASSESSMENT: 55-year-old male with a history of end-stage renal disease, hypertension, diabetes, diabetic nephropathy, neuropathy, chronic atrial fibrillation on anticoagulation, severe pulmonary hypertension, diastolic heart failure had dialysis Friday, , Friday 2 to about 2-1/2 L out yesterday presented to emergency room with cough productive of sputum without fever, chills and worsening shortness of breath, brought in by EMS, patient was found to be 87% on room air. Systolic pressure of 88 mmHg sugar of 443. Patient was placed on nasal cannula. Further evaluation included chest x-ray which showed mild bilateral pulmonary interstitial and airspace opacities suggestive of pulmonary edema worsened compared to 06/20/2020. Patient denied any chest pain, pressure, tightness, lightheadedness or dizziness. [employer] was consulted for emergent dialysis hospitalist was called to admit the patient. Patient denies hematemesis, coffee-ground emesis, abdominal pain, nausea, vomiting, dysuria, urgency, frequency, fever, chills, flank pain, bright red blood per rectum, melena, black tarry stools, weight gain, weight loss, changes in appetite, insomnia, tinnitus, vertigo, ear discharge, photophobia, diplopia, sore throat, upper or lower extremity paresthesias. PROBLEMS: Acute on chronic diastolic congestive heart failure exacerbation Fluid overload due to end-stage renal disease End-stage renal disease on maintenance hemodialysis Friday, , Friday Chronic hypotension Severe pulmonary hypertension Chronic atrial fibrillation Peripheral arterial disease Type 2 diabetes, uncontrolled Diabetic neuropathy Diabetic nephropathy Hypertensive heart disease History of seizure disorder Secondary hyperparathyroidism COPD, compensated PLAN: Nephrology has been consult that for emergent dialysis despite chronic hypotension. Patient has been transfused 2 units RBCs during dialysis session. He is on anticoagulation for atrial fibrillation. We will await stool for blood. Prior to discontinuation of anticoagulation. Started on PPI. Discontinue patient's blood pressure medications. We'll start on long-acting insulin and sliding scale, consistent carbohydrate renal diet and salt and fluid restriction. Surgical consult if heme-positive stool. Otherwise, patient can be referred for outpatient colonoscopy. DVT prophylaxis with compression stockings. DNR/DNI Vital Signs Vital Signs Date Time Temp Pulse Resp B/P (MAP) Pulse Ox O2 Delivery O2 Flow Rate FiO2 07/14/20 17:15 97.7 70 16 80/40 Nasal Cannula 2.0 07/14/20 15:30 98 Laboratory Data Labs 24H Laboratory Tests 2 07/14/20 11:57: Immature Granulocyte % (Auto) 0.6, Neutrophils (%) (Auto) 78.8H, Lymphocytes (%) (Auto) 9.3L, Monocytes (%) (Auto) 10.1H, Eosinophils (%) (Auto) 0.6, Basophils (%) (Auto) 0.6, Neutrophils # (Auto) 5.1, Lymphocytes # (Auto) 0.6L, Monocytes # (Auto) 0.7, Eosinophils # (Auto) 0.0, Basophils # (Auto) 0.0, Reticulocyte # (auto) 86.3H, Nucleated Red Blood Cells % (auto) 0.3H, Differential Slide Review Report, Peripheral Blood Smear Path Consult PERIPHERAL SMEAR, Erythrocyte Sedimentation Rate 49H, Percent Reticulocyte Count 4.2H, Reticulocyte Hemoglobin Equivalent 34.3, Prothrombin Time 21.5H, Prothromb Time International Ratio 1.8 2, Blood Gas Bicarbonate Standard 25.4, Venous Blood pH 7.220L, Venous Blood Partial Pressure CO2 73.9H, Venous Blood Partial Pressure O2 79.0H, Venous Blood Total Carbon Dioxide 31.8H, Venous Blood HCO3 29.6H, Venous Blood Oxygen Saturation 91.4H, Venous Blood Base Excess 1.1, Lactic Acid Level 1.8, Iron Level 114, Total Iron Binding Capacity 139L, Transferrin % Saturation 82.0H, Total Bilirubin 0.3, Direct Bilirubin 0.1, Aspartate Amino Transf (AST/SGOT) 16, Alanine Aminotransferase (ALT/SGPT) 20, Alkaline Phosphatase 124H, C-Reactive Protein, Quantitative 7.25H, YX-Qia-O-Type Natriuretic Peptide 77653Y, Total Protein 5.1L, Albumin 2.3L, Albumin/Globulin Ratio 0.8, Thyroid Stimulating Horm one (TSH) 1.890 07/14/20 12:05: POC Glucose (Misc Panel) 378H, POC Sodium (Misc Panel) 132L, POC Potassium (Misc Panel) 4.4, POC Chloride (Misc Panel) 90L, POC Total CO2 (Misc Panel) 28.0H, POC Blood Urea Nitrogen (Misc Panel 91H, POC Ionized Calcium (Misc Panel) 4.4L, POC Creatinine (Misc Panel) 4.0H, POC Hematocrit (Misc Panel) 22.0L 07/14/20 12:07: POC Troponin I (Misc) 0.11H CBC/BMP Laboratory Tests 07/14/20 11:57 Home Medications Scheduled Apixaban (Eliquis) 5 Mg Tablet, 5 MG PO BID Aspirin (Aspirin) 81 Mg Tab.chew, 81 MG PO DAILY Carbamazepine (Carbamazepine ER) 400 Mg Tab.er.12h, 400 MG PO BID Clopidogrel Bisulfate (Clopidogrel) 75 Mg Tablet, 75 MG PO DAILY Cranberry Fruit Extract/Vit C (Azo Cranberry Softgel) 1 Each Capsule, 2 CAP PO TID Ergocalciferol (Vitamin D2) (Vitamin D2) 50,000 Units Cap, 50,000 UNITS PO QWEEK PATIENT TAKES ON FRIDAY Ferric Citrate (Auryxia) 210 Mg Tablet, 630 MG PO WM Hydralazine HCl (Hydralazine HCl) 50 Mg Tablet, 100 MG PO BID Insulin Glargine (Lantus) 1 Units/0.01 Ml Susp, 26 UNITS SC DAILY Insulin Human Lispro (Humalog) 1 Units/0.01 Ml Inj, 1 DOSE SC ACHS PER SLIDING SCALE Lanthanum Carbonate (Fosrenol) 750 Mg Powd.pack, 750 MG PO WM Lidocaine/Prilocaine (Lidocaine-Prilocaine Cream) 2.5%/2.5% Cream..g., 1 DOSE TOP 3XW PRIOR TO DIALYSIS: FRIDAY, FRIDAY AND FRIDAY Lipase/Protease/Amylase (Zenpep Dr 5,000 Unit Capsule) 1 Each Capsule.dr, 30,000 UNITS PO WM Metoprolol Succinate (Metoprolol Succinate) 50 Mg Tab.er.24h, 50 MG PO DAILY Scheduled PRN Albuterol Sulfate (Proair Hfa) 8.5 Gm Hfa.aer.ad, 2 PUFFS INH QID PRN for SHORTNESS OF BREATH Allergies Coded Allergies: No Known Allergies (Unverified , 10/03/19) A-FIB/CHADSVASC A-FIB History Current/History of A-Fib/PAF?: Yes Current PO Anticoag Therapy: Yes Age/Risk Factor Scoring CHADSVASC: CHADSVASC Response (Comments) Value Age Risk Factor Age < 65 years old 0 Gender Risk Factor Male 0 Hx of CHF Yes 1 Hx of HTN Yes 1 Hx of Stroke/TIA/or VTE No 0 Hx of Diabetes Yes 1 Hx of Vascular Disease Yes 1 Total 4 Treatment Treatment ordered: Apixaban KAPIL ESQUIVEL MD Jul 14, 2020 17:54
[2020-07-14] MEDS ORDERED: APIXABAN 5 MG TAB (ELIQUIS) PO SCH (21:00)
[2020-07-14 21:36] LABS: HEMATOCRIT 27.4 % (42.0-52.0); HEMOGLOBIN 8.7 g/dl (13.5-17.5); MEAN CORPUSCULAR HEMOGLOBIN 33.1 pg (27.0-33.0); MEAN CORPUSCULAR HGB CONC 31.8 g/dl (32.0-36.5); MEAN CORPUSCULAR VOLUME 104.2 fl (80.0-96.0); PLATELET COUNT, AUTOMATED 244 10^3/uL (150-450); RED BLOOD COUNT 2.63 10^6/uL (4.30-6.10); WHITE BLOOD COUNT 6.1 10^3/uL (4.0-10.0)
[2020-07-14] MEDS: carBAMazepine XR 200 MG TAB PO SCH (21:59)
[2020-07-14] MEDS ORDERED: MIDODRINE 5 MG TAB PO ONE (23:45)
[2020-07-15] VITALS (26 sets, daily range): BP systolic 85–122; BP diastolic 40–62
[2020-07-15] MEDS ORDERED: ACETAMINOPHEN TAB 650MG DOSE (2X325MG) PO ONE (04:00)
[2020-07-15 04:42] LABS: HEMATOCRIT 26.1 % (42.0-52.0); HEMOGLOBIN 8.1 g/dl (13.5-17.5); MEAN CORPUSCULAR HEMOGLOBIN 32.4 pg (27.0-33.0); MEAN CORPUSCULAR VOLUME 104.4 fl (80.0-96.0); PLATELET COUNT, AUTOMATED 248 10^3/uL (150-450); WHITE BLOOD COUNT 6.9 10^3/uL (4.0-10.0)
[2020-07-15 05:14] LABS: CALCIUM LEVEL 7.5 MG/DL (8.5-10.1); CREATININE FOR GFR 3.19 MG/DL (0.70-1.30); GLOMERULAR FILTRATION RATE 21.5 (>56); POTASSIUM SERUM 4.5 MEQ/L (3.5-5.1)
--- NOTE | 2020-07-15 07:51 | ECGEPIP ---
[facility] - ED Test Date: 2020-07-14 Pat Name: BRANDI DOMINGUEZ Department: Room: - Gender: Male [employer] Breathing Apparatus: DARIN : 1965 Requested By: Jennifer Hurst Order Number: [id number] Reading MD: Simon Mooney Measurements Intervals [place] Rate: 75 P: 76 [place]: 193 QRS: 101 QRSD: 106 T: 67 QT: 411 QTc: 460 Interpretive Statements SINUS RHYTHM POSSIBLE LEFT ATRIAL ENLARGEMENT RIGHT AXIS DEVIATION INCOMPLETE RIGHT BUNDLE BRANCH BLOCK Delayed anterior R wave progression Nonspecific ST-T wave abnormalities Electronically Signed on 07-15-2020 7:50:44 EDT by Simon Mooney
[2020-07-15] MEDS ORDERED: MIDODRINE 2.5 MG TAB PO SCH (08:00)
--- NOTE | 2020-07-15 08:21 | IPNPDOC ---
Date Seen The patient was seen on 07/15/20. Progress Note SUBJECTIVE: no hematemesis, brbpr, black stools. no c/o n/v/d. "leave me alone. " refused EGD/colonoscopy. s/p 2u rbc for hgb7(baseline>9). sob improved after HD yesterday. sbp at baseline 80-90 mmhg. per RN, refused care overnight, and refusing to eat a renal diet. OBJECTIVE PHYSICAL EXAMINATION: VITAL SIGNS: See below . HEENT: irritable. poor dentition Dry mucous membranes. Positive JVD. No thyromegaly . Lungs bilateral rales. Air entry is diminished . Heart S1, S2, irregularly irregular. . Abdomen soft, nontender, nondistended, positive bowel sounds 4 quadrants . Extremities right lower extremity ulcer, chronic venous stasis changes. Left arm AV fistula being used for dialysis. No cyanosis or clubbing LABORATORY DATA: See below. IMAGIN07/14/2020. Chest x-ray stable cardiomegaly, central pulmonary arterial enlargement suggestive of pulmonary hypertension, mild bilateral pulmonary interstitial and airspace opacities suggestive of pulmonary edema worsened compared to 06/20/2020 MICROBIOLOGY: Please see below. ASSESSMENT: 55-year-old male with a history of end-stage renal disease, hypertension, diabetes, diabetic nephropathy, neuropathy, chronic atrial fibrillation on anticoagulation, severe pulmonary hypertension, diastolic heart failure had dialysis Friday, , Friday 2 to about 2-1/2 L out yesterday presented to emergency room with cough productive of sputum without fever, chills and worsening shortness of breath, brought in by EMS, patient was found to be 87% on room air. Systolic pressure of 88 mmHg sugar of 443. Patient was placed on nasal cannula. Further evaluation included chest x-ray which showed mild bilateral pulmonary interstitial and airspace opacities suggestive of pulmonary edema worsened compared to 06/20/2020. Patient denied any chest pain, pressure, tightness, lightheadedness or dizziness. Scada Technician was consulted for emergent dialysis hospitalist was called to admit the patient. Patient denies hematemesis, coffee-ground emesis, abdominal pain, nausea, vomiting, dysuria, urgency, frequency, fever, chills, flank pain, bright red blood per rectum, melena, black tarry stools, weight gain, weight loss, changes in appetite, insomnia, tinnitus, vertigo, ear discharge, photophobia, diplopia, sore throat, upper or lower extremity paresthesias. PROBLEMS: Acute on chronic diastolic congestive heart failure exacerbation Fluid overload due to end-stage renal disease End-stage renal disease on maintenance hemodialysis Friday, , Friday Symptomatic Anemia in the setting of Eliquis, requiring 2 units RBC transfusion Chronic hypotension Severe pulmonary hypertension Chronic atrial fibrillation off eliquis due to anemia Peripheral arterial disease Type 2 diabetes, uncontrolled Diabetic neuropathy Diabetic nephropathy Hypertensive heart disease History of seizure disorder Secondary hyperparathyroidism COPD, compensated PLAN: Due to symptomatic anemia, eliquis held, but pt refuses EGD/colonoscopy. After e xplaining that holding AC places him at risk of cva, pt says, "leave me alone." s/p HD with improved sob. Defer to nephrology for further dialysis needs. continue present mgt. PT/OT eval. VS, I&O, 24H, Fishbone Vital Signs/I&O Vital Signs Date Time Temp Pulse Resp B/P (MAP) Pulse Ox O2 Delivery O2 Flow Rate FiO2 07/15/20 04:38 72 95/48 (64) 88 07/15/20 04:00 2.0 07/15/20 04:00 98.3 18 Nasal Cannula I&O- Last 24 Hours up to 6 AM 07/15/20 06:00 Intake Total 800 ml Output Total 1000 ml Balance -200 ml Laboratory Data 24H LABS Laboratory Tests 2 07/14/20 11:57: Immature Granulocyte % (Auto) 0.6, Neutrophils (%) (Auto) 78.8H, Lymphocytes (%) (Auto) 9.3L, Monocytes (%) (Auto) 10.1H, Eosinophils (%) (Auto) 0.6, Basophils (%) (Auto) 0.6, Neutrophils # (Auto) 5.1, Lymphocytes # (Auto) 0.6L, Monocytes # (Auto) 0.7, Eosinophils # (Auto) 0.0, Basophils # (Auto) 0.0, Reticulocyte # (auto) 86.3H, Nucleated Red Blood Cells % (auto) 0.3H, Differential Slide Review Report, Peripheral Blood Smear Path Consult PERIPHERAL SMEAR, Erythrocyte Sedimentation Rate 49H, Percent Reticulocyte Count 4.2H, Reticulocyte Hemoglobin Equivalent 34.3, Prothrombin Time 21.5H, Prothromb Time International Ratio 1.82, Blood Gas Bicarbonate Standard 25.4, Venous Blood pH 7.220L, Venous Blood Partial Pressure CO2 73.9H, Venous Blood Partial Pressure O2 79.0H, Venous Blood Total Carbon Dioxide 31.8H, Venous Blood HCO3 29.6H, Venous Blood Oxygen Saturation 91.4H, Venous Blood Base Excess 1.1, Lactic Acid Level 1.8, Iron Level 114, Total Iron Binding Capacity 139L, Transferrin % Saturation 82.0H, Total Bilirubin 0.3, Direct Bilirubin 0.1, Aspartate Amino Transf (AST/SGOT) 16, Alanine Aminotransferase (ALT/SGPT) 20, Alkaline Phosphatase 124H, C-Reactive Protein, Quantitative 7.25H, [id number]-Tfy-[id number]-Type Natriuretic Peptide 28219U, Total P rotein 5.1L, Albumin 2.3L, Albumin/Globulin Ratio 0.8, Thyroid Stimulating Hormone (TSH) 1.890 07/14/20 12:05: POC Glucose (Misc Panel) 378H, POC Sodium (Misc Panel) 132L, POC Potassium (Misc Panel) 4.4, POC Chloride (Misc Panel) 90L, POC Total CO2 (Misc Panel) 28.0H, POC Blood Urea Nitrogen (Misc Panel 91H, POC Ionized Calcium (Misc Panel) 4.4L, POC Creatinine (Misc Panel) 4.0H, POC Hematocrit (Misc Panel) 22.0L 07/14/20 12:07: POC Troponin I (Misc) 0.11H 07/14/20 21:08: Bedside Glucose (Misc Panel) 183H 07/14/20 21:27: Nucleated Red Blood Cells % (auto) 0.0 07/15/20 04:32: Nucleated Red Blood Cells % (auto) 0.0, Anion Gap 5L, Glomerular Filtration Rate 21.5L, Calcium Level 7.5L CBC/BMP Laboratory Tests 07/14/20 11:57 07/14/20 21:27 07/15/20 04:32 Microbiology Microbiology 07/14/20 Respiratory Virus Panel (PCR) ([facility]) - Final, Complete Human Rhinovirus/Enterovirus 07/14/20 Blood Culture, Received Pending KAPIL ESQUIVEL MD Jul 15, 2020 08:21
[2020-07-15] MEDS ORDERED: ASPIRIN 81 MG CHEW TABLET PO SCH (09:00)
[2020-07-15] MEDS ORDERED: PANTOPRAZOLE SODIUM 40 MG in D5W 50 ML IV SCH (09:00)
[2020-07-15] MEDS: CLOPIDOGREL 75 MG TAB PO SCH ×2 (09:00→09:10)
--- NOTE | 2020-07-15 09:08 | REPVR ---
PROCEDURE INFORMATION: Exam: XR Chest, 1 View Exam date and time: 07/15/2020 8:49 AM Age: 55 years old Clinical indication: Shortness of breath; Additional info: SOB R/O chf TECHNIQUE: Imaging protocol: XR of the chest Views: 1 view. COMPARISON: CR PORTABLE CHEST X-RAY 07/14/2020 12:04 PM FINDINGS: Lungs: Hyperinflation and interstitial prominence. Pleural space: No significant pleural effusion. Heart/Mediastinum: Borderline cardiomegaly and mitral annular calcification. Bones/joints: Unremarkable. Soft tissues: Right-sided skin fold. Other findings: Partial obscuration of the left apex by the patient's mandible. When correlating with the previous study, no significant interval changes are present. IMPRESSION: Stable appearance of the chest, not significantly changed from 07/14/2020 . Electronically signed by: Urbano Cordboa On 07/15/2020 09:08:22 AM
[2020-07-15] MEDS: HumaLOG INSULIN (NovoLOG) PER UNIT SC SCH ×4 (09:09→20:52)
[2020-07-15] MEDS: LEVEMIR (INSULIN DETEMIR) 1 UNITS/0.01ML SC SCH (09:10)
[2020-07-15] MEDS: PANTOPRAZOLE 40MG TAB (PROTONIX) PO SCH (09:10)
[2020-07-15] MEDS: carBAMazepine XR 200 MG TAB PO SCH ×3 (09:10→21:00)
[2020-07-15] MEDS: MIDODRINE 5 MG TAB PO SCH ×3 (09:10→14:38)
[2020-07-15] MEDS ORDERED: PERCOCET 5MG/325MG TAB PO ONE (12:00)
[2020-07-15] MEDS: DEXTROSE 50% 50 ML SYRINGE IV PRN (18:26)
[2020-07-15] MEDS ORDERED: MORPHINE 30 MG TAB **MSIR PO ONE ×2 (19:00→22:00)
[2020-07-15] MEDS ORDERED: PROMETHAZINE INJ 25 MG/ML VIAL (J2550) IV ONE (19:00)
[2020-07-15] MEDS ORDERED: CALCIUM GLUCONATE 1,000 MG in D5W MINI-BAG PLUS 100 ML IV ONE (20:00)
[2020-07-16] VITALS (7 sets, daily range): BP systolic 94–115; BP diastolic 40–58
[2020-07-16] MEDS ORDERED: NALOXONE INJ 0.4MG/1ML VIAL (J2310 PER 1MG) IV STA (01:13)
[2020-07-16] MEDS ORDERED: NALOXONE INJ 0.4MG/1ML VIAL (J2310 PER 1MG) As Ordered ONE (01:14)
[2020-07-16] MEDS ORDERED: HALOPERIDOL 5MG/ML VIAL (J1630 PER 1) As Ordered ONE (03:32)
[2020-07-16] MEDS ORDERED: LORazepam 2 MG/ML VIAL As Ordered ONE (03:47)
[2020-07-16] MEDS ORDERED: LORazepam 2 MG/ML VIAL IV STA (04:06)
[2020-07-16] MEDS ORDERED: HALOPERIDOL 5MG/ML VIAL (J1630 PER 1) IV ONE (04:15)
[2020-07-16 04:33] LABS: HEMATOCRIT 32.5 % (42.0-52.0); MEAN CORPUSCULAR HEMOGLOBIN 31.7 pg (27.0-33.0); MEAN CORPUSCULAR HGB CONC 30.8 g/dl (32.0-36.5); MEAN CORPUSCULAR VOLUME 103.2 fl (80.0-96.0); PLATELET COUNT, AUTOMATED 239 10^3/uL (150-450); RED BLOOD COUNT 3.15 10^6/uL (4.30-6.10); WHITE BLOOD COUNT 7.7 10^3/uL (4.0-10.0)
[2020-07-16 04:57] LABS: CALCIUM LEVEL 7.9 MG/DL (8.5-10.1); CREATININE FOR GFR 3.03 MG/DL (0.70-1.30); GLOMERULAR FILTRATION RATE 22.8 (>56); POTASSIUM SERUM 4.2 MEQ/L (3.5-5.1)
[2020-07-16] MEDS: HumaLOG INSULIN (NovoLOG) PER UNIT SC SCH ×3 (07:30→17:29)
[2020-07-16] MEDS: MIDODRINE 5 MG TAB PO SCH ×3 (08:00→16:00)
--- NOTE | 2020-07-16 08:18 | IPNPDOC ---
Date Seen The patient was seen on 07/16/20. Progress Note SUBJECTIVE: lethargic after given morphine for leg pain,and reversed with narcan. Then, pt became combative overnight wanting to leave ama but unstable on his feet, given haldol and ativan. sedated this morning. refused meds but ate his dinner last night. no fever chills. respiratory panel-enterovirus, rhinovirus. no cough. OBJECTIVE PHYSICAL EXAMINATION: VITAL SIGNS: See below GEN: sedated, arousable but confused with garbled moans. . HEENT:no jvd no thyromegaly . Lungs diminished. . Heart S1, S2, irregularly irregular. . Abdomen soft, nontender, nondistended, positive bowel sounds 4 quadrants . Extremities right lower extremity ulcer, chronic venous stasis changes. Left arm AV fistula being used for dialysis. No cyanosis or clubbing LABORATORY DATA: See below. IMAGIN07/14/2020. Chest x-ray stable cardiomegaly, central pulmonary arterial enlargement suggestive of pulmonary hypertension, mild bilateral pulmonary interstitial and airspace opacities suggestive of pulmonary edema worsened compared to 06/20/2020 MICROBIOLOGY: Please see below. ASSESSMENT: 55-year-old male with a history of end-stage renal disease, hypertension, diabetes, diabetic nephropathy, neuropathy, chronic atrial fibrillation on anticoagulation, severe pulmonary hypertension, diastolic heart failure had dialysis Friday, , Friday 2 to about 2-1/2 L out yesterday presented to emergency room with cough productive of sputum without fever, chills and worsening shortness of breath, brought in by EMS, patient was found to be 87% on room air. Systolic pressure of 88 mmHg sugar of 443. Patient was placed on nasal cannula. Further evaluation included chest x-ray which showed mild bilateral pulmonary interstitial and airspace opacities suggestive of pulmonary edema worsened compared to 06/20/2020. Patient denied any chest pain, pressure, tightness, lightheadedness or dizziness. Charger was consulted for emergent dialysis hospitalist was called to admit the patient. Patient denies hematemesis, coffee-ground emesis, abdominal pain, nausea, vomiting, dysuria, urgency, frequency, fever, chills, flank pain, bright red blood per rectum, melena, black tarry stools, weight gain, weight loss, changes in appetite, insomnia, tinnitus, vertigo, ear discharge, photophobia, diplopia, sore throat, upper or lower extremity paresthesias. PROBLEMS: Acute encephalopathy due to morphine as an adverse effect, given at the right dose. acute delirium Acute on chronic diastolic congestive heart failure exacerbation Fluid overload due to end-stage renal disease End-stage renal disease on maintenance hemodialysis Friday, , Friday Symptomatic Anemia in the setting of Eliquis, requiring 2 units RBC transfusion Chronic hypotension Severe pulmonary hypertension Chronic atrial fibrillation off eliquis due to anemia Peripheral arterial disease Type 2 diabetes, uncontrolled Diabetic neuropathy Diabetic nephropathy Hypertensive heart disease History of seizure disorder Secondary hyperparathyroidism COPD, compensated PLAN: unstable for discharge due to acute delirium. avoid further sedatives. PT HSE. HD needs per nephrology. pt refused egd/colonoscopy. RN has not seen any acute GI bleed. H&H monitoring. off antiplatelets and AC. compression stockings. VS, I&O, 24H, Fishbone Vital Signs/I&O Vital Signs Date Time Temp Pulse Resp B/P (MAP) Pulse Ox O2 Delivery O2 Flow Rate FiO2 07/16/20 04:00 99.2 97 20 107/51 (69) 92 Nasal Cannula 07/16/20 04:00 2.0 I&O- Last 24 Hours up to 6 AM 07/16/20 05:59 Intake Total 800 ml Output Total 2500 ml Balance -1700 ml Laboratory Data 24H LABS Laboratory Tests 2 07/15/20 11:51: Bedside Glucose (Misc Panel) 298H 07/15/20 18:22: Bedside Glucose (Misc Panel) 60L 07/15/20 18:49: Bedside Glucose (Misc Panel) 129H 07/15/20 20:51: Bedside Glucose (Misc Panel) 90 07/16/20 01:11: Bedside Glucose (Misc Panel) 134H 07/16/20 04:03: Nucleated Red Blood Cells % (auto) 0.0, Anion Gap 9, Glomerular Filtration Rate 22.8L, Calcium Level 7.9L CBC/BMP Laboratory Tests 07/16/20 04:03 Microbiology Microbiology 07/15/20 Stool Occult Blood ([facility]) - Final, Complete 07/14/20 Respiratory Virus Panel (PCR) ([facility]) - Final, Complete Human Rhinovirus/Enterovirus 07/14/20 Blood Culture - Preliminary, Resulted No growth after 24 hours . All specim... SIERRA,KAPIL C. MD Jul 16, 2020 08:17
[2020-07-16] MEDS: LEVEMIR (INSULIN DETEMIR) 1 UNITS/0.01ML SC SCH (11:56)
[2020-07-16] MEDS ORDERED: flumazeniL 0.5 MG/5 ML VIAL IV STA (12:43)
[2020-07-16] MEDS ORDERED: LEVALBUTEROL 1.25 MG/0.5 ML CONCENTRATE NEB INH PRN (12:45)
[2020-07-16] MEDS ORDERED: methylPREDNISolone 125MG 2ML VIAL IV SCH (13:00)
[2020-07-16] MEDS: flumazeniL 0.5 MG/5 ML VIAL IV SCH ×2 (13:25→13:30)
[2020-07-16 13:29] LABS: ABG BASE EXCESS -9.1 (-2.0-2.0); ABG HCO3 19.2 MEQ/L (22.0-26.0); ABG O2 SATURATION 90.6 % (95.0-99.0); ABG PARTIAL PRESSURE CO2 52.8 mmHg (35.0-45.0); ABG PARTIAL PRESSURE O2 66.7 mmHg (75.0-100.0); ABG TOTAL CO2 20.8 MEQ/L (22.0-29.0)
[2020-07-16 13:42] LABS: ABG pH (ARTERIAL) 7.178 UNITS (7.350-7.450)
--- NOTE | 2020-07-16 13:54 | REPVR ---
PROCEDURE INFORMATION: Exam: XR Chest, 1 View Exam date and time: 07/16/2020 12:49 PM Age: 55 years old Clinical indication: Cough; Additional info: SOB TECHNIQUE: Imaging protocol: XR of the chest Views: 1 view. COMPARISON: 1. CR PORTABLE CHEST X-RAY 07/15/2020 8:[address] Chest without contrast 05/19/2020 9:26:35 AM FINDINGS: Lungs: Patchy mixed interstitial and hazy ground-glass opacities in the lungs bilaterally, increased since 07/15/2020 and 05/19/2020. Small calcified granulomas in the right lung Pleural space: Unremarkable. No pleural effusion. No pneumothorax. Heart/Mediastinum: There is increased central vascular congestion. Central pulmonary arteries and pulmonary arterial trunk are enlarged. Heart size is enlarged. Enlargement of the alice is most likely from central vascular congestion, although superimposed lymphadenopathy is difficult to exclude. There is calcification of the mitral valve annulus. Bones/joints: Unremarkable. IMPRESSION: 1. Increased patchy mixed interstitial and hazy ground-glass opacities in the lungs bilaterally. Findings could be from multifocal pneumonia, although pulmonary edema could alternatively cause this appearance given the setting of cardiomegaly and worsened vascular congestion. 2. Given enlarged central pulmonary arteries, it is difficult to evaluate for hilar lymphadenopathy bilaterally. Electronically signed by: Carrie Grant On 07/16/2020 13:54:57 PM
[2020-07-16 14:06] LABS: ALBUMIN 2.3 GM/DL (3.2-5.2); BILIRUBIN,TOTAL 0.4 MG/DL (0.2-1.0); CALCIUM LEVEL 7.3 MG/DL (8.5-10.1); CK-MB VALUE MASS 3.1 NG/ML (<3.6); CREATININE FOR GFR 3.98 MG/DL (0.70-1.30); GLOMERULAR FILTRATION RATE 16.7 (>56); MB/CK RELATIVE INDEX 4.84 (< OR =4); POTASSIUM SERUM 4.4 MEQ/L (3.5-5.1); TOTAL PROTEIN 5.1 GM/DL (6.4-8.2); TROPONIN I 0.07 NG/ML (< 0.10)
[2020-07-16] MEDS: PANTOPRAZOLE 40MG TAB (PROTONIX) PO SCH (14:10)
[2020-07-16] MEDS: carBAMazepine XR 200 MG TAB PO SCH ×2 (14:11→20:04)
[2020-07-16] MEDS ORDERED: AZITHROMYCIN INJ 500 MG, VIAL MATE ADAPTER 1 EACH in D5W 250 ML IV SCH (15:00)
[2020-07-16] MEDS: LEVALBUTEROL 1.25 MG/0.5 ML CONCENTRATE NEB INH SCH ×2 (15:18→19:29)
[2020-07-16] MEDS ORDERED: cefTRIAXone SOD 2 GM in D5W MINI-BAG PLUS 50 ML IV SCH (16:00)
[2020-07-16 16:58] LABS: ABG BASE EXCESS -0.9 (-2.0-2.0); ABG O2 SATURATION 91.6 % (95.0-99.0); ABG PARTIAL PRESSURE CO2 70.5 mmHg (35.0-45.0); ABG PARTIAL PRESSURE O2 62.7 mmHg (75.0-100.0); ABG STANDARD HCO3 23.6 MEQ/L (22.0-26.0); ABG TOTAL CO2 30.2 MEQ/L (22.0-29.0); ABG pH (ARTERIAL) 7.217 UNITS (7.350-7.450)
[2020-07-16] MEDS ORDERED: HumaLOG INSULIN (NovoLOG) PER UNIT SC SCH (17:15)
[2020-07-16] MEDS: MEROPENEM INJ 500 MG in IV 1 EA IV SCH (17:27)
--- NOTE | 2020-07-16 17:40 | REPVR ---
PROCEDURE INFORMATION: Exam: XR Chest, 1 View Exam date and time: 07/16/2020 4:52 PM Age: 55 years old Clinical indication: Device placement; Other: Central line; Additional info: Central line placement TECHNIQUE: Imaging protocol: XR of the chest Views: 1 view. COMPARISON: CR PORTABLE CHEST X-RAY 07/16/2020 12:48 PM FINDINGS: Tubes, catheters and devices: There is a new right internal jugular central venous catheter with tip projecting over the superior vena cava. Interstitial opacities have improved since the prior study, likely pulmonary edema which has improved but has not resolved. Lungs: Slightly decreased central vascular congestion Pleural space: Trace pleural fluid may be present on the left. No pneumothorax. Heart/Mediastinum: Heart size is slightly enlarged. Vasculature: Presumed atherosclerotic calcification in the internal carotid arteries. There is atherosclerotic calcification at the aortic arch. Bones/joints: No acute osseous abnormality. Minimal dextroconvex upper to midthoracic scoliosis, but this may be positional in nature. IMPRESSION: 1. Pulmonary edema has decreased but has not yet resolved, with decreased central vascular congestion. 2. Right internal jugular central venous catheter with tip at the superior vena cava. Electronically signed by: Carrie Grant On 07/16/2020 17:40:24 PM
[2020-07-16] MEDS ORDERED: VANCOMYCIN HCL 1,000 MG, VIAL MATE ADAPTER 1 EACH in D5W 250 ML IV ONE (18:00)
[2020-07-16 18:36] LABS: ABG BASE EXCESS -0.9 (-2.0-2.0); ABG HCO3 27.5 MEQ/L (22.0-26.0); ABG PARTIAL PRESSURE O2 71.3 mmHg (75.0-100.0); ABG STANDARD HCO3 23.7 MEQ/L (22.0-26.0); ABG TOTAL CO2 29.6 MEQ/L (22.0-29.0)
[2020-07-16 18:37] LABS: ABG PARTIAL PRESSURE CO2 66.2 mmHg (35.0-45.0); ABG pH (ARTERIAL) 7.237 UNITS (7.350-7.450)
[2020-07-16] MEDS ORDERED: FUROSEMIDE 100MG/10ML VIAL (J1940) IV ONE (19:00)
[2020-07-16] MEDS: ALBUTEROL 90 MCG/ACT 8GM HFA INHALER INH SCH (19:29)
[2020-07-16] MEDS: IPRATROPIUM HFA INHALER 12.9 GRAMS (ATROVENT HFA) INH SCH (19:29)
[2020-07-17] VITALS (9 sets, daily range): BP systolic 88–115; BP diastolic 42–61
[2020-07-17] MEDS: methylPREDNISolone 40MG 1ML VIAL IV SCH ×2 (00:09→11:50)
[2020-07-17] MEDS: HumaLOG INSULIN (NovoLOG) PER UNIT SC SCH ×7 (00:09→22:30)
[2020-07-17] MEDS ORDERED: ACETAMINOPHEN TAB 650MG DOSE (2X325MG) As Ordered ONE (01:35)
[2020-07-17] MEDS: ACETAMINOPHEN TAB 650MG DOSE (2X325MG) PO PRN ×2 (01:56→11:53)
[2020-07-17 05:45] LABS: HEMOGLOBIN 9.7 g/dl (13.5-17.5); MEAN CORPUSCULAR HEMOGLOBIN 32.6 pg (27.0-33.0); MEAN CORPUSCULAR HGB CONC 31.3 g/dl (32.0-36.5); PLATELET COUNT, AUTOMATED 210 10^3/uL (150-450); RED BLOOD COUNT 2.98 10^6/uL (4.30-6.10); WHITE BLOOD COUNT 7.4 10^3/uL (4.0-10.0)
[2020-07-17 06:06] LABS: CALCIUM LEVEL 7.6 MG/DL (8.5-10.1); CREATININE FOR GFR 4.84 MG/DL (0.70-1.30); GLOMERULAR FILTRATION RATE 13.3 (>56); POTASSIUM SERUM 4.9 MEQ/L (3.5-5.1)
[2020-07-17] MEDS: carBAMazepine XR 200 MG TAB PO SCH ×2 (06:11→21:09)
[2020-07-17] MEDS: PANTOPRAZOLE 40MG TAB (PROTONIX) PO SCH (06:12)
[2020-07-17] MEDS: MIDODRINE 5 MG TAB PO SCH ×3 (06:12→17:02)
[2020-07-17 06:30] LABS: ABG HCO3 23.1 MEQ/L (22.0-26.0); ABG O2 SATURATION 88.1 % (95.0-99.0); ABG PARTIAL PRESSURE CO2 57.5 mmHg (35.0-45.0); ABG PARTIAL PRESSURE O2 57.5 mmHg (75.0-100.0); ABG STANDARD HCO3 20.2 MEQ/L (22.0-26.0); ABG TOTAL CO2 24.8 MEQ/L (22.0-29.0)
[2020-07-17 06:35] LABS: ABG pH (ARTERIAL) 7.221 UNITS (7.350-7.450)
[2020-07-17] MEDS: ALBUTEROL 90 MCG/ACT 8GM HFA INHALER INH SCH ×4 (07:43→19:49)
[2020-07-17] MEDS: IPRATROPIUM HFA INHALER 12.9 GRAMS (ATROVENT HFA) INH SCH ×4 (07:43→19:48)
--- NOTE | 2020-07-17 08:10 | IPNPDOC ---
Date Seen The patient was seen on 07/17/20. Progress Note SUBJECTIVE: "Get me out of here. I'm going home NOW." Pt refused further treatment. Per Dr. Mosqueda,nephrology, pt needs dialysis which has been arranged for today. Pt refused bipap as of 2am. He denies sob, still with slight cough of scant white sputum without fever or chills. Due to recent COVID-19 exposure, pt is in A MANDATORY 14 DAY QUARANTINE, and staff have been informed of Isolation requirements. no cp, anosmia, n/v/abd pain, sob. on iv abx day #2. CXR: b/l infiltrates cannot rule out infection. OBJECTIVE PHYSICAL EXAMINATION: VITAL SIGNS: See below GEN: irate. no respiratory distress . HEENT:no jvd no thyromegaly . Lungs diminished. b/l rhonchi . Heart S1, S2, irregularly irregular. . Abdomen soft, nontender, nondistended, positive bowel sounds 4 quadrants . Extremities right lower extremity ulcer, chronic venous stasis changes. Left arm AV fistula being used for dialysis. No cyanosis or clubbing LABORATORY DATA: See below. IMAGIN07/14/2020. Chest x-ray stable cardiomegaly, central pulmonary arterial enlargement suggestive of pulmonary hypertension, mild bilateral pulmonary interstitial and airspace opacities suggestive of pulmonary edema worsened compared to 06/20/2020 MICROBIOLOGY: Please see below. ASSESSMENT: 55-year-old male with a history of end-stage renal disease, hypertension, diabetes, diabetic nephropathy, neuropathy, chronic atrial fibrillation on anticoagulation, severe pulmonary hypertension, diastolic heart failure had dialysis Friday, , Friday 2 to about 2-1/2 L out yesterday presented to emergency room with cough productive of sputum without fever, chills and worsening shortness of breath, brought in by EMS, patient was found to be 87% on room air. Systolic pressure of 88 mmHg sugar of 443. Patient was placed on nasal cannula. Further evaluation included chest x-ray which showed mild bilateral pulmonary interstitial and airspace opacities suggestive of pulmonary edema worsened compared to 06/20/2020. Patient denied any chest pain, pressure, tightness, lightheadedness or dizziness. Pet Care Assistant was consulted for emergent dialysis hospitalist was called to admit the patient. Patient denies hematemesis, coffee-ground emesis, abdominal pain, nausea, vomiting, dysuria, urgency, frequency, fever, chills, flank pain, bright red blood per rectum, melena, black tarry stools, weight gain, weight loss, changes in appetite, insomnia, tinnitus, vertigo, ear discharge, photophobia, diplopia, sore throat, upper or lower extremity paresthesias. PROBLEMS: Acute encephalopathy due to morphine,haldol, ativan as an adverse effect, given at the right dose, resolved s/p narcan & flumazenil, resolved Acute Hypercapnic Respiratory failure s/p bipap, resolved acute delirium, resolved Acute on chronic diastolic congestive heart failure exacerbation on HD Fluid overload due to end-stage renal disease on HD End-stage renal disease on maintenance hemodialysis Friday, , Friday Symptomatic Anemia in the setting of Eliquis, ASA, and plavix, requiring 2 units RBC transfusion HEME positive stool, refusing EGD/colonoscopy. Chronic hypotension Severe pulmonary hypertension Chronic atrial fibrillation off eliquis due to anemia Peripheral arterial disease Type 2 diabetes, uncontrolled Diabetic neuropathy Diabetic nephropathy Hypertensive heart disease, with chronic hypotension History of seizure disorder Secondary hyperparathyroidism COPDacute exacerbation ?Pneumonia PLAN: Pt was emergently transferred to ICU for bipap for hypercarbia with co2 60 ph [address] 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 Pt refused bipap at 2am after he returned to baseline mentation, BUT REFUSED TO DO A NEW MOLST FORM TO INDICATE THAT HE WOULD REFUSE BIPAP next time. He currently confirms that HE WANTS BIPAP IN THE FUTURE if needed. He remains DNR/DNI. He refuses further treatment and wants to sign out AMA, but refused to sign AMA form, and has been informed that his adoption counselor would like to do dialysis today. Due to exposure to COVID-19 positive person,pt is on a 14 day mandatory quarantine. PFS consulted to arrange meals on wheels as the patient has no supportive system to assist in his daily meals during the 14 days isolation. After dialysis, pt is adamant about signing out AMA despite risk of worsening infection, respiratory distress, and . He understands the ramifications of refusing treatment, and insists on leaving today. VS, I&O, 24H, Fishbone Vital Signs/I&O Vital Signs Date Time Temp Pulse Resp B/P (MAP) Pulse Ox O2 Delivery O2 Flow Rate FiO2 07/17/20 06:00 74 24 88/42 (57) 62 Nasal Cannula 2.0 07/17/20 04:00 97.2 07/17/20 00:00 35 I&O- Last 24 Hours up to 6 AM 07/17/20 06:00 Intake Total 328 ml Output Total 0 ml Balance 328 ml Laboratory Data 24H LABS Laboratory Tests 2 07/16/20 11:24: Bedside Glucose (Misc Panel) 336H 07/16/20 13:14: Anion Gap 12, Glomerular Filtration Rate 16.7L, Calcium Level 7.3L, Total Bilirubin 0.4, Aspartate Amino Transf (AST/SGOT) 22, Alanine Aminotransferase (ALT/SGPT) 34, Alkaline Phosphatase 112, Ammonia 39H, Total Creatine Kinase 64, Creatine Kinase MB 3.1, Creatine Kinase MB Relative Index 4.84H, Troponin I 0.07, CK-[id number]-Type Natriuretic Peptide 10601N, Total Protein 5.1L, Albumin 2.3L, Albumin/Globulin Ratio 0.8 07/16/20 13:16: Blood Gas Bicarbonate Standard 17.0L, Arterial Blood pH 7.178*L, Arterial Blood Partial Pressure CO2 52.8H, Arterial Blood Partial Pressure O2 66.7L, Arterial Blood Total CO2 20.8L, Arterial Blood HCO3 19.2L, Arterial Blood Base Excess - 9.1L, Arterial Blood Oxygen Saturation 90.6L 07/16/20 14:42: Coronavirus (COVID-19)(PCR) NEGATIVE 07/16/20 16:53: Blood Gas Bicarbonate Standard 23.6, Arterial Blood pH 7.217*L, Arterial Blood Partial Pressure CO2 70.5*H, Arterial Blood Partial Pressure O2 62.7L, Arterial Blood Total CO2 30.2H, Arterial Blood HCO3 28.0H, Arterial Blood Base Excess - 0.9, Arterial Blood Oxygen Saturation 91.6L 07/16/20 17:22: Bedside Glucose (Misc Panel) 235H 07/16/20 17:30: Lactic Acid Level 0.8 07/16/20 18:15: Methicillin-Resist S.aureus DNA PCR NOT DETECTED 07/16/20 18:30: Blood Gas Bicarbonate Standard 23.7, Arterial Blood pH 7.237*L, Arterial Blood Partial Pressure CO2 66.2*H, Arterial Blood Partial Pressure O2 71.3L, Arterial Blood Total CO2 29.6H, Arterial Blood HCO3 27.5H, Arterial Blood Base Excess - 0.9, Arterial Blood Oxygen Saturation 94.0L 07/16/20 23:58: Bedside Glucose (Misc Panel) 206H 07/17/20 05:06: Nucleated Red Blood Cells % (auto) 0.0, Anion Gap 9, Glomerular Filtration Rate 13.3L, Calcium Level 7.6L 07/17/20 06:17: Blood Gas Bicarbonate Standard 20.2L, Arterial Blood pH 7.221*L, Arterial Blood Partial Pressure CO2 57.5H, Arterial Blood Partial Pressure O2 57.5L, Arterial Blood Total CO2 24.8, Arterial Blood HCO3 23.1, Arterial Blood Base Excess - 5.0L, Arterial Blood Oxygen Saturation 88.1L CBC/BMP Laboratory Tests 07/16/20 13:14 07/17/20 05:06 Microbiology Microbiology 07/15/20 Stool Occult Blood ([facility]) - Final, Complete 07/14/20 Respiratory Virus Panel (PCR) ([facility]) - Final, Complete Human Rhinovirus/Enterovirus 07/14/20 Blood Culture - Preliminary, Resulted No Growth after 48 hours. All Specime... KAPIL ESQUIVEL MD Jul 17, 2020 08:10
[2020-07-17] MEDS ORDERED: MOXI1TAB PO (08:16)
[2020-07-17] MEDS ORDERED: PRED10TA2 PO (08:16)
[2020-07-17] MEDS: LEVEMIR (INSULIN DETEMIR) 1 UNITS/0.01ML SC SCH (08:31)
--- NOTE | 2020-07-17 10:18 | CR ---
CONSULTATION REQUESTED BY: Kamryn Norris MD REASON FOR CONSULTATION: Shortness of breath and severe anemia in this gentleman with end-stage renal disease. HISTORY OF PRESENT ILLNESS: Mr. Jones is a 55-year-old gentleman with quite complicated medical problems. He has been recently hospitalized multiple times here at [facility] due to shortness of breath and hypotension. He has end-stage renal disease, diabetes with frequent episodes of hypoglycemia and end-stage renal disease secondary to diabetic nephropathy, history of chronic atrial fibrillation within the last few months, severe pulmonary hypertension, diastolic congestive heart failure, and history of anemia. He presented to the Emergency Room with shortness of breath and was found to have a hemoglobin of about 7. Chest x-ray did show some congestion and his oxygen saturation was found to be 87% on room air. A nephrology consultation was requested for urgent dialysis and the patient was seen in the Emergency Room. Chest x-ray in the Emergency Room did show bilateral pulmonary interstitial and airspace opacities, suggestive of pulmonary edema. PAST MEDICAL HISTORY: Patient has multiple chronic medical problems, which include: 1. COPD. 2. Diastolic congestive heart failure. 3. Severe pulmonary hypertension. 4. Atrial fibrillation on anticoagulation. 5. Diabetic nephropathy with end-stage renal disease. 6. History of frequent hypoglycemia. 7. Chronic hypotension now recently, which makes dialysis quite complicated and difficult. 8. History of seizure disorder. 9. History of pericardial effusion and pleural effusions. 10. History of secondary hyperparathyroidism and medical noncompliance. 11. He has signed out against medical advice multiple times. PAST SURGICAL HISTORY: Significant for left arm AV fistula surgery. FAMILY HISTORY: Negative for end-stage renal disease. PERSONAL AND SOCIAL HISTORY: Patient has a long history of smoking and marijuana use. He denies any alcohol use. ALLERGIES: The patient has no known drug allergies. MEDICATIONS: His home medications include: 1. Eliquis 5 mg b.i.d. 2. Aspirin 81 mg daily. 3. Carbamazepine 400 mg b.i.d. 4. Plavix 75 mg daily. 5. Vitamin D 50,000 units once a week. 6. Auryxia 210 mg three tablets t.i.d. with meals. 7. Hydralazine 100 mg b.i.d. 8. Fosrenol 750 mg t.i.d. with meals. 9. Metoprolol 50 mg daily. 10. Pancreas enzymes 30,000 units with meals. REVIEW OF SYSTEMS: Patient is somewhat lethargic and weak. He reported shortness of breath on coming to the Emergency Room. He denies any fever or chills. Ears, nose and throat are unremarkable. Cardiovascular system is significant for atrial fibrillation and shortness of breath. He also has chronic leg edema. The patient has severe pulmonary hypertension. He has chronic hypotension recently, which makes it difficult to remove fluid with dialysis. He did sign a DNR order during previous hospitalization due to his cardiac conditions. He has history of pericardial and pleural effusions. Respiratory system is negative for hemoptysis or pleuritic type of chest pain at present. GI system is significant for chronic nausea. He denies any abdominal pain or diarrhea at present. system is significant for end-stage renal disease. Psychosocial system is significant for noncompliance and agitation at times. Musculoskeletal system is negative for back pain. He does have chronic leg edema. Neurological system is significant for seizures. Endocrine system is significant for brittle diabetes and hypothyroidism. He also has secondary hyperparathyroidism. PHYSICAL EXAMINATION: GENERAL: Patient looks older than his stated age. VITALS: Temperature 97.7 degrees Fahrenheit, heart rate at present 70 per minute, respiratory rate 16 per minute, blood pressure 89/50 mmHg and oxygen saturation 95% on 2 liter oxygen. HEENT: Head atraumatic. He has a tattoo on his forehead. Teeth are in poor repair. There is no oral thrush or ulcers. Neck veins are moderately distended. There is no thyroid enlargement. HEART: Sounds are irregular. LUNGS: Diminished breath sounds at bases and bibasilar rales. ABDOMEN: Soft and nontender. Bowel sounds are normal. EXTREMITIES: Without cyanosis or clubbing. Lower extremity edema is 1+ with chronic stasis changes. Left arm AV fistula is patent. He has tattoos on both arms. NEUROLOGIC: He is awake and able to answer questions, though somewhat lethargic. LABORATORY DATA: WBC 6.4, hemoglobin 7.1, hematocrit 22.5, platelets 295,000. INR 1.82. Lactic acid 1.8. Glucose 378, sodium 132, potassium 4.4, CO2 28, BUN 91 and creatinine 4.0. Troponin 0.11. Venous blood gas showed pH 7.22, pCO2 74 and pO2 79. PROBLEMS: 1. Shortness of breath: Probably multifactorial. He has chronic pulmonary hypertension and COPD. He also has anemia and some volume overload. It is very difficult to remove fluid aggressively due to chronic hypotension. Will try to remove at least 1 liter today as tolerated. 2. End-stage renal disease: Patient did have his regular dialysis yesterday, but did not complete treatment. His electrolytes are stable and we will try to dialyze him today for three hours. 3. Severe pulmonary hypertension and hypotension: His overall condition and prognosis remains guarded. He has severe pulmonary hypertension with right-sided heart failure and now atrial fibrillation. It is very difficult to remove any fluid. Patient did have a DNR signed during prior hospitalization and I will recommend to keep DNR status in view of his multiple advanced comorbid conditions and no chance for any meaningful quality of life after resuscitation. 4. Anemia: Patient did test heme positive stool in the Emergency Room and he has been on anticoagulation. He will be transfused two units of packed RBCs during dialysis while we try to remove fluid. 5. COPD and hypoxemia: Patient has chronic lung disease and he currently does not smoke. Will continue with supplemental oxygen as needed. Thank you for involving me in the care of Mr. Jones. Nephrology service will follow him along with you. AJ
--- NOTE | 2020-07-17 10:21 | IPN ---
DATE: 07/15/2020 SUBJECTIVE: Patient was seen and examined at the bedside today morning in the ICU. Patient is afebrile, still complaining of shortness of breath. He was dialyzed late last night, only 1 liter of fluid was removed. His hemoglobin is still low. Medical team is trying to convince him to get EGD and colonoscopy done. He is adamantly refusing that. Patient was short of breath and hypoxemic today morning. He has rhinovirus and enterovirus infection. His O2 sat was in 80s, but he was refusing to be on the nasal cannula. I had to convince the patient to wear the oxygen because it was going to help him oxygenate better. Patient denies any melena or hematochezia and he is adamantly refusing any procedures. OBJECTIVE: VITAL SIGNS: Temperature 99 degrees Fahrenheit, blood pressure 104/48, pulse 75, respiratory rate 16, saturating 98% on nasal cannula at 2 liters. INTAKE AND OUTPUT: Urine output is not recorded. Weight in the bed scale is 67.6 kg, which is not reliable because there is a 10 kg difference from yesterday. PHYSICAL EXAMINATION: GENERAL: Patient is awake, alert and oriented x3, slightly agitated and mild shortness of breath. HEAD AND NECK: Extraocular muscles intact. Pupils equally round and reactive to light. Mucous membranes are moist. Neck is supple. He has moderately elevated JVD. CARDIOVASCULAR: S1, S2, regular rate. 2+ edema of the bilateral lower extremities. RESPIRATORY: Decreased breath sounds at the bases with inspiratory crackles bilaterally at the bases. ABDOMEN: Soft. Positive bowel sounds. Nontender. No organomegaly. MUSCULOSKELETAL: 2+ edema of the bilateral lower extremities. Extremities are tender to touch. NET DEVELOPER ARCHITECT: No focal deficit. Power is 5/5 in all extremities. PSYCHIATRIC: Patient has an agitated mood. LABORATORY REVIEW: CBC showed WBC 6.9, hemoglobin 8.1, platelets 248,000. BMP showed sodium 138, potassium 4.5, chloride 101, bicarb 32, BUN 48, creatinine 3.1. Calcium 7.5. MICROBIOLOGY: Respiratory viral panel is positive for human rhinovirus and enterovirus. IMAGING STUDIES: A chest x-ray was done today morning, it showed stable appearance of the chest, not significantly changed. There is hyperinflation of the lung with interstitial prominence. There is borderline cardiomegaly. CURRENT INPATIENT MEDICATIONS: Patient's medications were all reviewed by myself. His Eliquis has been stopped. Aspirin is stopped. Plavix is also on hold. Midodrine has been changed to 10 mg p.o. three times a day. Fecal occult blood is positive, that is why all the anti-platelets and anticoagulation is on hold. ASSESSMENT AND PLAN: 1. End-stage renal disease: The patient was dialyzed yesterday, however because of the volume overload, patient will be dialyzed again today and I will try to remove at least 2.5 kg of fluid. 2. Anemia: Most likely secondary to GI bleed. Patient has positive fecal occult, but he is refusing any colonoscopy or EGD. He has been started on Protonix. Anti-platelet and anticoagulation have been stopped now. Transfuse p.r.n. for hemoglobin 8 or below. 3. Shortness of breath and fluid overload: As mentioned above, patient will be dialyzed again, 1 liter of fluid was removed yesterday and 2.5 liters will be removed today. 4. Diabetes mellitus type 1: Patient is currently on insulin Levemir and sliding scale. Glucose levels are within the acceptable range. 5. Chronic hypotension: Continue current dose of Midodrine. Blood pressures are better now. MTDD
--- NOTE | 2020-07-17 10:23 | IPN ---
DATE: 07/16/2020 SUBJECTIVE: Patient was seen and examined at the bedside today morning in the Progressive Care Unit. Patient was very sleepy and obtunded and in moderate respiratory distress. I was told by the nursing staff that patient was given Ativan and Haldol because of agitation. Patient was threatening to sign out AMA, however at this time, patient is very obtunded, very difficult to arouse. Fingerstick blood sugar was already checked by the nurse staff, it was more than 300. Case was discussed by myself with the hospitalist, Dr. Kamryn Norris. The decision was made to do a chest x-ray and ABG, and place the patient on BiPAP and empirically start him on antibiotics, and transfer him to the ICU. OBJECTIVE: VITAL SIGNS: Temperature 98.3 degrees Fahrenheit, blood pressure 102/44, pulse 101, respiratory rate 20, saturating 91% on nasal cannula at 2 liters. INTAKE AND OUTPUT: Patient was dialyzed yesterday; 2.5 liters of fluid was removed. Weight in the bed scale was 67.6 kg yesterday, which is not reliable because there was a 10 kg difference in the weights from two days. PHYSICAL EXAMINATION: GENERAL: Patient is very obtunded, lying in bed, eyes closed. He does not follow much commands. HEAD AND NECK: Pupils are round and reactive to light. Mucous membranes are moist. Neck is supple. Moderately elevated JVD. CARDIOVASCULAR: S1, S2, tachycardia. 2+ edema of the bilateral lower extremities. RESPIRATORY: He is congested. He has decreased breath sounds all over the lungs with expiratory rhonchi bilaterally. ABDOMEN: Soft. Positive bowel sounds. Nontender. No organomegaly. MUSCULOSKELETAL: 2+ edema of the lower extremities, which is tender to palpation. DOUGHNUT DOUGH MIXER: Patient is very obtunded and sleepy and very difficult to arouse. LABORATORY REVIEW: CBC showed WBC 7.7, hemoglobin 10, platelets 239,000. BMP showed sodium 137, potassium 4.4, chloride 100, bicarb 25, BUN 40, creatinine 3.9. Lactic acid 0.8. Calcium 7.3. Pro-BNP 60,240. MICROBIOLOGY: No new cultures are positive so far. Arterial blood gas was done today in the afternoon, which showed pH 7.17, pCO2 52, pO2 66.7, bicarb 19.2, O2 sat 90.6%. IMAGING STUDIES: A Chest x-ray was done in the afternoon today, which showed increased patchy mixed interstitial and hazy ground-glass opacities in the lungs bilaterally. It could be multifocal pneumonia versus pulmonary edema. I was unable to look at the images myself. CURRENT INPATIENT MEDICATIONS: Patient's medications were all reviewed by myself. He was empirically started on I.V. Meropenem and Vancomycin. He continues to be on his insulin coverage. He was started on Solu-Medrol 40 mg I.V. every 12 hours. No other significant change in the medications except that I had given him a dose of Lasix 80 mg I.V. times on dose. ASSESSMENT AND PLAN: 1. End-stage renal disease: Patient was dialyzed two days in a row, he got 2.5 liters removed yesterday and 1 liter removed the day before yesterday. On x-ray, it looks like patient is still volume overloaded. Patient is currently on BiPAP. I would do his dialyze early in the morning and try to remove more fluid to optimize his volume status. 2. Acute hypoxic and hypercapnic respiratory failure: Patient has been placed on BiPAP. He has also been started on empiric antibiotic coverage. Repeat chest x-ray done after BiPAP showed some improvement in the interstitial edema. Patient also has rhinovirus and enterovirus infection. He has been started on steroids as well. The rest of the management is as per pulmonary team. 3. Chronic hypotension: Patient is currently on Midodrine. Blood pressure levels are within the acceptable range. 4. Obtundation and metabolic encephalopathy: After use of Haldol and benzodiazepine, patient was given Flumazenil I.V. in the ICU. Avoid further use of sedatives and hypnotic medications in this patient. 5. Anemia: He was given 2 units of PRBC transfusion. Hemoglobin level is stable at 10. Avoid further use of blood products in this patient because of risk of volume overload. MTDD
--- NOTE | 2020-07-17 11:52 | CR ---
CRITICAL CARE CONSULTATION DATE OF CONSULTATION: 07/16/2020 HISTORY OF PRESENT ILLNESS: Mr. Jones is a 55-year-old male with a past medical history of ESRD on hemodialysis on Friday, and Friday, hypertension, diabetes with a history of diabetic neuropathy, chronic atrial fibrillation on anticoagulation, history of heart failure with preserved EF with severe pulmonary hypertension, COPD, seizure disorder, who presented with complaints of productive cough and worsening shortness of breath. History is obtained from collateral information and from the chart as the patient is obtunded and unable to provide a history. He has a history reportedly of medical noncompliance and frequently refuses interventions as well as signing out against medical advice. Initially, on admission the patient was hypoxic on room air. He was placed on nasal cannula oxygen supplementation with improvement. Respiratory panel was positive for rhinovirus/enterovirus. He was also noted to have evidence of pulmonary edema and was seen by Nephrology and started on dialysis. Patient was also anemic and his anticoagulation was on hold. He was given PRBC transfusion with a total of 4 units with 2 units yesterday with his last dialysis session. He reportedly refused further workup for his anemia including an EGD or colonoscopy. Patient also was noted to be hypotensive although at baseline he does have hypotension in the setting of his chronic renal failure. He had refused central line placement for vasopressors and was started on Midodrine with improvement in his blood pressure. Yesterday, patient was complaining of pain in his legs which he has chronically. He was given Morphine for pain and then was noted to be lethargic and was given one dose of Narcan with improvement in his mental status. Overnight, the patient became agitated and combative and was wanting to leave AMA, however was unsteady on his feet and so was given Haldol 2 mg and Ativan 2 mg earlier this morning for sedation. Later in the morning he was noted to be obtunded an was given Flumazenil, however, he had minimal improvement in his mental status. An ABG was done which did show evidence of metabolic and respiratory acidosis. The patient was transferred to the ICU for further evaluation. PAST MEDICAL/SURGICAL HISTORY: 1. COPD. 2. Heart failure with preserved EF with severe pulmonary hypertension. 3. Atrial fibrillation, on anticoagulation. 4. Previous history of hypertension, now chronic hypotension. 5. Diabetes with neuropathy. 6. ESRD on HD Friday, and Friday. 7. History of seizure disorder. 8. Pericarditis. 9. Anemia of chronic disease. 10. Secondary hyperparathyroidism. 11. History of medical noncompliance. 12. Left AV fistula surgery. SOCIAL HISTORY: Previous history of smoking and occasional marijuana use as per the chart. FAMILY HISTORY: Unable to be obtained due to his mental status. HOME MEDICATIONS: 1. Eliquis. 2. Aspirin. 3. Carbamazepine. 4. Plavix. 5. Vitamin D2. 6. Ferrous citrate. 7. Hydralazine. 8. Lantus. 9. Humalog. 10. Fosrenol. 11. Lidocaine/Prilocaine cream. 12. Zenpep. 13. Metoprolol. 14. Albuterol p.r.n. ALLERGIES: No known drug allergies. PHYSICAL EXAMINATION: VITALS: Temperature 99.3, pulse 106, respirations 20, blood pressure is 102/44, O2 sat 91% on 2 liters nasal cannula. GENERAL: The patient is lying in bed, is obtunded. He is responsive to painful stimuli but is unable to follow commands or answer questions. He does respond to sternal rub. HEENT: Normocephalic, traumatic. Pupils are reactive to light bilaterally. There are moist mucous membranes but he has dry lips and poor oral hygiene. NECK: Supple. Trachea is midline. Unable to palpate any cervical adenopathy. CARDIAC: Tachycardic. Regular rate and rhythm. Normal S1 and S2 with a faint murmur auscultated. PULMONARY: Diffuse rhonchi with some wheezes and some audible gurgling sounds at times. ABDOMEN: Soft, nontender, nondistended. No palpable masses. EXTREMITIES: Evidence of chronic venous stasis skin changes. There is a dressing on the right leg for a lower extremity ulcer. There is no significant pitting edema bilaterally. LABORATORY DATA: WBC 7.7, hemoglobin 10.0, platelets are 239,000. Chemistries: Sodium is 137, potassium is 4.4, platelets are 100,000, bicarbonate is 25, BUN 40, creatinine 3.98, glucose is 356. AST and ALT within normal limits. Alkaline phosphatase is within normal limits. Ammonia level 39. BNP 23023, troponin negative. ABG: pH 7.178, pCO2 52.8, pO2 66.7. IMAGING: Chest x-ray: Increased interstitial markings and pulmonary vascular congestion as well as some patchy opacities more in the bases of the lungs bilaterally. There is some mild flattening of the diaphragms. ASSESSMENT AND PLAN: Mr. Jones is a 55-year-old male with a past medical history of COPD, ESRD on hemodialysis, chronic atrial fibrillation on anticoagulation, history of heart failure with preserved EF with severe pulmonary hypertension, diabetes, history of medical noncompliance, who presented with complaints of cough and worsening shortness of breath. Patient was found on admission to be positive for human rhinovirus/enterovirus. He was thought to have a viral URI and his imaging also showed evidence of pulmonary edema in the setting of his ESRD. He was given emergent hemodialysis over the weekend. He was also found to be anemic and was given what appears to be 4 units of PRBC transfusion total. The patient also was complaining of pain yesterday and was given Morphine. He was then noted to be lethargic and was given Narcan with some improvement in his mental status. Overnight, however and in the french comber he became more agitated and combative and was asking to sign out AMA. He was given Haldol and Ativan for sedation and on exam later in the morning was noted to be obtunded. He was given doses of Flumazenil with minimal improvement in his mental status. His ABG shows evidence of metabolic acidosis likely in the setting of his renal failure as well as an appropriate respiratory acidosis likely in the setting of medications. He had a repeat chest x-ray done today which also shows evidence of increased intersitial markings and pulmonary vascular congestion with patchy opacities in the bases. The patient may have a component of a superimposed bacterial pneumonia. His initial procalcitonin was mildly elevated at 0.73 but he was not started on antibiotics until earlier this evening. The patient also is pending a COVID test as there was a possibility that he was exposed to a nurse who was positive for COVID-19 while he was in the hospital. Altered mental status, metabolic encephalopathy in the setting of sedating medication as well as possibly from sepsis and a metabolic and respiratory acidosis. - Will continue to hold sedating medications. - Will start patient on BiPAP with settings of 14/6 and a respiratory rate of 18 with 30% FIO2 and will repeat ABG in one hour. - Will continue with antibiotics. Patient is on Ceftriaxone and Azithromycin, however given his risk for healthcare associated organisms would give a dose of Vancomycin and Meropenem, and would repeat a procalcitonin. - Patient also has evidence of worsening interstitial markings on his imaging which may be in the setting of pulmonary edema as well as pneumonia. He has been getting dialysis, however and was dialyzed yesterday with 2.5 liters of fluid removal although he did receive a blood transfusion. There is a possibility that some of the findings on imaging may be related to his transfusion as well. Would need to continue supportive care. He is planned for dialysis at this point tomorrow. - Patient has a history of COPD and does have some wheezing on exam. Will continue with Solu-Medrol. He did receive a dose of 125 mg earlier this afternoon and would continue with 40 mg q. 12 as well as bronchodilators with Albuterol and Atrovent. - Appreciate renal consult and recommendations. Continue the rest of his home medications as per primary team. His anticoagulation is currently on hold. Will continue to monitor his H and H transfuse as needed. - Code status: Patient is a DNR/DNI. He had previously refused central line placement when he was hypotensive the other night. Patient unfortunately is unable to confirm his wishes and it does not appear to have been updated on his chart about his reported refusal for central line placement and pressors. He does have a MOLST on the chart however the DNI was not fully filled out. Speaking to the nurses who witnessed the MOLST and the physician who initially signed it patient had clearly verbally stated he was DNR/DNI but had not signed the second page. There was verbal consent for his code status however which he confirmed again on this admission. His MOLST form was therefore updated to reflect verbal consent for DNR/DNI. Total critical care time not including any procedures approximately 1 hour and 30 minutes. AJ
--- NOTE | 2020-07-17 11:55 | RO ---
DATE OF OPERATION: 07/16/2020 PROCEDURE: Central line procedure. INDICATION: Central venous access. PREPROCEDURE DIAGNOSIS: Sepsis and renal failure. POSTPROCEDURE DIAGNOSIS: Sepsis and renal failure. ATTENDING PHYSICIAN: Dr. Navarrete CONSENT: The procedure was performed emergently and permission was implied because of the emergent nature of the procedure. PROCEDURE SUMMARY: Central line insertion practice form was completed by an independent observer. Time out was performed. Full sterile technique was maintained throughout the procedure including surgical cap, mask, protective eyewear, full gown and sterile gloves. The patient was placed in Trendelenburg position. The right neck region was prepped using Chlorhexidine swab and draped in sterile fashion using full drape and sterile probe cover employed. The right internal jugular vein was identified using ultrasound. Anesthesia was achieved to vein using 1% Lidocaine. Using realtime out of plane ultrasound guidance the introducer needle was inserted into the internal jugular vein under direct ultrasound visualization. Venous blood was withdrawn. The syringe was removed and guidewire was advanced into the introducer needle. The introducer needle was removed over the guidewire. A small incision was made at the skin surface with a scalpel and a dilator was exchanged over the guidewire. After appropriate dilation was obtained the dilator was exchanged over the wire for a triple lumen central venous catheter. The wire was removed and the catheter was sutured in place at 17 cm. A sterile Chlorhexidine impregnated dressing was placed over the catheter at the insertion site. The patient tolerated the procedure without any hemodynamic compromise. At time of procedure completion all ports aspirated and flushed properly. Postprocedure chest x-ray showed the central line adequately placed in expected position. Estimated blood loss is less than 2 mL. MTDD
--- NOTE | 2020-07-17 12:00 | CCN ---
DATE: 07/17/2020 SUBJECTIVE: The patient was seen and examined this morning during bedside rounds. Overnight the patient was on BiPAP at settings of 28/8 with a respiratory rate of 22 and 35-40% FiO2. His arterial blood gasses (ABGs) were showing some improvement in his respiratory acidosis. However, around 2:00 a.m. this morning the patient removed the BiPAP and refused to have it replaced. He was placed on nasal cannula oxygen supplementation instead. The patient also was expressing the desire for him to sign out against medical advice (AMA) and initially was refusing dialysis that was planned for today. However, after further discussion he was agreeable for hemodialysis before leaving from the hospital AMA. He had expressed some frustration with being hospitalized as well as with his chronic medical conditions and stated that he would rather just go home to . He otherwise did not voice any complaints. He has been afebrile overnight. The patient's right internal jugular (IJ) triple lumen was removed after he had expressed his desire and had signed the paperwork for leaving against medical advice. PHYSICAL EXAMINATION: Vital signs: Temperature 97.2, pulse 72, respirations 24, blood pressure 88/42, O2 saturation 92-9% on 2 liters nasal cannula. Input 328 mL, output 0. General: The patient is sitting in a chair this morning. He appears somewhat drowsy but is able to converse appropriately. He is alert and oriented times three. Does not appear to be in acute respiratory distress. He is not accessory muscles for respiration. HEENT: Normocephalic, atraumatic. Pupils are reactive to light bilaterally. There are moist mucous membranes although he does have some dry lips and poor oral hygiene. Neck is supple. Trachea is midline. There is no palpable cervical adenopathy. There is positive jugular venous distention (JVD) noted. There is a dressing in place on the right side of his neck which is clean, dry, and intact. Cardiovascular: Regular rate and rhythm, normal S1, S2 with a systolic murmur. Pulmonary: Improved breath sounds. There are somewhat diminished breath sounds bilaterally with crackles at the bases but improved from the previously noted rhonchi and wheezing. Abdomen is soft, nontender, nondistended. No palpable mass. Lower extremities: Chronic venous stasis changes noted bilaterally. There is a dressing on the right lower extremity. . There is no significant lower extremity pitting edema bilaterally. LABS: WBC 7.4, hemoglobin 9.7, platelets 210. Chemistry: Sodium 139, potassium 4.9, chloride 101, bicarb is 29, BUN 52, creatinine 4.84. Glucose is 114, calcium 7.6, lactic acid yesterday 0.8. ABG this morning: A pH of 7.221, pCO2 57.5, pO2 of 57.5. IMAGING: Chest x-ray yesterday afternoon after right IJ central line placement shows the right IJ central venous catheter with the tip in the superior vena cava. There has been improvement in the previously noted pulmonary vascular congestion slightly although continues to have increased interstitial markings consistent with pulmonary edema. There are mild opacities in the right and left base although it appears less prominent from previous imaging. ASSESSMENT AND PLAN: Mr. Jones is a 55-year-old male with a past medical history of end-stage renal disease (ESRD) on hemodialysis, heart failure with preserved ejection fraction with a history of pulmonary hypertension, atrial fibrillation on anticoagulation, history of chronic hypotension, who presented initially with complaints of coughing and shortness of breath. The patient was found to have a viral upper respiratory infection on admission with a respiratory panel positive for human rhinovirus/enterovirus. He was also noted on this admission to be anemic and had required 4 units of packed red blood cells transfusion. The patient was then noted to have worsening mental status and lethargy. Some of this was attributed to opioid pain medications as well as benzodiazepines which were given for agitation. He did receive Narcan as well as flumazenil, however continued to be obtunded. His ABG had shown evidence of a respiratory acidosis and his imaging had shown worsening interstitial opacities with possible bibasilar opacities as well. The patient was admitted to the ICU for further management. He was placed on BiPAP and was also given broad spectrum antibiotics. The patients mental status has improved overnight and he has refused further BiPAP. The patient does have a history of noncompliance and frequently signed out against medical advice in the past. Acute hypoxemic respiratory failure with hypercarbic respiratory failure likely in the setting of pulmonary edema with a history of end-stage renal disease. He had also received multiple units of transfusion which may be contributing to some component of fluid overload. The patient also had a viral URI and there is a possibility of superimposed bacterial pneumonia as well. His initial procalcitonin was mildly elevated. - The patient was on BiPAP with settings of 20/8, respiratory rate of 22, and 35-40% FiO2. His ABGs on BiPAP were improving in terms of his respiratory acidosis. Overnight, however, he removed the BiPAP and refused further noninvasive positive pressure ventilation, and his repeat ABG this morning shows worsening of his respiratory acidosis and hypoxia. Discussed with the patient today about his goals of care in regards to using BiPAP. He states while he refuses it on this admission, he may consider using it on subsequent admissions if he required a trial of noninvasive positive pressure ventilation. He is firmly DNR/DNI. - Suspect there is a component related to pulmonary edema and fluid overload based on his imaging. With the planned diuresis today, he may have improvement in his hypercarbia. His x-ray yesterday had shown improvement with the positive pressure ventilation. Interstitial opacities were related to pulmonary vascular congestion. - Would continue with broad spectrum antibiotics for now. His MRSA screen was negative. Would discontinue Vancomycin and continue with just Meropenem. Would follow up the repeat procalcitonin to help desk analyst in deescalating and discontinuing antibiotics. - The patient is still on droplet isolation as he had an exposure to COVID-19. His initial COVID test was negative. - Continue with nasal cannula oxygen supplementation and wean off as tolerated. - the patient had a right IJ triple lumen placed for venous access as well as for possible vasopressor administration as he was requiring midodrine to maintain a blood pressure and was unable to take any oral medications yesterday due to is mental status. He did have some episodes of hypotension this morning but now that he is off BiPAP, we will restart his midodrine for his chronic hypotension. His right IJ line has been removed as he is planning to leave against medical advice after dialysis today. - Appreciate renal consult and recommendations. Continue with hemodialysis as per nephrology today. Deep venous thrombosis (DVT) prophylaxis. TEDs/SCDs. GI prophylaxis. Protonix. Code status: DO NOT RESUSCITATE/ DO NOT INTUBATE. The patient is apparently agreeable for a trial of noninvasive positive pressure ventilation if needed in the future. Would continue to address his goals of care however as he does frequently refuse interventions. He has also refused PICC line and central line placement earlier in this admission. Total critical care time spent not including any procedures approximately 45 minutes. Please do not hesitate to call if any further questions or concerns. GEOVANNID
[2020-07-17] MEDS ORDERED: **VANCO AFTER HD** MISC XX SCH (16:00)
[2020-07-17] MEDS ORDERED: VANCOMYCIN HCL 1,000 MG, VIAL MATE ADAPTER 1 EACH in D5W 250 ML IV SCH (16:00)
[2020-07-17] MEDS: MEROPENEM INJ 500 MG in IV 1 EA IV SCH (16:30)
[2020-07-17] MEDS ORDERED: HumuLIN R (REGULAR) INSULIN (NovoLIN R) **100U/ML** PER UNIT IV ONE (18:30)
[2020-07-17 19:07] LABS: ACETONE/KETONE 26.86 MG/DL (<2.81); CALCIUM LEVEL 7.7 MG/DL (8.5-10.1); CREATININE FOR GFR 5.84 MG/DL (0.70-1.30); GLOMERULAR FILTRATION RATE 10.7 (>56); POTASSIUM SERUM 5.2 MEQ/L (3.5-5.1)
[2020-07-17 19:30] LABS: HEMOGLOBIN A1c 5.9 %
[2020-07-17] MEDS ORDERED: LEVEMIR (INSULIN DETEMIR) 1 UNITS/0.01ML SC SCH (21:00)
[2020-07-18] VITALS (8 sets, daily range): BP systolic 95–117; BP diastolic 43–56
[2020-07-18] MEDS: HumaLOG INSULIN (NovoLOG) PER UNIT SC SCH ×5 (00:48→20:01)
[2020-07-18] MEDS: DEXTROSE 50% 50 ML SYRINGE IV PRN ×2 (04:43→08:01)
[2020-07-18 06:04] LABS: ABG BASE EXCESS -2.7 (-2.0-2.0); ABG HCO3 25.7 MEQ/L (22.0-26.0); ABG O2 SATURATION 97.3 % (95.0-99.0); ABG PARTIAL PRESSURE O2 104.5 mmHg (75.0-100.0); ABG STANDARD HCO3 22.2 MEQ/L (22.0-26.0); ABG TOTAL CO2 27.6 MEQ/L (22.0-29.0)
[2020-07-18 06:08] LABS: ABG PARTIAL PRESSURE CO2 63.3 mmHg (35.0-45.0); ABG pH (ARTERIAL) 7.226 UNITS (7.350-7.450)
[2020-07-18] MEDS: IPRATROPIUM HFA INHALER 12.9 GRAMS (ATROVENT HFA) INH SCH ×4 (08:00→20:00)
[2020-07-18] MEDS: ALBUTEROL 90 MCG/ACT 8GM HFA INHALER INH SCH ×4 (08:00→20:00)
[2020-07-18] MEDS ORDERED: DARBEPOETIN 200MCG/0.4ML *DIALYSIS* SYRINGE (J0882 PER 1MCG) IV SCH (09:30)
[2020-07-18] MEDS: MIDODRINE 5 MG TAB PO SCH ×3 (10:04→16:47)
[2020-07-18] MEDS: predniSONE 20 MG TAB PO SCH (10:04)
[2020-07-18] MEDS: PANTOPRAZOLE 40MG TAB (PROTONIX) PO SCH (10:04)
[2020-07-18] MEDS: carBAMazepine XR 200 MG TAB PO SCH ×2 (10:04→20:01)
--- NOTE | 2020-07-18 11:07 | CCN ---
DATE: 07/17/2020 SUBJECTIVE: Patient was seen and examined today morning in the intensive care unit (ICU). Last 24 hour events were noted. Patient was in hypoxic and hypercapnic respiratory failure last night, he needed to be placed on bilevel positive airway pressure (BIPAP). His breathing is slightly better today, however he has pulmonary edema on the x-ray. He is supposed to be dialyzed today but because of an inadvertent exposure to COVID-19 he is under isolation and he would need to be dialyzed at the end of the day with an isolation machine. Patient is otherwise agitated and he is frustrated, he wanted to leave but he cannot be sent home because he would need 14 days of isolation and there will be no transportation available to transport him from his home to the dialysis center. OBJECTIVE: Vital signs: Temperature is 98 degrees Fahrenheit, blood pressure 101/50, pulse is 77, respiratory rate of 22, saturating 90% on nasal cannula at one liter. Intake and output: There is no significant urine output recorded. Weight in the bed scale is not available. PHYSICAL EXAMINATION: General: Patient is awake and alert but agitated and frustrated, laying in bed. Head and neck exam: Extraocular muscles intact. Pupils equally round and reactive to light. Mucous membranes are moist. Neck is supple. Moderately elevated jugular venous distension (JVD). Cardiovascular: S1, S2, regular rate. 2+ edema of the bilateral lower extremities. Respiratory: Decreased breath sounds bilaterally at the bases. Inspiratory crackles bilaterally at the bases up to the mid-lung zone. Abdomen: Soft, positive bowel sounds, nontender, no organomegaly. Musculoskeletal: No clubbing or cyanosis. Pulses are 2+. Central nervous system (MASH FILTER CLOTH CHANGER): No focal deficits. Power is 5/5 in all extremities. LABORATORY REVIEW: CBC showed WBC of 7.4, hemoglobin 9.7, platelets are 210. BMP showed sodium 139, potassium 5.2, chloride 93, bicarbonate 26, BUN 73, creatinine of 5.8, A1c 5.9. Microbiology: Patient has Human rhinovirus/enterovirus infection. IMAGING: A chest x-ray was done last night which showed pulmonary edema and vascular congestion. CURRENT INPATIENT MEDICATIONS: Patients medications were all reviewed by myself. He is on meropenem and vancomycin at this time. His insulin dose has been changed to Levemir 30 units subcutaneous nightly. He is on insulin Lispro sliding scale. He continues to be on midodrine. Solu-Medrol has been stopped and he has been on prednisone 40 mg by mouth daily. ASSESSMENT AND PLAN: 1. End-stage renal disease. Today is patients regular day of dialysis. He will be dialyzed. Because of COVID precautions, it will be at the end of the day. 2. Fluid overload and hypoxemia. As mentioned above, patient needs to get dialysis done and have fluid removed. He was dialyzed two days in a row over the weekend as well. However, he still has vascular congestion and pulmonary edema on the x-ray. I will try to remove at least 3 kg of fluid today at the bedside. 3. Human rhinovirus/enterovirus infection and hypercapnia. Patient was on bilevel positive airway pressure (BIPAP) overnight. He is refusing the BIPAP at this time. He has been started on steroids and nebulization. Rest of the management is as per pulmonary recommendations. He has been empirically started on meropenem and vancomycin as well. 4. Insulin-dependent diabetes type 1. Patient is on insulin at this time. He has developed diabetic ketoacidosis. Beta-hydroxybutyrate is high. He was given a dose of IV insulin. His subcutaneous insulin dose has been increased. Hemodialysis done at the bedside would help improve his ketoacidosis as well. 5. Chronic hypotension. Continue current dose of midodrine 10 mg by mouth three times a day. 6. Hyperkalemia. Patient will be dialyzed with a 2K bath that will help improve his potassium level. 7. Anemia in end-stage renal disease. Hemoglobin is 9.7. I will start him on a dose of Aranesp with hemodialysis. He was already given a blood transfusion during this hospitalization because of gastrointestinal (GI) bleed. Total critical care time spent in the management of this patient today morning in the intensive care unit (ICU) excluding all the procedures was 35 minutes. MTDD
[2020-07-18 11:50] LABS: BASO % 0.4 % (0.0-1.0); EOS # 0.1 10^3/uL (0.0-0.5); EOS % 0.9 % (0.0-3.0); HEMATOCRIT 35.1 % (42.0-52.0); LYMPH # 0.4 10^3/uL (1.5-5.0); LYMPH % 5.8 % (24.0-44.0); MEAN CORPUSCULAR HEMOGLOBIN 32.3 pg (27.0-33.0); MEAN CORPUSCULAR HGB CONC 31.3 g/dl (32.0-36.5); MEAN CORPUSCULAR VOLUME 102.9 fl (80.0-96.0); MONO # 0.4 10^3/uL (0.0-0.8); MONO % 5.6 % (0.0-5.0); NEUTROPHILS % 86.6 % (36.0-66.0); PLATELET COUNT, AUTOMATED 212 10^3/uL (150-450); RED BLOOD COUNT 3.41 10^6/uL (4.30-6.10)
[2020-07-18 12:19] LABS: ACETONE/KETONE 0.48 MG/DL (<2.81); ALBUMIN 2.6 GM/DL (3.2-5.2); BILIRUBIN,TOTAL 0.4 MG/DL (0.2-1.0); CALCIUM LEVEL 7.9 MG/DL (8.5-10.1); CREATININE FOR GFR 3.6 MG/DL (0.70-1.30); GLOMERULAR FILTRATION RATE 18.7 (>56); MAGNESIUM LEVEL 2.2 MG/DL (1.8-2.4); PHOSPHORUS LEVEL 6.3 MG/DL (2.5-4.9); POTASSIUM SERUM 4.4 MEQ/L (3.5-5.1)
--- NOTE | 2020-07-18 13:22 | IPNPDOC ---
Text Note Date of Service The patient was seen on 07/18/20. NOTE Subjective: Patient is a 55-year-old male who presented to the hospital with hypotension. Patient has end-stage renal disease and gets dialysis Friday, , and Friday. Patient had not been compliant with his dialysis over the last few days. Patient had been refusing all treatments while in the intensive care unit including noninvasive positive pressure ventilation. Patient had hyperglycemia yesterday which was treated with rapid acting insulin. Overnight and into this morning, patient had multiple episodes of hypoglycemia which had to be treated with D50 and glucagon. Patient is slightly obtunded today while talking to him and is not answering questions fully appropriately. Review of systems: Difficult to obtain as patient was not fully answering questions. Physical exam: Vitals: See below General: Alert and oriented to name and year but not place male patient who was laying in bed complaining that he was very cold. Patient does not appear to be in any acute distress. HEENT: Normocephalic, atraumatic, moist mucous membranes. Cardiac: Regular rate and rhythm, no murmurs, normal S1, normal S2 Pulm: Clear to auscultation bilaterally. No wheezes, rhonchi, rales Abd: Nondistended, nontender to palpation, normal bowel sounds Ext: Trace pitting edema bilateral lower extremities Labs: See below Imaging: No imaging is been performed since 07/16/2020 Assessment/plan: Patient is a 55-year-old male presented to the hospital with hypotension and shortness of breath 2 weeks. Patient had been to dialysis the day prior to coming into the hospital 1. Altered mental status. Patient had acute toxic encephalopathy due to morphine, Haldol, Ativan adverse effect which has resolved. Patient also had acute hypercapnic respiratory failure which she was giving noninvasive positive pressure ventilation for which is resolved. Patient had hypoglycemia this morning and once the hypoglycemia was addressed, the patient's mental status did improve. Patient was able to eat breakfast later on this morning. We'll continue to monitor the patient. 2. End-stage renal disease. Patient will continue dialysis we appreciate nephrology's help in treating the patient. 3. Uncontrolled type 2 diabetes insulin-dependent, patient was hyperglycemic yesterday and received about 60 units of rapid acting insulin. Patient was hypoglycemic this morning. Patient's Levemir has been decreased back to 25 units daily at bedtime and patient will continue on sliding scale insulin at this time. We will continue with the hypoglycemic protocol. 4. Hypotension. Patient's blood pressure is within normal range at this point he'll continue with dialysis 3 times a week. 5. Chronic atrial fibrillation. Patient had been on Eliquis however, he had been stopped secondary to anemia. 6. Anemia. Patient's hemoglobin is 11.0. Patient has been receiving blood transfusions during dialysis. 7. HHS with steroid-induced hyperglycemia. This is resolved and has become hypoglycemia. This is also resolved. 8. Shortness of breath. Patient had a respiratory panel that was positive for human rhinovirus/enterovirus. Patient also has questionable pneumonia and was started on empiric vancomycin and meropenem. We will continue this at this time. 9. Diabetic ketoacidosis. Patient's beta hydroxybutyrate was elevated yesterday. Normal this morning after dialysis yesterday. DVT prophylaxis: Thromboembolic deterrent stockings and sequential devices Disposition: Patient is clinically improving however, he is refusing most care at this time. Patient did threateningly AGAINST MEDICAL ADVICE yesterday however, he stayed for dialysis and was unable to get a ride home yesterday so he stayed overnight. At this point he would need to work with physical therapy to get stronger in order to be safely discharged home. VS,Fishbone, I+O VS, Fishbone, I+O Laboratory Tests 07/17/20 17:25 07/18/20 11:28 Vital Signs Date Time Temp Pulse Resp B/P (MAP) Pulse Ox O2 Delivery O2 Flow Rate FiO2 07/18/20 08:00 97.2 66 16 116/43 (67) 94 Room Air 07/18/20 07:00 35 07/18/20 05:00 2.0 I&O- Last 24 Hours up to 6 AM 07/18/20 06:00 Intake Total 1145 ml Output Total 3000 ml Balance -1855 ml GME ATTESTATION GME ATTESTATION My faculty preceptor for this patient encounter was physically present during the encounter and was fully available. All aspects of the patient interview, examination, medical decision making process, and medical care plan development were reviewed and approved by the faculty preceptor. The faculty preceptor is aware and concurs with the plan as stated in the body of this note and will attest to such by his/her cosignature. ATTENDING NOTE I, Sita Banda, have independently examined this patient and performed my own physical exam, as well as reviewed the documentation and edited where necessary. I have discussed in detail with the resident / student the findings and plan of treatment as documented by the resident / student and edited their note. I agree with their findings and treatment plan and have edited their documentation. I will continue to follow the patient during this hospital stay. Questionable HCAP - Currently on Vancomycin and Meropenem - Will check MRSA screen - Procalcitonin equivocal - Will de-escalate antibiotics to PO form LOPEZ PARADA DO Jul 18, 2020 13:22 SITA BNADA MD Jul 18, 2020 14:20
[2020-07-18] MEDS: LANTHANUM CARBONATE 500 MG CHEW TABLET PO SCH ×2 (13:34→16:47)
--- NOTE | 2020-07-18 14:28 | IPN ---
DATE: 07/18/2020 SUBJECTIVE: The patient was seen and examined at the bedside today morning in the ICU. He was sitting up and eating his breakfast when I saw him. He was dialyzed last night, 3 liters of fluid was removed. He tolerated the procedure well. His breathing is slightly better today as compared with yesterday. He still has evidence of respiratory acidosis with CO2 retention and he is refusing the BiPAP. PHYSICAL EXAMINATION: VITAL SIGNS: Temperature is 97.2 degrees Fahrenheit, blood pressure 116/43, pulse is 66, respiratory rate is 16, saturating 94% on room air. Intake and output: Ultrafiltration with hemodialysis was 3 liters yesterday. GENERAL: Patient is awake, alert, and oriented x3, sitting up in the bed. HEAD AND NECK: Extraocular muscles intact. Pupils equally round and reactive to light. Mucous membranes are moist. Neck is supple. Mildly elevated JVD. CARDIOVASCULAR: S1, S2, regular rate. 1+ edema of the bilateral lower extremities. RESPIRATORY: Decreased breath sounds at the bases with expiratory rhonchi bilaterally up to the mid lung zones. ABDOMEN: Soft, positive bowel sounds, nontender. MUSCULOSKELETAL: No clubbing or cyanosis. 1+ edema of the extremities and they are tender to deep palpation. SAIL REPAIRER: No focal deficit. Power is 5/5 in all extremities. LABORATORY DATA: CBC showed WBC of 7, hemoglobin 11, platelets are 212,000. ABG done today morning showed a pH of 7.22, pCO2 of 63, pO2 of 104, bicarbonate is 27, O2 sat is 97%. BNP done today morning showed a sodium of 137, potassium 4.4, chloride 100, bicarbonate is 30, BUN 41, creatinine is 3.6. Calcium is 7.9, phosphorus is 6.3. Albumin is 2.6. Beta hydroxybutyrate repeat today is 0.48. CURRENT INPATIENT MEDICATIONS: Patients medications were all reviewed by myself. He is currently on prednisone 40 mg p.o. daily, insulin dose has been changed to 25 units q.h.s., and he continues to be on Meropenem 500 mg IV q. 24 hourly, he is supposed to be on nebulizations but he is refusing it. ASSESSMENT AND PLAN: 1. Endstage renal disease. Patient is dialysis dependent. He was dialyzed last night. No urgent need of hemodialysis today. Hemodialysis will be done tomorrow morning. 2. Hypercapnic respiratory failure with human rhinovirus and enterovirus infection. Patient is refusing BiPAP. He still has evidence of respiratory acidosis. Continue the steroids. He is refusing the nebulizations. He is otherwise oxygenating well on nasal cannula. 3. Diabetes mellitus Type 1. His beta hydroxybutyrate is within the normal range. Insulin dose has been changed. Glucose levels are better now. 4. Chronic hypotension, continue current dose of Midodrine. 5. Anemia and endstage renal disease. He is on Aranesp now. Hemoglobin is within the acceptable range. 6. Chronic kidney disease, mineral bone disease. His phosphorus levels are high. He is noncompliant with the binders as an outpatient. I am going to start him on Lanthanum with meals. MTDD
[2020-07-18] MEDS: MEROPENEM INJ 500 MG in IV 1 EA IV SCH (16:48)
[2020-07-18] MEDS: LEVEMIR (INSULIN DETEMIR) 1 UNITS/0.01ML SC SCH (20:00)
[2020-07-19 04:30] VITALS: BP 98/52
[2020-07-19] MEDS: IPRATROPIUM HFA INHALER 12.9 GRAMS (ATROVENT HFA) INH SCH ×5 (08:03→19:58)
[2020-07-19] MEDS: ALBUTEROL 90 MCG/ACT 8GM HFA INHALER INH SCH ×5 (08:03→19:59)
[2020-07-19 08:21] LABS: BASO % 0.2 % (0.0-1.0); EOS # 0.1 10^3/uL (0.0-0.5); EOS % 1.5 % (0.0-3.0); HEMATOCRIT 33.6 % (42.0-52.0); HEMOGLOBIN 10.6 g/dl (13.5-17.5); LYMPH # 0.5 10^3/uL (1.5-5.0); LYMPH % 9.6 % (24.0-44.0); MEAN CORPUSCULAR HEMOGLOBIN 32.3 pg (27.0-33.0); MEAN CORPUSCULAR HGB CONC 31.5 g/dl (32.0-36.5); MEAN CORPUSCULAR VOLUME 102.4 fl (80.0-96.0); MONO # 0.4 10^3/uL (0.0-0.8); NEUTROPHILS # 4.4 10^3/uL (1.5-8.5); NEUTROPHILS % 80.3 % (36.0-66.0); PLATELET COUNT, AUTOMATED 201 10^3/uL (150-450); RED BLOOD COUNT 3.28 10^6/uL (4.30-6.10); WHITE BLOOD COUNT 5.5 10^3/uL (4.0-10.0)
[2020-07-19] MEDS: carBAMazepine XR 200 MG TAB PO SCH ×2 (08:46→21:53)
[2020-07-19] MEDS: PANTOPRAZOLE 40MG TAB (PROTONIX) PO SCH (08:46)
[2020-07-19] MEDS: MIDODRINE 5 MG TAB PO SCH ×3 (08:46→16:52)
[2020-07-19] MEDS: predniSONE 20 MG TAB PO SCH (08:46)
[2020-07-19 08:47] LABS: CALCIUM LEVEL 7.1 MG/DL (8.5-10.1); CREATININE FOR GFR 4.82 MG/DL (0.70-1.30); GLOMERULAR FILTRATION RATE 13.4 (>56); MAGNESIUM LEVEL 2.3 MG/DL (1.8-2.4); POTASSIUM SERUM 4.6 MEQ/L (3.5-5.1)
[2020-07-19] MEDS: HumaLOG INSULIN (NovoLOG) PER UNIT SC SCH ×4 (08:47→21:53)
[2020-07-19] MEDS: LANTHANUM CARBONATE 500 MG CHEW TABLET PO SCH ×3 (08:47→18:00)
--- NOTE | 2020-07-19 11:08 | IPNPDOC ---
Text Note Date of Service The patient was seen on 07/19/20. NOTE Subjective: Patient is a 55-year-old male who presented to the hospital hypotension after dialysis. Patient has end-stage renal disease and is on a Friday, , and Friday schedule. Patient had dialysis yesterday and is been doing well since. Patient was having episodes of hypoglycemia yesterday however, his blood sugars have stabilized and he is feeling much better. Patient states he is hungry today but does not have any acute complaints. Review of systems: General: Patient denies fevers HEENT: Patient denies headaches Cardiovascular: Patient denies chest pain Respiratory: Patient denies shortness of breath, cough GI: Patient denies abdominal pain, nausea, vomiting, diarrhea : Patient denies increased frequency or pain with urination Extremities: Patient denies swelling or pain in extremities Physical exam: Vitals: See below General: Alert and oriented male patient who was sitting on the side of the bed when I walked into the room. Patient was eating breakfast and did not appear to be in any acute distress. HEENT: Normocephalic, atraumatic, moist mucous membranes. Cardiac: Regular rate and rhythm, no murmurs, normal S1, normal S2 Pulm: Clear to auscultation bilaterally. No wheezes, rhonchi, rales Abd: Nondistended, nontender to palpation, normal bowel sounds Ext: No edema bilateral lower extremities Labs: See below Imaging: No new imaging has been performed since 07/16/2020 Assessment/plan: Patient is a 55-year-old male presented with hypotension and having episodes of hypoglycemia. Patient's is doing well at this time. 1. Altered mental status, resolved. Patient had acute toxic encephalopathy due to morphine, Haldol, Ativan adverse effect which has resolved. Patient also had acute hypercapnic respiratory failure which required noninvasive positive pressure ventilation. This has also resolved. Patient's hyperglycemia has also resolved he is doing much better. 2. End-stage renal disease. Patient will continue with dialysis and we appreciate nephrology's help in treating the patient. 3. Uncontrolled type 2 diabetes insulin-dependent. Patient was hypoglycemic yesterday however, his blood sugars have become within normal range. Continue sliding scale and Levemir at adjusted dose. 4. Hypotension. Patient's blood pressures with normal range and will continue dialysis. 5. Chronic atrial fibrillation. Patient had been off was however, it had been stopped secondary to anemia. 6. Anemia. Patient's he will was 11.0 and he has received blood transfusions during dialysis. 7. HHS with steroid-induced hyperglycemia. This is resolved. 8.. Shortness of breath. Patient's respiratory panel is positive for human Casa virus/Enterra virus. Patient had questionable pneumonia (Healthcare associate pneumonia) and was started on empiric vancomycin and meropenem. Neomycin meropenem have been discontinued and the patient has been switched to oral moxifloxacin. 9.. Diabetic ketoacidosis patient's beta hydroxybutyrate was elevated 2 days ago but was normal after dialysis today. DVT Prophylaxis: Thromboembolic deterrent stockings and sequential devices Disposition: Patient is medically stable at this time and the patient is also cleared physical therapy however, due to issues with being exposed to COVID-19 in needing a quarantine while needing dialysis, patient has been unable to be discharged. Patient has been transferred to [facility] status. VS,Lukas, I+O VS, Lukas, I+O Laboratory Tests 07/18/20 11:28 07/19/20 07:58 Vital Signs Date Time Temp Pulse Resp B/P (MAP) Pulse Ox O2 Delivery O2 Flow Rate FiO2 07/19/20 04:30 98.1 64 18 98/52 (67) 98 Room Air 07/18/20 07:00 35 07/18/20 05:00 2.0 I&O- Last 24 Hours up to 6 AM 07/19/20 06:00 Intake Total 510 ml Output Total 0 ml Balance 510 ml GME ATTESTATION GME ATTESTATION My faculty preceptor for this patient encounter was physically present during the encounter and was fully available. All aspects of the patient interview, examination, medical decision making process, and medical care plan development were reviewed and approved by the faculty preceptor. The faculty preceptor is aware and concurs with the plan as stated in the body of this note and will attest to such by his/her cosignature. ATTENDING NOTE I, Sita Banda, have independently examined this patient and performed my own physical exam, as well as reviewed the documentation and edited where necessary. I have discussed in detail with the resident / student the findings and plan of treatment as documented by the resident / student and edited their note. I agree with their findings and treatment plan and have edited their documentation. I will continue to follow the patient during this hospital stay. LOPEZ PARADA DO Jul 19, 2020 11:08 SITA BANDA MD Jul 19, 2020 13:07
[2020-07-19] MEDS: MOXIFLOXACIN 400 MG TAB PO SCH (13:59)
[2020-07-19] MEDS: ACETAMINOPHEN TAB 650MG DOSE (2X325MG) PO PRN (18:44)
[2020-07-19] MEDS: LEVEMIR (INSULIN DETEMIR) 1 UNITS/0.01ML SC SCH (21:52)
[2020-07-20 06:00] VITALS: BP 101/46
[2020-07-20] MEDS: MOXIFLOXACIN 400 MG TAB PO SCH (06:05)
[2020-07-20 07:01] LABS: BASO % 0.4 % (0.0-1.0); EOS % 0.6 % (0.0-3.0); HEMATOCRIT 35.8 % (42.0-52.0); HEMOGLOBIN 11.1 g/dl (13.5-17.5); LYMPH # 0.4 10^3/uL (1.5-5.0); LYMPH % 7.8 % (24.0-44.0); MEAN CORPUSCULAR HEMOGLOBIN 32.2 pg (27.0-33.0); MEAN CORPUSCULAR VOLUME 103.8 fl (80.0-96.0); MONO # 0.5 10^3/uL (0.0-0.8); MONO % 9.5 % (0.0-5.0); NEUTROPHILS # 4.4 10^3/uL (1.5-8.5); NEUTROPHILS % 81.3 % (36.0-66.0); PLATELET COUNT, AUTOMATED 244 10^3/uL (150-450); RED BLOOD COUNT 3.45 10^6/uL (4.30-6.10); WHITE BLOOD COUNT 5.4 10^3/uL (4.0-10.0)
[2020-07-20 07:26] LABS: CREATININE FOR GFR 3.92 MG/DL (0.70-1.30); GLOMERULAR FILTRATION RATE 16.9 (>56); MAGNESIUM LEVEL 2.2 MG/DL (1.8-2.4); POTASSIUM SERUM 4.2 MEQ/L (3.5-5.1)
[2020-07-20] MEDS: IPRATROPIUM HFA INHALER 12.9 GRAMS (ATROVENT HFA) INH SCH ×4 (07:38→19:42)
[2020-07-20] MEDS: ALBUTEROL 90 MCG/ACT 8GM HFA INHALER INH SCH ×4 (07:38→19:42)
--- NOTE | 2020-07-20 07:47 | IPN ---
DATE: 07/19/2020 SUBJECTIVE: The patient was seen and examined at the bedside today morning. The patient reports that his shortness of breath is significantly better today as compared with yesterday. His breathing is also improving. He denies any fevers or chills. Today is his regular day of dialysis. He wants his diet to be liberalized. He does not like the renal diet. OBJECTIVE: VITAL SIGNS: Temperature is 98.1 degrees Fahrenheit, blood pressure 98/52, pulse of 64, respiratory rate of 18, saturating 98% on room air. Intake and Output Urine output is not recorded. Weight on the bed scale is 67 kg. PHYSICAL EXAMINATION: GENERAL APPEARANCE: The patient is awake, alert, oriented x3, sitting up on the sofa, in no apparent distress. HEAD AND NECK: The extraocular muscles are intact. He is wearing glasses. Mucous membranes are moist. Neck is supple. There is no jugular venous distention. CARDIOVASCULAR: S1, S2, regular rate. EXTREMITIES: 2+ edema in the bilateral lower extremities. RESPIRATORY: Mild expiratory rhonchi bilaterally in both the upper and lower lung zones. No crepitations are noted. ABDOMEN: Soft, positive bowel sounds, nontender, no organomegaly. MUSCULOSKELETAL: No clubbing or cyanosis, 2+ edema noted. COMPONENT DESIGN ENGINEER: No focal deficits. Strength is 5/5 in all extremities. LAB REVIEW: CBC showed a WBC of 5.5, hemoglobin 10.6, platelets are 201. BMP showed sodium 137, potassium 4.6, chloride 103, bicarbonate 22, BUN 58, creatinine is 4.8, calcium 7.1. CURRENT INPATIENT MEDICATIONS: The patients IV Meropenem has been stopped now. He still continues to be on Prednisone. He has been started on Moxifloxacin 400 mg p.o. daily. ASSESSMENT AND PLAN: 1. End-stage renal disease - The patient will be dialyzed today in the afternoon. I will try to remove at least 3 kg of fluid as tolerated by his blood pressure. 2. Human Rhinovirus and Entero virus infection with hypercapnia - The patient is getting steroids and empiric antibiotic coverage. He is getting nebulizations. He refused BIPAP. His breathing and wheezing is clinically better now. 3. Chronic hypotension - continue current dose of Midodrine. The patient tolerates hemodialysis with low blood pressures. 4. Anemia and end-stage renal disease - continue current dose of Aranesp. 5. Chronic kidney disease mineral bone disease. Phosphorous levels were high. He was started on Lanthanum yesterday. 6. Diabetes mellitus type 1 - The patient is currently on insulin, Lispro and Levemir. Glucose levels are within the acceptable range. MTDD
[2020-07-20] MEDS: LANTHANUM CARBONATE 500 MG CHEW TABLET PO SCH ×3 (08:22→18:10)
[2020-07-20] MEDS: HumaLOG INSULIN (NovoLOG) PER UNIT SC SCH ×4 (08:23→21:00)
[2020-07-20] MEDS: carBAMazepine XR 200 MG TAB PO SCH ×2 (08:23→21:37)
[2020-07-20] MEDS: predniSONE 20 MG TAB PO SCH (08:23)
[2020-07-20] MEDS: MIDODRINE 5 MG TAB PO SCH ×3 (08:23→18:11)
[2020-07-20] MEDS: PANTOPRAZOLE 40MG TAB (PROTONIX) PO SCH (08:23)
[2020-07-20] MEDS: LEVEMIR (INSULIN DETEMIR) 1 UNITS/0.01ML SC SCH ×2 (12:32→21:36)
[2020-07-20 14:00] VITALS: BP 123/53
[2020-07-21] MEDS: PANTOPRAZOLE 40MG TAB (PROTONIX) PO SCH (05:45)
[2020-07-21] MEDS: predniSONE 20 MG TAB PO SCH (05:45)
[2020-07-21] MEDS: MOXIFLOXACIN 400 MG TAB PO SCH (05:45)
[2020-07-21] MEDS: carBAMazepine XR 200 MG TAB PO SCH ×2 (05:45→20:46)
[2020-07-21] MEDS: MIDODRINE 5 MG TAB PO SCH ×4 (05:46→16:00)
[2020-07-21 05:55] VITALS: BP 120/82
[2020-07-21 06:37] LABS: BASO # 0.1 10^3/uL (0.0-0.2); BASO % 0.8 % (0.0-1.0); EOS # 0.1 10^3/uL (0.0-0.5); EOS % 1.9 % (0.0-3.0); HEMATOCRIT 36.1 % (42.0-52.0); HEMOGLOBIN 11.2 g/dl (13.5-17.5); LYMPH # 0.7 10^3/uL (1.5-5.0); LYMPH % 11.7 % (24.0-44.0); MEAN CORPUSCULAR VOLUME 103.1 fl (80.0-96.0); MONO # 0.5 10^3/uL (0.0-0.8); NEUTROPHILS # 4.5 10^3/uL (1.5-8.5); NEUTROPHILS % 76.1 % (36.0-66.0); PLATELET COUNT, AUTOMATED 268 10^3/uL (150-450); WHITE BLOOD COUNT 5.9 10^3/uL (4.0-10.0)
[2020-07-21 06:58] LABS: CALCIUM LEVEL 7.5 MG/DL (8.5-10.1); CREATININE FOR GFR 5.12 MG/DL (0.70-1.30); GLOMERULAR FILTRATION RATE 12.5 (>56); MAGNESIUM LEVEL 2.2 MG/DL (1.8-2.4); POTASSIUM SERUM 3.9 MEQ/L (3.5-5.1)
[2020-07-21] MEDS: ALBUTEROL 90 MCG/ACT 8GM HFA INHALER INH SCH ×4 (07:32→19:39)
[2020-07-21] MEDS: IPRATROPIUM HFA INHALER 12.9 GRAMS (ATROVENT HFA) INH SCH ×4 (07:32→19:39)
[2020-07-21] MEDS: LANTHANUM CARBONATE 500 MG CHEW TABLET PO SCH ×4 (08:00→18:00)
[2020-07-21] MEDS: LEVEMIR (INSULIN DETEMIR) 1 UNITS/0.01ML SC SCH ×2 (08:06→20:46)
[2020-07-21] MEDS: HumaLOG INSULIN (NovoLOG) PER UNIT SC SCH ×4 (08:07→20:46)
[2020-07-21] MEDS ORDERED: LIDOCAINE 1% SDV 5ML VIAL SQ ONE (10:15)
--- NOTE | 2020-07-21 11:22 | IPN ---
DATE: 07/20/2020 SUBJECTIVE: The patient was seen and examined at the bedside today morning. He is afebrile and hemodynamically stable. He was dialyzed yesterday. He tolerated the hemodialysis procedure well. He does report mild shortness of breath. OBJECTIVE: VITAL SIGNS: Temperature 98.7 degrees Fahrenheit, blood pressure 101/46, pulse 61, respiratory rate 18, saturating 92% on room air. INTAKE AND OUTPUT: Urine output is not recorded. Ultrafiltration with hemodialysis was 3 liters yesterday. Weight in the bed scale was 67 kg. PHYSICAL EXAMINATION: GENERAL: Patient is awake, alert, and oriented x3, sitting up in the bed, in no apparent distress. HEAD AND NECK: Extraocular muscles intact. Pupils equally round and reactive to light. Mucous membranes are moist. Neck is supple. There is no JVD. CARDIOVASCULAR: S1, S2, regular rate. 1+ edema of the bilateral lower extremities. RESPIRATORY: Mild inspiratory and expiratory rhonchi bilaterally at the bases and mid lung zones. ABDOMEN: Soft, positive bowel sounds, nontender. No organomegaly. MUSCULOSKELETAL: 1+ edema of the extremities and they are tender to deep palpation. BIOLOGICAL SCIENCE TECHNICIAN: No focal deficit. Power is 5/5 in all extremities. LABORATORY DATA: CBC showed WBC 5.4, hemoglobin 11.1, platelets 244,000. BNP showed sodium 135, potassium 4.2, chloride 99, bicarb 24, BUN 45, creatinine 3.9, sugar 427. CURRENT INPATIENT MEDICATIONS: Patients medications were all reviewed by myself. His insulin Levemir has been changed to 15 units subcutaneously twice a day. He continues to be on prednisone 40 mg p.o. daily. No other significant change in the medications today as compared with yesterday. ASSESSMENT AND PLAN: 1. End-stage renal disease: Patient was dialyzed yesterday, his volume status is optimal. I offered him another session of ultrafiltration, but he does not want to go for dialysis today. His next dialysis session will be done tomorrow. 2. Anemia and end-stage renal disease: He is currently on Aranesp, hemoglobin level is optimal now. 3. Hypotension: Blood pressure is controlled with current dose of Midodrine. 4. Shortness of breath secondary to human rhinovirus and enterovirus infection: Continue current dose of prednisone, which can be slowly tapered down over the next few days. Continue nebulizations. He refused BiPAP. Diabetes mellitus type 1: Patient was hyperglycemic today. His Levemir dose has been increased. He continues to be on insulin sliding scale. MTDD
[2020-07-21 22:00] VITALS: BP 152/55
[2020-07-22] MEDS: MOXIFLOXACIN 400 MG TAB PO SCH (05:50)
[2020-07-22 06:00] VITALS: BP 136/74
[2020-07-22 06:59] LABS: BASO % 0.5 % (0.0-1.0); EOS # 0.1 10^3/uL (0.0-0.5); EOS % 1.7 % (0.0-3.0); HEMATOCRIT 35.8 % (42.0-52.0); HEMOGLOBIN 11.2 g/dl (13.5-17.5); LYMPH # 0.5 10^3/uL (1.5-5.0); LYMPH % 7.2 % (24.0-44.0); MEAN CORPUSCULAR HEMOGLOBIN 32.6 pg (27.0-33.0); MEAN CORPUSCULAR HGB CONC 31.3 g/dl (32.0-36.5); MEAN CORPUSCULAR VOLUME 104.1 fl (80.0-96.0); MONO # 0.5 10^3/uL (0.0-0.8); NEUTROPHILS # 5.3 10^3/uL (1.5-8.5); NEUTROPHILS % 81.1 % (36.0-66.0); PLATELET COUNT, AUTOMATED 279 10^3/uL (150-450); RED BLOOD COUNT 3.44 10^6/uL (4.30-6.10); WHITE BLOOD COUNT 6.5 10^3/uL (4.0-10.0)
[2020-07-22 07:23] LABS: CALCIUM LEVEL 7.5 MG/DL (8.5-10.1); CREATININE FOR GFR 4.46 MG/DL (0.70-1.30); GLOMERULAR FILTRATION RATE 14.6 (>56); MAGNESIUM LEVEL 2.2 MG/DL (1.8-2.4); POTASSIUM SERUM 4.5 MEQ/L (3.5-5.1)
[2020-07-22] MEDS: LANTHANUM CARBONATE 500 MG CHEW TABLET PO SCH ×3 (08:40→18:16)
[2020-07-22] MEDS: HumaLOG INSULIN (NovoLOG) PER UNIT SC SCH ×4 (08:40→21:00)
[2020-07-22] MEDS: predniSONE 10 MG TAB PO SCH (08:40)
[2020-07-22] MEDS: carBAMazepine XR 200 MG TAB PO SCH ×2 (08:41→21:45)
[2020-07-22] MEDS: MIDODRINE 5 MG TAB PO SCH ×3 (08:41→16:00)
[2020-07-22] MEDS: PANTOPRAZOLE 40MG TAB (PROTONIX) PO SCH (08:41)
[2020-07-22] MEDS: LEVEMIR (INSULIN DETEMIR) 1 UNITS/0.01ML SC SCH ×2 (08:42→21:41)
[2020-07-22] MEDS: IPRATROPIUM HFA INHALER 12.9 GRAMS (ATROVENT HFA) INH SCH ×4 (08:42→19:33)
[2020-07-22] MEDS: ALBUTEROL 90 MCG/ACT 8GM HFA INHALER INH SCH ×4 (08:42→19:33)
[2020-07-22] MEDS ORDERED: CALCIUM CARBONATE 500 MG CHEW U/D PO PRN (23:00)
[2020-07-22] MEDS ORDERED: MAALOX 30 ML SUSP *UDC PO PRN (23:00)
[2020-07-23] MEDS: MOXIFLOXACIN 400 MG TAB PO SCH (05:19)
[2020-07-23 06:00] VITALS: BP 121/70
[2020-07-23 06:51] LABS: BASO # 0.1 10^3/uL (0.0-0.2); BASO % 0.9 % (0.0-1.0); EOS # 0.2 10^3/uL (0.0-0.5); EOS % 2.2 % (0.0-3.0); HEMOGLOBIN 11.1 g/dl (13.5-17.5); LYMPH # 0.6 10^3/uL (1.5-5.0); LYMPH % 7.7 % (24.0-44.0); MEAN CORPUSCULAR HEMOGLOBIN 32.9 pg (27.0-33.0); MEAN CORPUSCULAR HGB CONC 31.7 g/dl (32.0-36.5); MEAN CORPUSCULAR VOLUME 103.9 fl (80.0-96.0); MONO # 0.6 10^3/uL (0.0-0.8); MONO % 7.7 % (0.0-5.0); NEUTROPHILS # 6.4 10^3/uL (1.5-8.5); NEUTROPHILS % 79.9 % (36.0-66.0); PLATELET COUNT, AUTOMATED 326 10^3/uL (150-450); RED BLOOD COUNT 3.37 10^6/uL (4.30-6.10)
[2020-07-23 07:15] LABS: CALCIUM LEVEL 7.7 MG/DL (8.5-10.1); CREATININE FOR GFR 5.28 MG/DL (0.70-1.30); MAGNESIUM LEVEL 2.3 MG/DL (1.8-2.4); POTASSIUM SERUM 4.6 MEQ/L (3.5-5.1)
[2020-07-23] MEDS: LANTHANUM CARBONATE 500 MG CHEW TABLET PO SCH ×3 (07:38→17:25)
[2020-07-23] MEDS: HumaLOG INSULIN (NovoLOG) PER UNIT SC SCH ×4 (07:38→22:13)
[2020-07-23] MEDS: LEVEMIR (INSULIN DETEMIR) 1 UNITS/0.01ML SC SCH ×2 (07:39→22:13)
[2020-07-23] MEDS: predniSONE 10 MG TAB PO SCH (07:40)
[2020-07-23] MEDS: PANTOPRAZOLE 40MG TAB (PROTONIX) PO SCH (07:40)
[2020-07-23] MEDS: carBAMazepine XR 200 MG TAB PO SCH ×3 (07:40→22:21)
[2020-07-23] MEDS: MIDODRINE 5 MG TAB PO SCH ×3 (07:40→17:25)
[2020-07-23] MEDS: ALBUTEROL 90 MCG/ACT 8GM HFA INHALER INH SCH ×5 (07:48→19:34)
[2020-07-23] MEDS: IPRATROPIUM HFA INHALER 12.9 GRAMS (ATROVENT HFA) INH SCH ×5 (07:48→19:34)
[2020-07-24 06:00] VITALS: BP 147/56
[2020-07-24] MEDS: MIDODRINE 5 MG TAB PO SCH ×3 (06:21→16:00)
[2020-07-24] MEDS: predniSONE 10 MG TAB PO SCH (06:21)
[2020-07-24] MEDS: PANTOPRAZOLE 40MG TAB (PROTONIX) PO SCH (06:22)
[2020-07-24] MEDS: MOXIFLOXACIN 400 MG TAB PO SCH (06:22)
[2020-07-24] MEDS: carBAMazepine XR 200 MG TAB PO SCH ×2 (06:23→21:56)
[2020-07-24] MEDS ORDERED: SENNA 8.6 MG TAB (SENOKOT) PO PRN (06:30)
[2020-07-24 06:40] LABS: BASO # 0.1 10^3/uL (0.0-0.2); BASO % 0.6 % (0.0-1.0); EOS # 0.2 10^3/uL (0.0-0.5); HEMATOCRIT 36.6 % (42.0-52.0); HEMOGLOBIN 11.3 g/dl (13.5-17.5); LYMPH # 0.7 10^3/uL (1.5-5.0); MEAN CORPUSCULAR HEMOGLOBIN 32.7 pg (27.0-33.0); MEAN CORPUSCULAR HGB CONC 30.9 g/dl (32.0-36.5); MEAN CORPUSCULAR VOLUME 105.8 fl (80.0-96.0); MONO # 0.7 10^3/uL (0.0-0.8); MONO % 8.2 % (0.0-5.0); NEUTROPHILS # 6.5 10^3/uL (1.5-8.5); NEUTROPHILS % 78.7 % (36.0-66.0); PLATELET COUNT, AUTOMATED 369 10^3/uL (150-450); RED BLOOD COUNT 3.46 10^6/uL (4.30-6.10); WHITE BLOOD COUNT 8.2 10^3/uL (4.0-10.0)
[2020-07-24 07:14] LABS: CALCIUM LEVEL 7.6 MG/DL (8.5-10.1); CREATININE FOR GFR 6.14 MG/DL (0.70-1.30); GLOMERULAR FILTRATION RATE 10.1 (>56); MAGNESIUM LEVEL 2.5 MG/DL (1.8-2.4); POTASSIUM SERUM 4.7 MEQ/L (3.5-5.1)
[2020-07-24] MEDS: ALBUTEROL 90 MCG/ACT 8GM HFA INHALER INH SCH ×4 (07:42→20:00)
[2020-07-24] MEDS: IPRATROPIUM HFA INHALER 12.9 GRAMS (ATROVENT HFA) INH SCH ×4 (07:42→20:00)
[2020-07-24] MEDS: HumaLOG INSULIN (NovoLOG) PER UNIT SC SCH ×4 (08:35→21:55)
[2020-07-24] MEDS: MIRALAX *UNIT DOSE* 17GM PACKET PO SCH (08:35)
[2020-07-24] MEDS: LANTHANUM CARBONATE 500 MG CHEW TABLET PO SCH ×3 (08:35→18:09)
[2020-07-24] MEDS: LEVEMIR (INSULIN DETEMIR) 1 UNITS/0.01ML SC SCH ×2 (08:59→21:55)
--- NOTE | 2020-07-24 10:35 | IPN ---
DATE: 07/21/2020 SUBJECTIVE: Patient was seen and examined at the bedside today morning. He is afebrile and hemodynamically stable. Today is his regular day of dialysis. His shortness of breath is getting better and his blood pressures are well- controlled. OBJECTIVE: VITAL SIGNS: Temperature 98 degrees Fahrenheit, blood pressure 120/82, pulse 65, respiratory rate 19, saturating 98% on room air. INTAKE AND OUTPUT: Urine output recorded as 450 mL. Weight on the bed scale is no available. GENERAL: Patient is awake, alert, and oriented x3. Sitting up in the bed in no apparent distress. HEAD AND NECK: Extraocular movements intact. Pupils equally round and reactive to light. Mucous membranes are moist. Neck is supple. There is no jugular venous distention (JVD). CARDIOVASCULAR: S1, S2. Regular rate. 1+ edema of the bilateral lower extremities. RESPIRATORY: Mild inspiratory rhonchi at the bases. ABDOMEN: Soft. Positive bowel sounds. Nontender. MUSCULOSKELETAL: Tender edema of the bilateral lower extremities. GAMING INVESTIGATOR: No focal deficit. Power is 5/5 in all extremities. LABORATORY REVIEW: CBC showed a WBC of 5.9, hemoglobin 11.2, platelets 268,000. BMP showed sodium 137, potassium 3.9, chloride 103, bicarb 26, BUN 64, creatinine 5.1. Calcium 7.5. Magnesium 2.2. CURRENT INPATIENT MEDICATIONS: Patients medications were all reviewed by myself. He is currently on moxifloxacin. His prednisone will be tapered down to 30 mg p.o. daily. No other change in the medications today. ASSESSMENT AND PLAN: 1. End-stage renal disease. The patient will be dialyzed in the afternoon. Ultrafiltration goal will be around 3 kg as tolerated by his blood pressure. 2. Human rhinovirus/enterovirus infection and shortness of breath. It is getting better with addition of moxifloxacin and steroids. The steroids will be tapered down now. 3. Hypotension. Blood pressure is controlled with current dose of midodrine. 4. Anemia of end-stage renal disease. Hemoglobin level is more than 11. He is currently on Aranesp 200 mcg. If it stays more than 11, then the dose will be decreased to 100 mcg. 5. Chronic kidney disease mineral bone disease. Continue current dose of lanthanum 1 gram p.o. with meals. MTDD
[2020-07-24] MEDS ORDERED: LIDOCAINE 1% SDV 5ML VIAL SQ ONE (12:15)
[2020-07-25 06:00] VITALS: BP 145/65
[2020-07-25] MEDS: MOXIFLOXACIN 400 MG TAB PO SCH (06:21)
[2020-07-25 06:50] LABS: BASO # 0.1 10^3/uL (0.0-0.2); BASO % 0.7 % (0.0-1.0); EOS # 0.2 10^3/uL (0.0-0.5); EOS % 2.6 % (0.0-3.0); HEMATOCRIT 37.3 % (42.0-52.0); HEMOGLOBIN 11.6 g/dl (13.5-17.5); LYMPH # 0.6 10^3/uL (1.5-5.0); MEAN CORPUSCULAR HEMOGLOBIN 33.2 pg (27.0-33.0); MEAN CORPUSCULAR HGB CONC 31.1 g/dl (32.0-36.5); MEAN CORPUSCULAR VOLUME 106.9 fl (80.0-96.0); MONO # 0.7 10^3/uL (0.0-0.8); MONO % 10.1 % (0.0-5.0); NEUTROPHILS # 5.5 10^3/uL (1.5-8.5); NEUTROPHILS % 76.1 % (36.0-66.0); PLATELET COUNT, AUTOMATED 337 10^3/uL (150-450); RED BLOOD COUNT 3.49 10^6/uL (4.30-6.10); WHITE BLOOD COUNT 7.3 10^3/uL (4.0-10.0)
[2020-07-25 07:16] LABS: CALCIUM LEVEL 7.4 MG/DL (8.5-10.1); CREATININE FOR GFR 4.92 MG/DL (0.70-1.30); MAGNESIUM LEVEL 2.4 MG/DL (1.8-2.4); POTASSIUM SERUM 4.1 MEQ/L (3.5-5.1)
--- NOTE | 2020-07-25 07:28 | IPN ---
DATE: 07/24/2020 SUBJECTIVE: Robert was seen and examined this morning at the bedside and later in the afternoon in the Hemodialysis Unit where he is dialyzed in isolation due to a rule out COVID status. He remains on ALC status. PHYSICAL EXAMINATION: VITAL SIGNS: Temperature 98.4, pulse 80, respiratory rate 18, blood pressure 147/56, saturating 92% on room air. Intake yesterday was 920. Goal fluid removal today will be 2-3 liters as tolerated by hemodynamics. Weight on the bed scale today is not recorded. GENERAL APPEARANCE: The patient is seen receiving his treatments, awake, alert, oriented and in no apparent distress. HEENT: The extraocular muscles are intact. Pupils are equally round and reactive to light. Mucous membranes are moist. NECK: Supple. Jugular veins are not elevated. HEART: Regular, S1, S2. EXTREMITIES: 1+ leg edema. RESPIRATORY: He is seen comfortable on room air. There is no accessory muscle use or tachypnea. There are no crackles. ABDOMEN: Soft and nontender. LUNGS: Clear to auscultation. EXTREMITIES: His left arm AV fistula is in use. There are chronic stasis changes of the lower extremities with around 1+ edema. There is tattooing on the arms. NEUROLOGICAL: He is awake and interactive and at baseline mentation. LABORATORY STUDIES: White count 8.2, hemoglobin 11.3, platelets 369. Sodium 137, potassium 4.7, magnesium 2.5. INPATIENT MEDICATIONS: The patient's medications were reviewed by myself and no change except for being started on Miralax one packet daily and Senokot one tab twice daily p.r.n. The remainder of medications are unchanged from prior. PROBLEMS: 1. End-stage renal disease on hemodialysis on Friday, Friday, Friday maintenance schedule. His electrolytes are acceptable and his fistula is in good use. There is no change made to the current prescription. 2. Anemia of end-stage renal disease he continues on Aranesp and hemoglobin is at goal. 3. Hypotension of hemodialysis he continues on Midodrine and blood pressures are acceptable and he is tolerating fluid removal. 4. Insulin dependent diabetes mellitus insulin is managed as per the Primary Team. His diabetes is very well controlled with A1c just under 6%. There is no recent documented hypoglycemic fingerstick measurement. [facility]
[2020-07-25] MEDS: MIRALAX *UNIT DOSE* 17GM PACKET PO SCH ×2 (07:57→08:02)
[2020-07-25] MEDS: LANTHANUM CARBONATE 500 MG CHEW TABLET PO SCH ×3 (07:58→17:09)
[2020-07-25] MEDS: MIDODRINE 5 MG TAB PO SCH ×3 (07:58→17:09)
[2020-07-25] MEDS: predniSONE 10 MG TAB PO SCH (07:58)
[2020-07-25] MEDS: PANTOPRAZOLE 40MG TAB (PROTONIX) PO SCH (07:58)
[2020-07-25] MEDS: carBAMazepine XR 200 MG TAB PO SCH ×2 (07:58→22:27)
[2020-07-25] MEDS: HumaLOG INSULIN (NovoLOG) PER UNIT SC SCH ×4 (07:59→21:00)
[2020-07-25] MEDS: LEVEMIR (INSULIN DETEMIR) 1 UNITS/0.01ML SC SCH ×2 (07:59→22:27)
[2020-07-25] MEDS: ALBUTEROL 90 MCG/ACT 8GM HFA INHALER INH SCH ×3 (12:00→19:49)
[2020-07-25] MEDS: IPRATROPIUM HFA INHALER 12.9 GRAMS (ATROVENT HFA) INH SCH ×3 (12:00→19:49)
--- NOTE | 2020-07-25 12:21 | IPNPDOC ---
Text Note Date of Service The patient was seen on 07/25/20. NOTE Subjective: Patient is a 55-year-old male with a PMHx of ESRD on HD (TTS), A. fib (on Eliquis), Diastolic CHF, Severe pulmonary HTN / COPD, HTN, DM2, Seizure disorder, AOCD, Neuropathy, who presented to the emergency room with complaints of shortness breath for last 2 weeks. Patient was admitted to the hospital service for acute on chronic diastolic heart failure exacerbation. Throughout hospital course patient was exposed to a COVID positive worker and was placed on quarantine (end date 07/28). Patient was seen and examined at the bedside. Currently patient is angry that he still has remained in the hospital. He denies any chest pain, shortness of breath or palpitations with seen walking around his bed. Denies any nausea, vomiting, abdominal pain, diarrhea, or constipation. Objective: Vitals (See below) General: Standing up at the bedside, does not appear to be in any distress, AAOx3 HEENT: NC, AT CVS: RRR, +S1S2 Lungs: Fair air entry b/l, -w/r/r Abdomen: Soft, ND, NT Extremities: - Edema, - Calf tenderness Assessment and plan: s/p Acute metabolic encephalopathy - likely 2/2 medications - Patient is fully oriented without any focal neurologic deficits - Imaging reviewed s/p SOB - likely 2/2 decompensated acute on chronic diastolic CHF, with history of ESRD on HD (TTS) / Severe pulmonary HTN - Clinic patient has had resolution of his shortness of breath - Physical without any signs of fluid overload Exacerbation of COPD - Clinically patient does not have any wheezing - Will continue to de-escalate/taper down prednisone - Continue with inhaled therapy as ordered A. fib - Remains rate/rhythm controlled - Will need to have full anticoagulation with Eliquis resumed prior to discharge Hypotension - BP well controlled - c/w Midodrine DM2 with Hyperglycemia - c/w ISS and Levemir - Patient has been advised to remain compliant with dietary restrictions Seizure disorder - c/w Carbamazepine AOCD - Hemoglobin has remained stable - s/p 4 units PRBC - Occult positive; no gross bleeding was noted - Patient has refused EGD / Colonoscopy - risks / benefits were discussed - patient verbalized understanding - Eliquis will be resumed Neuropathy - Not on any medications GI prophylaxis - c/w Protonix DVT prophylaxis - c/w TEDs/ Sequentials (re: Anemia) Disposition: - Patient is currently on quarantine after exposure to a Covid positive worker - PFS in process of establishing transport for outpatient hemodialysis VS,Farhanbone, I+O VS, Fishbone, I+O Laboratory Tests 07/25/20 06:16 Vital Signs Date Time Temp Pulse Resp B/P (MAP) Pulse Ox O2 Delivery O2 Flow Rate FiO2 07/25/20 06:00 99.0 71 18 145/65 (91) 93 Room Air I&O- Last 24 Hours up to 6 AM 07/25/20 06:00 Intake Total 600 ml Output Total 2500 ml Balance -1900 ml KHRIS BANDA MD Jul 25, 2020 12:21
[2020-07-26 06:00] VITALS: BP 150/76
[2020-07-26 06:23] LABS: BASO # 0.1 10^3/uL (0.0-0.2); BASO % 0.8 % (0.0-1.0); EOS # 0.1 10^3/uL (0.0-0.5); EOS % 1.3 % (0.0-3.0); HEMATOCRIT 37.4 % (42.0-52.0); HEMOGLOBIN 11.4 g/dl (13.5-17.5); LYMPH # 0.5 10^3/uL (1.5-5.0); MEAN CORPUSCULAR HEMOGLOBIN 32.6 pg (27.0-33.0); MEAN CORPUSCULAR HGB CONC 30.5 g/dl (32.0-36.5); MEAN CORPUSCULAR VOLUME 106.9 fl (80.0-96.0); MONO # 0.7 10^3/uL (0.0-0.8); MONO % 11.2 % (0.0-5.0); NEUTROPHILS # 4.8 10^3/uL (1.5-8.5); NEUTROPHILS % 76.3 % (36.0-66.0); PLATELET COUNT, AUTOMATED 330 10^3/uL (150-450); WHITE BLOOD COUNT 6.3 10^3/uL (4.0-10.0)
[2020-07-26 06:50] LABS: CALCIUM LEVEL 7.1 MG/DL (8.5-10.1); CREATININE FOR GFR 5.64 MG/DL (0.70-1.30); GLOMERULAR FILTRATION RATE 11.1 (>56); MAGNESIUM LEVEL 2.7 MG/DL (1.8-2.4)
[2020-07-26] MEDS: ALBUTEROL 90 MCG/ACT 8GM HFA INHALER INH SCH ×3 (08:00→19:30)
[2020-07-26] MEDS: IPRATROPIUM HFA INHALER 12.9 GRAMS (ATROVENT HFA) INH SCH ×3 (08:00→19:30)
[2020-07-26] MEDS: MIRALAX *UNIT DOSE* 17GM PACKET PO SCH (09:00)
[2020-07-26] MEDS: LEVEMIR (INSULIN DETEMIR) 1 UNITS/0.01ML SC SCH ×2 (09:32→20:49)
[2020-07-26] MEDS: PANTOPRAZOLE 40MG TAB (PROTONIX) PO SCH (09:33)
[2020-07-26] MEDS: predniSONE 20 MG TAB PO SCH (09:33)
[2020-07-26] MEDS: MIDODRINE 5 MG TAB PO SCH ×3 (09:33→16:00)
[2020-07-26] MEDS: carBAMazepine XR 200 MG TAB PO SCH ×2 (09:33→20:49)
[2020-07-26] MEDS: HumaLOG INSULIN (NovoLOG) PER UNIT SC SCH ×4 (09:33→20:49)
[2020-07-26] MEDS: LANTHANUM CARBONATE 500 MG CHEW TABLET PO SCH ×3 (09:33→18:40)
[2020-07-26] MEDS ORDERED: LIDOCAINE 1% SDV 5ML VIAL SQ ONE (12:00)
--- NOTE | 2020-07-26 13:47 | IPN ---
DATE: 07/26/2020 SUBJECTIVE: Patient was seen and examined this morning at the bedside. He is due for hemodialysis treatment in isolation this evening. He is not in a great mood. He wants to be discharged as soon as possible. He has been cutting his dialysis treatment time short, and he has significant peripheral edema. He denies shortness of breath or cough. Temperature 97.9, pulse 69, respiratory rate 18, blood pressure 150/76, saturating 96% on room air. Intake yesterday was 1.1 liters. Goal fluid removal with dialysis today is 2.5 liters. Weight in the bed scale today is not recorded. GENERAL: Patient is seen standing upright out of bed, walking around the room. Middle-aged male in no apparent distress. Extraocular muscles are intact. Neck is supple. Jugular veins could be assessed well while he was ambulatory but did not seem to be elevated while upright. CARDIAC: Regular rate and rhythm, S1, S2. Leg edema 2+. LUNGS: Symmetric air entry. No crackle or rale. ABDOMEN: Soft and nontender. EXTREMITIES: Show fistula in the left arm with thrill and bruit and 2+ leg edema bilaterally. NEUROLOGIC: Oriented times three, at baseline mentation. Interactive and moving all four extremities. PSYCHIATRIC: Appears frustrated. Sodium 135, potassium 5.0, bicarbonate 23, BUN 88, magnesium 2.7. Hemoglobin 11.4, INPATIENT MEDICATIONS: Reviewed by myself. Aranesp is held with his treatment today. Insulin was adjusted by the primary team. He is now on prednisone 20 mg by mouth daily. Remainder of medications is unchanged from prior. PROBLEMS: 1. End-stage renal disease, on hemodialysis. Patient is going to be dialyzed in isolation this evening. He has been cutting his treatment times short. He has increased peripheral edema, about 2+. I advised him to stay for the full treatment, and I also offered to do an additional session of ultrafiltration, but he very much refuses and declines. He is following the fluid restriction. His fistula is in good use, and his electrolytes are acceptable. 2. Diastolic congestive heart failure, decompensated. Echocardiogram from May is reviewed. Grade 2 diastolic dysfunction. Patient has increasing peripheral edema. He has been coming off of his dialysis treatments early. I offered extra ultrafiltration session, but he refused. He is following fluid restriction. 3. Anemia of end-stage renal disease. Hemoglobin an dup to 11.4, and his Aranesp is presently held. His Eliquis for atrial fibrillation is going to be resumed. 4. Shortness of breath, now improved and was secondary to rhinovirus plus chronic obstructive pulmonary disease (COPD) exacerbation plus decompensated diastolic congestive heart failure. Patient is now on oral steroid. He has significant peripheral edema, but he refuses to have an ultrafiltration session for increased fluid removal. 5. Hypotension. He continues on midodrine three times a day, which helps us with fluid removal capabilities on dialysis. [facility]
[2020-07-26 22:00] VITALS: BP 149/70
[2020-07-27 06:00] VITALS: BP 131/75
[2020-07-27] MEDS: LEVEMIR (INSULIN DETEMIR) 1 UNITS/0.01ML SC SCH ×2 (07:57→21:02)
[2020-07-27] MEDS: HumaLOG INSULIN (NovoLOG) PER UNIT SC SCH ×4 (07:58→20:55)
[2020-07-27] MEDS: PANTOPRAZOLE 40MG TAB (PROTONIX) PO SCH (07:58)
[2020-07-27] MEDS: LANTHANUM CARBONATE 500 MG CHEW TABLET PO SCH ×3 (07:58→17:26)
[2020-07-27] MEDS: predniSONE 20 MG TAB PO SCH (07:58)
[2020-07-27] MEDS: carBAMazepine XR 200 MG TAB PO SCH ×2 (07:58→21:02)
[2020-07-27] MEDS: MIRALAX *UNIT DOSE* 17GM PACKET PO SCH (07:58)
[2020-07-27] MEDS: MIDODRINE 5 MG TAB PO SCH ×3 (08:00→16:00)
[2020-07-27] MEDS ORDERED: IPRATROPIUM HFA INHALER 12.9 GRAMS (ATROVENT HFA) INH PRN (08:00)
[2020-07-27] MEDS ORDERED: ALBUTEROL 90 MCG/ACT 8GM HFA INHALER INH PRN (08:00)
[2020-07-27] MEDS: APIXABAN 5 MG TAB (ELIQUIS) PO SCH (21:02)
[2020-07-28 06:00] VITALS: BP 128/71
[2020-07-28] MEDS: MIDODRINE 5 MG TAB PO SCH ×3 (08:00→17:02)
[2020-07-28] MEDS: LANTHANUM CARBONATE 500 MG CHEW TABLET PO SCH ×3 (08:00→17:02)
[2020-07-28] MEDS: LEVEMIR (INSULIN DETEMIR) 1 UNITS/0.01ML SC SCH ×2 (08:52→21:08)
[2020-07-28] MEDS: HumaLOG INSULIN (NovoLOG) PER UNIT SC SCH ×4 (08:54→21:00)
[2020-07-28] MEDS: predniSONE 20 MG TAB PO SCH (08:55)
[2020-07-28] MEDS: APIXABAN 5 MG TAB (ELIQUIS) PO SCH ×2 (08:55→21:08)
[2020-07-28] MEDS: carBAMazepine XR 200 MG TAB PO SCH ×2 (08:55→21:08)
[2020-07-28] MEDS: MIRALAX *UNIT DOSE* 17GM PACKET PO SCH (08:59)
[2020-07-28] MEDS: PANTOPRAZOLE 40MG TAB (PROTONIX) PO SCH (08:59)
[2020-07-28] MEDS ORDERED: ELIQ5TAB PO (13:36)
[2020-07-28] MEDS ORDERED: HumaLOG INSULIN (NovoLOG) PER UNIT SC ONE (14:00)
[2020-07-29 06:00] VITALS: BP 160/81
[2020-07-29 07:02] LABS: CALCIUM LEVEL 7.4 MG/DL (8.5-10.1); CREATININE FOR GFR 5.86 MG/DL (0.70-1.30); GLOMERULAR FILTRATION RATE 10.7 (>56); PHOSPHORUS LEVEL 10.9 MG/DL (2.5-4.9); POTASSIUM SERUM 5.4 MEQ/L (3.5-5.1)
[2020-07-29] MEDS: LANTHANUM CARBONATE 500 MG CHEW TABLET PO SCH (08:00)
[2020-07-29] MEDS: HumaLOG INSULIN (NovoLOG) PER UNIT SC SCH (08:18)
[2020-07-29] MEDS: LEVEMIR (INSULIN DETEMIR) 1 UNITS/0.01ML SC SCH (08:18)
[2020-07-29] MEDS: carBAMazepine XR 200 MG TAB PO SCH (08:19)
[2020-07-29] MEDS: PANTOPRAZOLE 40MG TAB (PROTONIX) PO SCH (08:20)
[2020-07-29] MEDS: APIXABAN 5 MG TAB (ELIQUIS) PO SCH (08:20)
[2020-07-29] MEDS: predniSONE 20 MG TAB PO SCH (08:20)
[2020-07-29] MEDS: MIDODRINE 5 MG TAB PO SCH (08:21)
[2020-07-29] MEDS: MIRALAX *UNIT DOSE* 17GM PACKET PO SCH (08:22)
--- NOTE | 2020-07-29 11:08 | DS.PDOC ---
Discharge Summary General Date of Admission Jul 14, 2020 at 13:48 Date of Discharge 07/29/20 Specialist/Consultants Involve pulmonology, nephrology Discharge Summary PROCEDURES PERFORMED DURING STAY: [None]. DISCHARGE DIAGNOSES: Medical non-compliance COVID exposure - negative COVID-19 test Acute on chronic HFpEF ESRD - HD T/R/S Chronic hypotension Severe pulmonary hypertension Chronic atrial fibrillation Peripheral arterial disease Type 2 diabetes, uncontrolled Diabetic neuropathy Diabetic nephropathy Hypertensive heart disease History of seizure disorder Secondary hyperparathyroidism COPD COMPLICATIONS/CHIEF COMPLAINT: Hypotension. HISTORY OF PRESENT ILLNESS: 55-year-old male with a history of end-stage renal disease, hypertension, diabetes, diabetic nephropathy, neuropathy, chronic atrial fibrillation on anticoagulation, severe pulmonary hypertension, diastolic heart failure had dialysis Friday, , Friday 2 to about 2-1/2 L out yesterday presented to emergency room with cough productive of sputum without fever, chills and worsening shortness of breath, brought in by EMS, patient was found to be 87% on room air. Systolic pressure of 88 mmHg sugar of 443. Patient was placed on nasal cannula. Further evaluation included chest x-ray which showed mild bilateral pulmonary interstitial and airspace opacities suggestive of pulmonary edema worsened compared to 06/20/2020. Patient denied any chest pain, pressure, tightness, lightheadedness or dizziness. [facility] was consulted for emergent dialysis hospitalist was called to admit the patient. Patient denied hematemesis, coffee-ground emesis, abdominal pain, nausea, vomiting, dysuria, urgency, frequency, fever, chills, flank pain, bright red blood per rectum, melena, black tarry stools, weight gain, weight loss, changes in appetite, insomnia, tinnitus, vertigo, ear discharge, photophobia, diplopia, sore throat, upper or lower extremity paresthesias. HOSPITAL COURSE: Acute metabolic encephalopathy - likely 2/2 medications - Patient is fully oriented without any focal neurologic deficits SOB - likely 2/2 decompensated acute on chronic diastolic CHF, with history of ESRD on HD (TTS) / Severe pulmonary HTN - Clinic patient has had resolution of his shortness of breath - Physical without any signs of fluid overload Exacerbation of COPD - steroid taper - seen by pulmonology A. fib - Remains rate/rhythm controlled - a/c with Eliquis Hypotension - BP well controlled DM2 with Hyperglycemia - c/w ISS and Levemir - Patient has been advised to remain compliant with dietary restrictions Seizure disorder - c/w Carbamazepine AOCD - Hemoglobin has remained stable - s/p 4 units PRBC - Occult positive; no gross bleeding was noted - Patient has refused EGD / Colonoscopy - risks / benefits were discussed - patient verbalized understanding - Eliquis resumed - patient voiced full understanding of risks/benefits Neuropathy - Not on any medications DISCHARGE MEDICATIONS: Please see below. ALLERGIES: Please see below. PHYSICAL EXAMINATION ON DISCHARGE: VITAL SIGNS: Please see below. General: Standing up at the bedside, does not appear to be in any distress, AAOx3 HEENT: NC, AT CVS: RRR, +S1S2 Lungs: Fair air entry b/l, -w/r/r Abdomen: Soft, ND, NT Extremities: - Edema, - Calf tenderness LABORATORY DATA: Please see below. ACTIVITY: [As tolerated]. PROGNOSIS: Guarded given extensive medical history and medical non-compliance DISPOSITION: 01 Home, Self-Care. DISCHARGE INSTRUCTIONS: 1. HD as scheduled 2. PCP in 3-5 days DISCHARGE CONDITION: [Stable]. TIME SPENT ON DISCHARGE: 35 minutes. Vital Signs/I&Os Vital Signs Date Time Temp Pulse Resp B/P (MAP) Pulse Ox O2 Delivery O2 Flow Rate FiO2 07/29/20 06:00 98.4 90 18 160/81 (107) 90 Room Air I&O- Last 24 Hours up to 6 AM 07/29/20 06:00 Intake Total 1520 ml Output Total 0 ml Balance 1520 ml Laboratory Data Labs 24H Laboratory Tests 2 07/28/20 13:24: Bedside Glucose (Misc Panel) 368H 07/28/20 16:17: Bedside Glucose (Misc Panel) 239H 07/28/20 20:32: Bedside Glucose (Misc Panel) 214H 07/28/20 23:24: Bedside Glucose (Misc Panel) 317H 07/29/20 02:26: Bedside Glucose (Misc Panel) 224H 07/29/20 06:17: Anion Gap 14, Glomerular Filtration Rate 10.7L, Calcium Level 7.4L, Phosphorus Level 10.9H, Albumin 3.0L CBC/BMP Laboratory Tests 07/29/20 06:17 FSBS Laboratory Tests Test 07/28/20 13:24 07/28/20 16:17 07/28/20 20:32 07/28/20 23:24 Range/Units Bedside Glucose (Misc Panel) 368 239 214 317 70-105 MG/DL Test 07/29/20 02:26 Range/Units Bedside Glucose (Misc Panel) 224 70-105 MG/DL Discharge Medications Scheduled Apixaban (Eliquis) 5 Mg Tablet, 5 MG PO BID Carbamazepine (Carbamazepine ER) 400 Mg Tab.er.12h, 400 MG PO BID, (Reported) Cranberry Fruit Extract/Vit C (Azo Cranberry Softgel) 1 Each Capsule, 2 CAP PO TID, (Reported) Ergocalciferol (Vitamin D2) (Vitamin D2) 50,000 Units Cap, 50,000 UNITS PO QWEEK, (Reported) PATIENT TAKES ON FRIDAY Ferric Citrate (Auryxia) 210 Mg Tablet, 630 MG PO WM, (Reported) Insulin Glargine (Lantus) 1 Units/0.01 Ml Susp, 26 UNITS SC DAILY, (Reported) Insulin Human Lispro (Humalog) 1 Units/0.01 Ml Inj, 1 DOSE SC ACHS, (Reported) PER SLIDING SCALE Lanthanum Carbonate (Fosrenol) 750 Mg Powd.pack, 750 MG PO WM, (Reported) Lidocaine/Prilocaine (Lidocaine-Prilocaine Cream) 2.5%/2.5% Cream..g., 1 DOSE TOP 3XW, (Reported) PRIOR TO DIALYSIS: FRIDAY, FRIDAY AND FRIDAY Lipase/Protease/Amylase (Zenpep Dr 5,000 Unit Capsule) 1 Each Capsule.dr, 30,000 UNITS PO WM, (Reported) Prednisone (Prednisone) 10 Mg Tablet, 10 MG PO TAPER Take 4 tabs daily x 3 days, then 3 tabs daily x 3 days, then 2 tabs daily x 3 days, then 1 tab daily x 3 days and stop Scheduled PRN Albuterol Sulfate (Proair Hfa) 8.5 Gm Hfa.aer.ad, 2 PUFFS INH QID PRN for SHORTNESS OF BREATH, (Reported) Allergies Coded Allergies: No Known Allergies (Unverified , 10/03/19) BHUPINDER BLUE MD Jul 29, 2020 11:08
== END 2020-07-29 08:59 | disposition home or self-care (01) | DRG 291 ==
LOC: EDSEX 11:35 → M ED 11:35 → EDBD 11:35 → M ED INP 13:48 → ENRESERV 15:23 → M ICU 19:12 → M MSPAV 20:45 → M ICU 22:44 → M PCU 07-15 10:52 → M ICU 07-16 15:21 → UNDODISIN 07-17 11:24 → M ICU 07-17 11:31 → M MSPAV 07-19 04:30
PROVIDERS: ADMIT General Practice; ATTEND Internal Medicine
PROC: 5A1D70Z Performance of Urinary Filtration, Intermittent, Less than 6 Hours Per Day (ICD-10-PCS; principal; 2020-07-14)
PROC: 30233N1 Transfusion of Nonautologous Red Blood Cells into Peripheral Vein, Percutaneous Approach (ICD-10-PCS; 2020-07-14)
PROC: 02HV33Z Insertion of Infusion Device into Superior Vena Cava, Percutaneous Approach (ICD-10-PCS; 2020-07-16)
DX: I13.2 Hypertensive heart and chronic kidney disease with heart failure and with stage 5 chronic kidney disease, or end stage renal disease (principal); I50.33 Acute on chronic diastolic (congestive) heart failure; N18.6 End stage renal disease; J96.01 Acute respiratory failure with hypoxia; J96.02 Acute respiratory failure with hypercapnia; G92 Toxic encephalopathy; I48.20 Chronic atrial fibrillation, unspecified; N25.81 Secondary hyperparathyroidism of renal origin; J44.1 Chronic obstructive pulmonary disease with (acute) exacerbation; E11.51 Type 2 diabetes mellitus with diabetic peripheral angiopathy without gangrene; Z66 Do not resuscitate; E11.22 Type 2 diabetes mellitus with diabetic chronic kidney disease; E11.40 Type 2 diabetes mellitus with diabetic neuropathy, unspecified; I27.20 Pulmonary hypertension, unspecified; T40.2X5A Adverse effect of other opioids, initial encounter; F17.200 Nicotine dependence, unspecified, uncomplicated; I95.89 Other hypotension; E11.65 Type 2 diabetes mellitus with hyperglycemia; G40.909 Epilepsy, unspecified, not intractable, without status epilepticus; B34.8 Other viral infections of unspecified site; D63.1 Anemia in chronic kidney disease; Z99.2 Dependence on renal dialysis; Z91.19 Patient's noncompliance with other medical treatment and regimen; Z79.01 Long term (current) use of anticoagulants; Z79.82 Long term (current) use of aspirin; Z79.4 Long term (current) use of insulin; Z79.899 Other long term (current) drug therapy; Z20.828 Contact with and (suspected) exposure to other viral communicable diseases

== ENCOUNTER 2020-07-31 10:03 | Inpatient (IN) | payer MEDICARE, MEDICAID ==
[2020-07-31] VITALS (28 sets, daily range): BP systolic 98–185; BP diastolic 54–92
[~2020-07-31] VITALS: Ht 165.1 cm; Wt 76.4 kg
[~2020-07-31 10:03] MED LIST changes: +ASPI81CH33 PO; +CLOP75TA2 PO; +METO1TAB7 PO; +MOXI1TAB PO; +PRED10TA2 PO
[2020-07-31] MEDS ORDERED: ALBUTEROL SULFATE 2.5 MG/0.5 ML INH NEB SOLN INH ONE (10:30)
[2020-07-31] MEDS ORDERED: IPRATROPIUM 0.5MG/ALBUTEROL 2.5MG INH SOL UD 3ML (DUONEB) NEB ONE (10:30)
[2020-07-31] MEDS ORDERED: methylPREDNISolone 125MG 2ML VIAL IV ONE (10:45)
[2020-07-31] MEDS ORDERED: NS 1,000 ML IV ONE (10:45)
[2020-07-31] MEDS ORDERED: HumuLIN R (REGULAR) INSULIN (NovoLIN R) **100U/ML** PER UNIT IV STA (10:45)
[2020-07-31] MEDS ORDERED: CALCIUM GLUCONATE 1,000 MG in D5W MINI-BAG PLUS 100 ML IV ONE (10:45)
[2020-07-31 10:49] LABS: BASO % 0.1 % (0.0-1.0); HEMATOCRIT 37.7 % (42.0-52.0); HEMOGLOBIN 10.5 g/dl (13.5-17.5); LYMPH # 0.2 10^3/uL (1.5-5.0); LYMPH % 1.7 % (24.0-44.0); MEAN CORPUSCULAR HEMOGLOBIN 32.5 pg (27.0-33.0); MEAN CORPUSCULAR HGB CONC 27.9 g/dl (32.0-36.5); MONO # 0.6 10^3/uL (0.0-0.8); MONO % 6.5 % (0.0-5.0); NEUTROPHILS # 8.4 10^3/uL (1.5-8.5); NEUTROPHILS % 90.6 % (36.0-66.0); PLATELET COUNT, AUTOMATED 212 10^3/uL (150-450); RED BLOOD COUNT 3.23 10^6/uL (4.30-6.10); WHITE BLOOD COUNT 9.3 10^3/uL (4.0-10.0)
[2020-07-31 10:50] LABS: MEAN CORPUSCULAR VOLUME 116.7 fl (80.0-96.0)
--- NOTE | 2020-07-31 11:00 | REP ---
INDICATION: CHEST PAIN. COMPARISON: Comparison chest x-ray July 16, 2020.. TECHNIQUE: Semi-erect AP portable radiograph. FINDINGS: Monitoring electrodes are seen. Cardiomegaly is observed and there is evidence of left atrial enlargement with a double density overlying the heart. Pulmonary vasculature is cephalized congested and indistinct. There is a diffuse mild interstitial edema pattern. There is very slight blunting of the right lateral pleural angle. IMPRESSION: CHF pattern. Cardiomegaly vascular congestion diffuse interstitial edema. Slight blunting right lateral pleural angle. <Electronically signed by Chris Stone > 07/31/20 [id number]
[2020-07-31 11:09] LABS: PLATELET ESTIMATE NORMAL (NORMAL)
[2020-07-31 11:10] LABS: ANISOCYTOSIS 2+
[2020-07-31] MEDS ORDERED: INSULIN REGULAR IN 0.9 % NACL 100 UNIT in IV 1 EA IV SCH ×4 (11:11→13:00)
[2020-07-31] MEDS ORDERED: SODIUM BICARBONATE 8.4% INJ 50 ML SYRINGE IV ONE (11:15)
[2020-07-31] MEDS ORDERED: INSULIN IV RATE CHANGE DOCUMENTATION ML/HR XX SCH ×2 (11:15→13:00)
[2020-07-31] MEDS ORDERED: ELIQ5TAB PO (11:37)
[2020-07-31 11:44] LABS: HEMOGLOBIN A1c 6.5 %
[2020-07-31 11:53] LABS: ACETONE/KETONE 44.98 MG/DL (<2.81); BILIRUBIN,DIRECT 0.2 MG/DL (0.0-0.2); BILIRUBIN,TOTAL 0.6 MG/DL (0.2-1.0); FREE T4 0.53 NG/DL (0.76-1.46); THYROID STIMULATING HORMONE 2.49 uIU/ML (0.358-3.740); TOTAL PROTEIN 6.6 GM/DL (6.4-8.2)
[2020-07-31] MEDS ORDERED: ALBUTEROL 90 MCG/ACT 8GM HFA INHALER INH PRN (13:45)
[2020-07-31] MEDS: INSULIN REGULAR IN 0.9 % NACL 100 UNIT in IV 1 EA IV SCH ×8 (15:07→22:23)
--- NOTE | 2020-07-31 15:41 | HPEPDOC ---
[facility] Medical History & Physical Date of Admission Jul 31, 2020 Date of Service: Jul 31, 2020 Attending Physician: HOWIE PACHECO MD History and Physical CHIEF COMPLAINT: Altered Mental Status HISTORY OF PRESENT ILLNESS: Patient is a 55 year old male with an extensive medical history with multiple recent hospitalizations for hypotension, ESRD, and diabetic ketoacidosis who presented to the [facility] ER with altered mental status. The history is not clear due to the patients altered mental status and un willingness to participate in an examination. Per report the patient was found at home on the toilet by his friends who called EMS. Majority of the patients history is obtained from the medical records. He is reportedly noncompliant with his care and has missed his last dialysis treatment. On presentation to the ER the patient was vitally stable. Laboratory studies demonstrated a metabolic acidosis with a pH of 6.96, hyperglycemia, elevated beta hydroxybutyrate, hyperkalemia, and anemia. He was given a 250ml bolus of NS, IV calcium gluconate and started on an insulin drip. Dr. Kinsey of Nephr ology had contacted the ER with plans to emergently dialyze the patient in the ICU. Hospitalist service was consulted for further evaluation and management PAST MEDICAL HISTORY: 1. COPD 2. Diastolic Congestive Heart Failure 3. Severe Pulmonary Hypertension 4. Atrial Fibrillation on Anticoagulation 5. Diabetic Nephropathy with ESRD on HD 6. History of frequent hypoglycemia 7. Chronic Hypotension 8. History of Seizure Disorder 9. History of Pericardial Effusion and Pleural Effusions 10. Secondary Hyperparathyroidism 11. Medical Noncompliance and history of signing out AMA PAST SURGICAL HISTORY: 1. Left AV fistula SOCIAL HISTORY: Patient lives by himself. He has occasional marijuana use. FAMILY HISTORY: Negative for history of renal disease ALLERGIES: Please see below. REVIEW OF SYSTEMS: Unable to obtain a full review of systems as the patient is non-cooperative and altered HOME MEDICATIONS: Please see below. PHYSICAL EXAMINATION: VITAL SIGNS: Temperature 97.6, pulse 83, respiratory rate 24, blood pressure 150/68, pulse oximetry 98% on 2L GENERAL APPEARANCE: Patient is arousable to voice. He appears confused intermittently. He is non-cooperative and refuses to follow commands during exam HEENT: Atraumatic, normocephalic. Tattoos present on patients forehead. Trachea is midline CARDIOVASCULAR: Normal S1, S2. Regular rate. Irregularly irregular rhythm. No clicks, or rubs, or murmurs LUNGS: Scattered crackles with decreased breath sounds in the bases. Symmetric chest expansion. Tachypneic. ABDOMEN: Soft, nondistended. Nontender. No palpable masses. Normoactive bowel sounds EXTREMITIES: Trace edema. Full and equal pulses in bilateral upper and lower ex tremities. NEUROLOGICAL: No focal neurological deficits LABORATORY DATA: See below. IMAGING: INDICATION: CHEST PAIN. COMPARISON: Comparison chest x-ray July 16, 2020.. TECHNIQUE: Semi-erect AP portable radiograph. FINDINGS: Monitoring electrodes are seen. Cardiomegaly is observed and there is evidence of left atrial enlargement with a double density overlying the heart. Pulmonary vasculature is cephalized congested and indistinct. There is a diffuse mild interstitial edema pattern. There is very slight blunting of the right lateral pleural angle. IMPRESSION: CHF pattern. Cardiomegaly vascular congestion diffuse interstitial edema. Slight blunting right lateral pleural angle. MICROBIOLOGY: Please see below. ASSESSMENT: . PLAN: 1. Metabolic Acidosis multifactorial -Patient presenting with metabolic acidosis, pH 6.8. Likely multifactorial to DKA and ESRD with noncompliance with hemodialysis. He has been started on an insulin Insulin drip was started in the ED. His most pressing issue is his acidosis and hyperkalemia with EKG changes. Nephrology is following the patient and plans to do emergent dialysis in the ICU today. -Plan to continue hemodialysis in ICU. Repeat BMP 3 hours after hemodialysis. -Continue IV insulin drip with titration per protocol -NPO except medications 2. Hyperkalemia -Patient has hyperkalemia likely secondary to his acidosis. Currently receiving hemodialysis. Plan to receive HD tomorrow as well -Will trend Potassium 3. Hyponatremia 2/2 hyperglycemia -Corrected sodium of 134. -Will continue to trend 4. Decompensated congestive heart failure -Patient has decompensated congestive heart failure currently appears decompensated. He is receiving HD with goal of 3L fluid removal. Patients care is complicated by severe pulmonary hypertension and history of chronic hypotension. At current time patient is vitally stable however may require pressor support if he becomes hypotensive after dialysis. 5. History of Seizure Disorder -Continue patients tegretol 6. History of Atrial fibrillation -Currently rate controlled. Will continue Eliquis 7. DVT Prophylaxis -Continue eliquis Vital Signs Vital Signs Date Time Temp Pulse Resp B/P (MAP) Pulse Ox O2 Delivery O2 Flow Rate FiO2 11/2/20 13:45 90 24 150/68 (95) 98 Nasal Cannula 2.0 07/31/20 10:10 97.6 Laboratory Data Labs 24H Laboratory Tests 2 07/31/20 10:33: POC pH (Misc Panel) 6.965*L, POC Base Excess (Misc Panel) -22.0L, POC Saturated Percent O2 (Misc) 96, POC pO2 (Misc Panel) 124.0H, POC pCO2 (Misc Panel) 42.2, POC HCO3 (Misc Panel) 9.6L, POC Total CO2 (Misc Panel) 11.0L, POC Lactate (Misc Panel) 1.06 07/31/20 10:36: POC Prothrombin Time (Misc) 16.6H, POC INR (Misc) 1.4 07/31/20 10:37: Immature Granulocyte % (Auto) 1.1, Neutrophils (%) (Auto) 90.6H, Lymphocytes (%) (Auto) 1.7L, Monocytes (%) (Auto) 6.5H, Eosinophils (%) (Auto) 0.0, Basophils (%) (Auto) 0.1, Neutrophils # (Auto) 8.4, Lymphocytes # (Auto) 0.2L, Monocytes # (Auto) 0.6, Eosinophils # (Auto) 0.0, Basophils # (Auto) 0.0, Nucleated Red Blood Cells % (auto) 0.0, Platelet Estimate NORMAL, Anisocytosis 2+, Macrocytos is 3+, Estimated Mean Plasma Glucose 140H, Hemoglobin A1c 6.5, Osmolality 374H, Phosphorus Level 15.0#H, Magnesium Level 3.0H, Total Bilirubin 0.6, Direct Bilirubin 0.2, Aspartate Amino Transf (AST/SGOT) 31, Alanine Aminotransferase (ALT/SGPT) 91H, Alkaline Phosphatase 421H, XK-Nip-P-Type Natriuretic Peptide 53895V, Total Protein 6.6, Albumin 3.0L, Albumin/Globulin Ratio 0.8, Lipase 288, Thyroid Stimulating Hormone (TSH) 2.490, Free Thyroxine 0.53L, B-Hydroxybutyrate 44.98H 07/31/20 10:42: POC Total CO2 (Misc Panel) 12.0L, POC Glucose (Misc Panel) > 700*H, POC Sodium (Misc Panel) 118*L, POC Potassium (Misc Panel) 7.7*H, POC Chloride (Misc Panel) 94L, POC Blood Urea Nitrogen (Misc Panel > 140H, POC Ionized Calcium (Misc Panel) 4.2L, POC Creatinine (Misc Panel) 8.0H, POC Hematocrit (Misc Panel) 39.0 07/31/20 10:44: POC Troponin I (Misc) 0.05 07/31/20 13:13: POC Glucose (Misc Panel) > 700*H, POC Sodium (Misc Panel) 122L, POC Potassium (Misc Panel) 6.3*H, POC Chloride (Misc Panel) 95L, POC Total CO2 (Misc Panel) 14.0L, POC Blood Urea Nitrogen (Misc Panel > 140H, POC Ionized Calcium (Misc Panel) 4.0L, POC Creatinine (Misc Panel) 8.2H, POC Hematocrit (Misc Panel) 40.0 CBC/BMP Laboratory Tests 07/31/20 10:37 Microbiology Microbiology 07/31/20 Blood Culture, Received Pending 07/31/20 Respiratory Virus Panel (PCR) ([facility]) - Final, Complete 07/31/20 Blood Culture, Received Pending Home Medications Scheduled Apixaban (Eliquis) 5 Mg Tablet, 5 MG PO BID Carbamazepine (Carbamazepine ER) 400 Mg Tab.er.12h, 400 MG PO BID Cranberry Fruit Extract/Vit C (Azo Cranberry Softgel) 1 Each Capsule, 2 CAP PO TID Ergocalciferol (Vitamin D2) (Vitamin D2) 50,000 Units Cap, 50,000 UNITS PO QWEEK PATIENT TAKES ON FRIDAY Ferric Citrate (Auryxia) 210 Mg Tablet, 630 MG PO WM Insulin Glargine (Lantus) 1 Units/0.01 Ml Susp, 26 UNITS SC DAILY Insulin Human Lispro (Humalog) 1 Units/0.01 Ml Inj, 1 DOSE SC ACHS PER SLIDING SCALE Lanthanum Carbonate (Fosrenol) 750 Mg Powd.pack, 750 MG PO WM Lidocaine/Prilocaine (Lidocaine-Prilocaine Cream) 2.5%/2.5% Cream..g., 1 DOSE TOP 3XW PRIOR TO DIALYSIS: FRIDAY, FRIDAY AND FRIDAY Lipase/Protease/Amylase (Zenadali Dr 5,000 Unit Capsule) 1 Each Capsule.dr, 30,000 UNITS PO WM Scheduled PRN Albuterol Sulfate (Proair Hfa) 8.5 Gm Hfa.aer.ad, 2 PUFFS INH QID PRN for SHORTNESS OF BREATH Allergies Coded Allergies: No Known Allergies (Unverified , 10/03/19) A-FIB/CHADSVASC A-FIB History Current/History of A-Fib/PAF?: Yes Current PO Anticoag Therapy: Yes GME ATTESTATION GME ATTESTATION My faculty preceptor for this patient encounter was physically present during the encounter and was fully available. All aspects of the patient interview, examination, medical decision making process, and medical care plan development were reviewed and approved by the faculty preceptor. The faculty preceptor is aware and concurs with the plan as stated in the body of this note and will atte st to such by his/her cosignature. ATTENDING NOTE Patient was seen and examined by me personally with the residents/ students. I agree with the above assessment and plan VIPIN ASHRAF DO Jul 31, 2020 15:11 HOWIE PACHECO MD Aug 01, 2020 12:41
[2020-07-31 15:47] LABS: CREATININE FOR GFR 7.75 MG/DL (0.70-1.30); GLOMERULAR FILTRATION RATE 7.7 (>56); POTASSIUM SERUM 5.9 MEQ/L (3.5-5.1)
[2020-07-31 15:52] LABS: ABG BASE EXCESS -9.6 (-2.0-2.0); ABG HCO3 17.8 MEQ/L (22.0-26.0); ABG O2 SATURATION 94.2 % (95.0-99.0); ABG PARTIAL PRESSURE CO2 45.2 mmHg (35.0-45.0); ABG PARTIAL PRESSURE O2 81.7 mmHg (75.0-100.0); ABG STANDARD HCO3 16.7 MEQ/L (22.0-26.0); ABG TOTAL CO2 19.2 MEQ/L (22.0-29.0)
[2020-07-31 15:53] LABS: ABG pH (ARTERIAL) 7.214 UNITS (7.350-7.450)
[2020-07-31] MEDS ORDERED: DIGOXIN INJ 0.5 MG/2 ML AMP (J1160) IV STA ×2 (15:57→15:59)
[2020-07-31] MEDS ORDERED: AMIODARONE HCL 150 MG in IV 1 EA IV STA (16:33)
[2020-07-31 16:42] LABS: CALCIUM LEVEL 8.6 MG/DL (8.5-10.1); CREATININE FOR GFR 7.83 MG/DL (0.70-1.30); GLOMERULAR FILTRATION RATE 7.6 (>56); POTASSIUM SERUM 7.9 MEQ/L (3.5-5.1)
--- NOTE | 2020-07-31 18:43 | REP ---
INDICATION: Post central line placement. COMPARISON: 07/31/2020 at 10:36 a.m. TECHNIQUE: Portable AP upright chest FINDINGS: There is a new right jugular central venous catheter with tip in the SVC. No abnormal widening of mediastinum. Cardiomegaly with left atrial and ventricular enlargement, vascular redistribution and some airspace opacities are again seen consistent with the diffuse interstitial pulmonary edema. More confluent or alveolar edema/infiltrate may be present about the right hilum. There is some increasing parenchymal density in the right base above the diaphragm as well. Small right effusion again suggested with blunting of the CP angle. IMPRESSION: New right jugular central venous catheter with no evidence of a pneumothorax. Cardiomegaly with vascular redistribution and interstitial edema. Some alveolar edema and infiltrates in the perihilar region and increased parenchymal densities above the right diaphragm are present compared to this morning's study. <Electronically signed by Vishal Wilson > 07/31/20 [id number]
[2020-07-31 20:47] LABS: CALCIUM LEVEL 7.8 MG/DL (8.5-10.1); CREATININE FOR GFR 4.51 MG/DL (0.70-1.30); GLOMERULAR FILTRATION RATE 14.4 (>56); POTASSIUM SERUM 3.9 MEQ/L (3.5-5.1)
[2020-07-31] MEDS: carBAMazepine XR 200 MG TAB PO SCH (21:00)
[2020-07-31] MEDS: APIXABAN 5 MG TAB (ELIQUIS) PO SCH (21:00)
[2020-07-31] MEDS: INSULIN IV RATE CHANGE DOCUMENTATION ML/HR XX SCH (21:16)
[2020-08-01] VITALS (29 sets, daily range): BP systolic 108–172; BP diastolic 55–81
[2020-08-01] MEDS: INSULIN REGULAR IN 0.9 % NACL 100 UNIT in IV 1 EA IV SCH ×2 (00:08)
[2020-08-01] MEDS ORDERED: DEXTROSE 50% 50 ML SYRINGE IV STA ×2 (00:21→05:56)
[2020-08-01 00:26] LABS: CALCIUM LEVEL 8.1 MG/DL (8.5-10.1); CREATININE FOR GFR 4.53 MG/DL (0.70-1.30); GLOMERULAR FILTRATION RATE 14.3 (>56); POTASSIUM SERUM 4.1 MEQ/L (3.5-5.1)
[2020-08-01] MEDS: INSULIN IV RATE CHANGE DOCUMENTATION ML/HR XX SCH (00:31)
[2020-08-01] MEDS ORDERED: DEXTROSE 50% 50 ML SYRINGE IV SCH (01:30)
[2020-08-01] MEDS: DEXTROSE 50% 50 ML SYRINGE IV PRN ×2 (02:08→03:00)
[2020-08-01 04:40] LABS: HEMATOCRIT 31.3 % (42.0-52.0); HEMOGLOBIN 10.1 g/dl (13.5-17.5); MEAN CORPUSCULAR HEMOGLOBIN 32.9 pg (27.0-33.0); MEAN CORPUSCULAR HGB CONC 32.3 g/dl (32.0-36.5); PLATELET COUNT, AUTOMATED 178 10^3/uL (150-450); RED BLOOD COUNT 3.07 10^6/uL (4.30-6.10); WHITE BLOOD COUNT 9.5 10^3/uL (4.0-10.0)
[2020-08-01 04:58] LABS: CALCIUM LEVEL 7.5 MG/DL (8.5-10.1); CREATININE FOR GFR 4.74 MG/DL (0.70-1.30); GLOMERULAR FILTRATION RATE 13.6 (>56); POTASSIUM SERUM 4.5 MEQ/L (3.5-5.1)
[2020-08-01] MEDS ORDERED: LEVEMIR (INSULIN DETEMIR) 1 UNITS/0.01ML SC ONE (07:30)
[2020-08-01] MEDS ORDERED: GLUCAGON INJ 1MG VIAL SC PRN (07:45)
[2020-08-01] MEDS ORDERED: GLUCOSE 4GM CHEW TABLET PO PRN (07:45)
[2020-08-01] MEDS ORDERED: DEXTROSE 50% 50 ML SYRINGE IV PRN (07:45)
--- NOTE | 2020-08-01 07:49 | CR ---
REFERRING PHYSICIAN: Ilan Nolasco M.D. REASON FOR CONSULTATION: Severe hyperkalemia, hypovolemia and altered mentation in this gentleman with end-stage renal disease. HISTORY OF PRESENT ILLNESS: Mr. Jones is a 55-year-old gentleman with known history of insulin requiring diabetes, diabetic ketoacidosis, severe cardiomyopathy, pulmonary hypertension, diastolic congestive heart failure, history of atrial fibrillation and end-stage renal disease. He has recent history of pericardial effusion and bilateral pleural effusions and has been admitted to [facility] multiple times. He is chronically noncompliant and quite uncooperative for his care. Apparently he was discharged from the hospital on Friday and he refused to have dialysis on Friday. On Friday morning, he was supposed to go to outpatient dialysis clinic. However, he refused and he was called multiple times but patient repeatedly refused to come for dialysis. This morning, he was brought to the emergency room with altered mentation and found to have diabetic ketoacidosis with severe hyperkalemia and altered mentation. The patient is now admitted to intensive care unit for urgent dialysis and care for his diabetic ketoacidosis. Nephrology consultation as requested and I did discuss the case with emergency room physician more than once. PAST MEDICAL AND SURGICAL HISTORY: 1. Insulin requiring diabetes with recurrent diabetic ketoacidosis and hypoglycemia. 2. End-stage renal disease. 3. COPD. 4. Diastolic congestive heart failure. 5. Severe pulmonary hypertension. 6. Atrial fibrillation. 7. History of chronic hypotension. 8. History of seizure disorder. 9. Recent history of pericardial and bilateral pleural effusions. 10. History of secondary hyperparathyroidism. 11. History of noncompliance with medical care and signing out against medical advice. PAST SURGICAL HISTORY: Significant for left arm AV fistula . PERSONAL AND SOCIAL HISTORY: Patient lives by himself. He has occasional marijuana use and he is a chronic smoker. FAMILY HISTORY: Negative for end-stage renal disease. HOME MEDICATIONS: 1. Eliquis 5 mg b.i.d. 2. Carbamazepine ER 400 mg b.i.d. 3. Vitamin D 50,000 units once a week. 4. Auryxia 210 mg three tablets with meals. 5. Lantus insulin 26 units daily. 6. Humalog insulin per sliding scale. 7. Fosrenol 750 mg t.i.d. with meals. 8. Zenpep 5000 units six capsules with meals. ALLERGIES: He has no known drug allergies. REVIEW OF SYSTEMS: Patient is quite lethargic and not able to provide any information. PHYSICAL EXAMINATION: The patient is quite lethargic and somewhat uncooperative. His eyes are open but he would not answer any questions. His temperature is 97.6 degrees Fahrenheit, heart rate 84 per minute and respiratory rate 20 per minute. Blood pressure 113/60 mmHg and oxygen saturation 98% on two liters oxygen. Earlier his heart rate was in the 90s and right now his hear rate is in the 130s as he has gone into atrial fibrillation. His head is atraumatic. Oral hygiene is poor and dental repair is in poor. Neck veins are markedly distended and there is no thyroid enlargement. Heart sounds are irregular and without a pericardial friction rub. He is quite tachycardic with heart rate in 130s zone. Lungs have diminished breath sounds at lower half bilaterally and bilateral rales are audible. Abdomen is soft, somewhat distended with ascites and abdominal wall edema is noticed. Extremities have no cyanosis or clubbing. Left arm AV fistula is currently being used for dialysis. He has generalized edema on all limbs, particularly lower extremity edema extends up to his waist and is massive. Neurologically he is somewhat obtunded and not answering any questions. LABORATORY DATA: Shows WBC count 9.3, hemoglobin 10.5 and hematocrit 37.7. Platelets 212. Blood gas showed a pH of 7.21, pCO2 45.2, pO2 81 and bicarb 17.8. Initial chemistry showed sodium 121, potassium 7.9, chloride 88, BUN 150 and creatinine 7.83. Glucose was 1046 and serum osmolality 374.Calcium 8.6 and phosphorus 15.0. BNP level is 80,456 and albumin 3.0. Chest x-ray done in the emergency room today showed cardiomegaly with vascular congestion and diffuse interstitial edema. PROBLEMS: 1. Diabetic ketoacidosis. The patient is currently being treated with insulin drip. I have discussed with the emergency room physician and advised not to give the patient any IV fluid as he is already severely volume overloaded and in congestive heart failure. In end-stage renal disease, IV fluid is not likely to help with the management of diabetic ketoacidosis. His blood sugars are already improving and close monitoring is advised. 2. Hyperkalemia. The patient has severe hyperkalemia related to diabetic ketoacidosis and end-stage renal disease with noncompliance of dialysis treatment. The patient is being dialyzed with low potassium bath. His electrolytes will be repleted at the end of the dialysis. We will plan to dialyze him again tomorrow in view of severe uremia and multiple metabolic and electrolyte derangements. 3. Severe metabolic acidosis. The patient has a combination of uremia and diabetic ketoacidosis. He has been quite noncompliant with his care, particularly dialysis and management of his diabetes. He is currently on insulin drip and also being dialyzed. This will improve his acidosis significantly. Chemistry will be repeated a couple of hours after completion of dialysis. 4. Congestive heart failure. The patient is severely volume overloaded and we are trying to remove as much fluid as he can tolerate. He went into rapid atrial fibrillation during dialysis which required decrease in the goal for fluid removal. His blood pressure has also dropped and has prior history of similar episodes where he became severely hypotensive with rapid atrial fibrillation so we had to back off on the goal. We will plan to dialyze him again tomorrow for further fluid removal. 5. Atrial fibrillation with rapid ventricular rate. The patient has history of similar episodes and he also gets quite hypotensive. He did receive one dose of intravenous digoxin and we will see how his cardiac function goes. We can also use amiodarone if needed. 6. Anemia. At present, his anemia is stable and does need any urgent intervention. Thank you for involving me in the care of Mr. Jones. I will follow him along with you. AJ
[2020-08-01 07:58] LABS: CALCIUM LEVEL 7.8 MG/DL (8.5-10.1); CREATININE FOR GFR 4.84 MG/DL (0.70-1.30); GLOMERULAR FILTRATION RATE 13.3 (>56); POTASSIUM SERUM 4.5 MEQ/L (3.5-5.1)
[2020-08-01] MEDS: APIXABAN 5 MG TAB (ELIQUIS) PO SCH ×2 (08:23→21:36)
[2020-08-01] MEDS: carBAMazepine XR 200 MG TAB PO SCH ×2 (08:23→21:36)
[2020-08-01] MEDS: HumaLOG INSULIN (NovoLOG) PER UNIT SC SCH ×4 (08:56→21:00)
--- NOTE | 2020-08-01 09:25 | ECGEPIP ---
[facility] - ED Test Date: 2020-07-31 Pat Name: BRANDI DOMINGUEZ Department: Room: - Gender: Male [employer] Supervisor: marco a : 1965 Requested By: EVON QUINN Order Number: [id number] Reading MD: Lester Nielsen Measurements Intervals [place] Rate: 84 P: HI: 0 QRS: 264 QRSD: 162 T: 80 QT: 413 QTc: 489 Interpretive Statements SINUS RHYTHM WITH 1ST DEGREE AV BLOCK MARKED RIGHT AXIS DEVIATION POOR R WAVE PROGRESSION RIGHT BUNDLE BRANCH BLOCK, NEW COMPARED TO 07/14/20 PEAKED T WAVES, CONSIDER HYPERKALEMIA Electronically Signed on 08-01-2020 9:25:25 EST by Lester Nielsen
[2020-08-01] MEDS ORDERED: METOPROLOL TART 25 MG TABLET PO ONE (11:30)
[2020-08-01] MEDS: AMIODARONE 200 MG TAB (PACERONE) PO SCH ×2 (11:58→21:36)
[2020-08-01 12:41] LABS: VENOUS BASE EXCESS 0.1 (-2.0-2.0); VENOUS HCO3 26.5 MEQ/L (23.0-27.0); VENOUS O2 SATURATION 98.7 % (60.0-80.0); VENOUS PARTIAL PRESSURE CO2 50.9 mmHg (38.0-50.0); VENOUS PARTIAL PRESSURE O2 139.2 mmHg (30.0-50.0); VENOUS PH 7.334 UNITS (7.330-7.430); VENOUS STANDARD HCO3 24.6 MEQ/L
[2020-08-01 13:18] LABS: CALCIUM LEVEL 8.7 MG/DL (8.5-10.1); CREATININE FOR GFR 2.03 MG/DL (0.70-1.30); GLOMERULAR FILTRATION RATE 36.2 (>56); POTASSIUM SERUM 3.3 MEQ/L (3.5-5.1)
--- NOTE | 2020-08-01 18:10 | IPNPDOC ---
Text Note Date of Service The patient was seen on 08/01/20. NOTE Subjective: Mr. Jones is a 55 yr old male patient was brought to ED for altered mental status. He has a history of ESRD and he did not go for his dialysis on Friday. He presented to the ED altered and in DKA. Patient seen at bedside on 08/01/2020. He just woke up and was very irritable, was oriented to place, time and person today. He reports feeling very tired. Overnight he refused to eat, he denies having any abdominal pain, chest pain. He got a central line placed and on the right side yesterday night. Objective: General: Patient is awake, alert, oriented times three, laying in bed , no apparent distress. Cardiovascular: S1, S2, normal rhythm, no murmur, rub, or gallop. Respiratory: Inspiratory Crackles heard bilaterally in the lung bases. No rhonchi, wheezes or rubs. Abdomen: Soft, bowel sounds positive, no bruits. No tenderness on palpation. Extremities: No clubbing or cyanosis. 1+ pitting edema noted bilaterally extending from ankle to knee. Central nervous system (CODING SPECIALIST): Awake, alert and fully oriented. Mr. Jones is a 55 year old male patient with past medical history of insulin depended diabetes mellitus, diastolic heart failure, pulmonary Hypertension, Atrial fibrillation , end stage renal disease, seizure disorder was brought to E D for altered mental status, patient was discharged from hospital on Friday and did not go to dialysis on Friday as scheduled. He ended up in hospital on Friday. He was altered and was not able to answer any of the question during admission. In the ED was in DKA and having hyperkalemia of 7.9, He was admitted to ICU and nephrology was consulted and he had urgent dialysis. He got a central line placed on 07/31/[address] Gates .During dialysis he went to A.fib with RVR and was given digoxin he was persistently having a HR of 130s and was given loading dose of Amiodarone and his HR came down to 90s. He had 2 liters of fluid removed during dialysis on07/31/2020. Plan: 1. Metabolic acidosis 2/2 DKA, ESRD, lactic acidosis. - Patient is getting hemodialysis today as well, plan to remove at least 3 L of fluid today. - Patient is on insulin drip overnight, will DC it and switch him to oral long- acting levemir. Will switch him to carbohydrate diet. - He is very noncompliant with medications. He even refused taking some of the medications over the night. - His electrolytes are better after the second day of dialysis, most likely his electrolytes are abnormal because of his end-stage renal disease. We will continue to monitor his electrolytes and he is going to get a repeat dialysis tomorrow . - And transferred to PCU with telemetry. 2. A. fib with RVR: Patient's heart rate was in 130- 140s consistently, so gave him metoprolol 25 mg once. - Most like patient is going in to A. fib with RCR during dialysis due to electrolytes imbalance. - Will continue metoprolol 12.5 mg twice a day from tomorrow. Started him on amiodarone 400 mg twice a day only for today, will start 200 mg twice a day from tomorrow. - Patient's heart rate came down consistently later in the day HR at 7080s. - As patient is stable we will DS get him to PCU status on telemetry. 3. Acute on Chronic diastolic Heart failure: - He is on Hemodialysis, he got dialysis yesterday and was taken to liters of fluid off him. - He is getting dialysis today and 3 L of fluid was removed today. - He is scheduled to get dialysis tomorrow as well. And care is complicated by severe pulmonary hypertension and a history of chronic hypertension. His vitals are stable at 6pm. 4. History of seizure disorder: - Continue Tegretol 400 MG by mouth twice a day. 5. Insulin-dependent diabetes mellitus: -Patient's DKA is resolving, he is now on Levemir 10 units twice a day. 5. DVT prophylaxis: - Continue Eliquis 5 MG VS,Fishbone, I+O VS, Fishbone, I+O Laboratory Tests 07/31/20 10:37 07/31/20 17:22 07/31/20 20:00 07/31/20 23:46 08/01/20 04:10 08/01/20 07:37 Vital Signs Date Time Temp Pulse Resp B/P (MAP) Pulse Ox O2 Delivery O2 Flow Rate FiO2 08/01/20 04:00 97.9 85 20 146/68 (94) 84 Room Air 08/01/20 03:30 2.0 I&O- Last 24 Hours up to 6 AM 08/01/20 06:00 Intake Total 245.9 ml Output Total 2000 ml Balance -1754.1 ml GME ATTESTATION GME ATTESTATION My faculty preceptor for this patient encounter was physically present during the encounter and was fully available. All aspects of the patient interview, examination, medical decision making process, and medical care plan development were reviewed and approved by the faculty preceptor. The faculty preceptor is aware and concurs with the plan as stated in the body of this note and will attest to such by his/her cosignature. ATTENDING NOTE Patient was seen and examined by me personally with the residents/students. I agree with the above assessment and plan Tata Olvera MD Aug 01, 2020 09:17 HOWIE PACHECO MD Aug 07, 2020 11:38
[2020-08-01] MEDS ORDERED: APIXABAN 2.5 MG TAB (ELIQUIS) PO SCH (21:00)
[2020-08-01] MEDS: LEVEMIR (INSULIN DETEMIR) 1 UNITS/0.01ML SC SCH (21:36)
[2020-08-02] VITALS: BP 138/65
[2020-08-02 04:00] VITALS: BP 133/63
[2020-08-02] MEDS ORDERED: SODIUM CHLORIDE 0.9% INJ 10 ML SYR IV PRN (06:00)
[2020-08-02] MEDS: SODIUM CHLORIDE 0.9% INJ 10 ML SYR IV SCH ×3 (06:15→21:38)
[2020-08-02 06:34] LABS: HEMATOCRIT 31.4 % (42.0-52.0); HEMOGLOBIN 9.9 g/dl (13.5-17.5); MEAN CORPUSCULAR HGB CONC 31.5 g/dl (32.0-36.5); MEAN CORPUSCULAR VOLUME 104.7 fl (80.0-96.0); PLATELET COUNT, AUTOMATED 157 10^3/uL (150-450); WHITE BLOOD COUNT 5.3 10^3/uL (4.0-10.0)
[2020-08-02 07:09] LABS: CALCIUM LEVEL 7.7 MG/DL (8.5-10.1); CREATININE FOR GFR 3.63 MG/DL (0.70-1.30); GLOMERULAR FILTRATION RATE 18.5 (>56); POTASSIUM SERUM 3.7 MEQ/L (3.5-5.1)
[2020-08-02 08:00] VITALS: BP 147/65
[2020-08-02] MEDS: METOPROLOL TART 12.5 MG PER 1/2 TAB PO SCH ×2 (08:56→21:36)
[2020-08-02] MEDS: APIXABAN 5 MG TAB (ELIQUIS) PO SCH ×2 (08:56→21:36)
[2020-08-02] MEDS: carBAMazepine XR 200 MG TAB PO SCH ×2 (08:57→21:37)
[2020-08-02] MEDS: LEVEMIR (INSULIN DETEMIR) 1 UNITS/0.01ML SC SCH ×2 (08:57→21:37)
[2020-08-02] MEDS: HumaLOG INSULIN (NovoLOG) PER UNIT SC SCH ×4 (08:58→21:00)
[2020-08-02] MEDS ORDERED: AMIODARONE 200 MG TAB (PACERONE) PO SCH (09:00)
--- NOTE | 2020-08-02 09:06 | IPN ---
NEPHROLOGY PROGRESS NOTE DATE: 08/01/2020 SUBJECTIVE: Mr. Jones is seen this morning on his bedside in the Intensive Care Unit. We decided to dialyze him again this morning and he is currently being dialyzed. He is much improved since yesterday and is able to answer questions today. Nursing staff reports that he refused to eat this morning and his insulin drip has been stopped as his blood sugars have improved. His dyspnea has also improved and he has no fever or chills. PHYSICAL EXAMINATION: Temperature 98.4 degrees Fahrenheit, heart rate about 140 per minute with atrial fibrillation on the monitor. Respiratory rate is 20 per minute and blood pressure 116/72 mmHg. Oxygen saturation is 96% on 1 liter oxygen. Head: Atraumatic. Neck: Supple and JVD is at least moderately elevated. Heart: Sounds are irregular and tachycardic. Lungs: With diminished breath sounds and bilateral rales. Abdomen: Soft and nontender. Bowel sounds are normal and ascites is also present. Extremities: Without any cyanosis or clubbing. Edema of all 4 limbs is present. Neurologically: He is much better compared to yesterday and able to answer questions today. LABORATORY DATA: Todays labs show WBC count 9.5, hemoglobin 10.1 and hematocrit 31.3. Platelets 178. Sodium 128, potassium 4.5, CO2 22, BUN 81 and creatinine 4.84. Glucose 271 and calcium 7.8. PROBLEMS/PLAN: 1. Altered mentation: Much improved compared to yesterday. Patient is being dialyzed and he is tolerating it well so far. 2. Metabolic acidosis: His acidosis has improved and he is tolerating dialysis well. He is being dialyzed again today. 3. Hyponatremia: Sodium level improved appropriately and is likely to improve further with dialysis today. 4. Hyperkalemia: His potassium level has completely corrected and today we are using 3 mEq potassium bath for dialysis. 5. Diabetic ketoacidosis: His blood sugars are much better now and insulin drip has been stopped. He remains on insulin coverage. 6. End-stage renal disease: Patient was dialyzed yesterday and is being dialyzed again today due to uremia, hyperkalemia and metabolic acidosis. We also wanted to remove fluid so we decided to dialyze him again today and he is tolerating it well. 7. Anemia: At present his anemia is stable and we will continue to monitor on a daily basis. 8. Congestive heart failure with severe pulmonary hypertension: Patient is grossly volume overloaded and decompensated. He does not tolerate fluid removal very well and we are trying to remove about 2.5 liters today as tolerated. 9. Atrial fibrillation with rapid ventricular rate: His heart rate is now in the 130s-140s and he is still in atrial fibrillation. He remains on digoxin and amiodarone. Also received low dose of metoprolol. Digoxin was only given yesterday and today he is on amiodarone. ADVANCED DIRECTIVES: Resuscitation status: Patient has a DNR status now which is appropriate in view of his multi organ problems. MTDD
[2020-08-02] MEDS ORDERED: LIDOCAINE 1% SDV 5ML VIAL SQ ONE (10:00)
--- NOTE | 2020-08-02 11:39 | IPNPDOC ---
Text Note Date of Service The patient was seen on 08/02/20. NOTE Subjective: Mr. Jones is a 55 yr old male patient was brought to ED for altered mental status. He has a history of ESRD and he did not go for his dialysis on Friday. He presented to the ED altered and in DKA. Patient seen today at bedside on 08/02/2020. He was sitting on bed. he denied having acute events overnight. He reports to be eating and having bowel movements. He was getting ready to go to his dialysis. Objective: General: Patient is awake, alert, oriented times three, laying in bed , no apparent distress. Cardiovascular: S1, S2, normal rhythm, no murmur, rub, or gallop. Respiratory: Inspiratory Crackles heard bilaterally in the lung bases same as yesterday. No rhonchi, wheezes or rubs. Abdomen: Soft, bowel sounds positive, no bruits. No tenderness on palpation. Extremities: No clubbing or cyanosis. 1+ pitting edema noted bilaterally ankles. Central nervous system (CHARACTER ACTOR): Awake, alert and fully oriented. Mr. Jones is a 55 year old male patient with past medical history of insulin depended diabetes mellitus, diastolic heart failure, pulmonary Hypertension, Atrial fibrillation , end stage renal disease, seizure disorder was brought to ED for altered mental status, patient was discharged from hospital on Friday and did not go to dialysis on Friday as scheduled. He ended up in hospital on Friday. He was altered and was not able to answer any of the question during admission. In the ED was in DKA and having hyperkalemia of 7.9, He was admitted to ICU and nephrology was consulted and he had urgent dialysis. He got a central line placed on 07/31/[address] Gates .During dialysis he went to A.fib with RVR and was given digoxin he was persistently having a HR of 130s and was given loading dose of Amiodarone and his HR came down to 90s. He had 2 liters of fluid removed during dialysis on07/31/2020. His HR was consistently in 70-80 overnight and was deescalated to PCP. Plan: 1. Metabolic acidosis 2/2 DKA, ESRD, lactic acidosis. - Patient has improved consistently with dialysis. He is very non-compliant with his dialysis and medication outpatient. - He is getting dialyzed today as well. Plan is to remove 1 liter today as per nephrology. - He reports to be eating and is on levemir 10units BID and on sliding scale. - His BMP in Am labs, all electrolytes looks WNL. - His BUN and creatinine are elevated and that is expected with his ESRD on dialysis. - He is compliant with his medication over night. - Patient has a central line in place, will keep it until tomorrow, plan is to discharge him to get his dialysis tomorrow outpatient.(patient is on Friday, , Friday schedule) 2. A. fib with RVR: Patient HR is consistently in 70-80s overnight. Patient is in sinus rhythm now. - Patient has been going into Afib with RVR during the dialysis sessions. He is getting his dialysis today as well, so will keep a watch for it. - will start metoprolol 12.5mg twice a day. - Will decrease dose of amiodarone to 200mg PO Q24h. - Patient electrolytes are good in Am labs will repeat BMP after 3 hrs of dialysis and will replace if needed. - Will continue Eliquis 5mg. 3. Acute on Chronic diastolic Heart failure: - He is on Hemodialysis, he got dialysis for last to days with a total of 4 liters removed he is getting dialysis today as well. And care is complicated by severe pulmonary hypertension and a history of chronic hypertension. His vitals are stable at 9Am . 4. History of seizure disorder: - Continue Tegretol 400 MG by mouth twice a day. 5. Insulin-dependent diabetes mellitus: -Will continue Levemir 10 units twice a day and on sliding scale. 5. DVT prophylaxis: - Continue Eliquis 5 MG Disposition: Patient is getting dialysis today. If he is stable after the dialysis will plan to discharge tomorrow on his Friday, , Friday of dialysis. He can get his dialysis outpatient tomorrow. VS,Fishbone, I+O VS, Fishbone, I+O Laboratory Tests 08/01/20 11:49 08/02/20 06:23 Vital Signs Date Time Temp Pulse Resp B/P (MAP) Pulse Ox O2 Delivery O2 Flow Rate FiO2 08/02/20 08:56 68 147/65 08/02/20 08:00 97.4 20 90 08/02/20 07:48 Room Air 08/02/20 04:00 2.0 I&O- Last 24 Hours up to 6 AM0 08/02/20 06:00 Intake Total 630 ml Output Total 3100 ml Balance -2470 ml GME ATTESTATION GME ATTESTATION My faculty preceptor for this patient encounter was physically present during the encounter and was fully available. All aspects of the patient interview, examination, medical decision making process, and medical care plan development were reviewed and approved by the faculty preceptor. The faculty preceptor is aware and concurs with the plan as stated in the body of this note and will attest to such by his/her cosignature. ATTENDING NOTE Patient was seen and examined by me personally with the residents/students. I agree with the above assessment and plan Tata Olvera MD Aug 02, 2020 11:39 HOWIE PACHECO MD Aug 07, 2020 11:42
[2020-08-02 13:30] VITALS: BP 151/73
[2020-08-02 16:00] VITALS: BP 137/68
[2020-08-02 20:00] VITALS: BP 144/68
[2020-08-03] VITALS: BP 143/67
[2020-08-03 04:00] VITALS: BP 135/63
[2020-08-03] MEDS: SODIUM CHLORIDE 0.9% INJ 10 ML SYR IV SCH ×2 (05:50→14:00)
[2020-08-03 06:03] LABS: BASO % 0.2 % (0.0-1.0); EOS # 0.2 10^3/uL (0.0-0.5); EOS % 3.1 % (0.0-3.0); HEMATOCRIT 33.5 % (42.0-52.0); HEMOGLOBIN 10.4 g/dl (13.5-17.5); LYMPH # 0.4 10^3/uL (1.5-5.0); LYMPH % 8.4 % (24.0-44.0); MEAN CORPUSCULAR HEMOGLOBIN 32.5 pg (27.0-33.0); MEAN CORPUSCULAR VOLUME 104.7 fl (80.0-96.0); MONO # 0.5 10^3/uL (0.0-0.8); MONO % 9.6 % (0.0-5.0); NEUTROPHILS # 3.8 10^3/uL (1.5-8.5); NEUTROPHILS % 78.3 % (36.0-66.0); PLATELET COUNT, AUTOMATED 128 10^3/uL (150-450); WHITE BLOOD COUNT 4.9 10^3/uL (4.0-10.0)
[2020-08-03 06:31] LABS: CREATININE FOR GFR 4.51 MG/DL (0.70-1.30); GLOMERULAR FILTRATION RATE 14.4 (>56); MAGNESIUM LEVEL 2.1 MG/DL (1.8-2.4); POTASSIUM SERUM 3.6 MEQ/L (3.5-5.1)
--- NOTE | 2020-08-03 07:42 | IPN ---
DATE: 08/02/2020 SUBJECTIVE: Mr. Jones is seen this morning at his bedside during hemodialysis. He is undergoing ultrafiltration today for another 2.5 liters of fluid removal. He has severe hypervolemia due to congestive heart failure, cardiomyopathy and noncompliance with dialysis and fluid restriction. We have dialyzed him for the last 2 days and removed a total of about 5 liters so far. He is feeling much better now and most of his symptoms have improved. PHYSICAL EXAMINATION: VITAL SIGNS: Temperature 97.4 degrees Fahrenheit, heart rate 68 per minute, respiratory rate 20 per minute, blood pressure 133/63 mm of mercury and oxygen saturation is 90% on room air. HEENT: His head is atraumatic. NECK: Supple and JVD only mildly elevated. HEART: Irregular in rhythm. LUNGS: Diminished breath sounds and bilateral rales. ABDOMEN: Soft and abdominal wall edema is present. EXTREMITIES: Without any cyanosis or clubbing. Lower extremity edema extends up to the waist and is still about 4+. NEUROLOGICALLY: He is back to his baseline mentation with any focal deficits. LABORATORY STUDIES: Todays labs show a WBC count of 5.3, hemoglobin 9.9, and hematocrit 31.4. Sodium 136, potassium 3.7, CO2 27, BUN 44 and creatinine 3.63. Glucose 110 and calcium 7.7. PROBLEMS: 1. End-stage renal disease - The patient was dialyzed yesterday and he is already well dialyzed. His next scheduled dialysis will be tomorrow. 2. Congestive heart failure/hypervolemia - The patient has multiple reasons for decompensated volume status. He has been noncompliant with dialysis, fluid restrictions and also has severe cardiomyopathy and primary hypertension. He does not tolerate aggressive fluid removal. We have removed about 5 liters so far during the last 2 days. Today we are trying to remove 2.5 liters of fluid with ultrafiltration. 3. Abnormal electrolytes his sodium and potassium have corrected. He has mild hypocalcemia, however also has low albumin, so his corrected calcium is normal. At present almost all of his electrolytes are within normal range. 4. Anemia his anemia is stable and does not need any added intervention. 5. Diabetes now his blood sugars are reasonably well controlled. Unfortunately, he does not manage his diabetes very well at home. 6. Disposition there is a plan for possible discharge tomorrow. The patient would need to go to the outpatient dialysis clinic tomorrow after discharge for his dialysis. AJ
[2020-08-03 08:00] VITALS: BP 144/68
[2020-08-03 08:06] VITALS: BP 144/68
[2020-08-03] MEDS: METOPROLOL TART 12.5 MG PER 1/2 TAB PO SCH (08:06)
[2020-08-03] MEDS: APIXABAN 5 MG TAB (ELIQUIS) PO SCH (08:06)
[2020-08-03] MEDS: carBAMazepine XR 200 MG TAB PO SCH (08:07)
[2020-08-03] MEDS: LEVEMIR (INSULIN DETEMIR) 1 UNITS/0.01ML SC SCH (08:08)
[2020-08-03] MEDS: HumaLOG INSULIN (NovoLOG) PER UNIT SC SCH ×2 (08:09→13:43)
[2020-08-03] MEDS ORDERED: AMIODARONE 200 MG TAB (PACERONE) PO SCH (09:00)
[2020-08-03] MEDS ORDERED: METO1TAB87 PO (10:37)
[2020-08-03] MEDS ORDERED: AMIO200T3 PO (10:37)
[2020-08-03] MEDS ORDERED: LIDOCAINE 1% SDV 5ML VIAL SQ ONE (10:45)
--- NOTE | 2020-08-03 11:38 | DS.PDOC ---
Discharge Summary General Date of Admission Jul 31, 2020 at 12:23 Date of Discharge Aug 03, 2020 Attending Physician: HOWIE PACHECO MD Specialist/Consultants Involve: Tonio Kinsey MD Discharge Summary PROCEDURES PERFORMED DURING STAY: None. ADMITTING DIAGNOSES: 1. Metabolic acidosis 2/2 DKA, noncompliant with dialysis. 2. Hyperkalemia, hyponatremia. 3. COPD 4. Diastolic congestive heart failure 5. Severe pulmonary hypertension 6. Atrial fibrillation on anticoagulation 7. Diabetic nephropathy with ESRD on hemodialysis 8. Diabetes mellitus 9. History of seizure disorder DISCHARGE DIAGNOSES: 1. Diastolic congestive heart failure 2. COPD 3. Severe pulmonary hypertension 4. Atrial fibrillation on anticoagulation 5. Diabetic nephropathy with ESRD on hemodialysis 6. Diabetes mellitus 7. History of seizure disease COMPLICATIONS/CHIEF COMPLAINT: Dka End Stage Renal Disease. HISTORY OF PRESENT ILLNESS: Patient is a 55 year old male with an extensive medical history with multiple recent hospitalizations for hypotension, ESRD, and diabetic ketoacidosis who presented to the [facility] ER with altered mental status. The history is not clear due to the patients altered mental status and unwillingness to participate in an examination. Per report the patient was found at home on the toilet by his friends who called EMS. Majority of the patients history is obtained from the medical records. He is reportedly noncompliant with his care and has missed his last dialysis treatment. On presentation to the ER the patient was vitally stable. Laboratory studies demonstrated a metabolic acidosis with a pH of 6.96, hyperglycemia, elevated beta hydroxybutyrate, hyperkalemia, and anemia. He was given a 250ml bolus of NS, IV calcium gluconate and started on an insulin drip. Dr. Kinsey of Nephrology had contacted the ER with plans to emergently dialyze the patient in the ICU. Hospitalist service was consulted for further evaluation and management HOSPITAL COURSE: Patient was admitted to the ICU, he got repeated dialysis on 3 consecutive days. His DKA gradually improved. During the dialysis sessions patient was going into A. fib and RVR and was treated with digoxin, amlodipine, metoprolol. He got a central line placed on hospital day 2. The third day of dialysis he had no A. fib. Patient is on Friday, , Friday scheduled for dialysis outpatient and needs to keep up with that. Patient had his dialysis today(08/03/2020- ) at [facility] inpatient. And is being discharged today to his dialysis on Friday outpatient. Patient's only one of the blood culture done on 07/31/2020 had a preliminary report positive for gram-positive cocci in clusters, most likely a contaminant. DISCHARGE MEDICATIONS: Please see below. ALLERGIES: Please see below. PHYSICAL EXAMINATION ON DISCHARGE: VITAL SIGNS: Please see below. General: Patient is awake, alert, oriented times three, laying in bed , no apparent distress. Cardiovascular: S1, S2, normal rhythm, no murmur, rub, or gallop. Respiratory: Inspiratory Crackles heard bilaterally in the lung bases. No rhonchi, wheezes or rubs. Abdomen: Soft, bowel sounds positive, no bruits. No tenderness on palpation. Extremities: No clubbing or cyanosis. 1+ pitting edema noted bilaterally ankles . Central nervous system (RN PAIN MANAGEMENT): Awake, alert and fully oriented. LABORATORY DATA: Please see below. IMAGING: Chest x-ray: 07/31/2020, reported as CHF pattern. Cardiomegaly vascular congestion diffuse interstitial edema. Slightly blunting right lateral pleural angle. Portable chest x-ray: 07/31/2020, right jugular Central venous catheter with no evidence of pneumothorax. Cardiomegaly with vascular redistribution and interstitial edema. Some alveolar edema and infiltrates in the perihilar region and increased parenchymal densities about the right diaphragm are present compared to earlier. PROGNOSIS: Good ACTIVITY: As tolerated. DIET: renal diet and diabetic diet DISCHARGE PLAN: To get dialysis on Friday, , Friday. DISPOSITION: Home. DISCHARGE INSTRUCTIONS: 1. Take metoprolol 12.5mg twice daily. 2. Take amiodarone 200mg once daily. 3. Follow up with PCP in 3 -5days. 4. Follow up with Nephrology for dialysis.He is schedule for Friday, and Friday schedule. 5. Monitor blood sugar at home and administer insulin as instructed. 6. Patient had one of the blood cultures preliminary positive for gram-positive cocci in clusters,most likely a contaminant. Please follow and see for organisms and sensitivities. ITEMS TO FOLLOWUP ON ON OUTPATIENT: 1. Follow-up with PCP in 3-5 days 2. Follow up with nephrology for dialysis, scheduled for Friday, and Friday every week. DISCHARGE CONDITION: Stable. TIME SPENT ON DISCHARGE: Greater than 30 minutes. Vital Signs/I&Os Vital Signs Date Time Temp Pulse Resp B/P (MAP) Pulse Ox O2 Delivery O2 Flow Rate FiO2 08/03/20 08:06 82 144/68 08/03/20 08:00 98.2 20 92 Room Air 08/02/20 04:00 2.0 I&O- Last 24 Hours up to 6 AM 08/03/20 06:00 Intake Total 680 ml Output Total 2500 ml Balance -1820 ml Laboratory Data Labs 24H Laboratory Tests 2 08/02/20 13:39: Bedside Glucose (Misc Panel) 165H 08/02/20 17:02: Bedside Glucose (Misc Panel) 164H 08/02/20 21:16: Bedside Glucose (Misc Panel) 123H 08/03/20 05:49: Immature Granulocyte % (Auto) 0.4, Neutrophils (%) (Auto) 78.3H, Lymphocytes (%) (Auto) 8.4L, Monocytes (%) (Auto) 9.6H, Eosinophils (%) (Auto) 3.1H, Basophils (%) (Auto) 0.2, Neutrophils # (Auto) 3.8, Lymphocytes # (Auto) 0.4L, Monocytes # (Auto) 0.5, Eosinophils # (Auto) 0.2, Basophils # (Auto) 0.0, Nucleated Red Blood Cells % (auto) 0.0, Anion Gap 13, Glomerular Filtration Rate 14.4L, Calcium Level 7.0L, Magnesium Level 2.1 08/03/20 06:34: Bedside Glucose (Misc Panel) 151H CBC/BMP Laboratory Tests 08/03/20 05:49 FSBS Laboratory Tests Test 08/02/20 13:39 08/02/20 17:02 08/02/20 21:16 08/03/20 06:34 Range/Units Bedside Glucose (Misc Panel) 165 164 123 151 70-105 MG/DL Microbiology Microbiology 07/31/20 Blood Culture - Preliminary, Resulted No Growth after 48 hours. All Specime... 07/31/20 Respiratory Virus Panel (PCR) ([facility]) - Final, Complete 07/31/20 Blood Culture - Preliminary, Resulted Discharge Medications Scheduled Amiodarone HCl (Amiodarone HCl) 200 Mg Tablet, 200 MG PO DAILY Apixaban (Eliquis) 5 Mg Tablet, 5 MG PO BID, (Reported) Carbamazepine (Carbamazepine ER) 400 Mg Tab.er.12h, 400 MG PO BID, (Reported) Cranberry Fruit Extract/Vit C (Azo Cranberry Softgel) 1 Each Capsule, 2 CAP PO TID, (Reported) Ergocalciferol (Vitamin D2) (Vitamin D2) 50,000 Units Cap, 50,000 UNITS PO QWEEK, (Reported) PATIENT TAKES ON FRIDAY Ferric Citrate (Auryxia) 210 Mg Tablet, 630 MG PO WM, (Reported) Insulin Glargine (Lantus) 1 Units/0.01 Ml Susp, 26 UNITS SC DAILY, (Reported) Insulin Human Lispro (Humalog) 1 Units/0.01 Ml Inj, 1 DOSE SC ACHS, (Reported) PER SLIDING SCALE Lanthanum Carbonate (Fosrenol) 750 Mg Powd.pack, 750 MG PO WM, (Reported) Lidocaine/Prilocaine (Lidocaine-Prilocaine Cream) 2.5%/2.5% Cream..g., 1 DOSE TOP 3XW, (Reported) PRIOR TO DIALYSIS: FRIDAY, FRIDAY AND FRIDAY Lipase/Protease/Amylase (Zenpep Dr 5,000 Unit Capsule) 1 Each Capsule.dr, 30,000 UNITS PO WM, (Reported) Metoprolol Tartrate (Metoprolol Tartrate) 25 Mg Tablet, 12.5 MG PO BID for a.fib If given 12.5mg take a pill twice a day or If give 25mg pill, take half tablet in the morning and half in the night. Scheduled PRN Albuterol Sulfate (Proair Hfa) 8.5 Gm Hfa.aer.ad, 2 PUFFS INH QID PRN for SHORTNESS OF BREATH, (Reported) Allergies Coded Allergies: No Known Allergies (Unverified , 10/03/19) GME ATTESTATION GME ATTESTATION My faculty preceptor for this patient encounter was physically present during the encounter and was fully available. All aspects of the patient interview, examination, medical decision making process, and medical care plan development were reviewed and approved by the faculty preceptor. The faculty preceptor is aware and concurs with the plan as stated in the body of this note and will attest to such by his/her cosignature. ATTENDING NOTE Patient was seen and examined by me personally with the residents/students. I agree with the above assessment and plan Tata Olvera MD Aug 03, 2020 10:57 HOWIE PACHECO MD Aug 07, 2020 11:46
[2020-08-03 13:00] VITALS: BP 148/79
--- NOTE | 2020-08-03 13:42 | IPN ---
DATE: 08/03/2020 Mr. Jones is seen this morning during hemodialysis. He decided to have dialysis in the hospital before he wants to go home. His dyspnea has improved; however, peripheral edema is still significant. He denies any nausea or vomiting. PHYSICAL EXAMINATION: Temperature 98.2 degrees Fahrenheit, heart rate 82 per minute, respiratory rate 20 per minute, blood pressure 144/68 mm of mercury, and oxygen saturation 92% on room air. Head is atraumatic. Neck is supple, and jugular venous distention (JVD) not visible, sitting up in the chair. Heart sounds are regular. Lungs have diminished breath sounds and basilar rales. Abdomen soft and nontender. Abdominal wall edema is improved significantly. Extremities without any cyanosis or clubbing. Left arm arteriovenous (AV) fistula is patent and currently being used for dialysis. Lower extremity edema is still at least 3+ bilaterally. Neurologically, he is awake, alert, and oriented times three. Today's labs show WBC count 4.9, hemoglobin 10.4, and hematocrit 33.5. Platelets 128. Sodium 138, pleasant 3.6, BUN 59, and creatinine 4.51. Glucose 95 and calcium 7.0. PROBLEMS: 1. End-stage renal disease. Patient is being dialyzed, and he is tolerating dialysis treatment well. 2. Congestive heart failure/hypervolemia. Volume status has improved significantly since admission with aggressive fluid removal over last 3 days. Today is fourth day of regular consecutive dialysis. We are planning to remove about 3 liters of fluid today as tolerated. 3. Hypokalemia. His potassium level is borderline, and we are using 4.0 mEq potassium bath today. 4. Anemia. His anemia is stable and improved. No intervention is needed at present. 5. Disposition. Patient is likely to be discharged after dialysis today. I have discussed with him about need for compliance at outpatient dialysis. He understands to return for next dialysis treatment on Friday. 6. His diabetes is now much better controlled, and he will continue with current insulin regimen. GOOD [facility] UNIVERSITY HOSPITALDmitry
== END 2020-08-03 17:12 | disposition home health service (06) | DRG 637 ==
LOC: EDBD 10:03 → M ED 10:03 → CMPBEDREQ 12:05 → M ED INP 12:23 → ENRESERV 12:33 → M ICU 14:02 → UNDODISIN 08-01 17:45 → M PCU 08-01 18:32
PROVIDERS: ADMIT Internal Medicine; ATTEND Internal Medicine
PROC: 5A1D70Z Performance of Urinary Filtration, Intermittent, Less than 6 Hours Per Day (ICD-10-PCS; principal; 2020-07-31)
DX: E11.10 Type 2 diabetes mellitus with ketoacidosis without coma (principal); I50.33 Acute on chronic diastolic (congestive) heart failure; N18.6 End stage renal disease; N25.81 Secondary hyperparathyroidism of renal origin; E87.1 Hypo-osmolality and hyponatremia; E87.5 Hyperkalemia; G40.909 Epilepsy, unspecified, not intractable, without status epilepticus; I48.91 Unspecified atrial fibrillation; I27.20 Pulmonary hypertension, unspecified; E11.65 Type 2 diabetes mellitus with hyperglycemia; E11.22 Type 2 diabetes mellitus with diabetic chronic kidney disease; D64.9 Anemia, unspecified; I95.89 Other hypotension; Z91.19 Patient's noncompliance with other medical treatment and regimen; Z91.15 Patient's noncompliance with renal dialysis; Z79.01 Long term (current) use of anticoagulants; Z79.4 Long term (current) use of insulin; Z79.899 Other long term (current) drug therapy; Z99.2 Dependence on renal dialysis

== ENCOUNTER 2020-08-07 11:17 | Emergency (ER) | payer MEDICARE, MEDICAID ==
--- NOTE | 2020-08-07 12:08 | REP ---
INDICATION: DYSPNEA/COUGH. COMPARISON: 07/31/2020, 07/16/2020 TECHNIQUE: AP portable seated chest FINDINGS: The right jugular central catheter is removed. Some improvement in the right infrahilar patchy airspace opacities since the previous study. There remains some venous hypertension and now some patchy right upper lung zone airspace disease. Some underlying fibrosis with the venous hypertension makes early interstitial edema difficult to exclude. No gross effusion. Stable cardiomegaly with left atrial and ventricular enlargement. The aorta is tortuous and calcified. No change in the bony chest. IMPRESSION: 1. Some improvement in patchy right base infiltrates compared to the previous study. Subtle new patchy upper lobe infiltrates on the right. There is cardiomegaly, vascular redistribution and the underlying fibrosis makes interstitial edema difficult to exclude. No gross effusion. <Electronically signed by Vishal Wilson > 08/07/20 0929
[2020-08-07 12:12] LABS: BASO % 0.8 % (0.0-1.0); EOS # 0.2 10^3/uL (0.0-0.5); HEMATOCRIT 33.5 % (42.0-52.0); HEMOGLOBIN 10.1 g/dl (13.5-17.5); LYMPH # 0.3 10^3/uL (1.5-5.0); LYMPH % 5.6 % (24.0-44.0); MEAN CORPUSCULAR HEMOGLOBIN 32.6 pg (27.0-33.0); MEAN CORPUSCULAR HGB CONC 30.1 g/dl (32.0-36.5); MEAN CORPUSCULAR VOLUME 108.1 fl (80.0-96.0); MONO # 0.5 10^3/uL (0.0-0.8); MONO % 10.2 % (0.0-5.0); NEUTROPHILS # 4.3 10^3/uL (1.5-8.5); PLATELET COUNT, AUTOMATED 205 10^3/uL (150-450); WHITE BLOOD COUNT 5.3 10^3/uL (4.0-10.0)
[2020-08-07 12:44] LABS: ALBUMIN 2.3 GM/DL (3.2-5.2); ALT/SGPT 41 U/L (12-78); BILIRUBIN,DIRECT < 0.1 MG/DL (0.0-0.2); BILIRUBIN,TOTAL 0.3 MG/DL (0.2-1.0); TOTAL PROTEIN 5.2 GM/DL (6.4-8.2)
[2020-08-07 12:46] VITALS: BP 112/58
--- NOTE | 2020-08-08 00:48 | ECGEPIP ---
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
[2020-08-08] MEDS ORDERED: AMIO200T3 PO (18:13)
[2020-08-08] MEDS ORDERED: METO1TAB87 PO (18:13)
== END 2020-08-07 14:56 | disposition home or self-care (01) ==
LOC: M ED 11:17
DX: E87.70 Fluid overload, unspecified (principal); N18.6 End stage renal disease; R06.02 Shortness of breath; R60.0 Localized edema; I48.91 Unspecified atrial fibrillation; I13.2 Hypertensive heart and chronic kidney disease with heart failure and with stage 5 chronic kidney disease, or end stage renal disease; J44.9 Chronic obstructive pulmonary disease, unspecified; G40.909 Epilepsy, unspecified, not intractable, without status epilepticus; F17.200 Nicotine dependence, unspecified, uncomplicated; Z91.15 Patient's noncompliance with renal dialysis; Z99.2 Dependence on renal dialysis; Z79.899 Other long term (current) drug therapy; Z79.4 Long term (current) use of insulin; Z79.01 Long term (current) use of anticoagulants

== ENCOUNTER 2020-08-08 16:04 | Observation (INO) | payer MEDICARE, MEDICAID ==
[~2020-08-08] VITALS: Ht 177.8 cm; Wt 67.5 kg
[2020-08-08] MEDS ORDERED: DEXTROSE 50% 50 ML SYRINGE As Ordered ONE (16:07)
[2020-08-08] MEDS ORDERED: DEXTROSE 50% 50 ML SYRINGE IV ONE (16:30)
[2020-08-08 16:43] LABS: BASO % 0.6 % (0.0-1.0); EOS # 0.2 10^3/uL (0.0-0.5); EOS % 3.8 % (0.0-3.0); HEMATOCRIT 37.7 % (42.0-52.0); HEMOGLOBIN 11.7 g/dl (13.5-17.5); LYMPH # 0.6 10^3/uL (1.5-5.0); LYMPH % 10.5 % (24.0-44.0); MEAN CORPUSCULAR HEMOGLOBIN 32.6 pg (27.0-33.0); MONO # 0.5 10^3/uL (0.0-0.8); MONO % 9.4 % (0.0-5.0); NEUTROPHILS # 3.9 10^3/uL (1.5-8.5); NEUTROPHILS % 75.3 % (36.0-66.0); PLATELET COUNT, AUTOMATED 265 10^3/uL (150-450); RED BLOOD COUNT 3.59 10^6/uL (4.30-6.10); WHITE BLOOD COUNT 5.2 10^3/uL (4.0-10.0)
--- NOTE | 2020-08-08 16:59 | ECGEPIP ---
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
--- NOTE | 2020-08-08 17:01 | REP ---
INDICATION: Altered Mental Status. COMPARISON: 06/06/2020. TECHNIQUE: AP portable FINDINGS: Lungs less well inflated. There is cardiomegaly with left atrial and ventricular enlargement. Some vascular redistribution with alveolar edema suspected but superimposed pneumonitis must be excluded clinically. No gross effusions. The aorta is mildly tortuous unchanged airway intact bones without acute change from previous exam. IMPRESSION: : 1. Some cardiomegaly with vascular redistribution and pulmonary interstitial edema with patchy alveolar edema or infiltrates as described. Correlate clinically. <Electronically signed by Vishal Wilson > 08/08/20 [id number]
[2020-08-08 17:16] LABS: ALBUMIN 2.6 GM/DL (3.2-5.2); BILIRUBIN,DIRECT 0.1 MG/DL (0.0-0.2); BILIRUBIN,TOTAL 0.3 MG/DL (0.2-1.0); CALCIUM LEVEL 7.9 MG/DL (8.5-10.1); CREATININE FOR GFR 2.37 MG/DL (0.70-1.30); GLOMERULAR FILTRATION RATE 30.3 (>56); POTASSIUM SERUM 3.6 MEQ/L (3.5-5.1); THYROID STIMULATING HORMONE 3.05 uIU/ML (0.358-3.740); TOTAL PROTEIN 5.7 GM/DL (6.4-8.2)
[2020-08-08] MEDS ORDERED: DEXTROSE 50% 50 ML SYRINGE IV STA (17:56)
[2020-08-08] MEDS ORDERED: ACETAMINOPHEN 500 MG TAB PO ONE (18:00)
[2020-08-08] MEDS ORDERED: METO1TAB87 PO (18:13)
[2020-08-08] MEDS ORDERED: AMIO200T3 PO (18:13)
[2020-08-08] MEDS ORDERED: ALBUTEROL 90 MCG/ACT 8GM HFA INHALER INH PRN (18:30)
[2020-08-08] MEDS ORDERED: POTASSIUM CHLORIDE 10 MEQ SR TABLET PO ONE (18:30)
[2020-08-08] MEDS ORDERED: ACETAMINOPHEN TAB 650MG DOSE (2X325MG) PO PRN (18:30)
--- NOTE | 2020-08-08 18:38 | HPEPDOC ---
General Date of Admission 08/08/20 Date of Service: Aug 08, 2020 Chief Complaint The patient is a 55-year-old male admitted with a reason for visit of Unresponsive. Source: Patient Exam Limitations: Mild cognitive slowing Timing/Duration: 4-6 hours Severity: Moderate History of Present Illness Patient is a 55 year old male with an extensive medical history with multiple recent hospitalizations for hypotension, ESRD, and diabetic ketoacidosis who presented to the [facility] ER with hypoglycemia. Patient stated that today during dialysis is being checked for glucose level and found to have glucose level of 30. He was brought to ER. In ER patient was found to have no leukocytosis, hemoglobin 11.7, glucose level of 35. Patient received D50 in ER. Home Medications Scheduled Amiodarone HCl (Amiodarone HCl) 200 Mg Tablet, 200 MG PO DAILY, (Reported) Apixaban (Eliquis) 5 Mg Tablet, 5 MG PO BID, (Reported) Carbamazepine (Carbamazepine ER) 400 Mg Tab.er.12h, 400 MG PO BID, (Reported) Cranberry Fruit Extract/Vit C (Azo Cranberry Softgel) 1 Each Capsule, 2 CAP PO TID, (Reported) Ergocalciferol (Vitamin D2) (Vitamin D2) 50,000 Units Cap, 50,000 UNITS PO QWEEK, (Reported) PATIENT TAKES ON FRIDAY Ferric Citrate (Auryxia) 210 Mg Tablet, 630 MG PO WM, (Reported) Insulin Glargine (Lantus) 1 Units/0.01 Ml Susp, 26 UNITS SC DAILY, (Reported) Insulin Human Lispro (Humalog) 1 Units/0.01 Ml Inj, 1 DOSE SC ACHS, (Reported) PER SLIDING SCALE Lanthanum Carbonate (Fosrenol) 750 Mg Powd.pack, 750 MG PO WM, (Reported) Lidocaine/Prilocaine (Lidocaine-Prilocaine Cream) 2.5%/2.5% Cream..g., 1 DOSE TOP 3XW, (Reported) PRIOR TO DIALYSIS: FRIDAY, FRIDAY AND FRIDAY Lipase/Protease/Amylase (Zenpep Dr 5,000 Unit Capsule) 1 Each Capsule.dr, 30,000 UNITS PO WM, (Reported) Metoprolol Tartrate (Metoprolol Tartrate) 25 Mg Tablet, 12.5 MG PO BID, (Reported) Scheduled PRN Albuterol Sulfate (Proair Hfa) 8.5 Gm Hfa.aer.ad, 2 PUFFS INH QID PRN for SHORTNESS OF BREATH, (Reported) Allergies Coded Allergies: No Known Allergies (Unverified , 10/03/19) Past Medical History Medical History 1. COPD 2. Diastolic Congestive Heart Failure 3. Severe Pulmonary Hypertension 4. Atrial Fibrillation on Anticoagulation 5. Diabetic Nephropathy with ESRD on HD 6. History of frequent hypoglycemia 7. Chronic Hypotension 8. History of Seizure Disorder 9. History of Pericardial Effusion and Pleural Effusions 10. Secondary Hyperparathyroidism 11. Medical Noncompliance and history of signing out AMA Surgical History 1. Left AV fistula Family History Negative for history of renal disease Social History * Smoker: current smoker Alcohol: Denies Drugs: denies A-FIB/CHADSVASC A-FIB History Current/History of A-Fib/PAF?: Yes Current PO Anticoag Therapy: Yes Review of Systems Constitutional: Reports: Chills; Denies: Fever, Malaise Eyes: Denies: Pain ENT: Denies: Head Aches Skin: Denies: Rash Pulmonary: Denies: Dyspnea Cardiovascular: Denies: Chest Pain Gastrointestinal: Denies: Nausea, Vomiting Genitourinary: Denies: Dysuria Hematologic: Denies: Bruising Endocrine: Denies: Polydipsia Musculoskeletal: Denies: Neck Pain Neurological: Denies: Weakness Psych: Reports: Mood Normal Physical Examination General Exam: Positive: Alert, Cooperative Eye Exam: Positive: PERRLA ENT Exam: Positive: Atraumatic Neck Exam: Positive: Supple; Negative: JVD Chest Exam: Positive: Clear to auscultation Heart Exam: Positive: Irregular Rhythm Telemetry: Positive: Atrial fibrillation Abdomen Exam: Positive: Normal bowel sounds Extremity Exam: Negative: Clubbing, Cyanosis Skin Exam: Positive: Nl turgor and temperature Neuro Exam: Positive: Strength at 5/5 X4 ext, Cranial Nerves 3-12 NL Psych Exam: Positive: Mental status NL Vital Signs Vital Signs Date Time Temp Pulse Resp B/P (MAP) Pulse Ox O2 Delivery O2 Flow Rate FiO2 08/08/20 18:19 77 95 08/08/20 18:16 107/59 (75) 08/08/20 16:06 20 Room Air Laboratory Data Labs 24H Laboratory Tests 2 08/08/20 16:19: Immature Granulocyte % (Auto) 0.4, Neutrophils (%) (Auto) 75.3H, Lymphocytes (%) (Auto) 10.5L, Monocytes (%) (Auto) 9.4H, Eosinophils (%) (Auto) 3.8H, Basophils (%) (Auto) 0.6, Neutrophils # (Auto) 3.9, Lymphocytes # (Auto) 0.6L, Monocytes # (Auto) 0.5, Eosinophils # (Auto) 0.2, Basophils # (Auto) 0.0, Nucleated Red Blood Cells % (auto) 0.0, Anion Gap 5L, Glomerular Filtration Rate 30.3L, Lactic Acid Level 1.1, Calcium Level 7.9L, Total Bilirubin 0.3, Direct Bilirubin 0.1, Aspartate Amino Transf (AST/SGOT) 15, Alanine Aminotransferase (ALT/SGPT) 36, Alkaline Phosphatase 200H, Ammonia 34H, Total Protein 5.7L, Albumin 2.6L, Albumin/Globulin Ratio 0.8, Thyroid Stimulating Hormone (TSH) 3.050 08/08/20 16:50: POC Troponin I (Misc) 0.02 08/08/20 16:52: Bedside Glucose (Misc Panel) 99 08/08/20 17:55: Bedside Glucose (Misc Panel) 33*L CBC/BMP Laboratory Tests 08/08/20 16:19 Assessment/Plan Patient is a 55 year old male with an extensive medical history with multiple recent hospitalizations for hypotension, ESRD, and diabetic ketoacidosis who presented to the [facility] ER with hypoglycemia. Patient stated that today during dialysis is being checked for glucose level and found to have glucose level of 30. He was brought to ER. In ER patient was found to have no leukocytosis, hemoglobin 11.7, glucose level of 35. Patient received D50 in ER. Problems (1) ESRD on hemodialysis Status: Acute Problem Text: Continue dialysis according to his schedule (2) Congestive heart failure (CHF) Status: Acute Problem Text: Not in acute exacerbation Continue home cardioprotective medication (3) Hypoglycemia due to insulin Status: Acute Problem Text: Most likely due to long-acting insulin Lantus and hold Insulin sliding scale Glucose level every 2 hours (4) Atrial fibrillation Status: Chronic Problem Text: Continue oral targeted anticoagulation Plan / VTE VTE Prophylaxis Ordered?: Yes PEACE TIRADO DO Aug 08, 2020 18:37
[2020-08-08] MEDS ORDERED: DEXTROSE 50% 50 ML SYRINGE IV PRN (18:45)
[2020-08-08] MEDS ORDERED: GLUCAGON INJ 1MG VIAL SC PRN (18:45)
[2020-08-08] MEDS ORDERED: GLUCOSE 4GM CHEW TABLET PO PRN (18:45)
--- NOTE | 2020-08-08 19:35 | IPNPDOC ---
Date Seen The patient was seen on 08/08/20. Progress Note [employer]ING [employer]SEM[employer]ER kaelynfareed :blood pressure 75/46 plan: discontinue metoprolol ns 1 liter iv bolus transfer to icu if febrile, empiric abx. panculture if not febrile with map<70, levophed iv gtt VS, I&O, 24H, Fishbone Vital Signs/I&O Vital Signs Date Time Temp Pulse Resp B/P (MAP) Pulse Ox O2 Delivery O2 Flow Rate FiO2 08/08/20 19:04 64 25 76/40 (52) 93 Room Air Laboratory Data 24H LABS Laboratory Tests 2 08/08/20 16:19: Immature Granulocyte % (Auto) 0.4, Neutrophils (%) (Auto) 75.3H, Lymphocytes (%) (Auto) 10.5L, Monocytes (%) (Auto) 9.4H, Eosinophils (%) (Auto) 3.8H, Basophils (%) (Auto) 0.6, Neutrophils # (Auto) 3.9, Lymphocytes # (Auto) 0.6L, Monocytes # (Auto) 0.5, Eosinophils # (Auto) 0.2, Basophils # (Auto) 0.0, Nucleated Red Blood Cells % (auto) 0.0, Anion Gap 5L, Glomerular Filtration Rate 30.3L, Lactic Acid Level 1.1, Calcium Level 7.9L, Total Bilirubin 0.3, Direct Bilirubin 0.1, Aspartate Amino Transf (AST/SGOT) 15, Alanine Aminotransferase (ALT/SGPT) 36, Alkaline Phosphatase 200H, Ammonia 34H, Total Protein 5.7L, Albumin 2.6L, Albumin/Globulin Ratio 0.8, Thyroid Stimulating Hormone (TSH) 3.050 08/08/20 16:50: POC Troponin I (Misc) 0.02 08/08/20 16:52: Bedside Glucose (Misc Panel) 99 08/08/20 17:55: Bedside Glucose (Misc Panel) 33*L 08/08/20 18:23: Coronavirus (COVID-19)(PCR) NEGATIVE 08/08/20 18:49: Bedside Glucose (Misc Panel) 108H CBC/BMP Laboratory Tests 08/08/20 16:19 KAPIL ESQUIVEL MD Aug 08, 2020 19:35
[2020-08-08] MEDS ORDERED: NOREPINEPHRINE BITARTRATE 8 MG in D5W 492 ML IV SCH (19:45)
[2020-08-08] MEDS ORDERED: NS 1,000 ML IV ONE (19:45)
[2020-08-08 20:55] LABS: C REACTIVE PROTEIN QUANTITATIV 3.86 MG/DL (0.00-0.30); CK-MB VALUE MASS 2.6 NG/ML (<3.6); MB/CK RELATIVE INDEX 8.12 (< OR =4); TROPONIN I 0.03 NG/ML (< 0.10)
[2020-08-08] MEDS ORDERED: carBAMazepine XR 200 MG TAB PO SCH (21:00)
[2020-08-08] MEDS ORDERED: METOPROLOL TART 12.5 MG PER 1/2 TAB PO SCH (21:00)
[2020-08-08] MEDS ORDERED: APIXABAN 5 MG TAB (ELIQUIS) PO SCH (21:00)
[2020-08-08] MEDS ORDERED: HumaLOG INSULIN (NovoLOG) PER UNIT SC SCH (21:00)
[2020-08-08 21:45] VITALS: BP 107/60
[2020-08-08 22:02] VITALS: BP 105/51
[2020-08-08 23:00] VITALS: BP 112/56
--- NOTE | 2020-08-09 01:02 | DS.PDOC ---
Discharge Summary General Date of Admission Aug 08, 2020 at 16:05 Date of Discharge 08/08/2020 Attending Physician: PEACE TIRADO DO Specialist/Consultants Involve: CORRINA MILNER MD Discharge Summary PROCEDURES PERFORMED DURING STAY: None. ADMITTING/DISCHARGE DIAGNOSES: 1. Hypoglycemia 2. ESRD on hemodialysis 3. Congestive heart failure 4. Chronic atrial fibrillation COMPLICATIONS/CHIEF COMPLAINT: End State Renal Disease/ Hypoglycemia. HISTORY OF PRESENT ILLNESS: Patient is a 55-year-old male who was brought to the emergency department on 08/08/2020 as he was found down at the grocery store. EMS arrived and found the patient had a glucose level of 35. Patient received D50 in the ER and woke up. Patient was initially and transferred to the medical surgical floor however, patient had a low blood pressure. Patient was then was admitted to the intensive care unit. HOSPITAL COURSE: While in the hospital, nephrology was consult it for management of fluids as patient is ESRD. They recommended monitoring the patient's blood pressure and recommended against giving fluids as the patient's blood pressure is low due to him getting dialysis. Patient's blood pressure did recover and once he got into the intensive care unit, patient became very agitated because his sweatshirt was cut off at some point. Patient became very upset and demanded to leave. We explained to the patient that he is free to leave however, we do not recommend this as he was found unresponsive and that this needed worked up further. Patient decided AGAINST MEDICAL ADVICE to leave the hospital. I did warn him of the risks of this decision including having another hypoglycemic or hypotensive episode that could lead to . Patient understood this and AMA form was signed and patient left the hospital. DISCHARGE MEDICATIONS: Please see below. ALLERGIES: Please see below. PHYSICAL EXAMINATION ON DISCHARGE: VITAL SIGNS: Please see below. Gen.: Alert and oriented male patient who was sitting on the edge of the bed when I walked into the room. Patient did not appear to be in any acute distress. Rest of the physical exam was not performed as the patient was agitated LABORATORY DATA: Please see below. IMAGING: A chest x-ray performed on 08/08/2020 was reported to show some cardiomegaly with vascular redistribution and pulmonary interstitial edema with patchy alveolar edema or infiltrates. PROGNOSIS: Poor ACTIVITY: As tolerated. DIET: Consistent carbohydrate DISCHARGE PLAN: Patient discharged AGAINST MEDICAL ADVICE DISCHARGE INSTRUCTIONS: 1. Follow-up with primary care provider within 3-5 days. 2. Return to the emergency department if symptoms worsen. 3. Follow-up with nephrology and continue dialysis on her normal schedule. DISCHARGE CONDITION: Stable. TIME SPENT ON DISCHARGE: Greater than 30 minutes. Vital Signs/I&Os Vital Signs Date Time Temp Pulse Resp B/P (MAP) Pulse Ox O2 Delivery O2 Flow Rate FiO2 08/08/20 23:00 78 18 112/56 (74) 93 Room Air 08/08/20 21:45 96.4 I&O- Last 24 Hours up to 6 AM 08/09/20 06:00 Intake Total 360 ml Output Total 0 ml Balance 360 ml Laboratory Data Labs 24H Laboratory Tests 2 08/08/20 16:19: Immature Granulocyte % (Auto) 0.4, Neutrophils (%) (Auto) 75.3H, Lymphocytes (%) (Auto) 10.5L, Monocytes (%) (Auto) 9.4H, Eosinophils (%) (Auto) 3.8H, Basophils (%) (Auto) 0.6, Neutrophils # (Auto) 3.9, Lymphocytes # (Auto) 0.6L, Monocytes # (Auto) 0.5, Eosinophils # (Auto) 0.2, Basophils # (Auto) 0.0, Nucleated Red Blood Cells % (auto) 0.0, Anion Gap 5L, Glomerular Filtration Rate 30.3L, Lactic Acid Level 1.1, Calcium Level 7.9L, Total Bilirubin 0.3, Direct Bilirubin 0.1, Aspartate Amino Transf (AST/SGOT) 15, Alanine Aminotransferase (ALT/SGPT) 36, Alkaline Phosphatase 200H, Ammonia 34H, Total Protein 5.7L, Albumin 2.6L, Albumin/Globulin Ratio 0.8, Thyroid Stimulating Hormone (TSH) 3.050 08/08/20 16:50: POC Troponin I (Misc) 0.02 08/08/20 16:52: Bedside Glucose (Misc Panel) 99 08/08/20 17:55: Bedside Glucose (Misc Panel) 33*L 08/08/20 18:23: Coronavirus (COVID-19)(PCR) NEGATIVE 08/08/20 18:49: Bedside Glucose (Misc Panel) 108H 08/08/20 19:55: Bedside Glucose (Misc Panel) 138H 08/08/20 20:04: Erythrocyte Sedimentation Rate 39H, Lactic Acid Level 0.9, Total Creatine Kinase 32L, Creatine Kinase MB 2.6, Creatine Kinase MB Relative Index 8.12H, Troponin I 0.03, C-Reactive Protein, Quantitative 3.86H, HO-Hfi-W-Type Natriuretic Peptide 18646P 08/08/20 20:51: Bedside Glucose (Misc Panel) 117H CBC/BMP Laboratory Tests 08/08/20 16:19 FSBS Laboratory Tests Test 08/08/20 16:52 08/08/20 17:55 08/08/20 18:49 08/08/20 19:55 Range/Units Bedside Glucose (Misc Panel) 99 33 108 138 70-105 MG/DL Test 08/08/20 20:51 Range/Units Bedside Glucose (Misc Panel) 117 70-105 MG/DL Microbiology Microbiology 08/08/20 Blood Culture, Received Pending 08/08/20 Blood Culture, Received Pending Discharge Medications Scheduled Amiodarone HCl (Amiodarone HCl) 200 Mg Tablet, 200 MG PO DAILY, (Reported) Apixaban (Eliquis) 5 Mg Tablet, 5 MG PO BID, (Reported) Carbamazepine (Carbamazepine ER) 400 Mg Tab.er.12h, 400 MG PO BID, (Reported) Cranberry Fruit Extract/Vit C (Azo Cranberry Softgel) 1 Each Capsule, 2 CAP PO TID, (Reported) Ergocalciferol (Vitamin D2) (Vitamin D2) 50,000 Units Cap, 50,000 UNITS PO QWEEK, (Reported) PATIENT TAKES ON FRIDAY Ferric Citrate (Auryxia) 210 Mg Tablet, 630 MG PO WM, (Reported) Insulin Glargine (Lantus) 1 Units/0.01 Ml Susp, 26 UNITS SC DAILY, (Reported) Insulin Human Lispro (Humalog) 1 Units/0.01 Ml Inj, 1 DOSE SC ACHS, (Reported) PER SLIDING SCALE Lanthanum Carbonate (Fosrenol) 750 Mg Powd.pack, 750 MG PO WM, (Reported) Lidocaine/Prilocaine (Lidocaine-Prilocaine Cream) 2.5%/2.5% Cream..g., 1 DOSE TOP 3XW, (Reported) PRIOR TO DIALYSIS: FRIDAY, FRIDAY AND FRIDAY Lipase/Protease/Amylase (Zenpep 5,000 Unit Capsule) 1 Each Capsule.dr, 30,000 UNITS PO WM, (Reported) Metoprolol Tartrate (Metoprolol Tartrate) 25 Mg Tablet, 12.5 MG PO BID, (Reported) Scheduled PRN Albuterol Sulfate (Proair Hfa) 8.5 Gm Hfa.aer.ad, 2 PUFFS INH QID PRN for SHORTNESS OF BREATH, (Reported) Allergies Coded Allergies: No Known Allergies (Unverified , 10/03/19) GME ATTESTATION GME ATTESTATION My faculty preceptor for this patient encounter was physically present during the encounter and was fully available. All aspects of the patient interview, examination, medical decision making process, and medical care plan development were reviewed and approved by the faculty preceptor. The faculty preceptor is aware and concurs with the plan as stated in the body of this note and will attest to such by his/her cosignature. LOPEZ PARADA DO Aug 09, 2020 01:02
[2020-08-09] MEDS ORDERED: HumaLOG INSULIN (NovoLOG) PER UNIT SC SCH (07:30)
[2020-08-09] MEDS ORDERED: AMIODARONE 200 MG TAB (PACERONE) PO SCH (09:00)
[2020-08-10] MEDS ORDERED: EMLA CREAM 5GM TUBE (LIDOCAINE/PRILOCAINE) TOP SCH (09:00)
[2020-08-14] MEDS ORDERED: VITAMIN D 50,000 UNITS CAPSULE (ERGOCALCIFEROL 1.25MG) PO SCH (09:00)
== END 2020-08-08 23:35 | disposition left against medical advice (07) ==
LOC: M ED 16:04 → M ED INP 16:05 → UNDOADMOB 16:05 → M ED INP 18:20 → UNDOADMOB 18:20 → ENRESERV 19:41 → M ICU 21:51
PROVIDERS: ADMIT Internal Medicine; ATTEND Internal Medicine
DX: E16.2 Hypoglycemia, unspecified (principal); Z53.20 Procedure and treatment not carried out because of patient's decision for unspecified reasons; N18.6 End stage renal disease; Z79.899 Other long term (current) drug therapy; I50.30 Unspecified diastolic (congestive) heart failure; I48.20 Chronic atrial fibrillation, unspecified; I27.0 Primary pulmonary hypertension; E11.649 Type 2 diabetes mellitus with hypoglycemia without coma; E11.21 Type 2 diabetes mellitus with diabetic nephropathy; E21.1 Secondary hyperparathyroidism, not elsewhere classified; Z79.01 Long term (current) use of anticoagulants; G43.909 Migraine, unspecified, not intractable, without status migrainosus; Z91.19 Patient's noncompliance with other medical treatment and regimen
CPT/HCPCS: 36415; 71045; 80048; 80076; 82140; 82550; 82553; 83605; 83880; 84443; 84484; 85025; 85652; 86140; 87040; 93005; 93041; 94760; 96374; 96376; 99285; G0378; U0002

== ENCOUNTER 2020-08-11 09:22 | Inpatient (IN) | payer MEDICARE, MEDICAID ==
[~2020-08-11] VITALS: Ht 165.1 cm; Wt 76.4 kg
--- NOTE | 2020-08-11 10:33 | REP ---
INDICATION: SOB. COMPARISON: 08/08/2020, 08/07/2020, 07/31/2020. TECHNIQUE: AP portable semi-erect FINDINGS: Cardiomegaly with left atrial and ventricular enlargement and worsening vascular congestion with venous engorgement and interstitial edema. Some patchy alveolar edema or infiltrates noted again. CP angles are sharply defined but in a somewhat lordotic semi-erect portable chest the posterior lower lung zones are obscured. The aorta and calcifications in its arch are unchanged airway intact IMPRESSION: Worsening vascular congestion and interstitial edema with patchy alveolar edema or infiltrates seen. No gross effusion visible on this portable chest. <Electronically signed by Vishal Wilson > 08/11/20 [id number]
--- NOTE | 2020-08-11 10:46 | HPEPDOC ---
[facility] Medical History & Physical Date of Admission Aug 11, 2020 Date of Service: Aug 11, 2020 History and Physical CHIEF COMPLAINT: SOB HISTORY OF PRESENT ILLNESS: 55 yo male with multiple hospital presentations/admission, frequently leaving AMA, most recently admitted 08/08/20 for unresponsiveness/hypoglycemia, left AMA within hours, returns for SOB. He is ESRD on HD T/R/S, and missed his HD session yesterday. In fact, local police were involved to check on his welfare because of missing his HD. He was located, and stated he was busy having lunch with his friend. Currently he notes SOB with RAMIREZ and orthopnea. He denies chest pain, abdominal pain, N/V/D, BARRETO. PAST MEDICAL HISTORY: 1. COPD 2. HFpEF 3. Severe Pulmonary Hypertension 4. Atrial Fibrillation on Anticoagulation 5. Diabetic Nephropathy 6. History of frequent hypoglycemia 7. Chronic Hypotension 8. History of Seizure Disorder 9. History of Pericardial Effusion and Pleural Effusions 10. Secondary Hyperparathyroidism 11. Medical Noncompliance 12. ESRD/HD ALLERGIES: Please see below. REVIEW OF SYSTEMS: Negative except as per HPI. HOME MEDICATIONS: Please see below. PHYSICAL EXAMINATION: VITAL SIGNS: See below General: NAD, sitting comfortably at edge of bed, disheveled, multiple tattoos b/l UE HEENT: NC, AT, tattoo on his forehead, EOMI, poor dentition Lungs: crackles B/L bases Heart: +S1S2, no murmurs Abd: soft, NT, +BS Ext: no edema LABORATORY DATA: See below. MICROBIOLOGY: Please see below. A/P: 55 yo male with extensive medical history including ESRD/HD, multiple hospital visits, non-compliant with medical treatment returns to ED for shortness of breath due to fluid overload. #SOB - secondary to fluid overload - missed his HD yesterday - nephrology consultation appreciated - plan for HD today # COPD #HFpEF #Severe Pulmonary Hypertension #Atrial Fibrillation on Anticoagulation # Diabetic Nephropathy/ESRD on HD #History of frequent hypoglycemia #Chronic Hypotension #History of Seizure Disorder #History of Pericardial Effusion and Pleural Effusions #Secondary Hyperparathyroidism #Medical Noncompliance Vital Signs Vital Signs Date Time Temp Pulse Resp B/P (MAP) Pulse Ox O2 Delivery O2 Flow Rate FiO2 08/11/20 10:00 157/68 (97) 08/11/20 10:00 Nasal Cannula 2.0 08/11/20 09:52 90 97 08/11/20 09:28 97.9 40 Laboratory Data Labs 24H Laboratory Tests 2 08/11/20 10:12: POC Glucose (Misc Panel) 264H, POC Sodium (Misc Panel) 133L, POC Potassium (Misc Panel) 6.0H, POC Chloride (Misc Panel) 100, POC Total CO2 (Misc Panel) 30.0H, POC Blood Urea Nitrogen (Misc Panel 88H, POC Ionized Calcium (Misc Panel) 4.1L, POC Creatinine (Misc Panel) 5.6H, POC Hematocrit (Misc Panel) 36.0L 08/11/20 10:15: POC Lactate (Misc Panel) 0.34L 08/11/20 10:17: POC Troponin I (Misc) 0.03 Home Medications Scheduled Amiodarone HCl (Amiodarone HCl) 200 Mg Tablet, 200 MG PO DAILY Apixaban (Eliquis) 5 Mg Tablet, 5 MG PO BID Carbamazepine (Carbamazepine ER) 400 Mg Tab.er.12h, 400 MG PO BID Cranberry Fruit Extract/Vit C (Azo Cranberry Softgel) 1 Each Capsule, 2 CAP PO TID Ergocalciferol (Vitamin D2) (Vitamin D2) 50,000 Units Cap, 50,000 UNITS PO QWEEK PATIENT TAKES ON FRIDAY Ferric Citrate (Auryxia) 210 Mg Tablet, 630 MG PO WM Insulin Glargine (Lantus) 1 Units/0.01 Ml Susp, 26 UNITS SC DAILY Insulin Human Lispro (Humalog) 1 Units/0.01 Ml Inj, 1 DOSE SC ACHS PER SLIDING SCALE Lanthanum Carbonate (Fosrenol) 750 Mg Powd.pack, 750 MG PO WM Lidocaine/Prilocaine (Lidocaine-Prilocaine Cream) 2.5%/2.5% Cream..g., 1 DOSE TOP 3XW PRIOR TO DIALYSIS: FRIDAY, FRIDAY AND FRIDAY Lipase/Protease/Amylase (Zenpep Dr 5,000 Unit Capsule) 1 Each Capsule.dr, 30,000 UNITS PO WM Metoprolol Tartrate (Metoprolol Tartrate) 25 Mg Tablet, 12.5 MG PO BID Scheduled PRN Albuterol Sulfate (Proair Hfa) 8.5 Gm Hfa.aer.ad, 2 PUFFS INH QID PRN for SHORTNESS OF BREATH Allergies Coded Allergies: No Known Allergies (Unverified , 08/11/20) A-FIB/CHADSVASC A-FIB History Current/History of A-Fib/PAF?: Yes Current PO Anticoag Therapy: Yes BHUPINDER BLUE MD Aug 11, 2020 10:46
[2020-08-11] MEDS ORDERED: SODIUM CHLORIDE 0.9% 1000ML IV PRN (11:15)
[2020-08-11] MEDS: HumaLOG INSULIN (NovoLOG) PER UNIT SC SCH ×2 (12:00→17:56)
[2020-08-11] MEDS ORDERED: GLUCAGON INJ 1MG VIAL SC PRN (12:15)
[2020-08-11] MEDS ORDERED: DEXTROSE 50% 50 ML SYRINGE IV PRN (12:15)
[2020-08-11] MEDS ORDERED: GLUCOSE 4GM CHEW TABLET PO PRN (12:15)
[2020-08-11] MEDS ORDERED: ALBUTEROL 90 MCG/ACT 8GM HFA INHALER INH PRN (12:15)
[2020-08-11] MEDS: APIXABAN 5 MG TAB (ELIQUIS) PO SCH ×2 (15:24→18:19)
[2020-08-11] MEDS: METOPROLOL TART 25 MG TABLET PO SCH ×2 (15:24→18:18)
[2020-08-11] MEDS: carBAMazepine XR 200 MG TAB PO SCH ×2 (15:25→18:17)
[2020-08-11 15:55] VITALS: BP 115/71
[2020-08-11] MEDS: AMIODARONE 200 MG TAB (PACERONE) PO SCH (16:27)
[2020-08-11] MEDS ORDERED: SLF 3 ML SYR IV PRN (18:00)
[2020-08-11 18:18] VITALS: BP 84/54
--- NOTE | 2020-08-11 19:24 | ECGEPIP ---
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
[2020-08-11 19:55] VITALS: BP 112/59
[2020-08-11 20:00] VITALS: BP 112/59
[2020-08-11] MEDS ORDERED: HumaLOG INSULIN (NovoLOG) PER UNIT SC SCH (21:00)
[2020-08-11] MEDS: SLF 3 ML SYR IV SCH (22:19)
[2020-08-12] VITALS: BP 130/64
[2020-08-12 04:00] VITALS: BP 92/58
[2020-08-12 05:25] LABS: HEMATOCRIT 34.6 % (42.0-52.0); HEMOGLOBIN 10.2 g/dl (13.5-17.5); MEAN CORPUSCULAR HEMOGLOBIN 32.3 pg (27.0-33.0); MEAN CORPUSCULAR HGB CONC 29.5 g/dl (32.0-36.5); MEAN CORPUSCULAR VOLUME 109.5 fl (80.0-96.0); PLATELET COUNT, AUTOMATED 285 10^3/uL (150-450); RED BLOOD COUNT 3.16 10^6/uL (4.30-6.10); WHITE BLOOD COUNT 4.9 10^3/uL (4.0-10.0)
[2020-08-12 05:45] LABS: CALCIUM LEVEL 7.5 MG/DL (8.5-10.1); CREATININE FOR GFR 3.82 MG/DL (0.70-1.30); GLOMERULAR FILTRATION RATE 17.5 (>56); POTASSIUM SERUM 4.8 MEQ/L (3.5-5.1)
[2020-08-12] MEDS: SLF 3 ML SYR IV SCH (06:36)
[2020-08-12 07:52] VITALS: BP 90/50
[2020-08-12] MEDS: AMIODARONE 200 MG TAB (PACERONE) PO SCH (08:51)
[2020-08-12] MEDS: carBAMazepine XR 200 MG TAB PO SCH (08:52)
[2020-08-12] MEDS: APIXABAN 5 MG TAB (ELIQUIS) PO SCH (08:52)
[2020-08-12] MEDS: HumaLOG INSULIN (NovoLOG) PER UNIT SC SCH (08:52)
[2020-08-12] MEDS ORDERED: LEVEMIR (INSULIN DETEMIR) 1 UNITS/0.01ML SC SCH (09:00)
[2020-08-12] MEDS ORDERED: DARBEPOETIN 200MCG/0.4ML *DIALYSIS* SYRINGE (J0882 PER 1MCG) IV SCH (09:00)
--- NOTE | 2020-08-12 12:12 | DS.PDOC ---
Discharge Summary General Date of Admission Aug 11, 2020 at 10:46 Date of Discharge 08/12/20 Specialist/Consultants Involve nephrology Discharge Summary PROCEDURES PERFORMED DURING STAY: [None]. DISCHARGE DIAGNOSES: 1. COPD 2. HFpEF 3. Severe Pulmonary Hypertension 4. Atrial Fibrillation on Anticoagulation 5. Diabetic Nephropathy 6. History of frequent hypoglycemia 7. Chronic Hypotension 8. History of Seizure Disorder 9. History of Pericardial Effusion and Pleural Effusions 10. Secondary Hyperparathyroidism 11. Medical Noncompliance 12. ESRD/HD COMPLICATIONS/CHIEF COMPLAINT: Shortness of breath HPI/Hospital Course: 55M with multiple hospital presentations/admission, frequently leaving AMA, most recently admitted 08/08/20 for unresponsiveness/hypoglycemia, left AMA within hours, returns for SOB. He is ESRD on HD T/R/S, and missed his HD session yesterday. In fact, local police were involved to check on his welfare because of missing his HD. He was located, and stated he was busy having lunch with his friend. Currently he notes SOB with RAMIREZ and orthopnea. He denies chest pain, abdominal pain, N/V/D, BARRETO. Nephrology was consulted, and he underwent hemodialysis in the afternoon on the day of admission. However, he was noncompliant during his hemodialysis and his dialysis had to be discontinued. He was planned for dialysis the following day, however, he refused inpatient dialysis. He decided once again to leave AGAINST MEDICAL ADVICE. DISCHARGE MEDICATIONS: Please see below. ALLERGIES: Please see below. PHYSICAL EXAMINATION ON DISCHARGE: VITAL SIGNS: See below General: NAD, sitting comfortably at edge of bed, disheveled, multiple tattoos b/l UE HEENT: NC, AT, tattoo on his forehead, EOMI, poor dentition Lungs: crackles B/L bases Heart: +S1S2, no murmurs Abd: soft, NT, +BS Ext: no edema LABORATORY DATA: Please see below. ACTIVITY: [As tolerated]. PROGNOSIS: guarded/poor DISPOSITION: 07 Against Medical Advice. DISCHARGE INSTRUCTIONS: 1. Follow up with PCP in 3-5 days. 2. Medications as directed. 3. Dialysis as scheduled. DISCHARGE CONDITION: [Stable]. TIME SPENT ON DISCHARGE: 35 minutes. Vital Signs/I&Os Vital Signs Date Time Temp Pulse Resp B/P (MAP) Pulse Ox O2 Delivery O2 Flow Rate FiO2 08/12/20 07:52 97.9 129 20 90/50 (63) 93 Room Air 08/12/20 04:00 2.0 I&O- Last 24 Hours up to 6 AM 08/12/20 06:00 Intake Total 700 ml Output Total 2300 ml Balance -1600 ml Laboratory Data Labs 24H Laboratory Tests 2 08/11/20 17:09: Bedside Glucose (Misc Panel) 201H 08/11/20 20:47: Bedside Glucose (Misc Panel) 201H 08/12/20 04:48: Nucleated Red Blood Cells % (auto) 0.0, Anion Gap 9, Glomerular Filtration Rate 17.5L, Calcium Level 7.5L 08/12/20 06:42: Bedside Glucose (Misc Panel) 265H CBC/BMP Laboratory Tests 08/12/20 04:48 FSBS Laboratory Tests Test 08/11/20 17:09 08/11/20 20:47 08/12/20 06:42 Range/Units Bedside Glucose (Misc Panel) 201 201 265 70-105 MG/DL Discharge Medications Scheduled Amiodarone HCl (Amiodarone HCl) 200 Mg Tablet, 200 MG PO DAILY, (Reported) Apixaban (Eliquis) 5 Mg Tablet, 5 MG PO BID, (Reported) Carbamazepine (Carbamazepine ER) 400 Mg Tab.er.12h, 400 MG PO BID, (Reported) Cranberry Fruit Extract/Vit C (Azo Cranberry Softgel) 1 Each Capsule, 2 CAP PO TID, (Reported) Ergocalciferol (Vitamin D2) (Vitamin D2) 50,000 Units Cap, 50,000 UNITS PO QWEEK, (Reported) PATIENT TAKES ON FRIDAY Ferric Citrate (Auryxia) 210 Mg Tablet, 630 MG PO WM, (Reported) Insulin Glargine (Lantus) 1 Units/0.01 Ml Susp, 26 UNITS SC DAILY, (Reported) Insulin Human Lispro (Humalog) 1 Units/0.01 Ml Inj, 1 DOSE SC ACHS, (Reported) PER SLIDING SCALE Lanthanum Carbonate (Fosrenol) 750 Mg Powd.pack, 750 MG PO WM, (Reported) Lidocaine/Prilocaine (Lidocaine-Prilocaine Cream) 2.5%/2.5% Cream..g., 1 DOSE TOP 3XW, (Reported) PRIOR TO DIALYSIS: FRIDAY, FRIDAY AND FRIDAY Lipase/Protease/Amylase (Zenpep Dr 5,000 Unit Capsule) 1 Each Capsule.dr, 30,000 UNITS PO WM, (Reported) Metoprolol Tartrate (Metoprolol Tartrate) 25 Mg Tablet, 12.5 MG PO BID, (Repor teri) Scheduled PRN Albuterol Sulfate (Proair Hfa) 8.5 Gm Hfa.aer.ad, 2 PUFFS INH QID PRN for SHORTNESS OF BREATH, (Reported) Allergies Coded Allergies: No Known Allergies (Unverified , 08/11/20) BHUPINDER BLUE MD Aug 12, 2020 12:12
--- NOTE | 2020-08-13 17:20 | CR ---
DATE OF CONSULTATION: 08/11/2020 REQUESTING PHYSICIAN: Dr Winston Jorgensen MD REASON FOR CONSULTATION: Management of fluid overload and hyperkalemia in this patient with noncompliance with dialysis. CHIEF COMPLAINT: Patient presented to the Emergency Room with progressive shortness of breath. HISTORY OF PRESENT ILLNESS: Ernesto Jones is a 55-year-old male with past medical history of end-stage renal disease on hemodialysis every Friday, , Friday, history of insulin dependent diabetes, chronic diastolic congestive heart failure, pulmonary hypertension, and multiple other comorbidities as mentioned below. He is well known to nephrology service from multiple previous hospitalizations and from outpatient dialysis center as well. He was recently admitted and left against medical advice without even having dialysis. He missed his hemodialysis yesterday and police were called for a welfare check and then police went to his home. He was having lunch with his friend, he did not want to come for dialysis. Ultimately, patient presented to the hospital today morning with progressive shortness of breath. He was found to be fluid overloaded. Stat labs done in the Emergency Room showed that he had a potassium of 6. Patient is being admitted under the hospitalist service. Nephrology service was called for further help in the management of this patient. I saw and evaluated the patient today morning in the Emergency Room. Patient needed my immediate attention. He was sitting up wearing nasal cannula in moderate respiratory distress, significantly volume overloaded. PAST MEDICAL HISTORY: End-stage renal disease on hemodialysis every Friday, , Friday, COPD, active smoker, chronic diastolic congestive heart failure, pulmonary hypertension, atrial fibrillation, anticoagulated, diabetic nephropathy, insulin dependent diabetic, noncompliant with the insulin regimen that he is prescribed. He usually gets hypoglycemic episodes because he takes very high dose of long acting insulin. Chronic hypotension, history of pericardial effusion recently and pericarditis, seizure disorder, secondary hyperparathyroidism, and history of chronic noncompliance with dialysis, fluid restriction and his medications. PAST SURGICAL HISTORY: Status post AV fistula creation. ALLERGIES: No known drug allergies. FAMILY HISTORY: No significant family history of end-stage renal disease requiring hemodialysis. SOCIAL HISTORY: Patient lives at home. He is an active smoker. He denies any alcohol abuse. REVIEW OF SYSTEMS: CONSTITUTIONAL: He denies any fevers or chills. EYES: He reports poor vision. ENT: He denies any dysphagia or odynophagia. CARDIOVASCULAR: He reports progressive shortness of breath. RESPIRATORY: He reports shortness of breath, mild cough with clear sputum. GI: He denies any nausea or vomiting. GENITOURINARY: He reports decreased urine output. MUSCULOSKELETAL: He reports sore extremities and swelling of the extremities. SKIN: He denies any rashes or ulcer. HEMATOLOGICAL/ONCOLOGICAL: He denies any easy bleeding or bruising. PSYCHIATRIC: He denies any depression at this time. PROPOSAL EDITOR: He denies any strokes or seizures. All other review of systems is negative. PHYSICAL EXAMINATION: GENERAL: The patient is awake, alert, oriented x3. VITAL SIGNS: Temperature 96.5 degrees Fahrenheit, blood pressure 165/72, pulse 87, respiratory rate 30, saturating 99% on nasal cannula at two liters. HEAD AND NECK: Extraocular muscles are intact. Patient has a large bumblebee tattoo on his forehead. Mucous membranes are moist. Neck is supple. JVD is significantly elevated. CARDIOVASCULAR: S1, S2, regular rate. 2+ edema of bilateral lower extremities all the way up the thighs. RESPIRATORY: Decreased breath sounds bilaterally at the bases. Inspiratory crackles bilaterally at the bases all the way up to mid lung zone. ABDOMEN: Soft, positive bowel sounds, abdominal wall edema was noted. GENITOURINARY: Bladder was not palpable. MUSCULOSKELETAL: He has mild erythema of the bilateral lower extremities and legs are tender to deep palpation. PROPOSAL EDITOR: No focal deficits. He is agitated. Otherwise, he follows commands and moves extremities. LABORATORY REVIEW: CBC is not available. Stat labs done in the Emergency Room showed glucose 264, sodium 133, potassium 6, BUN 88, creatinine 5.6. Lactate 0.34. Ionized calcium was 4.1. Hematocrit 36. IMAGING STUDIES: A chest x-ray was done in the Emergency Room, which showed worsening vascular congestion and interstitial edema with patchy alveolar edema or infiltrates. No gross effusion was visible. CURRENT INPATIENT MEDICATIONS: Patient does not have any inpatient medications ordered yet. HOME MEDICATIONS: Include: 1. Albuterol p.r.n. 2. Amiodarone 200 mg p.o. daily. 3. Eliquis 5 mg p.o. twice a day. 4. Vitamin D 50,000 units once a week. 5. Auryxia 630 mg p.o. with meals. 6. Insulin Lantus 26 units subcutaneously daily. 7. Insulin Lispro sliding scale. 8. Fosrenol 750 mg p.o. with meals. 9. Metoprolol 12.5 mg p.o. twice a day. ASSESSMENT AND PLAN: 1. Acute decompensated diastolic congestive heart failure: It is secondary to patient's noncompliance with dialysis and fluid restriction. He missed his dialysis yesterday. He will be urgently dialyzed today. I will remove at least 4 kg of fluid as tolerated by his blood pressure. 2. Hyperkalemia: It is secondary to renal failure and noncompliance with dialysis. Patient will be dialyzed with a 1k bath today. 3. End-stage renal disease: Patient's scheduled dialysis days are Friday, and Friday. He is noncompliant with dialysis as an outpatient. He was recently admitted and then signed out against medical advice without even getting dialyzed. He is being dialyzed today. Again, he will be dialyzed according to his regular schedule tomorrow as well. 4. Atrial fibrillation: Continue current dose of Amiodarone and Metoprolol. He is anticoagulated with Eliquis. 5. Insulin dependent diabetes: Patient is currently on Lantus and Lispro, he can be started on Levemir Insulin sliding scale in the hospital. 6. Chronic kidney disease/mineral bone disease: Continue current dose of Fosrenol 750 mg p.o. with meals. 7. Anemia and end-stage renal disease: CBC is not available, patient will be given Aranesp with dialysis with the next dialysis session once we have the CBC available. Thank you for involving me in the care of this patient. I shall be happy to follow the patient along with you tomorrow morning. AJ
== END 2020-08-12 09:40 | disposition left against medical advice (07) | DRG 640 ==
LOC: M ED 09:22 → EDBD 09:22 → M ED INP 10:46 → ENRESERV 11:05 → M PCU 14:25
PROVIDERS: ADMIT Internal Medicine; ATTEND Internal Medicine
PROC: 5A1D70Z Performance of Urinary Filtration, Intermittent, Less than 6 Hours Per Day (ICD-10-PCS; principal; 2020-08-11)
DX: E87.70 Fluid overload, unspecified (principal); N18.6 End stage renal disease; I50.33 Acute on chronic diastolic (congestive) heart failure; N25.81 Secondary hyperparathyroidism of renal origin; J44.9 Chronic obstructive pulmonary disease, unspecified; I27.20 Pulmonary hypertension, unspecified; I48.91 Unspecified atrial fibrillation; E11.22 Type 2 diabetes mellitus with diabetic chronic kidney disease; I95.89 Other hypotension; G40.909 Epilepsy, unspecified, not intractable, without status epilepticus; E87.5 Hyperkalemia; E11.649 Type 2 diabetes mellitus with hypoglycemia without coma; G43.909 Migraine, unspecified, not intractable, without status migrainosus; D63.1 Anemia in chronic kidney disease; F17.200 Nicotine dependence, unspecified, uncomplicated; Z91.15 Patient's noncompliance with renal dialysis; Z91.19 Patient's noncompliance with other medical treatment and regimen; Z99.2 Dependence on renal dialysis; Z79.01 Long term (current) use of anticoagulants; Z79.4 Long term (current) use of insulin; Z79.899 Other long term (current) drug therapy

== ENCOUNTER 2020-08-19 14:51 | Emergency (ER) | payer MEDICARE, MEDICAID | END 2020-08-19 14:53 | disposition left against medical advice (07) | LOC: M ED 14:51 | DX: Z53.21 Procedure and treatment not carried out due to patient leaving prior to being seen by health care provider (principal) ==

== ENCOUNTER 2020-08-23 11:15 | Inpatient (IN) | payer MEDICARE, MEDICAID ==
[~2020-08-23] VITALS: Ht 165.1 cm; Wt 76.4 kg
[2020-08-23] VITALS (11 sets, daily range): BP systolic 75–99; BP diastolic 47–60
[2020-08-23] MEDS ORDERED: HumaLOG INSULIN (NovoLOG) PER UNIT SC SCH (12:00)
[2020-08-23 12:11] LABS: BASO % 0.6 % (0.0-1.0); EOS # 0.1 10^3/uL (0.0-0.5); HEMOGLOBIN 11.6 g/dl (13.5-17.5); LYMPH # 0.5 10^3/uL (1.5-5.0); LYMPH % 9.2 % (24.0-44.0); MEAN CORPUSCULAR HEMOGLOBIN 33.7 pg (27.0-33.0); MEAN CORPUSCULAR HGB CONC 29.7 g/dl (32.0-36.5); MEAN CORPUSCULAR VOLUME 113.4 fl (80.0-96.0); MONO # 0.6 10^3/uL (0.0-0.8); MONO % 11.3 % (0.0-5.0); NEUTROPHILS # 3.8 10^3/uL (1.5-8.5); NEUTROPHILS % 77.3 % (36.0-66.0); PLATELET COUNT, AUTOMATED 230 10^3/uL (150-450); RED BLOOD COUNT 3.44 10^6/uL (4.30-6.10); WHITE BLOOD COUNT 4.9 10^3/uL (4.0-10.0)
[2020-08-23 13:07] LABS: ALBUMIN 2.5 GM/DL (3.2-5.2); BILIRUBIN,DIRECT 0.1 MG/DL (0.0-0.2); BILIRUBIN,TOTAL 0.3 MG/DL (0.2-1.0); CALCIUM LEVEL 7.7 MG/DL (8.5-10.1); CK-MB VALUE MASS 3.2 NG/ML (<3.6); CREATININE FOR GFR 5.81 MG/DL (0.70-1.30); GLOMERULAR FILTRATION RATE 10.8 (>56); MB/CK RELATIVE INDEX 5.82 (< OR =4); POTASSIUM SERUM 5.3 MEQ/L (3.5-5.1); TROPONIN I 0.02 NG/ML (< 0.10)
[2020-08-23] MEDS ORDERED: NS 500 ML IV ONE (13:15)
--- NOTE | 2020-08-23 13:34 | REP ---
INDICATION: DYSPNEA/COUGH COMPARISON: 08/11/2020 TECHNIQUE: Portable AP view of the chest FINDINGS: Stable cardiomegaly. Lung chaparro demonstrate diffuse chronic interstitial changes. Superimposed interstitial edema and/or interstitial infiltrates cannot be excluded. No focal consolidation. No obvious effusion. No pneumothorax. Skeletal structures intact. IMPRESSION: Stable cardiomegaly and diffuse chronic interstitial changes. Superimposed interstitial process including interstitial edema or pneumonitis cannot be excluded. No focal consolidation or effusion. <Electronically signed by Ayaan Da Silva > 08/23/20 [id number]
[2020-08-23] MEDS ORDERED: med rec comment (13:45)
[2020-08-23] MEDS ORDERED: DEXTROSE 50% 50 ML SYRINGE IV PRN (14:15)
[2020-08-23] MEDS ORDERED: GLUCOSE 4GM CHEW TABLET PO PRN (14:15)
[2020-08-23] MEDS ORDERED: IPRATROPIUM 0.5MG/ALBUTEROL 2.5MG INH SOL UD 3ML (DUONEB) NEB PRN (14:15)
[2020-08-23] MEDS ORDERED: GLUCAGON INJ 1MG VIAL SC PRN (14:15)
[2020-08-23] MEDS ORDERED: ACETAMINOPHEN TAB 650MG DOSE (2X325MG) PO PRN (14:15)
--- NOTE | 2020-08-23 14:44 | HPEPDOC ---
[facility] Medical History & Physical Date of Admission Aug 23, 2020 Date of Service: Aug 23, 2020 History and Physical Chief complaint: Presented to the ER after a well check found him less responsive at home History of present illness: Patient is a 55-year-old male with multiple hospitalizations recently (frequently leaving AMA) who presented to the ER after he had missed dialysis on Friday and a well check found him less responsive at home. Patient has had a recent admission on 08/11 and had left AMA on 08/12. During her hospitalization. Patient was short of breath after he had missed his hemodialysis session. Currently patient is oriented to person, place, not to time. He reports that he is short of breath. Denies any cough, chest pain, nausea, vomiting or palpitations. Reports that his last meal was yesterday morning. Denies any diarrhea. Patient was unable to answer specific details of his history and majority of information was collected from the medical record. Past Medical History: COPD HFpEF / Right sided heart failure / Severe Pulmonary Hypertension Atrial Fibrillation (on Eliquis) Chronic Hypotension IDDM2 Diabetic Nephropathy ESRD on HD (TTS) Seizure Disorder Hx of Pericardial Effusion / Pleural Effusions Secondary Hyperparathyroidism Medical Noncompliance Past Surgical History: AV Fistula creation Allergies: See below Medications: See below Family History: - Reviewed and non-contributory Social History: - Reported that he does not use tobacco or illicit drugs / active smoker - Denies recent travel or sick contacts - Lives alone Review of Systems: 10 point review of systems complete, all negative otherwise stated in HPI Physical exam: - Vitals: BP [93/50], HR [114], RR [20], Sat [98%NC2L], Temp [97.7F] - General: Lying in bed, Drowsy, Oriented to person / place, not to time - HEENT: NC, AT, PERRLA - CVS: Tachycardic, +S1S2 - Lungs: Fair air entry bilaterally, Diffuse wheezing, Mild crackles, No rhonchi - Abdomen: Soft, Non-distended, Mild tenderness at epigastrium - Extremities: Trace pitting edema bilaterally, No calf tenderness - Neuro: No focal motor or sensory deficit - Skin: No visible rashes Labs: See below Imaging: CXR 08/22: Stable cardiomegaly and diffuse chronic interstitial changes. Superimposed interstitial process including interstitial edema or pneumonitis cannot be excluded. No focal consolidation or effusion. EKG: See below Assessment and Plan: HFpEF / Right sided heart failure / Severe Pulmonary Hypertension - ESRD on HD (TTS) - Patient has missed hemodialysis on Friday - Physical reveals evidence of fluid overload - Imaging consistent with fluid overload - Consulted nephrology; will be taken for dialysis today Acute metabolic encephalopathy - likely 2/2 hypercarbia - No focal neurologic deficits - See below Acute hypercapnic respiratory failure - likely 2/2 fluid overload and COPD exacerbation - Diffuse wheezing appreciated bilaterally - ABG noted to reveal acidosis with hypercapnia - Patient is currently on BiPAP - Will consult pulmonary for BiPAP management - ABG repeat in 2 hours - Will start Solumedrol - c/w Inhaled therapy as ordered Atrial Fibrillation - EKG reviewed without any ischemic changes; consistent with prior - c/w rate and rhythm control with amiodarone and metoprolol - c/w full anticoagulation with Eliquis Chronic Hypotension - Will c/w metoprolol with hold parameters IDDM2 - c/w ISS [id number] and will hold long acting insulin for now Diabetic Nephropathy - c/w Seizure Disorder - c/w Carbamazepine Hx of Pericardial Effusion / Pleural Effusions Secondary Hyperparathyroidism Medical non-compliance - Patient has had multiple admissions and has left AGAINST MEDICAL ADVICE after he has missed hemodialysis DVT prophylaxis - Will c/w full anticoagulation with Eliquis Code Status: - DNR / DNI Vital Signs Vital Signs Date Time Temp Pulse Resp B/P (MAP) Pulse Ox O2 Delivery O2 Flow Rate FiO2 08/23/20 14:04 40 08/23/20 13:00 116 98 08/23/20 12:45 20 93/50 (64) Nasal Cannula 2.0 08/23/20 11:20 97.7 Laboratory Data Labs 24H Laboratory Tests 2 08/23/20 11:45: Immature Granulocyte % (Auto) 0.6, Neutrophils (%) (Auto) 77.3H, Lymphocytes (%) (Auto) 9.2L, Monocytes (%) (Auto) 11.3H, Eosinophils (%) (Auto) 1.0, Basophils (%) (Auto) 0.6, Neutrophils # (Auto) 3.8, Lymphocytes # (Auto) 0.5L, Monocytes # (Auto) 0.6, Eosinophils # (Auto) 0.1, Basophils # (Auto) 0.0, Nucleated Red Blood Cells % (auto) 0.0, Anion Gap 8, Glomerular Filtration Rate 10.8L, Calcium Level 7.7L, Total Bilirubin 0.3, Direct Bilirubin 0.1, Aspartate Amino Transf (AST/SGOT) 30, Alanine Aminotransferase (ALT/SGPT) 52, Alkaline Phosphatase 298H , Total Creatine Kinase 55, Creatine Kinase MB 3.2, Creatine Kinase MB Relative Index 5.82H, Troponin I 0.02, UL-Ztl-[id number]-Type Natriuretic Peptide 90179H, Total Protein 6.0L, Albumin 2.5L, Albumin/Globulin Ratio 0.7, Thyroid Stimulating Hormone (TSH) 3.000 08/23/20 13:09: POC pH (Misc Panel) 7.135*L, POC Base Excess (Misc Panel) -1.0, POC Saturated Percent O2 (Misc) 94L, POC pO2 (Misc Panel) 97.0, POC pCO2 (Misc Panel) 83.1*H, POC HCO3 (Misc Panel) 28.0H, POC Total CO2 (Misc Panel) 30.0H 08/23/20 14:32: Bedside Glucose (Misc Panel) 147H CBC/BMP Laboratory Tests 08/23/20 11:45 Microbiology Microbiology 08/23/20 Respiratory Virus Panel (PCR) ([facility]) - Final, Complete Home Medications Scheduled Amiodarone HCl (Amiodarone HCl) 200 Mg Tablet, 200 MG PO DAILY Apixaban (Eliquis) 5 Mg Tablet, 5 MG PO BID Carbamazepine (Carbamazepine ER) 400 Mg Tab.er.12h, 400 MG PO BID Cranberry Fruit Extract/Vit C (Azo Cranberry Softgel) 1 Each Capsule, 2 CAP PO TID Ergocalciferol (Vitamin D2) (Vitamin D2) 50,000 Units Cap, 50,000 UNITS PO QWEEK PATIENT TAKES ON FRIDAY Ferric Citrate (Auryxia) 210 Mg Tablet, 630 MG PO WM Insulin Glargine (Lantus) 1 Units/0.01 Ml Susp, 26 UNITS SC DAILY Insulin Human Lispro (Humalog) 1 Units/0.01 Ml Inj, 1 DOSE SC ACHS PER SLIDING SCALE Lanthanum Carbonate (Fosrenol) 750 Mg Powd.pack, 750 MG PO WM Lidocaine/Prilocaine (Lidocaine-Prilocaine Cream) 2.5%/2.5% Cream..g., 1 DOSE TOP 3XW PRIOR TO DIALYSIS: FRIDAY, FRIDAY AND FRIDAY Lipase/Protease/Amylase (Zenpep Dr 5,000 Unit Capsule) 1 Each Capsule.dr, 30,000 UNITS PO WM Metoprolol Tartrate (Metoprolol Tartrate) 25 Mg Tablet, 12.5 MG PO BID Scheduled PRN Albuterol Sulfate (Proair Hfa) 8.5 Gm Hfa.aer.ad, 2 PUFFS INH QID PRN for SHORTNESS OF BREATH Miscellaneous Medications [med rec comment] used external and last discharge for med list Allergies Coded Allergies: No Known Allergies (Unverified , 08/11/20) KHRIS BANDA MD Aug 23, 2020 14:44
[2020-08-23] MEDS ORDERED: methylPREDNISolone 125MG 2ML VIAL IV SCH (15:00)
[2020-08-23] MEDS ORDERED: LIDOCAINE 1% SDV 5ML VIAL SQ ONE (15:30)
[2020-08-23 16:36] LABS: MB/CK RELATIVE INDEX 6.52 (< OR =4); TROPONIN I 0.02 NG/ML (< 0.10)
[2020-08-23 17:41] LABS: CK-MB VALUE MASS 3.3 NG/ML (<3.6); MB/CK RELATIVE INDEX 7.02 (< OR =4); TROPONIN I 0.02 NG/ML (< 0.10)
[2020-08-23] MEDS ORDERED: IPRATROPIUM 0.5MG/ALBUTEROL 2.5MG INH SOL UD 3ML (DUONEB) NEB SCH (20:00)
[2020-08-23] MEDS ORDERED: APIXABAN 5 MG TAB (ELIQUIS) PO SCH (21:00)
[2020-08-23] MEDS ORDERED: METOPROLOL TART 12.5 MG PER 1/2 TAB PO SCH (21:00)
[2020-08-23] MEDS ORDERED: carBAMazepine XR 200 MG TAB PO SCH (21:00)
--- NOTE | 2020-08-24 07:29 | ECGEPIP ---
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
[2020-08-24] MEDS ORDERED: AMIODARONE 200 MG TAB (PACERONE) PO SCH (09:00)
[2020-08-24] MEDS ORDERED: EMLA CREAM 5GM TUBE (LIDOCAINE/PRILOCAINE) TOP SCH (09:00)
--- NOTE | 2020-08-24 15:51 | DS.PDOC ---
Discharge Summary General Date of Admission Aug 23, 2020 at 14:07 Date of Discharge 08/23/2020 Discharge Summary PROCEDURES PERFORMED DURING STAY: [None]. ADMITTING DIAGNOSES / DISCHARGE DIAGNOSES: HFpEF / Right sided heart failure / Severe Pulmonary Hypertension Acute metabolic encephalopathy - likely 2/2 hypercarbia Acute hypercapnic respiratory failure - likely 2/2 fluid overload and COPD exacerbation Atrial Fibrillation Chronic Hypotension IDDM2 Diabetic Nephropathy Seizure Disorder Hx of Pericardial Effusion / Pleural Effusions Secondary Hyperparathyroidism Medical non-compliance DVT prophylaxis COMPLICATIONS/CHIEF COMPLAINT: Confusion / Shortness of breath HISTORY OF PRESENT ILLNESS / HOSPITAL COURSE: Patient is a 55-year-old male with multiple hospitalizations recently (frequently leaving AMA) who presented to the ER after he had missed dialysis on Friday and a well check found him less responsive at home. Patient has had a recent admission on 08/11 and had left AMA on 08/12. During her hospitalization. Patient was short of breath after he had missed his hemodialysis session. On admission patient is oriented to person, place, not to time. He reports that he is short of breath. Denies any cough, chest pain, nausea, vomiting or palpitations. Reports that his last meal was yesterday morning. Denies any diarrhea. Patient was placed on BiPAP and taken to the ICU. However, once he got to the [facility]. His mentation had improved and he had taken his BiPAP off was oriented to person, place and time was belligerent with staff. Patient was given something to eat. He had received his dialysis and immediately after that left AGAINST MEDICAL ADVICE. Patient was advised of the risks of leaving AGAINST MEDICAL ADVICE including worsening of his medical condition, disability and/or and benefits included continuing to monitor his breathing and lab work. Has verbalized understanding and has signed AMA paperwork. DISCHARGE MEDICATIONS: Please see below. ALLERGIES: Please see below. DISPOSITION: Against Medical Advice. CODE STATUS: - DNR / DNI DISCHARGE CONDITION: [Stable]. Vital Signs/I&Os Vital Signs Date Time Temp Pulse Resp B/P (MAP) Pulse Ox O2 Delivery O2 Flow Rate FiO2 08/23/20 20:01 98.1 119 20 99/49 (66) 100 Room Air 08/23/20 16:36 2.0 08/23/20 14:04 40 I&O- Last 24 Hours up to 6 AM 08/24/20 06:00 Intake Total 600 ml Output Total 0 ml Balance 600 ml Laboratory Data Labs 24H Laboratory Tests 2 08/23/20 17:07: Total Creatine Kinase 47, Creatine Kinase MB 3.3, Creatine Kinase MB Relative Index 7.02H, Troponin I 0.02 08/24/20 11:42: Lab Scanned Report Miscellaneous Lab Microbiology Microbiology 08/23/20 Respiratory Virus Panel (PCR) ([facility]) - Final, Complete Discharge Medications Scheduled Amiodarone HCl (Amiodarone HCl) 200 Mg Tablet, 200 MG PO DAILY, (Reported) Apixaban (Eliquis) 5 Mg Tablet, 5 MG PO BID, (Reported) Carbamazepine (Carbamazepine ER) 400 Mg Tab.er.12h, 400 MG PO BID, (Reported) Cranberry Fruit Extract/Vit C (Azo Cranberry Softgel) 1 Each Capsule, 2 CAP PO TID, (Reported) Ergocalciferol (Vitamin D2) (Vitamin D2) 50,000 Units Cap, 50,000 UNITS PO QWEEK, (Reported) PATIENT TAKES ON FRIDAY Ferric Citrate (Auryxia) 210 Mg Tablet, 630 MG PO WM, (Reported) Insulin Glargine (Lantus) 1 Units/0.01 Ml Susp, 26 UNITS SC DAILY, (Reported) Insulin Human Lispro (Humalog) 1 Units/0.01 Ml Inj, 1 DOSE SC ACHS, (Reported) PER SLIDING SCALE Lanthanum Carbonate (Fosrenol) 750 Mg Powd.pack, 750 MG PO WM, (Reported) Lidocaine/Prilocaine (Lidocaine-Prilocaine Cream) 2.5%/2.5% Cream..g., 1 DOSE TOP 3XW, (Reported) PRIOR TO DIALYSIS: FRIDAY, FRIDAY AND FRIDAY Lipase/Protease/Amylase (Zenpep Dr 5,000 Unit Capsule) 1 Each Capsule.dr, 30,000 UNITS PO WM, (Reported) Metoprolol Tartrate (Metoprolol Tartrate) 25 Mg Tablet, 12.5 MG PO BID, (Reported) Scheduled PRN Albuterol Sulfate (Proair Hfa) 8.5 Gm Hfa.aer.ad, 2 PUFFS INH QID PRN for SHORTNESS OF BREATH, (Reported) Miscellaneous Medications [med rec comment] , (Reported) used external and last discharge for med list Allergies Coded Allergies: No Known Allergies (Unverified , 08/11/20) KHRIS BANDA MD Aug 24, 2020 15:51
--- NOTE | 2020-08-25 12:25 | CR ---
"NEPHROLOGY CONSULTATION | REFERRING PHYSICIAN: Sita Cassidy M.D. REASON FOR CONSULTATION: Shortness of breath, hyperkalemia and respiratory failure. HISTORY OF PRESENT ILLNESS: Mr. Jones is a 55-year-old gentleman with known history of end-stage renal disease, severe cardiomyopathy, paroxysmal atrial fibrillation and recurrent respiratory failure due to noncompliance with dialysis treatments and medical care. He did not show up for his regular dialysis treatment today and police were dispatched for vascular care. The patient was found unresponsive and brought to emergency room via ambulance. His oxygen saturation was in the 70s and he has been placed on BiPAP. Nephrology consultation was requested for urgent hemodialysis. I examined the patient in the emergency room. PAST MEDICAL AND SURGICAL HISTORY: 1. History of COPD. 2. History of severe pulmonary hypertension and right-sided heart failure. 3. History of diastolic congestive heart failure. 4. History of atrial fibrillation. 5. History of chronic hypotension. 6. End-stage renal disease. 7. Diabetes with recurrent hypoglycemia and uncontrolled diabetes. 8. History of seizure disorder. 9. History of pericardial effusion and pleural effusions. 10. Secondary hyperparathyroidism. 11. History of medical noncompliance. PAST SURGICAL HISTORY: Significant for AV fistula creation. HOME MEDICATIONS: 1. Amiodarone 200 mg daily. 2. Eliquis 5 mg b.i.d. 3. Carbamazepine 400 mg b.i.d. 4. Vitamin D 50,000 units once a week. 5. Auryxia 210 mg three tablets t.i.d. with meals. 6. Lantus insulin 26 units daily. 7. Humalog insulin per sliding scale. 8. Fosrenol 750 mg t.i.d. with meals. 9. Metoprolol 25 mg 1/2 tablet b.i.d. 10. Albuterol inhaler as needed. ALLERGIES: The patient has no known drug allergies. PERSONAL AND SOCIAL HISTORY: The patient has history of smoking and marijuana use, denies any alcohol or intravenous drug use. FAMILY HISTORY: Negative for end-stage renal disease and noncontributory for this admission. REVIEW OF SYSTEMS: Patient is currently on BiPAP. However, he is able to talk through it. He denies any fever or chills. He was found unresponsive at home. He does have history of similar episodes with recent hypoglycemia and recurrent congestive heart failure related to noncompliance with medical care. Ears, nose and throat are unremarkable. Cardiovascular system: Significant for severe pulmonary hypertension and diastolic congestive heart failure. He has history of pericardial and pleural effusions. Respiratory system is significant for COPD and CO2 retention. He has chronic hypotension and hypervolemia. GI system is negative for vomiting or diarrhea. system is negative for dysuria or hematuria. Musculoskeletal system is significant for chronic lower extremity edema. Neurological system is significant for seizures. He was unresponsive and found at home but at present he is able to answer questions. Endocrine system is significant for diabetes and secondary hyperparathyroidism. Hematological system significant for chronic anticoagulation and anemia. He has been transfused in the past. PHYSICAL EXAMINATION: The patient is currently on BiPAP. He is quite restless in the stretcher in my emergency room visit. Temperature 97.8 degrees Fahrenheit, heart rate about 104 per minute and respiratory rate is 24 per minute. Blood pressure 95/58 mmHg and oxygen saturation 91% on BiPAP. Head is atraumatic. Neck veins are moderately elevated. Heart sounds tachycardic and lungs with diminished breath sounds and basilar rales. Abdomen is soft and nontender and bowel sounds are present. Extremities without any cyanosis or clubbing at present. Left arm AV fistula is patent. Lower extremity edema with chronic stasis changes is noted. Neurologically he is able to answer questions and moving all four limbs now. LABORATORY DATA: Sodium 136, potassium 5.3, CO2 29, BUN 49 and creatinine 5.81. Glucose 192 and calcium 7.7. BNP level 88,778. Total protein 6.0 and albumin 2.5. TSH level 3.0 and procalcitonin 0.97. WBC count is 49, hemoglobin is 11.6 and hematocrit 39.0. Chest x-ray in the emergency room showed cardiomegaly and interstitial edema. PROBLEMS: 1. Respiratory failure. This is multifactorial. He is volume overloaded and also has CO2 retention today. He does have history of COPD and pleural effusions in the past. At present, he does not seem to have any significant pleural effusion. His volume status also not significantly decompensated but chest x-ray did show pulmonary edema. We will arrange for urgent dialysis and try to remove at least two liters fluid as tolerated. 2. Hyperkalemia. He has mild hyperkalemia which will be corrected with dialysis and does not need any other intervention. 3. End-stage renal disease. The patient missed his dialysis today and has been partially noncompliant with his dialysis treatments. He either does not show up for dialysis or cuts his treatment short. We will arrange urgent dialysis as soon as he gets up to intensive care unit. 4. Congestive heart failure. Mostly his congestive heart failure is related to noncompliance with fluid restriction and dialysis care. He also has diastolic dysfunction and paroxysmal atrial fibrillation which makes things worse. He does not tolerate too much fluid removal in one session due to hypotension. We will try to remove at least two liters today and see how he does. 5. Anemia. His anemia is stable at present and does not need any urgent intervention. 6. Diabetes. The patient also has brittle diabetes with frequent hypoglycemia and severe hyperglycemia. He should be monitored closely. Thank you for involving me in the care of Mr. Jones. We will follow him along with you."
[2020-08-28] MEDS ORDERED: VITAMIN D 50,000 UNITS CAPSULE (ERGOCALCIFEROL 1.25MG) PO SCH (09:00)
== END 2020-08-23 21:07 | disposition left against medical advice (07) | DRG 291 ==
LOC: EDBD 11:15 → M ED 11:15 → M ED INP 14:07 → ENRESERV 14:19 → M ICU 16:30
PROVIDERS: ADMIT Internal Medicine; ATTEND Internal Medicine
PROC: 5A1D70Z Performance of Urinary Filtration, Intermittent, Less than 6 Hours Per Day (ICD-10-PCS; principal; 2020-08-23)
DX: I50.33 Acute on chronic diastolic (congestive) heart failure (principal); N18.6 End stage renal disease; J96.02 Acute respiratory failure with hypercapnia; G93.41 Metabolic encephalopathy; N25.81 Secondary hyperparathyroidism of renal origin; J44.1 Chronic obstructive pulmonary disease with (acute) exacerbation; E11.22 Type 2 diabetes mellitus with diabetic chronic kidney disease; I27.20 Pulmonary hypertension, unspecified; I95.89 Other hypotension; G40.909 Epilepsy, unspecified, not intractable, without status epilepticus; I48.91 Unspecified atrial fibrillation; Z66 Do not resuscitate; E11.65 Type 2 diabetes mellitus with hyperglycemia; Z91.15 Patient's noncompliance with renal dialysis; Z91.19 Patient's noncompliance with other medical treatment and regimen; E87.5 Hyperkalemia; Z99.2 Dependence on renal dialysis; Z79.01 Long term (current) use of anticoagulants; Z79.4 Long term (current) use of insulin; Z79.899 Other long term (current) drug therapy; Z20.828 Contact with and (suspected) exposure to other viral communicable diseases

== ENCOUNTER 2020-08-25 12:56 | Inpatient (IN) | payer MEDICARE, MEDICAID ==
[~2020-08-25] VITALS: Ht 175.3 cm; Wt 76.0 kg
[~2020-08-25 12:56] MED LIST changes: +med rec comment
[2020-08-25 13:39] LABS: BASO % 0.5 % (0.0-1.0); EOS # 0.1 10^3/uL (0.0-0.5); EOS % 0.8 % (0.0-3.0); HEMATOCRIT 41.6 % (42.0-52.0); HEMOGLOBIN 12.5 g/dl (13.5-17.5); LYMPH # 0.6 10^3/uL (1.5-5.0); LYMPH % 9.6 % (24.0-44.0); MEAN CORPUSCULAR HEMOGLOBIN 33.9 pg (27.0-33.0); MEAN CORPUSCULAR VOLUME 112.7 fl (80.0-96.0); MONO # 0.6 10^3/uL (0.0-0.8); NEUTROPHILS # 4.7 10^3/uL (1.5-8.5); NEUTROPHILS % 78.6 % (36.0-66.0); PLATELET COUNT, AUTOMATED 217 10^3/uL (150-450); RED BLOOD COUNT 3.69 10^6/uL (4.30-6.10); WHITE BLOOD COUNT 5.9 10^3/uL (4.0-10.0)
[2020-08-25] MEDS ORDERED: ALBUTEROL SULFATE 2.5 MG/0.5 ML INH NEB SOLN INH ONE (13:45)
[2020-08-25] MEDS ORDERED: IPRATROPIUM 0.5MG/ALBUTEROL 2.5MG INH SOL UD 3ML (DUONEB) NEB ONE (13:45)
--- NOTE | 2020-08-25 13:58 | REP ---
INDICATION: Altered Mental Status COMPARISON: None. TECHNIQUE: Axial noncontrast images from the skull base to the thoracic inlet with coronal reformations. This CT examination was performed using the following dose reduction techniques: Automated exposure control, adjustment of mA and/or kv according to the patient's size, and use of iterative reconstruction technique. FINDINGS: Age-related atrophy and microvascular ischemic changes are appreciated. The ventricles and sulci are symmetric. Toussaint-white differentiation is maintained. There is no evidence for acute intracranial hemorrhage, mass/mass effect, pathology or infarction. No extra-axial fluid collection. Calvarium is intact. Paranasal sinuses and mastoid air cells are clear. IMPRESSION: Age related atrophy and microvascular ischemic changes. No acute intracranial hemorrhage, infarction, or mass/mass effect. <Electronically signed by Ayaan Da Silva > 08/25/20 [id number]
--- NOTE | 2020-08-25 14:00 | REP ---
INDICATION: Altered Mental Status COMPARISON: None. TECHNIQUE: Axial noncontrast images from the skull base to the thoracic inlet with coronal and sagittal re-formations This CT examination was performed using the following dose reduction techniques: Automated exposure control, adjustment of mA and/or kv according to the patient's size, and use of iterative reconstruction technique. FINDINGS: Examination is limited by motion artifact. Normal alignment and lordosis is maintained. Cervical vertebral bodies including transverse processes and spinous processes appear grossly intact and there is no obvious acute fracture / compression injury or subluxation. Spinal canal is patent. Posterior elements are intact. Paravertebral soft tissues are normal. IMPRESSION: Limited by motion artifact. Evidence for acute pathology or trauma/injury. <Electronically signed by Ayaan Da Silva > 08/25/20 [id number]
[2020-08-25] MEDS ORDERED: DEXTROSE 50% 50 ML SYRINGE IV STA (14:03)
[2020-08-25] MEDS ORDERED: DEXTROSE 50% 50 ML SYRINGE As Ordered ONE (14:04)
[2020-08-25] MEDS ORDERED: PIPERACILLIN/TAZOBACTAM SOD 4.5 GM in D5W MINI-BAG PLUS 50 ML IV ONE (14:30)
[2020-08-25] MEDS ORDERED: NS 2,230 ML in IV 1 EA IV ONE (14:30)
[2020-08-25 14:56] LABS: INR 1.24; PROTHROMBIN TIME 15.9 SECONDS (12.5-14.3)
[2020-08-25 14:57] LABS: PARTIAL THROMBOPLASTIN TIME 35.1 SECONDS (24.2-38.5)
[2020-08-25] MEDS ORDERED: GLUCOSE 4GM CHEW TABLET PO PRN (15:00)
[2020-08-25] MEDS ORDERED: DEXTROSE 50% 50 ML SYRINGE IV PRN (15:00)
[2020-08-25] MEDS ORDERED: NS 1,000 ML IV ONE ×3 (15:00→16:30)
[2020-08-25] MEDS ORDERED: GLUCAGON INJ 1MG VIAL SC PRN (15:00)
--- NOTE | 2020-08-25 15:21 | REP ---
INDICATION: Altered Mental Status COMPARISON: None. TECHNIQUE: Single AP view of the pelvis. FINDINGS: Examination is limited. Left hip injury cannot be excluded and requires clinical/physical correlation. Osteopenia and degenerative changes noted. Vascular calcifications identified. IMPRESSION: Limited examination. Cannot exclude injury to the left hip. Correlation is recommended. <Electronically signed by Ayaan Da Silva > 08/25/20 [id number]
--- NOTE | 2020-08-25 15:22 | REP ---
INDICATION: Altered Mental Status COMPARISON: 08/23/2020 TECHNIQUE: Portable AP view of the chest FINDINGS: Stable cardiomegaly. Diffuse chronic interstitial changes. Cannot exclude a mild interstitial pneumonitis and/or mild interstitial edema. IMPRESSION: Stable cardiomegaly and chronic changes. Cannot definitively exclude interstitial edema or pneumonitis. <Electronically signed by Ayaan Da Silva > 08/25/20 [id number]
[2020-08-25 16:12] LABS: ACETAMINOPHEN LEVEL < 2.0 UG/ML (10.0-30.0); AMYLASE 95 U/L (25-115); C REACTIVE PROTEIN QUANTITATIV 5.99 MG/DL (0.00-0.30); CK-MB VALUE MASS 5.1 NG/ML (<3.6); CPK CREATINE PHOSPHOKINASE 68 U/L (39-308); ETHYL ALCOHOL (ETHANOL) < 0.003 % (0.000-0.010); SALICYLATE LEVEL < 1.7 MG/DL (5.0-30.0); TROPONIN I < 0.02 NG/ML (< 0.10)
--- NOTE | 2020-08-25 16:25 | HPEPDOC ---
[facility] Medical History & Physical Date of Admission Aug 25, 2020 Date of Service: Aug 25, 2020 History and Physical CHIEF COMPLAINT: Altered mental status HISTORY OF PRESENT ILLNESS: (History obtained from emergency room records and patient's family)-patient is obtunded on BiPAP 55-year-old male with a history of medical noncompliance signs out AGAINST MEDICAL ADVICE.end-stage renal disease on maintenance HD on Friday,, Friday, hypertension, diabetes, diabetic nephropathy, neuropathy, chronic atrial fibrillation on anticoagulation, severe pulmonary hypertension, diastolic heart failure. History of acute hypercapnic respiratory acidosis requiring BIPAP in the past and ICU admissions, was in his usual state of health according to the patient's sister yesterday at 11 AM when they brought him a plate of food for Thanksgiving. Patient was sitting on his chair in his apartment and he appeared to be "okay been." According to the knees. Patient did not appear to have any trouble breathing, chills, chest pain, lightheadedness or dizziness and was conversing with them yesterday at lunch. Patient was brought in by ambulance today and according to records, he had a fall at home with injury to the hands and was bleeding. He appeared lethargic and on arrival to the emergency room. Workup included an arterial blood gas which showed acute hypercapnic respiratory failure with a pH of 7.078, O2 of 89 and CO2 of 80, finger blood stick was 129. CT of the head was negative for acute intracranial hemorrhage or CVA, cervical spine CT head no acute fracture, chest x-ray showed chronic interstitial changes, cannot exclude interstitial edema. He was afebrile, negative for Covid, with normal white blood cell count, Normal lactic acid, elevated ammonia of 60. Hospitalist service was called to admit the patient for acute hypercapnic respiratory failure, hypotension, acute metabolic encephalopathy. PAST MEDICAL HISTORY: COPD, diastolic heart failure, severe pulmonary hypertension, right-sided heart failure, atrial fibrillation and anticoagulation, hypertension, diabetic nephropathy with recurrent hypoglycemia, chronic hypotension, end-stage renal disease on maintenance dialysis Friday, , Friday, history of seizure disorder, pericarditis, anemia of chronic kidney disease, secondary hyperpara thyroidism, history of medical noncompliance signs out AGAINST MEDICAL ADVICE, history of pericardial effusion and pleural effusions PAST SURGICAL HISTORY: Left AV fistula. SOCIAL HISTORY: Occasional marijuana. Prior history of smoking, no alcohol use. Lives alone, does not have a healthcare proxy. CODE STATUS could not be obtained as the patient is obtunded. FAMILY HISTORY: Negative for renal disease HOME MEDICATIONS: SEE BELOW ALLERGIES: Please see below. REVIEW OF SYSTEMS: Patient is obtunded, unable to be obtained HOME MEDICATIONS: Please see below. PHYSICAL EXAMINATION: VITAL SIGNS: See below GEN.: Obtunded, lying on the left side in position, has spontaneous movements arouses to sternal rub, able to say "what?", Not following commands HEENT: BiPAP mask on, no tracheal deviation, No carotid bruit LUNGS: Air entry is equal bilaterally. Diminished breath sounds. No wheezing. Rales at the bases bilaterally HEART: S1, S2, tachycardic ABDOMEN: Positive bowel sounds, soft, nontender, nondistended EXTREMITIES: Left AV fistula, chronic venous stasis changes but no pitting edema NEUROLOGIC: Obtunded LABORATORY DATA: See below. IMAGING: INDICATION: Altered Mental Status COMPARISON: None. TECHNIQUE: Axial noncontrast images from the skull base to the thoracic inlet with coronal and sagittal re-formations This CT examination was performed using the following dose reduction techniques: Automated exposure control, adjustment of mA and/or kv according to the kusum ent's size, and use of iterative reconstruction technique. FINDINGS: Examination is limited by motion artifact. Normal alignment and lordosis is maintained. Cervical vertebral bodies including transverse processes and spinous processes appear grossly intact and there is no obvious acute fracture / compression injury or subluxation. Spinal canal is patent. Posterior elements are intact. Paravertebral soft tissues are normal. IMPRESSION: Limited by motion artifact. Evidence for acute pathology or trauma/injury. <Electronically signed by Ayaan Da Silva > 08/25/20 1356 INDICATION: Altered Mental Status COMPARISON: 08/23/2020 TECHNIQUE: Portable AP view of the chest FINDINGS: Stable cardiomegaly. Diffuse chronic interstitial changes. Cannot exclude a mild interstitial pneumonitis and/or mild interstitial edema. IMPRESSION: Stable cardiomegaly and chronic changes. Cannot definitively exclude interstitial edema or pneumonitis. <Electronically signed by Ayaan Da Silva > 08/25/20 1518 INDICATION: Altered Mental Status COMPARISON: None. TECHNIQUE: Axial noncontrast images from the skull base to the thoracic inlet with coronal reformations. This CT examination was performed using the following dose reduction techniques: Automated exposure control, adjustment of mA and/or kv according to the patient's size, and use of iterative reconstruction technique. FINDINGS: Age-related atrophy and microvascular ischemic changes are appreciated. The ventricles and sulci are symmetric. Toussaint-white differentiation is maintained. There is no evidence for acute intracranial hemorrhage, mass/mass effect, pathology or infarction. No extra-axial fluid collection. Calvarium is intact. Paranasal sinuses and mastoid air cells are clear. IMPRESSION: Age related atrophy and microvascular ischemic changes. No acute intracranial hemorrhage, infarction, or mass/mass effect. <Electronically signed by Ayaan Da Silva > 08/25/20 [id number] MICROBIOLOGY: Please see below. ASSESSMENT: 55-year-old male with a history of medical noncompliance signs out AGAINST MEDICAL ADVICE.end-stage renal disease on maintenance HD on Friday,, Friday, hypertension, diabetes, diabetic nephropathy, neuropathy, chronic atrial fibrillation on anticoagulation, severe pulmonary hypertension, diastolic heart failure. History of acute hypercapnic respiratory acidosis requiring BIPAP in the past and ICU admissions, was in his usual state of health according to the patient's sister yesterday at 11 AM when they brought him a plate of food for [employer]. Patient was sitting on his chair in his apartment and he appeared to be "okay been." According to the knees. Patient did not appear to have any trouble breathing, chills, chest pain, lightheadedness or dizziness and was conversing with them yesterday at lunch. Patient was brought in by ambulance today and according to records, he had a fall at home with injury to the hands and was bleeding. He appeared lethargic and on arrival to the emergency room. Workup included an arterial blood gas which showed acute hypercapnic respiratory failure with a pH of 7.078, O2 of 89 and CO2 of 80, finger blood stick was 129. CT of the head was negative for acute intracranial hemorrhage or CVA, cervical spine CT head no acute fracture, chest x-ray showed chronic interstitial changes, cannot exclude interstitial edema. He was afebrile, negative for Covid, with normal white blood cell count, Normal lactic acid, elevated ammonia of 60. Hospitalist service was called to admit the patient for acute hypercapnic respiratory failure, hypotension, acute metabolic encephalopathy. PROBLEM LIST Acute on chronic hypercapnic respiratory failure Acute metabolic encephalopathy chronic diastolic congestive heart failure End-stage renal disease on maintenance hemodialysis Friday, , Friday Chronic hypotension Severe pulmonary hypertension Chronic atrial fibrillation Peripheral arterial disease Type 2 diabetes, uncontrolled Diabetic neuropathy Diabetic nephropathy Hypertensive heart disease History of seizure disorder Secondary hyperparathyroidism COPD medical noncompliance, usually leaves against medical advice PLAN: Patient will will be admitted as an inpatient for 2 midnights. Keep him nothing by mouth due to risk of aspiration with altered mental status, business transformation manager will be consulted to manage patient's BiPAP needs. Once he is awake, we will discuss his CODE STATUS and confirm his wishes. He has received IV antibiotics and IV fluids from the emergency room which we will continue for now empirically. Patient has chronic hypotension and usually responds to midodrine. We will, give IV fluids, but may need Levophed drip to keep mean arterial pressure greater than 70. Patient will be Hypoglycemic Protocol and fingersticks every 6 hourly. Once the patient's blood pressure has been stabilized, he will be started on D5 half-normal saline to prevent hypoglycemia while he is nothing by mouth status. Probation Agent Dr. Kinsey will be consulted for fluid management and dialysis needs. We will hold off on all oral medications until the patient is back to his baseline mentation. Patient's family is aware of his admission and has no questions regarding his current management, phone #[phone] Dianne Vaughn sister. Vital Signs Vital Signs Date Time Temp Pulse Resp B/P (MAP) Pulse Ox O2 Delivery O2 Flow Rate FiO2 08/25/20 14:23 73/43 (53) NIPPV (BIPAP/CPAP) 08/25/20 14:22 92 100 08/25/20 14:18 30 08/25/20 14:07 2.0 08/25/20 13:13 97.1 26 Laboratory Data Labs 24H Laboratory Tests 2 08/25/20 13:23: Immature Granulocyte % (Auto) 0.5, Neutrophils (%) (Auto) 78.6H, Lymphocytes (%) (Auto) 9.6L, Monocytes (%) (Auto) 10.0H, Eosinophils (%) (Auto) 0.8, Basophils (%) (Auto) 0.5, Neutrophils # (Auto) 4.7, Lymphocytes # (Auto) 0.6L, Monocytes # (Auto) 0.6, Eosinophils # (Auto) 0.1, Basophils # (Auto) 0.0, Nucleated Red Blood Cells % (auto) 0.3H, Lactic Acid Level 0.6, Ammonia 60H 08/25/20 13:25: Prothrombin Time 15.9H, Prothromb Time International Ratio 1.24, Activated Partial Thromboplast Time 35.1 08/25/20 14:20: Bedside Glucose (Misc Panel) 129H CBC/BMP Laboratory Tests 08/25/20 13:23 Microbiology Microbiology 08/25/20 Blood Culture, Received Pending 08/25/20 Blood Culture, Received Pending Home Medications Scheduled Amiodarone HCl (Amiodarone HCl) 200 Mg Tablet, 200 MG PO DAILY Apixaban (Eliquis) 5 Mg Tablet, 5 MG PO BID Carbamazepine (Carbamazepine ER) 400 Mg Tab.er.12h, 400 MG PO BID Cranberry Fruit Extract/Vit C (Azo Cranberry Softgel) 1 Each Capsule, 2 CAP PO TID Ergocalciferol (Vitamin D2) (Vitamin D2) 50,000 Units Cap, 50,000 UNITS PO QWEEK PATIENT TAKES ON FRIDAY Ferric Citrate (Auryxia) 210 Mg Tablet, 630 MG PO WM Insulin Glargine (Lantus) 1 Units/0.01 Ml Susp, 26 UNITS SC DAILY Insulin Human Lispro (Humalog) 1 Units/0.01 Ml Inj, 1 DOSE SC ACHS PER SLIDING SCALE Lanthanum Carbonate (Fosrenol) 750 Mg Powd.pack, 750 MG PO WM Lidocaine/Prilocaine (Lidocaine-Prilocaine Cream) 2.5%/2.5% Cream..g., 1 DOSE TOP 3XW PRIOR TO DIALYSIS: FRIDAY, FRIDAY AND FRIDAY Lipase/Protease/Amylase (Zenpep Dr 5,000 Unit Capsule) 1 Each Capsule.dr, 30,000 UNITS PO WM Metoprolol Tartrate (Metoprolol Tartrate) 25 Mg Tablet, 12.5 MG PO BID Scheduled PRN Albuterol Sulfate (Proair Hfa) 8.5 Gm Hfa.aer.ad, 2 PUFFS INH QID PRN for SHORTNESS OF BREATH Allergies Coded Allergies: No Known Allergies (Unverified , 08/11/20) A-FIB/CHADSVASC A-FIB History Current/History of A-Fib/PAF?: Yes Current PO Anticoag Therapy: Yes Age/Risk Factor Scoring CHADSVASC: CHADSVASC Response (Comments) Value Age Risk Factor Age < 65 years old 0 Gender Risk Factor Male 0 Hx of CHF Yes 1 Hx of HTN Yes 1 Hx of Stroke/TIA/or VTE No 0 Hx of Diabetes Yes 1 Total 3 Treatment Treatment ordered: Apixaban KAPIL ESQUIVEL MD Aug 25, 2020 15:04
[2020-08-25] MEDS ORDERED: D5W/0.45% SODIUM CHLORIDE 1,000 ML IV SCH (16:30)
[2020-08-25 16:55] VITALS: BP 74/41
[2020-08-25] MEDS ORDERED: NOREPINEPHRINE BITARTRATE 8 MG in D5W 492 ML IV SCH (17:00)
[2020-08-25 17:05] VITALS: BP 99/62
[2020-08-25 17:15] VITALS: BP 91/43
[2020-08-25 17:23] LABS: C REACTIVE PROTEIN QUANTITATIV 5.77 MG/DL (0.00-0.30); CARBAMAZEPINE (TEGRETOL) LEVEL 9.3 UG/ML (4.0-10.0); PROLACTIN 119.2 NG/ML (2.1-17.7)
[2020-08-25 17:30] VITALS: BP 83/37
[2020-08-25] MEDS ORDERED: methylPREDNISolone 40MG 1ML VIAL IV SCH (17:30)
[2020-08-25 17:45] VITALS: BP 88/35
[2020-08-25 18:19] LABS: ABG BASE EXCESS -9.4 (-2.0-2.0); ABG HCO3 22.6 MEQ/L (22.0-26.0); ABG O2 SATURATION 94.5 % (95.0-99.0); ABG PARTIAL PRESSURE O2 92.5 mmHg (75.0-100.0); ABG STANDARD HCO3 16.9 MEQ/L (22.0-26.0); ABG TOTAL CO2 25.3 MEQ/L (22.0-29.0)
[2020-08-25 18:22] LABS: ABG pH (ARTERIAL) 7.037 UNITS (7.350-7.450)
[2020-08-25 18:23] LABS: ABG PARTIAL PRESSURE CO2 86.2 mmHg (35.0-45.0)
--- NOTE | 2020-08-25 19:21 | ECGEPIP ---
[facility] - ED Test Date: 2020-08-25 Pat Name: BRANDI DOMINGUEZ Department: Room: - Gender: Male Braid Folder: bernarda : 1965 Requested By: Morgan Yang Order Number: [id number] Reading MD: Morgan Yang Measurements Intervals [place] Rate: 90 P: AL: 0 QRS: -86 QRSD: 142 T: 78 QT: 396 QTc: 486 Interpretive Statements ATRIAL FIBRILLATION MARKED LEFT AXIS DEVIATION RIGHT BUNDLE BRANCH BLOCK 08/23/[address] T WAVE CHANGES Electronically Signed on 08-25-2020 19:21:53 EST by Morgan Yang
[2020-08-25 19:35] LABS: ABG BASE EXCESS -8.9 (-2.0-2.0); ABG HCO3 22.6 MEQ/L (22.0-26.0); ABG PARTIAL PRESSURE O2 55.6 mmHg (75.0-100.0); ABG TOTAL CO2 25.2 MEQ/L (22.0-29.0)
[2020-08-25 19:37] LABS: ABG PARTIAL PRESSURE CO2 82.5 mmHg (35.0-45.0); ABG pH (ARTERIAL) 7.056 UNITS (7.350-7.450)
[2020-08-25 20:00] VITALS: BP 99/65
[2020-08-25] MEDS ORDERED: PIPERACILLIN/TAZOBACTAM SOD 3.375 GM in D5W MINI-BAG PLUS 50 ML IV SCH (20:30)
[2020-08-25] MEDS ORDERED: HEPARIN SOD (PORCINE) 5000UNITS/ML 1ML VIAL/SYRINGE SQ SCH (22:00)
[2020-08-25] MEDS ORDERED: PIPERACILLIN/TAZOBACTAM SOD 2.25 GM in D5W MINI-BAG PLUS 50 ML IV SCH (23:00)
--- NOTE | 2020-08-26 02:05 | IPNPDOC ---
Text Note Date of Service The patient was seen on 08/25/20. NOTE I was called and informed that the patient was refusing his BIPAP, had signed a DNR/DNI form and insisted that he wanted to go home tonight. Several RNs from the ICU including Nena Dewey, the leather stitcher and I talked with the patient to ensure that he was capable of making decisions and understood implications of choosing to change his CODE status to DNR/DNI. 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 After a few minutes he apologized for being rude and added that he didnt' want to speak about why he choose to become DNR/DNI because it made him feel like he was failing himself. He added that he was aware that he was failing himself and felt guilty about it, but he didn't want us to remind him of the implications of his behavior. Shortly thereafter the nursing meter shop supervisor Carrie Herring arrived but he refused to talk with her. After a few minutes the patient requested the AMA form, signed it and left the ICU. We informed his niece Noreen Mondragon (daughter of Radha Vaughn) that the patient left AMA. VS,Fishbone, I+O VS, Fishbone, I+O Laboratory Tests 08/25/20 13:23 Vital Signs Date Time Temp Pulse Resp B/P (MAP) Pulse Ox O2 Delivery O2 Flow Rate FiO2 08/25/20 20:00 97.8 92 19 99/65 (76) 100 Nasal Cannula 5.0 08/25/20 17:45 35 I&O- Last 24 Hours up to 6 AM 08/26/20 06:00 Intake Total 2550 ml Balance 2550 ml IMMANUEL BECK MD Aug 26, 2020 02:05
[2020-08-26] MEDS ORDERED: PANTOPRAZOLE 40MG VIAL (C9113 PER 1) IV SCH (09:00)
== END 2020-08-25 21:45 | disposition left against medical advice (07) | DRG 871 ==
LOC: M ED 12:56 → EDBD 12:56 → M ED INP 14:52 → ENRESERV 16:38 → M ICU 16:43
PROVIDERS: ADMIT General Practice; ATTEND Internal Medicine
DX: A41.9 Sepsis, unspecified organism (principal); K72.00 Acute and subacute hepatic failure without coma; N18.6 End stage renal disease; J96.21 Acute and chronic respiratory failure with hypoxia; G93.41 Metabolic encephalopathy; I48.20 Chronic atrial fibrillation, unspecified; I50.32 Chronic diastolic (congestive) heart failure; I13.2 Hypertensive heart and chronic kidney disease with heart failure and with stage 5 chronic kidney disease, or end stage renal disease; N25.81 Secondary hyperparathyroidism of renal origin; R68.0 Hypothermia, not associated with low environmental temperature; E11.51 Type 2 diabetes mellitus with diabetic peripheral angiopathy without gangrene; E11.22 Type 2 diabetes mellitus with diabetic chronic kidney disease; E11.65 Type 2 diabetes mellitus with hyperglycemia; J44.9 Chronic obstructive pulmonary disease, unspecified; I27.20 Pulmonary hypertension, unspecified; I95.89 Other hypotension; Z66 Do not resuscitate; G40.909 Epilepsy, unspecified, not intractable, without status epilepticus; D63.1 Anemia in chronic kidney disease; Z91.15 Patient's noncompliance with renal dialysis; Z87.891 Personal history of nicotine dependence; Z91.19 Patient's noncompliance with other medical treatment and regimen; Z99.2 Dependence on renal dialysis; Z79.01 Long term (current) use of anticoagulants; Z79.4 Long term (current) use of insulin; Z79.899 Other long term (current) drug therapy

== ENCOUNTER 2020-08-26 12:11 | Emergency (ER) | payer MEDICARE, MEDICAID ==
[~2020-08-26] VITALS: Ht 165.1 cm; Wt 72.9 kg
[2020-08-26] MEDS ORDERED: NS 500 ML IV ONE (12:30)
[2020-08-26 13:34] LABS: BASO % 0.2 % (0.0-1.0); EOS % 0.6 % (0.0-3.0); HEMATOCRIT 38.5 % (42.0-52.0); HEMOGLOBIN 11.3 g/dl (13.5-17.5); LYMPH # 0.2 10^3/uL (1.5-5.0); LYMPH % 4.5 % (24.0-44.0); MEAN CORPUSCULAR HEMOGLOBIN 33.1 pg (27.0-33.0); MEAN CORPUSCULAR HGB CONC 29.4 g/dl (32.0-36.5); MEAN CORPUSCULAR VOLUME 112.9 fl (80.0-96.0); MONO # 0.5 10^3/uL (0.0-0.8); MONO % 9.3 % (0.0-5.0); NEUTROPHILS # 4.1 10^3/uL (1.5-8.5); PLATELET COUNT, AUTOMATED 187 10^3/uL (150-450); RED BLOOD COUNT 3.41 10^6/uL (4.30-6.10); WHITE BLOOD COUNT 4.9 10^3/uL (4.0-10.0)
--- NOTE | 2020-08-26 13:47 | REP ---
INDICATION: fall COMPARISON: 08/25/2020 TECHNIQUE: Axial noncontrast images from the skull base to the thoracic inlet with coronal reformations. This CT examination was performed using the following dose reduction techniques: Automated exposure control, adjustment of mA and/or kv according to the patient's size, and use of iterative reconstruction technique. FINDINGS: Age-related changes are appreciated. The ventricles and sulci are symmetric. Toussaint-white differentiation is maintained. There is no evidence for acute intracranial hemorrhage, mass/mass effect, pathology or infarction. No extra-axial fluid collection. Calvarium is intact. Paranasal sinuses and mastoid air cells are clear. IMPRESSION: Age related changes. No acute intracranial hemorrhage, infarction, or mass/mass effect. <Electronically signed by Ayaan Da Silva > 08/26/20 [id number]
[2020-08-26 14:10] VITALS: BP 90/62
[2020-08-26 14:23] LABS: ALBUMIN 1.8 GM/DL (3.2-5.2); BILIRUBIN,DIRECT 0.1 MG/DL (0.0-0.2); BILIRUBIN,TOTAL 0.4 MG/DL (0.2-1.0); CALCIUM LEVEL 7.1 MG/DL (8.5-10.1); CK-MB VALUE MASS 6.4 NG/ML (<3.6); CREATININE FOR GFR 5.44 MG/DL (0.70-1.30); GLOMERULAR FILTRATION RATE 11.6 (>56); MB/CK RELATIVE INDEX 7.53 (< OR =4); POTASSIUM SERUM 4.5 MEQ/L (3.5-5.1); TOTAL PROTEIN 5.8 GM/DL (6.4-8.2); TROPONIN I 0.43 NG/ML (< 0.10)
== END 2020-08-26 15:04 | disposition home or self-care (01) ==
LOC: M ED 12:11 → EDBD 12:11 → M ED 15:04
DX: I95.9 Hypotension, unspecified (principal); E11.22 Type 2 diabetes mellitus with diabetic chronic kidney disease; N18.6 End stage renal disease; I12.0 Hypertensive chronic kidney disease with stage 5 chronic kidney disease or end stage renal disease; I27.20 Pulmonary hypertension, unspecified; Z87.19 Personal history of other diseases of the digestive system; Z79.899 Other long term (current) drug therapy; Z79.4 Long term (current) use of insulin; Z79.01 Long term (current) use of anticoagulants; F17.200 Nicotine dependence, unspecified, uncomplicated; Z91.19 Patient's noncompliance with other medical treatment and regimen; Z99.2 Dependence on renal dialysis

== ENCOUNTER 2020-08-26 16:52 | Observation (INO) | payer MEDICARE, MEDICAID ==
[~2020-08-26] VITALS: Ht 167.6 cm; Wt 77.9 kg
[2020-08-26 17:27] LABS: VENOUS BASE EXCESS -7.2 (-2.0-2.0); VENOUS HCO3 24.7 MEQ/L (23.0-27.0); VENOUS O2 SATURATION 89.6 % (60.0-80.0); VENOUS PARTIAL PRESSURE CO2 89.5 mmHg (38.0-50.0); VENOUS PARTIAL PRESSURE O2 72.1 mmHg (30.0-50.0); VENOUS PH 7.059 UNITS (7.330-7.430); VENOUS STANDARD HCO3 18.5 MEQ/L; VENOUS TOTAL CO2 27.5 MEQ/L (24.0-28.0)
[2020-08-26 18:11] LABS: INR 1.41; PROTHROMBIN TIME 17.6 SECONDS (12.5-14.3)
[2020-08-26 18:16] LABS: CK-MB VALUE MASS 7.2 NG/ML (<3.6); MB/CK RELATIVE INDEX 8.67 (< OR =4); TROPONIN I 1.05 NG/ML (< 0.10)
--- NOTE | 2020-08-26 18:36 | REP ---
INDICATION: sob COMPARISON: 08/25/2020 TECHNIQUE: Portable AP view of the chest FINDINGS: The mediastinum and cardiac silhouette are stable with cardiomegaly again noted. Subtle scattered patchy infiltrates cannot be excluded. No effusion. No pneumothorax. Skeletal structures intact. IMPRESSION: Cannot exclude patchy scattered infiltrates primarily noted at the right base. <Electronically signed by Ayaan Da Silva > 08/26/20 [id number]
[2020-08-26] MEDS ORDERED: MAALOX 30 ML SUSP *UDC PO PRN (18:45)
[2020-08-26] MEDS ORDERED: ACETAMINOPHEN TAB 650MG DOSE (2X325MG) PO PRN (18:45)
[2020-08-26] MEDS ORDERED: MOM 30ML SUSPENSION UDC PO PRN (18:45)
--- NOTE | 2020-08-26 18:52 | HPEPDOC ---
[facility] Medical History & Physical Date of Admission Aug 26, 2020 Date of Service: Aug 26, 2020 History and Physical CHIEF COMPLAINT: SHORTNESS OF BREATH HISTORY OF PRESENT ILLNESS: 55 yo COPD, diastolic heart failure, severe pulmonary hypertension, right-sided heart failure, chronic atrial fibrillation on anticoagulation, diabetic nephropathy with recurrent hypoglycemia, chronic hypotension, end-stage renal disease on maintenance dialysis Friday, , Friday, was sent to ED from [facility], was interrupted after 1 hour due to hypotension. Patient was seen in the ED earlier today, but was discharged as he did not want to stay. He is found to be in hypercapnic respiratory failure, placed on BiPAP. However, he continues to refuse BiPAP, is agitated and rude to ED staff. He reports SOB, LE swelling, extremely poor exercise tolerance. He denies fevers, chills, n/v/d, chest pain and palpitations. Labs reviewed in ED. ABG pH 7.11.pCO2 80.4. HCO3 25.8. Trop 1.05. BPN 85432,CKMB 7.2. No acute ischemic changes on EKG. BP 77/51. HR 111. T 96.1. 96% on bipap. 18 cm H20, 30% FiO2. PAST MEDICAL HISTORY: COPD, diastolic heart failure, severe pulmonary hypertension, right-sided heart failure, atrial fibrillation and anticoagulation, hypertension, diabetic nephropathy with recurrent hypoglycemia, chronic hypotension, end-stage renal disease on maintenance dialysis Friday, , Friday, history of seizure disorder, pericarditis, anemia of chronic kidney disease, secondary hyperparathyroidism, history of medical noncompliance signs out AGAINST MEDICAL ADVICE, history of pericardial effusion and pleural effusions PAST SURGICAL HISTORY: Left AV fistula. SOCIAL HISTORY: Occasional marijuana Lives alone. No healtchare proxy Stated specifically he does not want to be resuscitated in the event of cardiopulmonary arrest He specified that he wants to be DNR to staff on 08/25/[address] Man of ICU, Dr. Burgos and today on 08/26 to me. FAMILY HISTORY: no history of renal disease. ALLERGIES: Please see below. REVIEW OF SYSTEMS: Review of Systems Limited. Patient is tachypneic on BiPAP Denies chest pain, palpitations, left arm pain, jaw pain, fevers or chills HOME MEDICATIONS: Please see below. PHYSICAL EXAMINATION: VITAL SIGNS: please see below General: NAD, comfortable HEENT: PERRLA, EOMI, sclerae clear Neck: supple, normal ROM, no JVD Respiratory: lungs CTAB, no wheeze, no rales, no crackles CVS: RRR, normal S1, S2, no murmurs Abdo: soft, no masses, no hepatosplenomegaly, BS+, no rebound tenderness Extremities: no edema, pulses 2+ MSK: no joint deformities, normal ROM Neuro: no focal neuro deficits, moving all 4 extremities, CN2-12 intact. Strength 5/5 in all 4 extremities. No nystagmus. Psych: calm, cooperative, AAO x 3 LABORATORY DATA: See below. IMAGING: MICROBIOLOGY: Please see below. ASSESSMENT: 55 yo M with hx of severe pulmonary HTN/cor pulmonal/HFpEF, ESRD, afib, HTN, DM2, non compliance and extensive hx of LEAVING AMA, was sent to ED from dialysis clinic due to hypotension. Was only able to complete 1 hour of HD. Placed on BiPap for acute hypercapnic respiratory failure. Admit to ICU. PLAN: #HFpEF #Cor pulmonale #Severe pulmonary hypertension #Acute hypercapnic respiratory failure - diffuse crackles bilateraly - likely 2/2 fluid overload, BNP 90250 - placed on BiPap in ED, however patient was refusing - Pulmonary consulted for BiPAP management, d/w Dr. Man - c/w inhaled therapy #ESRD HD TTS - nephrology consulted - Dw Dr. Mosqueda, HD not possibly at this time due to hypotension - will trial midodrine as patient had modest response in past. #chronic afib #elevated troponin - Trop 0.45, increase to 1.05 - no ischemic changes on ekg - no chest pain - on eliqiuis - troponin elevation in setting of ESRD - unstable for transfer at this time due to acute hypercapnic respiratory failure - continue to trend Trop, EKGs. #Hypotension - severe hypotension, prevented completion of dialysis - he had responded to midodrine in past, will start on 5 mg po tid - due to hypotension, diuresis is not possible at this time, and per Dr. Mosqueda dialysis is precluded #DM2 - ISS - hypoglycemic precs - FSBS AC and HS #seizure disorder - resume meds #non compliance #extensive hx of leaving AMA #frequent missed dialysis CODE STATUS: DNR/DNI Vital Signs Vital Signs Date Time Temp Pulse Resp B/P (MAP) Pulse Ox O2 Delivery O2 Flow Rate FiO2 08/26/20 18:00 104 99/54 (69) 94 08/26/20 17:30 30 08/26/20 17:18 Nasal Cannula 2.0 08/26/20 17:07 96.2 26 Laboratory Data Labs 24H Laboratory Tests 2 08/26/20 17:14: Blood Gas Bicarbonate Standard 18.5, Venous Blood pH 7.059L, Venous Blood Partial Pressure CO2 89.5H, Venous Blood Partial Pressure O2 72.1H, Venous Blood Total Carbon Dioxide 27.5, Venous Blood HCO3 24.7, Venous Blood Oxygen Saturation 89.6H, Venous Blood Base Excess -7.2L, Total Creatine Kinase 83, Creatine Kinase MB 7.2H, Creatine Kinase MB Relative Index 8.67H, Troponin I 1.05#H, QY-Xer-L-Type Natriuretic Peptide [id number] 08/26/20 17:15: POC pH (Misc Panel) 7.114*L, POC Base Excess (Misc Panel) -4.0L, POC Saturated Percent O2 (Misc) 99H, POC pO2 (Misc Panel) 160.0H, POC pCO2 (Misc Panel) 80.4*H, POC HCO3 (Misc Panel) 25.8, POC Total CO2 (Misc Panel) 28.0H 08/26/20 17:48: Prothrombin Time 17.6H, Prothromb Time International Ratio 1.41 Home Medications Scheduled Amiodarone HCl (Amiodarone HCl) 200 Mg Tablet, 200 MG PO DAILY Apixaban (Eliquis) 5 Mg Tablet, 5 MG PO BID Carbamazepine (Carbamazepine ER) 400 Mg Tab.er.12h, 400 MG PO BID Cranberry Fruit Extract/Vit C (Azo Cranberry Softgel) 1 Each Capsule, 2 CAP PO TID Ergocalciferol (Vitamin D2) (Vitamin D2) 50,000 Units Cap, 50,000 UNITS PO QWEEK PATIENT TAKES ON FRIDAY Ferric Citrate (Auryxia) 210 Mg Tablet, 630 MG PO WM Insulin Glargine (Lantus) 1 Units/0.01 Ml Susp, 26 UNITS SC DAILY Insulin Human Lispro (Humalog) 1 Units/0.01 Ml Inj, 1 DOSE SC ACHS PER SLIDING SCALE Lanthanum Carbonate (Fosrenol) 750 Mg Powd.pack, 750 MG PO WM Lidocaine/Prilocaine (Lidocaine-Prilocaine Cream) 2.5%/2.5% Cream..g., 1 DOSE TOP 3XW PRIOR TO DIALYSIS: FRIDAY, FRIDAY AND FRIDAY Lipase/Protease/Amylase (Zenpep Dr 5,000 Unit Capsule) 1 Each Capsule.dr, 30,000 UNITS PO WM Metoprolol Tartrate (Metoprolol Tartrate) 25 Mg Tablet, 12.5 MG PO BID Scheduled PRN Albuterol Sulfate (Proair Hfa) 8.5 Gm Hfa.aer.ad, 2 PUFFS INH QID PRN for SHORTNESS OF BREATH Allergies Coded Allergies: No Known Allergies (Unverified , 08/11/20) A-FIB/CHADSVASC A-FIB History Current/History of A-Fib/PAF?: Yes Current PO Anticoag Therapy: Yes ESTEFANY HILL MD Aug 26, 2020 18:52
[2020-08-26] MEDS ORDERED: MIDODRINE 5 MG TAB PO SCH (19:00)
[2020-08-26] MEDS ORDERED: GLUCAGON INJ 1MG VIAL SC PRN (19:15)
[2020-08-26] MEDS ORDERED: GLUCOSE 4GM CHEW TABLET PO PRN (19:15)
[2020-08-26] MEDS ORDERED: DEXTROSE 50% 50 ML SYRINGE IV PRN (19:15)
[2020-08-26] MEDS ORDERED: APIXABAN 5 MG TAB (ELIQUIS) PO SCH (21:00)
[2020-08-26] MEDS ORDERED: carBAMazepine XR 200 MG TAB PO SCH (21:00)
[2020-08-26] MEDS ORDERED: HumaLOG INSULIN (NovoLOG) PER UNIT SC SCH (21:00)
[2020-08-26] MEDS ORDERED: DOCUSATE SODIUM 100MG CAPSULE PO SCH (21:00)
[2020-08-26 21:42] VITALS: BP 88/52
[2020-08-26 22:00] VITALS: BP 92/51
[2020-08-26] MEDS ORDERED: HEPARIN SOD (PORCINE) 5000UNITS/ML 1ML VIAL/SYRINGE SC SCH (22:00)
--- NOTE | 2020-08-26 22:29 | IPNPDOC ---
Text Note Date of Service The patient was seen on 08/26/20. NOTE TIME OF SERVICE 1020 I was informed by the patient's RN January that the patient's Troponin had increased. The patient has a history of leaving AMA and refusing care. Based on ER in take notes he was refusing various procedures earlier on today including CT of the head. Prior to consulting the [employer] integration engineer and or transfer center, I talked to the patient. He denied having any chest pain. I informed him that his troponin, an enzyme from the heart is high and it might mean that he is having a heart attack. I asked him if he wanted me to do anything about it, and he said "NO". I asked him again if he wanted me to just leave the issue alone and he said "YES". The EKG showed aflutter w a rate of 107. Nevertheless I called just to confirm whether the patient needs additional meds. added that this is 's patient and his status is DNR/DNI comfort measures only. This patient has a poor prognosis and we should not change is meds or add additional AC to his regimen. 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 VS,Fishbone, I+O VS, Farhanbone, I+O Vital Signs Date Time Temp Pulse Resp B/P (MAP) Pulse Ox O2 Delivery O2 Flow Rate FiO2 08/26/20 21:15 110 18 87/49 (62) 99 Nasal Cannula 2.0 08/26/20 17:30 30 08/26/20 17:07 96.2 IMMANUEL BECK MD Aug 26, 2020 22:29
[2020-08-26 22:30] VITALS: BP 87/51
[2020-08-26] MEDS ORDERED: ASPIRIN 81 MG CHEW TABLET PO ONE (22:45)
[2020-08-26 23:00] VITALS: BP 91/50
[2020-08-26 23:35] VITALS: BP 75/52
[2020-08-27 00:16] VITALS: BP 80/53
[2020-08-27 02:45] VITALS: BP 74/47
[2020-08-27 03:00] VITALS: BP 82/52
[2020-08-27] MEDS ORDERED: LIDOCAINE 5% (LIDODERM) PATCH TD SCH ×2 (03:15→21:00)
[2020-08-27 03:45] LABS: ABG BASE EXCESS -5.3 (-2.0-2.0); ABG HCO3 24.7 MEQ/L (22.0-26.0); ABG O2 SATURATION 92.5 % (95.0-99.0); ABG PARTIAL PRESSURE O2 77.6 mmHg (75.0-100.0)
[2020-08-27 03:46] LABS: ABG PARTIAL PRESSURE CO2 73.3 mmHg (35.0-45.0); ABG pH (ARTERIAL) 7.146 UNITS (7.350-7.450)
[2020-08-27] MEDS ORDERED: MORPHINE 10 MG/ML 1ML VIAL (J2270) As Ordered ONE (03:56)
[2020-08-27] MEDS ORDERED: MORPHINE 4 MG/ML 1ML VIAL/SYRINGE (J2270) IV ONE (04:00)
[2020-08-27] MEDS ORDERED: ONDANSETRON 4 MG ORAL DISINTEGRATING TAB PO PRN (04:00)
[2020-08-27] MEDS ORDERED: LORazepam 2 MG/ML VIAL IV PRN ×3 (04:00→05:45)
[2020-08-27] MEDS ORDERED: SCOPOLAMINE 1MG TRANSDERMAL PATCH TOP PRN (04:15)
[2020-08-27] MEDS ORDERED: LORazepam 1 MG TAB PO PRN (04:15)
[2020-08-27] MEDS ORDERED: MORPHINE 2 MG/ML 1ML VIAL (J2270) IV PRN (04:15)
[2020-08-27] MEDS ORDERED: HYDROMORPHONE HCL 0.5 MG/ 0.5 ML SYRINGE (J1170 PER 1) IV PRN ×4 (04:45→06:00)
[2020-08-27] MEDS ORDERED: LORazepam 2 MG/ML VIAL As Ordered ONE (05:15)
[2020-08-27] MEDS ORDERED: HumaLOG INSULIN (NovoLOG) PER UNIT SC SCH (07:30)
[2020-08-27] MEDS ORDERED: ASPIRIN 81 MG CHEW TABLET PO SCH (09:00)
[2020-08-27] MEDS ORDERED: LEVEMIR (INSULIN DETEMIR) 1 UNITS/0.01ML SC SCH (09:00)
[2020-08-27] MEDS ORDERED: AMIODARONE 200 MG TAB (PACERONE) PO SCH (09:00)
[2020-08-27] MEDS ORDERED: **NOTE PATIENT COMMENT** MISC XX SCH (09:00)
--- NOTE | 2020-08-27 12:01 | IPNPDOC ---
Date Seen The patient was seen on 08/27/20. Progress Note * Note* I assessed patient at 11:44 am. There was no response to verbal or tactile stimuli. No spontaneous movement or chest rise was seen. No carotid pulses were palpable. No heart sounds were auscultated over the entire precordium. No breath sounds were auscultated over entire lung field. Corneal reflex was absent. Pupils were mid dilated and fixed and not responsive to light. Time of 11:44 am on 08/27/20. Cause of : Cardiogenic shock secondary to acute coronary syndrome, complicated by severe pulmonary hypertension and end-stage renal disease. 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 I spoke to patient's only known family Mrs. Dianne Vaughn at [phone] and I have informed her of her brother's . I answered her questions at length. [place] [facility] [place], 24H, [facility] Vital Signs/I&O Vital Signs Date Time Temp Pulse Resp B/P (MAP) Pulse Ox O2 Delivery O2 Flow Rate FiO2 08/27/20 03:00 111 20 82/52 (62) 100 Room Air 08/27/20 00:16 97.4 2.0 08/26/20 17:30 30 I&O- Last 24 Hours up to 6 AM 08/27/20 06:00 Intake Total 60 ml Output Total 0 ml Balance 60 ml Laboratory Data 24H LABS Laboratory Tests 2 08/26/20 17:14: Blood Gas Bicarbonate Standard 18.5, Venous Blood pH 7.059L, Venous Blood Partial Pressure CO2 89.5H, Venous Blood Partial Pressure O2 72.1H, Venous Blood Total Carbon Dioxide 27.5, Venous Blood HCO3 24.7, Venous Blood Oxygen Saturation 89.6H, Venous Blood Base Excess -7.2L, Total Creatine Kinase 83, Creatine Kinase MB 7.2H, Creatine Kinase MB Relative Index 8.67H, Troponin I 1.05#H, LR-Yib-P-Type Natriuretic Peptide [id number] 08/26/20 17:15: POC pH (Misc Panel) 7.114*L, POC Base Excess (Misc Panel) -4.0L, POC Saturated Percent O2 (Misc) 99H, POC pO2 (Misc Panel) 160.0H, POC pCO2 (Misc Panel) 80.4*H, POC HCO3 (Misc Panel) 25.8, POC Total CO2 (Misc Panel) 28.0H 08/26/20 17:48: Prothrombin Time 17.6H, Prothromb Time International Ratio 1.41 08/26/20 19:24: POC pH (Misc Panel) 7.158*L, POC Base Excess (Misc Panel) -4.0L, POC Saturated Percent O2 (Misc) 93L, POC pO2 (Misc Panel) 86.0, POC pCO2 (Misc Panel) 69.9*H, POC HCO3 (Misc Panel) 24.8, POC Total CO2 (Misc Panel) 27.0 08/26/20 19:35: Coronavirus (COVID-19)(PCR) NEGATIVE 08/26/20 20:42: Bedside Glucose (Misc Panel) 74 08/26/20 21:31: Troponin I 1.61#*H 08/26/20 21:50: Bedside Glucose (Misc Panel) 75 08/27/20 02:02: Troponin I 1.92*H 08/27/20 03:41: Blood Gas Bicarbonate Standard 20.0L, Arterial Blood pH 7.146*L, Arterial Blood Partial Pressure CO2 73.3*H, Arterial Blood Partial Pressure O2 77.6, Arterial Blood Total CO2 27.0, Arterial Blood HCO3 24.7, Arterial Blood Base Excess - 5.3L, Arterial Blood Oxygen Saturation 92.5L ESTEFANY HILL MD Aug 27, 2020 12:01
--- NOTE | 2020-08-27 12:04 | DS.PDOC ---
Discharge Summary General Date of Admission Aug 26, 2020 at 16:53 Date of Discharge 08/27/20 Discharge Summary PROCEDURES PERFORMED DURING STAY: None ADMITTING DIAGNOSES: Acute hypercapnic respiratory failure Severe pulmonary hypertension Cor pulmonale HFpEF ESRD on HD chronic atrial fibrillation elevated troponin Hypotension DM2 Seizure disorder Non compliance Hx of frequent leaving AMA Frequent missed dialysis DISCHARGE DIAGNOSES: Cardiogenic shock Acute hypercapnic respiratory failure Severe pulmonary hypertension Cor pulmonale HFpEF ESRD on HD chronic atrial fibrillation elevated troponin Hypotension DM2 Seizure disorder Non compliance Hx of frequent leaving AMA Frequent missed dialysis COMPLICATIONS/CHIEF COMPLAINT: Esrd,Hypercapnic Resp Failure,Hypotension,Noncompl. HISTORY OF PRESENT ILLNESS: 55 yo COPD, diastolic heart failure, severe pulmonary hypertension, right-sided heart failure, chronic atrial fibrillation on anticoagulation, diabetic nephropathy with recurrent hypoglycemia, chronic hypotension, end-stage renal disease on maintenance dialysis Friday, , Friday, was sent to ED from [facility], was interrupted after 1 hour due to hypot ension. Patient was seen in the ED earlier today, but was discharged as he did not want to stay. He is found to be in hypercapnic respiratory failure, placed on BiPAP. However, he continues to refuse BiPAP, is agitated and rude to ED staff. He reports SOB, LE swelling, extremely poor exercise tolerance. He denies fevers, chills, n/v/d, chest pain and palpitations. Labs reviewed in ED. ABG pH 7.11.pCO2 80.4. HCO3 25.8. Trop 1.05. BPN 19879,CKMB 7.2. No acute ischemic changes on EKG. BP 77/51. HR 111. T 96.1. 96% on bipap. 18 cm H20, 30% FiO2. HOSPITAL COURSE: Patient was admitted to ICU, continue to refuse BiPAP. Troponin continued to rise, and he was assessed by night provider. Patient was informed that he may be having a heart attack but patient declined intervention and asked for the issue to be left alone. Due to hypotension, Dr. Man was consulted to assist with central line placement, however patient refused. On Dr. Diana's arrival to bedside, patient stated that he did not wish additional intervention and wanted medical team to focus on making him comfortable. 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 He at 11:44 am on 08/27/20 due to cardiogenic shock secondary to acute coronary syndrome, complicated by severe pulmonary hypertension, cor pulmonale and ESRD. Patient's sister Dianne Vaughn was informed of passing, all questions were answered. [place] [facility] [place]CHARGE MEDICATIONS: Please see below. ALLERGIES: Please see below. PHYSICAL EXAMINATION ON DISCHARGE: There was no response to verbal or tactile stimuli. No spontaneous movement or chest rise was seen. No carotid pulses were palpable. No heart sounds were auscultated over the entire precordium. No breath sounds were auscultated over entire lung field. Corneal reflex was absent. Pupils were mid dilated and fixed and not responsive to light. LABORATORY DATA: Please see below. IMAGING: CXR 08/26/20 FINDINGS: The mediastinum and cardiac silhouette are stable with cardiomegaly again noted. Subtle scattered patchy infiltrates cannot be excluded. No effusion. No pneumothorax. Skeletal structures intact. IMPRESSION: Cannot exclude patchy scattered infiltrates primarily noted at the right base. DISPOSITION: [place] [facility] [place]GE CONDITION: / TIME SPENT ON DISCHARGE: 15 minutes Vital Signs/I&Os Vital Signs Date Time Temp Pulse Resp B/P (MAP) Pulse Ox O2 Delivery O2 Flow Rate FiO2 08/27/20 03:00 111 20 82/52 (62) 100 Room Air 08/27/20 00:16 97.4 2.0 08/26/20 17:30 30 I&O- Last 24 Hours up to 6 AM 08/27/20 06:00 Intake Total 60 ml Output Total 0 ml Balance 60 ml Laboratory Data Labs 24H Laboratory Tests 2 08/26/20 17:14: Blood Gas Bicarbonate Standard 18.5, Venous Blood pH 7.059L, Venous Blood Partial Pressure CO2 89.5H, Venous Blood Partial Pressure O2 72.1H, Venous Blood Total Carbon Dioxide 27.5, Venous Blood HCO3 24.7, Venous Blood Oxygen Saturation 89.6H, Venous Blood Base Excess -7.2L, Total Creatine Kinase 83, Creatine Kinase MB 7.2H, Creatine Kinase MB Relative Index 8.67H, Troponin I 1.05#H, FD-Eqj-V-Type Natriuretic Peptide [id number] 08/26/20 17:15: POC pH (Misc Panel) 7.114*L, POC Base Excess (Misc Panel) -4.0L, POC Saturated Percent O2 (Misc) 99H, POC pO2 (Misc Panel) 160.0H, POC pCO2 (Misc Panel) 80.4*H, POC HCO3 (Misc Panel) 25.8, POC Total CO2 (Misc Panel) 28.0H 08/26/20 17:48: Prothrombin Time 17.6H, Prothromb Time International Ratio 1.41 08/26/20 19:24: POC pH (Misc Panel) 7.158*L, POC Base Excess (Misc Panel) -4.0L, POC Saturated Percent O2 (Misc) 93L, POC pO2 (Misc Panel) 86.0, POC pCO2 (Misc Panel) 69.9*H, POC HCO3 (Misc Panel) 24.8, POC Total CO2 (Misc Panel) 27.0 08/26/20 19:35: Coronavirus (COVID-19)(PCR) NEGATIVE 08/26/20 20:42: Bedside Glucose (Misc Panel) 74 08/26/20 21:31: Troponin I 1.61#*H 08/26/20 21:50: Bedside Glucose (Misc Panel) 75 08/27/20 02:02: Troponin I 1.92*H 08/27/20 03:41: Blood Gas Bicarbonate Standard 20.0L, Arterial Blood pH 7.146*L, Arterial Blood Partial Pressure CO2 73.3*H, Arterial Blood Partial Pressure O2 77.6, Arterial Blood Total CO2 27.0, Arterial Blood HCO3 24.7, Arterial Blood Base Excess - 5.3L, Arterial Blood Oxygen Saturation 92.5L FSBS Laboratory Tests Test 08/26/20 20:42 08/26/20 21:50 Range/Units Bedside Glucose (Misc Panel) 74 75 70-105 MG/DL Discharge Medications Scheduled Amiodarone HCl (Amiodarone HCl) 200 Mg Tablet, 200 MG PO DAILY, (Reported) Apixaban (Eliquis) 5 Mg Tablet, 5 MG PO BID, (Reported) Carbamazepine (Carbamazepine ER) 400 Mg Tab.er.12h, 400 MG PO BID, (Reported) Cranberry Fruit Extract/Vit C (Azo Cranberry Softgel) 1 Each Capsule, 2 CAP PO TID, (Reported) Ergocalciferol (Vitamin D2) (Vitamin D2) 50,000 Units Cap, 50,000 UNITS PO QWEEK, (Reported) PATIENT TAKES ON FRIDAY Ferric Citrate (Auryxia) 210 Mg Tablet, 630 MG PO WM, (Reported) Insulin Glargine (Lantus) 1 Units/0.01 Ml Susp, 26 UNITS SC DAILY, (Reported) Insulin Human Lispro (Humalog) 1 Units/0.01 Ml Inj, 1 DOSE SC ACHS, (Reported) PER SLIDING SCALE Lanthanum Carbonate (Fosrenol) 750 Mg Powd.pack, 750 MG PO WM, (Reported) Lidocaine/Prilocaine (Lidocaine-Prilocaine Cream) 2.5%/2.5% Cream..g., 1 DOSE TOP 3XW, (Reported) PRIOR TO DIALYSIS: FRIDAY, FRIDAY AND FRIDAY Lipase/Protease/Amylase (Zenpep Dr 5,000 Unit Capsule) 1 Each Capsule.dr, 30,000 UNITS PO WM, (Reported) Metoprolol Tartrate (Metoprolol Tartrate) 25 Mg Tablet, 12.5 MG PO BID, (Reported) Scheduled PRN Albuterol Sulfate (Proair Hfa) 8.5 Gm Hfa.aer.ad, 2 PUFFS INH QID PRN for SHORTNESS OF BREATH, (Reported) Allergies Coded Allergies: No Known Allergies (Unverified , 08/11/20) ESTEFANY HILL MD Aug 27, 2020 12:04
[2020-08-27] MEDS ORDERED: ATORVASTATIN 20 MG TAB PO SCH (21:00)
--- NOTE | 2020-08-28 07:26 | ECGEPIP ---
[facility] Test Date: 2020-08-26 Pat Name: BRANDI DOMINGUEZ Department: Room: [place] [address] Gender: Male Hotel Associate: MARIE : 1965 Requested By: ESTEFANY HILL Order Number: [id number] Reading MD: Beba Diaz Measurements Intervals [place] Rate: 107 P: LA: 0 QRS: 163 QRSD: 110 T: -6 QT: 344 QTc: 460 Interpretive Statements ATRIAL FLUTTER/TACHYCARDIA WITH RAPID VENTRICULAR RESPONSE MARKED RIGHT AXIS DEVIATION PATTERN CONSISTENT WITH PULMONARY DISEASE RIGHT BUNDLE BRANCH BLOCK SIMILAR TO 08/25/20 Electronically Signed on 08-28-2020 7:26:00 EST by Beba Diaz
--- NOTE | 2020-08-28 07:28 | ECGEPIP ---
[facility] Test Date: 2020-08-27 Pat Name: BRANDI DOMINGUEZ Department: Room: [place] [address] Gender: Male Regrader: RICKIE : 1965 Requested By: ESTEFANY HILL Order Number: [id number] Reading MD: Beba Diaz Measurements Intervals [place] Rate: 119 P: DC: 0 QRS: 244 QRSD: 111 T: 65 QT: 340 QTc: 479 Interpretive Statements ATRIAL FIBRILLATION/FLUTTER WITH RAPID VENTRICULAR RESPONSE MARKED RIGHT AXIS DEVIATION S1-S2-S3 PATTERN, CONSISTENT WITH PULMONARY DISEASE, RVH, OR NORMAL VARIANT PATTERN CONSISTENT WITH PULMONARY DISEASE INCOMPLETE RIGHT BUNDLE BRANCH BLOCK LEAD V4 IS MISSING SIMILAR TO 08/26/20 Electronically Signed on 08-28-2020 7:27:51 EST by Beba Diaz
--- NOTE | 2020-08-28 10:03 | ECHO ---
DATE OF PROCEDURE: 08/26/2020 Age: 55 Gender: Male Height: 65 inches Weight: 150 pounds Body surface area: 1.75 m2 PATIENT LOCATION: Inpatient ICU. REFERRING PHYSICIAN: Dr. Curtis INDICATION: Shortness of breath. Hypotension. MEASUREMENTS: 2D Measurements: RV 4.8 cm LV 4.1 cm Septum 1.1 cm Posterior wall 1.1 cm Aortic Root 3.2 cm LA 4.6 cm LVEF 60% Doppler Measurements: AV 1.87 m/s LVOT 1.28 m/s LVOT diameter 2.0 cm MV-E 256 Mean MV diastolic gradient 11 mmHg PV 1.2 msec Pulmonary artery acceleration time 85 msec RVSP 90 mmHg IVC 2.3 cm COMMENTS: Underlying atrial fibrillation with controlled ventricular response. Right bundle branch block. M-mode and two-dimensional echocardiography was performed with pulse, continuous wave, color flow, and tissue Doppler studies. Normal left ventricular size with left ventricular (LV) wall thickness upper limits of normal. Obvious D-shaped septum, especially during systolic in keeping with right ventricular pressure overload. Other left ventricular de luna move normally with preserved global resting left ventricular systolic function. Moderately dilated left atrium. Moderately dilated right ventricular with reduced right ventricular free wall motion and Doppler evidence of severe pulmonary hypertension. Prominently dilated right atrium and at least moderately dilated inferior vena cava (IVC) with absent respiratory collapse in keeping with markedly elevated central venous pressure. Normal aortic root diameters. Moderate aortic valvular sclerosis with adequate cusp separation and very mild aortic insufficiency. Severe mitral annular calcification with still visible mitral leaflet motion with Doppler evidence of at least a moderate degree of left ventricular (LV) inflow tract obstruction. Normal appearing tricuspid valve with severe tricuspid insufficiency. No apparent intracardiac mass. No pericardial effusion. A preliminary report of this study was relayed to the patients attending physician, Dr. Garcia, last evening when it was initially completed. Current dictation is a late entry. [facility]
--- NOTE | 2020-08-31 12:06 | CR ---
CONSULTATION REQUESTING PHYSICIAN: Kana Garcia MD CONSULTING PHYSICIAN: Dr. Mosqueda REASON FOR CONSULTATION: Management of end-stage renal disease and fluid overload. HISTORY OF PRESENT ILLNESS: Mr. Ernesto Jones is a 55-year-old male with past medical history of end-stage renal disease on hemodialysis q. Friday, , Friday, insulin dependent diabetic, history of COPD, chronic diastolic congestive heart failure, severe pulmonary hypertension, cor pulmonale, atrial fibrillation, hypertension, brittle diabetic, chronically noncompliant with outpatient dialysis and medications. He was admitted to the hospital twice in the last one week and both times, he signed against medical advice. He was being dialyzed again yesterday at the outpatient dialysis center and he was very hypotensive, very obtunded and weak, unable to answer any questions after about one hour of dialysis with inability to remove any fluid during dialysis. Nursing staff from dialysis transferred the patient to emergency room. In the emergency room, the patient was in hypercapnic respiratory failure with decompensated cor pulmonale. He was admitted under the hospitalist service to ICU last night. Pulmonary, critical care service was also called on board. The case was discussed with myself by admitting physician, Dr. Kana Garcia. Because of severe hypotension, he was not a candidate for hemodialysis at the bedside. The patient was placed on BiPAP last night. However, he was refusing the BiPAP. He had multiple comorbidities on admission including decompensated cor pulmonale, acute hypercapnic respiratory failure, non-ST elevation CA, severe hypotension. The patient kept on refusing all the treatments, medications and BiPAP. He was already DNR/DNI so intubation was not an option. Plan of care and further goals of care were discussed by the pulmonary service with the patient and he finally decided to make himself comfort measures only. All the medications were stopped. The patient was started on comfort medications and the patient peacefully at 11:44 a.m. today. His family was already informed by the hospitalist service. By the time I came to evaluate the patient, the patient had already . This note is for the record purpose. The patient will not be charged for any services from the nephrology associates for today's visit.
--- NOTE | 2020-08-31 15:43 | CCN ---
CRITICAL CARE NOTE DATE: 08/27/2020 01:24:00 pm I was called this morning to place a central line for this gentleman who had previously refused to be resuscitated, refused resuscitation, is DO NOT RESUSCITATE/DO NOT INTUBATE, has acute hypercarbic respiratory failure on chronic hypercarbic respiratory failure. Did not want bilevel noninvasive therapy, refused this, took the mask off. This is consistent with his wishes that he just expressed yesterday before he left against medical advice. I was called by Dr. Lopez to place a central line for hypotension, the patient refused stating he just wanted to be out of pain. I had a discussion with him regarding what it means to be comfort measures only and that we would not provide lifesaving measures if he converted his pathway of care to that of palliaviate. He states he wants palliative care. He understands that we would not be attempting to save his life. After extensive discussion, he has chosen to be comfort measures only. I have therefore written for morphine and I have notified his primary attending at this time, Dr. Lopez.
== END 2020-08-27 13:24 | disposition expired ==
LOC: EDBD 16:52 → M ED 16:52 → M ED INP 16:53 → ENRESERV 21:05 → M ICU 21:40
PROVIDERS: ADMIT Family Medicine; ATTEND Family Medicine
DX: R57.0 Cardiogenic shock (principal); I24.9 Acute ischemic heart disease, unspecified; I27.0 Primary pulmonary hypertension; R79.89 Other specified abnormal findings of blood chemistry; R65.11 Systemic inflammatory response syndrome (SIRS) of non-infectious origin with acute organ dysfunction; J96.12 Chronic respiratory failure with hypercapnia; E10.21 Type 1 diabetes mellitus with diabetic nephropathy; N18.6 End stage renal disease; I12.0 Hypertensive chronic kidney disease with stage 5 chronic kidney disease or end stage renal disease; I48.91 Unspecified atrial fibrillation; I50.810 Right heart failure, unspecified; I95.9 Hypotension, unspecified; Z91.19 Patient's noncompliance with other medical treatment and regimen; G47.33 Obstructive sleep apnea (adult) (pediatric); Z79.01 Long term (current) use of anticoagulants; Z79.4 Long term (current) use of insulin; Z79.899 Other long term (current) drug therapy; I27.20 Pulmonary hypertension, unspecified; F17.200 Nicotine dependence, unspecified, uncomplicated; Z99.2 Dependence on renal dialysis
CPT/HCPCS: 36415; 36600; 70450; 71045; 80048; 80076; 82550; 82553; 82803; 83690; 83880; 84484; 85025; 85610; 93005; 93306; 94660; 96372; 96374; 96375; 99284; 99285; G0378; J1644; J2060; J2270; U0002